=== PATIENT | male | born 1935 | race Caucasian/White ===

== ENCOUNTER 2019-06-14 17:54 | Inpatient (IN) | payer OTHER ==
[~2019-06-14] VITALS: Ht 175.3 cm; Wt 66.4 kg
--- NOTE | 2019-06-14 18:30 | PHYS DOC ---
Past Medical History Past Medical History: A-Fib, Anxiety, CAD, CHF, COPD, Depression, GERD, Glaucoma, High Cholesterol, Hypertension, [place], Renal Failure, Other Additional Past Medical Histor: pneumonitis,bandemia,resp failure,dysphagia,hallucinations,cdiff,flu,malnut (JASON SERNA APRN) Past Surgical History: Appendectomy, Pacemaker, Tonsillectomy, Other Additional Past Surgical Histo: PEG placement, colonoscopy (JASON SERNA APRN) Alcohol Use: Occasionally Drug Use: None (JASON SERNA APRN) Adult General Chief Complaint Chief Complaint: MECHANICAL FALL HPI HPI Patient is a 83 year old [male who presents with multiple falls over the last several weeks. Patient reportedly has had several falls, increasing over the last 3 weeks. Reports today he has had 2 falls. Reports that he is losing his balance. Denies any recent fever, denies any medication changes. Discomfort from assisted living facility. Patient complains some pain to his right wrist, per his fall today. Denies loss of consciousness, denies any dizziness. Denies any chest pain. Denies any shortness of breath. (JASON SERNA APRN) Review of Systems Review of Systems Constitutional: Denies fever or chills reports progressive generalized weakness for the last several weeks [] Eyes: Denies change in visual acuity, redness, or eye pain [] HENT: Denies nasal congestion or sore throat [] Respiratory: Denies cough or shortness of breath [] Cardiovascular: No additional information not addressed in HPI [] GI: Denies abdominal pain, nausea, vomiting, bloody stools or diarrhea [] : Denies dysuria or hematuria [] Musculoskeletal: Denies back pain or does complain of some pain into his right wrist[] Integument: Denies rash or skin lesions other than abrasion to had following his fall[] Neurologic: Denies headache, focal weakness or sensory changes [] Endocrine: Denies polyuria or polydipsia [] All other systems were reviewed and found to be within normal limits, except as documented in this note. (JASON SERNA APRN) Current Medications Current Medications Current Medications Medications (Trade) Dose Ordered Sig/Emilia Start Time Stop Time Status Last Admin Dose Admin Acetaminophen (Tylenol) 500 mg PRN Q6HRS PRN 06/14/19 19:45 Acetaminophen/ Codeine Phosphate (Tylenol #3) 1 tab PRN Q6HRS PRN 06/14/19 19:34 Acetaminophen/ Hydrocodone Bitart (Lortab 5/325) 1 tab PRN Q4HRS PRN 06/14/19 19:34 Calcium Carbonate/ Glycine (Tums) 500 mg PRN AFTMEALHC PRN 06/14/19 19:34 Fentanyl Citrate (Fentanyl 2ml Vial) 25 mcg PRN Q2HR PRN 06/14/19 19:30 Ondansetron HCl (Zofran) 4 mg PRN Q6HRS PRN 06/14/19 19:30 Temazepam (Restoril) 7.5 mg PRN QHS PRN 06/14/19 19:30 (SRIDHAR HERNANDEZ APRN) Allergies Allergies Allergies Coded Allergies Type Severity Reaction Last Updated Verified No Known Drug Allergies 06/14/19 No (SRIDHAR HERNANDEZ APRN) Physical Exam Physical Exam Constitutional: Well developed, chronically frail, no acute distress, non-toxic appearance. [] HENT: Normocephalic, atraumatic, bilateral external ears normal, oropharynx moist, no oral exudates, nose normal. [] Eyes: PERRLA, EOMI, conjunctiva normal, no discharge. [] Neck: Normal range of motion, no tenderness, supple, no stridor. [] Cardiovascular:Heart rate regular rhythm, no murmur [] Lungs & Thorax: Bilateral breath sounds clear to auscultation [] Abdomen: Bowel sounds normal, soft, no tenderness, no masses, no pulsatile masses. PEG tube noted in place [] Skin: Warm, dry, no erythema, no rash. Abrasion noted to right anterior confucianism, no active bleeding. Hematoma noted to right anterior wrist. [] Back: No tenderness, no CVA tenderness. [] Extremities: No tenderness, no cyanosis, no clubbing, ROM intact, no edema. Noticed swelling to the radial side, posterior wrist, with tenderness. Decreased range of motion, painful. Full range of motion to lower extremities, able to flex, extend, no discomfort noted[] Neurologic: Alert and oriented X 3, normal motor function, normal sensory function, no focal deficits noted. [] Psychologic: Affect normal, judgement normal, mood normal. [] (KAREEM, E OPERATION MANAGER) Current Patient Data Vital Signs Vital Signs Date Time Temp Pulse Resp B/P (MAP) Pulse Ox O2 Delivery O2 Flow Rate FiO2 06/14/19 18:01 99.3 95 24 122/65 (84) 91 Room Air 99.3 (SRIDHAR HERNANDEZ APRN) Lab Values Laboratory Tests Test 06/14/19 18:15 White Blood Count 18.1 x10^3/uL (4.0-11.0) H Red Blood Count 3.09 x10^6/uL (4.30-5.70) L Hemoglobin 9.4 g/dL (13.0-17.5) L Hematocrit 28.2 % (39.0-53.0) L Mean Corpuscular Volume 91 fL (79-100) Mean Corpuscular Hemoglobin 31 pg (25-35) Mean Corpuscular Hemoglobin Concent 34 g/dL (31-37) Red Cell Distribution Width 16.9 % (11.5-14.5) H Platelet Count 380 x10^3/uL (140-400) Neutrophils (%) (Auto) 87 % (31-73) H Lymphocytes (%) (Auto) 7 % (24-48) L Monocytes (%) (Auto) 5 % (0-9) Eosinophils (%) (Auto) 1 % (0-3) Basophils (%) (Auto) 0 % (0-3) Neutrophils # (Auto) 15.8 x10^3/uL (1.8-7.7) H Lymphocytes # (Auto) 1.2 x10^3/uL (1.0-4.8) Monocytes # (Auto) 1.0 x10^3/uL (0.0-1.1) Eosinophils # (Auto) 0.1 x10^3/uL (0.0-0.7) Basophils # (Auto) 0.0 x10^3/uL (0.0-0.2) Segmented Neutrophils % 85 % (35-66) H Band Neutrophils % 5 % (0-9) Lymphocytes % 3 % (24-48) L Monocytes % 5 % (0-10) Eosinophils % 2 % (0-5) Platelet Estimate Adequate (ADEQUATE) Sodium Level 139 mmol/L (136-145) Potassium Level 4.4 mmol/L (3.5-5.1) Chloride Level 102 mmol/L (98-107) Carbon Dioxide Level 31 mmol/L (21-32) Anion Gap 6 (6-14) Blood Urea Nitrogen 27 mg/dL (8-26) H Creatinine 1.0 mg/dL (0.7-1.3) Estimated GFR (Cockcroft-Gault) 71.0 BUN/Creatinine Ratio 27 (6-20) H Glucose Level 131 mg/dL (70-99) H Calcium Level 8.4 mg/dL (8.5-10.1) L Total Bilirubin 0.6 mg/dL (0.2-1.0) Aspartate Amino Transferase (AST) 431 U/L (15-37) H Alanine Aminotransferase (ALT) 382 U/L (16-63) H Alkaline Phosphatase 163 U/L (46-116) H Troponin I Quantitative 0.055 ng/mL (0.000-0.055) Total Protein 6.6 g/dL (6.4-8.2) Albumin 1.8 g/dL (3.4-5.0) L Albumin/Globulin Ratio 0.4 (1.0-1.7) L Laboratory Tests 06/14/19 18:15 Laboratory Tests 06/14/19 18:15 (SRIDHAR HERNANDEZ APRN) EKG EKG no STEMI noted. Right Bundle Branch block. - Dr Haq @1805[] (JASON SERNA APRN) Radiology/Procedures Radiology/Procedures [] (JASON SERNA APRN) Course & Med Decision Making Course & Med Decision Making Pertinent Labs and Imaging studies reviewed. (See chart for details) [] (JASON SERNA APRN) Course & Med Decision Making [address] Assumed care of the patient. CT of the head is negative. CBC with a WBC of 18.1 and a left shift, hemoglobin 9.4, hematocrit 28.2, CMP with AST of 431, ALT of 382 ALK 163. Urine analysis is noted for trace amount of leukocytes.Dr. Schaefer accepted patient for admission. As i was doing patient's admission orders I noted his temperature documented at 2004 was 99.7. I started the sepsis workup, chest x-ray, lactate, blood cultures, IV fluids, Zosyn were ordered. Patient went to the floor prior to orders being done (SRIDHAR HERNANDEZ APRN) Dragon Disclaimer Dragon Disclaimer This electronic medical record was generated, in whole or in part, using a voice recognition dictation system. (JASON SERNA APRN) Departure Departure Impression: Primary Impression: Frequent falls Additional Impressions: Leukocytosis UTI (urinary tract infection) Fever Disposition: ADMITTED INPATIENT Condition: STABLE Problem Qualifiers Additional Impressions: Leukocytosis Leukocytosis type: unspecified Qualified Codes: D72.829 - Elevated white blood cell count, unspecified UTI (urinary tract infection) Urinary tract infection type: acute cystitis Hematuria presence: without hematuria Qualified Codes: N30.00 - Acute cystitis without hematuria Fever Fever type: unspecified Qualified Codes: R50.9 - Fever, unspecified JASON SERNA APRN Jun 14, 2019 18:30 SRIDHAR HERNANDEZ APRN Jun 14, 2019 21:11
[2019-06-14 18:33] LABS: BASO % 0 % (0-3); EOS # 0.1 x10^3/uL (0.0-0.7); EOS % 1 % (0-3); HEMATOCRIT 28.2 % (39.0-53.0); HEMOGLOBIN 9.4 g/dL (13.0-17.5); LYMPH # 1.2 x10^3/uL (1.0-4.8); LYMPH % 7 % (24-48); MEAN CORPUSCULAR HEMOGLOBIN 31 pg (25-35); MEAN CORPUSCULAR HGB CONC 34 g/dL (31-37); MEAN CORPUSCULAR VOLUME 91 fL (79-100); MONO % 5 % (0-9); NEUT # 15.8 x10^3/uL (1.8-7.7); NEUT % 87 % (31-73); PLATELET COUNT 380 x10^3/uL (140-400); RED BLOOD COUNT 3.09 x10^6/uL (4.30-5.70); RED CELL DISTRIBUTION WIDTH 16.9 % (11.5-14.5); WHITE BLOOD COUNT 18.1 x10^3/uL (4.0-11.0)
--- NOTE | 2019-06-14 18:40 | RAD ---
Indication: Fall. Pain. TECHNIQUE: 3 views of the right wrist COMPARISON: None FINDINGS: No acute fracture or dislocation. Mild radiocarpal joint osteoarthritis. 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 Vascular calcifications. Correlate for symptoms of peripheral arterial disease. Electronically signed by: Graeme Cochran DO (06/14/2019 6:37 PM) [facility]
[2019-06-14 18:46] LABS: CALCIUM 8.4 mg/dL (8.5-10.1); POTASSIUM 4.4 mmol/L (3.5-5.1)
[2019-06-14 18:52] LABS: ALBUMIN 1.8 g/dL (3.4-5.0); ALBUMIN/GLOBULIN RATIO 0.4 (1.0-1.7); TOTAL BILIRUBIN 0.6 mg/dL (0.2-1.0); TOTAL PROTEIN 6.6 g/dL (6.4-8.2)
[2019-06-14] MEDS ORDERED: HYDROcodone/APAP 5/325MG 1 TAB TABLET PO PRN (19:30)
[2019-06-14] MEDS ORDERED: TEMAZEPAM 7.5 MG CAPSULE PO PRN (19:30)
[2019-06-14] MEDS ORDERED: ACETAMINOPHEN 500 MG TABLET PO PRN (19:30)
[2019-06-14] MEDS ORDERED: ONDANSETRON PF 4 MG/2 ML VIAL. IVP PRN (19:30)
[2019-06-14] MEDS ORDERED: fentaNYL PF VIAL 100 MCG/2 ML VIAL IV PRN (19:30)
[2019-06-14] MEDS ORDERED: CALCIUM CARBONATE 500 MG TAB.CHEW PO PRN (19:30)
[2019-06-14] MEDS ORDERED: ACETAMINOPHEN/CODEINE 300/30MG TABLET. PO PRN (19:30)
--- NOTE | 2019-06-14 19:31 | RAD ---
PQRS Compliance statement: One or more of the following individualized dose reduction techniques were utilized for this examination: 1. Automated exposure control. 2. Adjustment of the mA and/or kV according to patient size. 3. Use of iterative reconstruction technique. Indication:Fall. TECHNIQUE: CT head without IV contrast COMPARISON:None FINDINGS: No pathologic extra-axial or intra-axial fluid collection. Mild atrophy. The ventricles and basal cisterns are within normal limits. Mild periventricular and deep white matter low-attenuation noted. No acute intracranial bleed. No focal loss of lake-white differentiation. No large scalp hematoma. Orbits are within normal limits. No acute calvarial fracture. Visualized paranasal sinuses and mastoid air cells are clear. Atherosclerotic plaque in the bilateral cavernous segments of the ICA. IMPRESSION: 1. No acute intracranial bleed or calvarial fracture. 2. White matter changes likely secondary to chronic microvascular ischemic disease. If concern for acute ischemic stroke is high, please consider MRI brain. Electronically signed by: Graeme Cochran DO (06/14/2019 7:28 PM) [facility]
[2019-06-14] MEDS ORDERED: ACETAMINOPHEN/CODEINE 300/30MG TABLET. PEG PRN (19:34)
[2019-06-14] MEDS ORDERED: HYDROcodone/APAP 5/325MG 1 TAB TABLET PEG PRN (19:34)
[2019-06-14] MEDS ORDERED: CALCIUM CARBONATE 500 MG TAB.CHEW PEG PRN (19:34)
--- NOTE | 2019-06-14 19:39 | PDOC1 ---
History and Physical Date of Admission Date of Admission DATE: 06/14/19 TIME: 19:31 Identification/Chief Complaint Chief Complaint multiple falls at AL x 2 weeks now Source Source: Caregiver, Chart review, Patient History of Present Illness History of Present Illness VERY PLEASANT 83 y.o male, who verifies with me full code, has indwelling pacer on ASA 81 at home, and has indwelling peg placed by [facility] 7 mos ago for dysphagia (maybe hx stroke before he tells me) but he actually has relatively good ADLS and lives in [facility]. HAs been falling freq, hurt his rt wrist today (no head trauma) writs xray no fx , just OA. Able to get up after the fall, my PE, able to lift all 4 extremities, no hip pain, equal shoulder shrug., Admitted to see if he might need more than AL bec of freq falls. CT head pending CBC WBC 18, denies steroids (im still waiting on [facility] meds), AST and ALT and alk phops also high, news to him, nonn drinker. I will trend LFTs or maybe get sono. Admit to med surg floor HE asks for family in waiting room HE is able to tell me bolus feeding but unknown brand of tube feeds HE denies any sacral wounds HE does not use any assistive device yet at AL Past Medical History Cardiovascular: Other (indwelling pacer) CENTRAL NERVOUS SYSTEM: Other (dysphagia on peg) Past Surgical History Past Surgical History: Other (pacer) Family History Family History: High Cholestrol, Hypertension Social History Smoke: No ALCOHOL: none Drugs: None Current Medications Current Medications Current Medications Acetaminophen (Tylenol) 500 mg PRN Q6HRS PRN PO MILD PAIN / TEMP; Start 06/14/19 at 19:30 Acetaminophen/ Codeine Phosphate (Tylenol #3) 1 tab PRN Q6HRS PRN PO MODERATE PAIN; Start 06/14/19 at 19:30 Calcium Carbonate/ Glycine (Tums) 500 mg PRN AFTMEALHC PRN PO INDIGESTION; Start 06/14/19 at 19:30 Ondansetron HCl (Zofran) 4 mg PRN Q6HRS PRN IVP NAUSEA/VOMITING; Start 06/14/19 at 19:30 Temazepam (Restoril) 7.5 mg PRN QHS PRN PO INSOMNIA; Start 06/14/19 at 19:30 Acetaminophen/ Hydrocodone Bitart (Lortab 5/325) 1 tab PRN Q4HRS PRN PO MODERATE PAIN; Start 06/14/19 at 19:30 Fentanyl Citrate (Fentanyl 2ml Vial) 25 mcg PRN Q2HR PRN IV PAIN; Start 06/14/19 at 19:30 Allergies Allergies: Coded Allergies: No Known Drug Allergies (Unverified , 06/14/19) ROS Review of System RT wrist hurts. all else is neg Physical Exam General: Alert, Oriented X3, Cooperative, No acute distress HEENT: Atraumatic, PERRLA Lungs: Clear to auscultation, Normal air movement Heart: S1S2, RRR, no thrills, no rubs Cardiovascular: S1, S2 Abdomen: Normal bowel sounds, Soft, No tenderness, No hepatosplenomegaly, No masses Male Genitals Exam: normal genitalia, normal prostate Rectal Exam: not examined PELVIC: Nml ext genitalia Extremities: No clubbing, No cyanosis, No edema, Normal pulses, No tenderness/swelling Skin: Other (senile skin turgor, some old skin brusing) Neuro: Normal gait, Normal speech, Strength at 5/5 X4 ext, Normal tone, Sensation intact, Cranial nerves 3-12 NL, Reflexes 2+ Psych/Mental Status: Mental status NL, Mood NL Vitals Vitals Vital Signs Date Time Temp Pulse Resp B/P (MAP) Pulse Ox O2 Delivery O2 Flow Rate FiO2 06/14/19 18:01 99.3 95 24 122/65 (84) 91 Room Air 99.3 Labs Labs Laboratory Tests Test 06/14/19 18:15 White Blood Count 18.1 x10^3/uL (4.0-11.0) Red Blood Count 3.09 x10^6/uL (4.30-5.70) Hemoglobin 9.4 g/dL (13.0-17.5) Hematocrit 28.2 % (39.0-53.0) Mean Corpuscular Volume 91 fL (79-100) Mean Corpuscular Hemoglobin 31 pg (25-35) Mean Corpuscular Hemoglobin Concent 34 g/dL (31-37) Red Cell Distribution Width 16.9 % (11.5-14.5) Platelet Count 380 x10^3/uL (140-400) Neutrophils (%) (Auto) 87 % (31-73) Lymphocytes (%) (Auto) 7 % (24-48) Monocytes (%) (Auto) 5 % (0-9) Eosinophils (%) (Auto) 1 % (0-3) Basophils (%) (Auto) 0 % (0-3) Neutrophils # (Auto) 15.8 x10^3/uL (1.8-7.7) Lymphocytes # (Auto) 1.2 x10^3/uL (1.0-4.8) Monocytes # (Auto) 1.0 x10^3/uL (0.0-1.1) Eosinophils # (Auto) 0.1 x10^3/uL (0.0-0.7) Basophils # (Auto) 0.0 x10^3/uL (0.0-0.2) Sodium Level 139 mmol/L (136-145) Potassium Level 4.4 mmol/L (3.5-5.1) Chloride Level 102 mmol/L (98-107) Carbon Dioxide Level 31 mmol/L (21-32) Anion Gap 6 (6-14) Blood Urea Nitrogen 27 mg/dL (8-26) Creatinine 1.0 mg/dL (0.7-1.3) Estimated GFR (Cockcroft-Gault) 71.0 BUN/Creatinine Ratio 27 (6-20) Glucose Level 131 mg/dL (70-99) Calcium Level 8.4 mg/dL (8.5-10.1) Total Bilirubin 0.6 mg/dL (0.2-1.0) Aspartate Amino Transf (AST/SGOT) 431 U/L (15-37) Alanine Aminotransferase (ALT/SGPT) 382 U/L (16-63) Alkaline Phosphatase 163 U/L (46-116) Troponin I Quantitative 0.055 ng/mL (0.000-0.055) Total Protein 6.6 g/dL (6.4-8.2) Albumin 1.8 g/dL (3.4-5.0) Albumin/Globulin Ratio 0.4 (1.0-1.7) Laboratory Tests Test 06/14/19 18:15 White Blood Count 18.1 x10^3/uL (4.0-11.0) Red Blood Count 3.09 x10^6/uL (4.30-5.70) Hemoglobin 9.4 g/dL (13.0-17.5) Hematocrit 28.2 % (39.0-53.0) Mean Corpuscular Volume 91 fL (79-100) Mean Corpuscular Hemoglobin 31 pg (25-35) Mean Corpuscular Hemoglobin Concent 34 g/dL (31-37) Red Cell Distribution Width 16.9 % (11.5-14.5) Platelet Count 380 x10^3/uL (140-400) Neutrophils (%) (Auto) 87 % (31-73) Lymphocytes (%) (Auto) 7 % (24-48) Monocytes (%) (Auto) 5 % (0-9) Eosinophils (%) (Auto) 1 % (0-3) Basophils (%) (Auto) 0 % (0-3) Neutrophils # (Auto) 15.8 x10^3/uL (1.8-7.7) Lymphocytes # (Auto) 1.2 x10^3/uL (1.0-4.8) Monocytes # (Auto) 1.0 x10^3/uL (0.0-1.1) Eosinophils # (Auto) 0.1 x10^3/uL (0.0-0.7) Basophils # (Auto) 0.0 x10^3/uL (0.0-0.2) Sodium Level 139 mmol/L (136-145) Potassium Level 4.4 mmol/L (3.5-5.1) Chloride Level 102 mmol/L (98-107) Carbon Dioxide Level 31 mmol/L (21-32) Anion Gap 6 (6-14) Blood Urea Nitrogen 27 mg/dL (8-26) Creatinine 1.0 mg/dL (0.7-1.3) Estimated GFR (Cockcroft-Gault) 71.0 BUN/Creatinine Ratio 27 (6-20) Glucose Level 131 mg/dL (70-99) Calcium Level 8.4 mg/dL (8.5-10.1) Total Bilirubin 0.6 mg/dL (0.2-1.0) Aspartate Amino Transf (AST/SGOT) 431 U/L (15-37) Alanine Aminotransferase (ALT/SGPT) 382 U/L (16-63) Alkaline Phosphatase 163 U/L (46-116) Troponin I Quantitative 0.055 ng/mL (0.000-0.055) Total Protein 6.6 g/dL (6.4-8.2) Albumin 1.8 g/dL (3.4-5.0) Albumin/Globulin Ratio 0.4 (1.0-1.7) VTE Prophylaxis Ordered VTE Prophylaxis Devices: Yes VTE Pharmacological Prophylaxi: Yes Assessment/Plan Assessment/Plan Freq falls in AL, non injury falls - mechanical falls GEriatric Dysphagia, indwelling PEG x 7 mos now, STrict NPO, bolus TFs at AL FULL CODE RT wrist OA Indwelling pacer TRANSAMINITIS LEUKOCYTOSIS PLAN: MEd surg admit, 2 MN PT OT SW for snu or rehab Awaiting home meds, ok to resume everything via PEG Resume bolus TFs FULL CODE Ff up CT head - likely ok TRend LFts Trend leukocytosis, see if on steroids at home Check UA or maybe CXR? though he lacks chest sxs MAybe liver sono, limited re transaminitis Seen at ER AUGUSTIN LANIER MD Jun 14, 2019 19:39
[2019-06-14] MEDS ORDERED: ACETAMINOPHEN 650 MG/20.3 ML SOLUTION. PEG PRN (19:45)
[2019-06-14 20:20] LABS: BILIRUBIN,URINE NEGATIVE (NEG); CLARITY,URINE CLEAR; COLOR,URINE YELLOW; NITRITE,URINE NEGATIVE (NEG); PROTEIN,URINE 30 mg/dL (NEG-TRACE)
[2019-06-14 20:29] LABS: % BANDS 5 % (0-9); % EOS 2 % (0-5); % LYMPHS 3 % (24-48); % MONOS 5 % (0-10); % SEGS 85 % (35-66); PLT ESTIMATE ADEQUATE (ADEQUATE)
[2019-06-14 20:32] LABS: BACTERIA,URINE 0 /HPF (0-FEW); RBC,URINE 0 /HPF (0-2); SQUAMOUS EPITHELIAL CELL,UR OCC /LPF; WBC,URINE OCC /HPF (0-4)
[2019-06-14 20:33] LABS: AMORPHOUS SEDIMENT,UR PRESENT /HPF
[2019-06-14] MEDS ORDERED: ACETAMINOPHEN 325 MG TABLET. PO PRN (21:15)
[2019-06-14] MEDS ORDERED: ONDANSETRON PF 4 MG/2 ML VIAL. IV PRN (21:15)
[2019-06-14] MEDS ORDERED: MORPHINE SULFATE 2 MG/ML VIAL. IV PRN (21:15)
[2019-06-14] MEDS ORDERED: ACETAMINOPHEN 500 MG TABLET PO ONE (21:30)
--- NOTE | 2019-06-14 21:30 | NUR ---
Pt. arrived on unit from ED. He is A&Ox3, on 3L NC (ED stated he was originally room air during report) and bedrest. He does not complain of pain. Admission assessment done at this time. Pt. has pressure ulcer on his coccyx that was pictured and dressed. Call light within reach, bed in lowest position. Will continue to monitor pt.
--- NOTE | 2019-06-14 21:30 | RAD ---
Right upper quadrant ultrasound dated 06/14/2019. No comparison available. Clinical data indication: Elevated liver function test. FINDINGS: Liver is mild increased echogenicity. No focal hepatic mass. Intrahepatic and extra hepatic biliary tree normal in caliber. The common bile duct measures 3 mm. Gallbladder normal in size and echogenicity. No gallbladder wall thickening or pericholecystic fluid. No gallstones are seen. Right kidney measures 10.6 cm in length without hydronephrosis. Left kidney was not imaged. Pancreas aorta and IVC are not well evaluated due to overlying bowel gas. No sigmoid ascites. IMPRESSION: 1. Limited exam. No apparent acute abnormality. 2. Increased echogenicity of the liver could represent mild fatty infiltration. Electronically signed by: Siddharth Escobar MD (06/14/2019 9:27 PM) [facility]
--- NOTE | 2019-06-14 21:32 | RAD ---
Single view chest dated 06/14/2019. No comparison available. CLINICAL INDICATION: Fever. FINDINGS: Single upright portable exam performed. Heart size mildly enlarged. There is a dual lead left subclavian pacer in place. Coarsened interstitial markings throughout both lungs. There is a moderate size loculated pleural fluid collection along the left lateral chest wall versus pleural mass. Lungs are otherwise clear. No pneumothorax. IMPRESSION: 1. Focal pleural-based density at the left base could represent loculated pleural effusion, possibly empyema. Mass is not excluded. Suggest CT scan with contrast for better evaluation. 2. Mild diffuse interstitial changes, probably chronic. Electronically signed by: Siddharth Escobar MD (06/14/2019 9:29 PM) [facility]
[2019-06-14 21:45] VITALS: BP 103/55
[2019-06-14] MEDS ORDERED: PIPERACILLIN/TAZOBACTAM 4.5 GM in IV NORMAL SALINE 100ML 100 ML IV ONE (22:00)
[2019-06-14] MEDS: IV NORMAL SALINE 1000ML BAG 1,000 ML IV SCH (22:30)
[2019-06-15] MEDS: IV NORMAL SALINE 1000ML BAG 1,000 ML IV SCH (00:04)
[2019-06-15 03:00] VITALS: BP 101/53
[2019-06-15 05:30] LABS: BASO # 0.1 x10^3/uL (0.0-0.2); BASO % 0 % (0-3); EOS # 0.2 x10^3/uL (0.0-0.7); EOS % 1 % (0-3); HEMATOCRIT 24.5 % (39.0-53.0); HEMOGLOBIN 8.1 g/dL (13.0-17.5); LYMPH # 1.2 x10^3/uL (1.0-4.8); LYMPH % 7 % (24-48); MEAN CORPUSCULAR HEMOGLOBIN 30 pg (25-35); MEAN CORPUSCULAR HGB CONC 33 g/dL (31-37); MEAN CORPUSCULAR VOLUME 91 fL (79-100); MONO # 1.2 x10^3/uL (0.0-1.1); MONO % 7 % (0-9); NEUT # 14.6 x10^3/uL (1.8-7.7); NEUT % 85 % (31-73); PLATELET COUNT 319 x10^3/uL (140-400); RED BLOOD COUNT 2.68 x10^6/uL (4.30-5.70); RED CELL DISTRIBUTION WIDTH 16.5 % (11.5-14.5); WHITE BLOOD COUNT 17.2 x10^3/uL (4.0-11.0)
[2019-06-15 05:44] LABS: ALBUMIN 1.5 g/dL (3.4-5.0); ALBUMIN/GLOBULIN RATIO 0.3 (1.0-1.7); CALCIUM 8.2 mg/dL (8.5-10.1); CREATININE 0.9 mg/dL (0.7-1.3); GFR 80.2; TOTAL BILIRUBIN 0.8 mg/dL (0.2-1.0); TOTAL PROTEIN 5.9 g/dL (6.4-8.2)
[2019-06-15 07:00] VITALS: BP 106/46
--- NOTE | 2019-06-15 08:57 | PDOC ---
Provider Note Provider Note [id number] acute resp fail pneumonia, ? empyema abnl cxr see orders LUIZ BARAHONA MD Jun 15, 2019 08:57
[2019-06-15] MEDS ORDERED: IPRATRPIUM/ALBUTEROL 0.5/2.5MG 3 ML NEBU. NEB ONE (09:00)
[2019-06-15] MEDS ORDERED: BUDESONIDE 0.5 MG/2 ML NEBU. NEB ONE (09:00)
[2019-06-15] MEDS ORDERED: IOHEXOL 350 MG/ML 100 ML VIAL. IV ONE (09:00)
--- NOTE | 2019-06-15 09:11 | CONS ---
DATE OF CONSULTATION: 06/15/2019 REASON FOR CONSULTATION: I was asked to see this 83-year-old gentleman for acute respiratory failure, abnormal chest x-ray. HISTORY OF PRESENT ILLNESS: He does have history of [id number] smoking, stopped smoking about 15 years ago. He has not felt well for the past 7-10 days. He has had weakness, cough, not much sputum production. He denies chest pain. He has had multiple falls. His appetite has been poor. He denies fever or chills. PAST MEDICAL HISTORY: Atrial fibrillation, pacemaker, coronary artery disease, CHF, COPD, depression, gastroesophageal reflux disease, hypertension. PAST SURGICAL HISTORY: Status post appendectomy, pacemaker, tonsillectomy, PEG placement. ALLERGIES: No known drug allergies. MEDICATIONS: Currently, he is on morphine p.r.n. He received Zosyn in the Emergency Room. SOCIAL HISTORY: History of 19-gztt-utin smoking, stopped smoking about 15 years ago. FAMILY HISTORY: There is no history of lung disease. REVIEW OF SYSTEMS: As mentioned as above, other systems otherwise negative. PHYSICAL EXAMINATION: GENERAL: This is a chronically ill-appearing gentleman. VITAL SIGNS: His O2 saturation on 3 liters of oxygen is 92%, respiratory rate 20, heart rate 85, blood pressure 106/46, temperature 97.6. HEENT: Normocephalic, atraumatic. Pupils equal, round, reactive to light. Nose is clear. Throat is clear. NECK: There is no lymphadenopathy or thyromegaly. CARDIOVASCULAR: Regular rate and rhythm. PMI is nondisplaced. CHEST: Inspection is normal. LUNGS: There is end-expiratory wheezing, dullness at the left base. ABDOMEN: Soft. Bowel sounds are good. There is no mass. EXTREMITIES: There is no edema. LYMPHATICS: There is no lymphadenopathy. SKIN: Appears pale. NEUROLOGIC: Alert and oriented. LABORATORY DATA: I reviewed the following laboratory data: WBC 18.1, hemoglobin 9.4, platelets 380. Sodium 139, potassium 4.4, chloride 102, CO2 of 31, glucose 131, BUN 27, creatinine 1, lactic acid 0.8 and 0.7, AST 431, ALT 382, alkaline phosphatase 163, albumin 1.8, troponin 0.055. Chest x-ray does show a focal pleural based density in the left, could represent a loculated pleural effusion, mass cannot be excluded; mild diffuse interstitial changes, probably chronic. CT of head did not show acute bleed. It does show white matter changes. IMPRESSION: 1. Acute respiratory failure secondary to pneumonia, cannot rule out empyema, acute exacerbation of chronic obstructive pulmonary disease versus others. 2. Abnormal chest x-ray. 3. Chronic obstructive pulmonary disease with acute exacerbation. 4. Leukocytosis. 5. Coronary artery disease. 6. Dysphagia, status post PEG placement. 7. Malnutrition. PLAN AND RECOMMENDATIONS: 1. Titrate the FiO2 to keep O2 saturation at 92%. 2. Start bronchodilator. 3. Start inhaled corticosteroid, may need systemic steroid. 4. I will change his CT of the chest to CT angiogram of the chest. 5. Agree with ID consultation. 6. Continue antibiotic per ID. 7. Elevate head of bed, aspiration precaution. 8. The findings and recommendations were discussed with the patient and Dr. Schaefer, attending physician. Thank you very much for allowing me to participate in care of this very nice gentleman. LUIZ BARAHONA M.D. : [place] JOB#: [id number] / [id number]
[2019-06-15] MEDS ORDERED: CONTRAST GIVEN. MC PRN (09:15)
[2019-06-15] MEDS ORDERED: PIP/TAZO PER PHARMACY MC PRN (10:00)
--- NOTE | 2019-06-15 10:02 | PDOC ---
PROGRESS NOTES Chief Complaint Chief Complaint Right-sided pleural effusion, possible loculated effusion, possible empyema Freq falls in [place], non injury falls - mechanical falls GEriatric Dysphagia, indwelling PEG x 7 mos now, STrict NPO, bolus TFs at AL FULL CODE RT wrist OA Indwelling pacer TRANSAMINITIS LEUKOCYTOSIS History of Present Illness History of Present Illness No overnight calls, no increase in SOA, patient denies coughing or fevers Chest x-ray shows right-sided sided located effusion may be even possible empyema and recs a CT scan His right wrist has no fractures, just OA CT head is expected changes for age He came from assisted living admitted because of frequent falls He did have leukocytosis 18 Pro calcitonin jumped to 9 from [address] chest with IV contrast Consult ID Consult pulmonary Discussed with pulmonary Continue diet, other supportive meds Full code-I did verify with him I ddid not start abx yet - will defer to ID - he did get a dose of abx at ER Vitals Vitals Vital Signs Date Time Temp Pulse Resp B/P (MAP) Pulse Ox O2 Delivery O2 Flow Rate FiO2 06/15/19 07:00 97.6 78 20 106/46 (66) 85 Nasal Cannula 3.0 97.6 Physical Exam General: Alert, Oriented X3, Cooperative, No acute distress Heart: Regular rate, Normal S1, Normal S2 Lungs: Other (equal air entry, minimal BS< no wheezing) Abdomen: Normal bowel sounds, Soft, No tenderness, No hepatosplenomegaly, No masses Extremities: No clubbing, No cyanosis, No edema, Normal pulses, No tenderness/swelling Skin: Other (senile skin turgor, some old skin brusing) Labs LABS Laboratory Tests Test 06/14/19 18:15 06/14/19 20:10 06/14/19 22:00 06/15/19 01:15 White Blood Count 18.1 x10^3/uL (4.0-11.0) Red Blood Count 3.09 x10^6/uL (4.30-5.70) Hemoglobin 9.4 g/dL (13.0-17.5) Hematocrit 28.2 % (39.0-53.0) Mean Corpuscular Volume 91 fL (79-100) Mean Corpuscular Hemoglobin 31 pg (25-35) Mean Corpuscular Hemoglobin Concent 34 g/dL (31-37) Red Cell Distribution Width 16.9 % (11.5-14.5) Platelet Count 380 x10^3/uL (140-400) Neutrophils (%) (Auto) 87 % (31-73) Lymphocytes (%) (Auto) 7 % (24-48) Monocytes (%) (Auto) 5 % (0-9) Eosinophils (%) (Auto) 1 % (0-3) Basophils (%) (Auto) 0 % (0-3) Neutrophils # (Auto) 15.8 x10^3/uL (1.8-7.7) Lymphocytes # (Auto) 1.2 x10^3/uL (1.0-4.8) Monocytes # (Auto) 1.0 x10^3/uL (0.0-1.1) Eosinophils # (Auto) 0.1 x10^3/uL (0.0-0.7) Basophils # (Auto) 0.0 x10^3/uL (0.0-0.2) Segmented Neutrophils % 85 % (35-66) Band Neutrophils % 5 % (0-9) Lymphocytes % 3 % (24-48) Monocytes % 5 % (0-10) Eosinophils % 2 % (0-5) Platelet Estimate Adequate (ADEQUATE) Sodium Level 139 mmol/L (136-145) Potassium Level 4.4 mmol/L (3.5-5.1) Chloride Level 102 mmol/L (98-107) Carbon Dioxide Level 31 mmol/L (21-32) Anion Gap 6 (6-14) Blood Urea Nitrogen 27 mg/dL (8-26) Creatinine 1.0 mg/dL (0.7-1.3) Estimated GFR (Cockcroft-Gault) 71.0 BUN/Creatinine Ratio 27 (6-20) Glucose Level 131 mg/dL (70-99) Calcium Level 8.4 mg/dL (8.5-10.1) Total Bilirubin 0.6 mg/dL (0.2-1.0) Aspartate Amino Transf (AST/SGOT) 431 U/L (15-37) Alanine Aminotransferase (ALT/SGPT) 382 U/L (16-63) Alkaline Phosphatase 163 U/L (46-116) Troponin I Quantitative 0.055 ng/mL (0.000-0.055) Total Protein 6.6 g/dL (6.4-8.2) Albumin 1.8 g/dL (3.4-5.0) Albumin/Globulin Ratio 0.4 (1.0-1.7) Urine Color Yellow Urine Clarity Clear Urine pH 6.0 Urine Specific [place] 1.020 Urine Protein 30 mg/dL (NEG-TRACE) Urine Glucose (UA) Negative mg/dL (NEG) Urine Ketones (Stick) Negative mg/dL (NEG) Urine Blood Negative (NEG) Urine Nitrite Negative (NEG) Urine Bilirubin Negative (NEG) Urine Urobilinogen Dipstick 1.0 mg/dL (0.2 mg/dL) Urine Leukocyte Esterase Trace (NEG) Urine RBC 0 /HPF (0-2) Urine WBC Occ /HPF (0-4) Urine Squamous Epithelial Cells Occ /LPF Urine Amorphous Sediment Present /HPF Urine Bacteria 0 /HPF (0-FEW) Urine Mucus Slight /LPF Lactic Acid Level 0.8 mmol/L (0.4-2.0) 0.7 mmol/L (0.4-2.0) Test 06/15/19 03:00 White Blood Count 17.2 x10^3/uL (4.0-11.0) Red Blood Count 2.68 x10^6/uL (4.30-5.70) Hemoglobin 8.1 g/dL (13.0-17.5) Hematocrit 24.5 % (39.0-53.0) Mean Corpuscular Volume 91 fL (79-100) Mean Corpuscular Hemoglobin 30 pg (25-35) Mean Corpuscular Hemoglobin Concent 33 g/dL (31-37) Red Cell Distribution Width 16.5 % (11.5-14.5) Platelet Count 319 x10^3/uL (140-400) Neutrophils (%) (Auto) 85 % (31-73) Lymphocytes (%) (Auto) 7 % (24-48) Monocytes (%) (Auto) 7 % (0-9) Eosinophils (%) (Auto) 1 % (0-3) Basophils (%) (Auto) 0 % (0-3) Neutrophils # (Auto) 14.6 x10^3/uL (1.8-7.7) Lymphocytes # (Auto) 1.2 x10^3/uL (1.0-4.8) Monocytes # (Auto) 1.2 x10^3/uL (0.0-1.1) Eosinophils # (Auto) 0.2 x10^3/uL (0.0-0.7) Basophils # (Auto) 0.1 x10^3/uL (0.0-0.2) Sodium Level 138 mmol/L (136-145) Potassium Level 4.0 mmol/L (3.5-5.1) Chloride Level 103 mmol/L (98-107) Carbon Dioxide Level 31 mmol/L (21-32) Anion Gap 4 (6-14) Blood Urea Nitrogen 27 mg/dL (8-26) Creatinine 0.9 mg/dL (0.7-1.3) Estimated GFR (Cockcroft-Gault) 80.2 BUN/Creatinine Ratio 30 (6-20) Glucose Level 108 mg/dL (70-99) Calcium Level 8.2 mg/dL (8.5-10.1) Total Bilirubin 0.8 mg/dL (0.2-1.0) Aspartate Amino Transf (AST/SGOT) 371 U/L (15-37) Alanine Aminotransferase (ALT/SGPT) 373 U/L (16-63) Alkaline Phosphatase 123 U/L (46-116) Total Protein 5.9 g/dL (6.4-8.2) Albumin 1.5 g/dL (3.4-5.0) Albumin/Globulin Ratio 0.3 (1.0-1.7) Review of Systems Review of Systems A 14 point ROS was completed with the following noted as positive: Other systems reviewed and negative. \CONSTITUTIONAL: No fever or chills EYES: No recent changes SKIN: No rash or itching CARDIOVASCULAR: No chest pain, syncope, palpitations, or edema RESPIRATORY: No SOB or cough GASTROINTESTINAL: No nausea, vomiting or abdominal pain NEUROLOGICAL: No headaches or weakness ENDOCRINE: No cold or heat intolerance GENITOURINARY: No urgency or frequency of urination MUSCULOSKELETAL: No back pain or joint pain LYMPHATICS: No enlarged lymph nodes PSYCHIATRIC: No anxiety or depression Assessment and Plan Assessmemt and Plan Problems Medical Problems: (1) Fever Status: Acute (2) UTI (urinary tract infection) Status: Acute Comment Review of Relevant I have reviewed the following items lorenzo (where applicable) has been applied. Labs Laboratory Tests Test 06/14/19 18:15 06/14/19 20:10 06/14/19 22:00 06/15/19 01:15 White Blood Count 18.1 x10^3/uL (4.0-11.0) Red Blood Count 3.09 x10^6/uL (4.30-5.70) Hemoglobin 9.4 g/dL (13.0-17.5) Hematocrit 28.2 % (39.0-53.0) Mean Corpuscular Volume 91 fL (79-100) Mean Corpuscular Hemoglobin 31 pg (25-35) Mean Corpuscular Hemoglobin Concent 34 g/dL (31-37) Red Cell Distribution Width 16.9 % (11.5-14.5) Platelet Count 380 x10^3/uL (140-400) Neutrophils (%) (Auto) 87 % (31-73) Lymphocytes (%) (Auto) 7 % (24-48) Monocytes (%) (Auto) 5 % (0-9) Eosinophils (%) (Auto) 1 % (0-3) Basophils (%) (Auto) 0 % (0-3) Neutrophils # (Auto) 15.8 x10^3/uL (1.8-7.7) Lymphocytes # (Auto) 1.2 x10^3/uL (1.0-4.8) Monocytes # (Auto) 1.0 x10^3/uL (0.0-1.1) Eosinophils # (Auto) 0.1 x10^3/uL (0.0-0.7) Basophils # (Auto) 0.0 x10^3/uL (0.0-0.2) Segmented Neutrophils % 85 % (35-66) Band Neutrophils % 5 % (0-9) Lymphocytes % 3 % (24-48) Monocytes % 5 % (0-10) Eosinophils % 2 % (0-5) Platelet Estimate Adequate (ADEQUATE) Sodium Level 139 mmol/L (136-145) Potassium Level 4.4 mmol/L (3.5-5.1) Chloride Level 102 mmol/L (98-107) Carbon Dioxide Level 31 mmol/L (21-32) Anion Gap 6 (6-14) Blood Urea Nitrogen 27 mg/dL (8-26) Creatinine 1.0 mg/dL (0.7-1.3) Estimated GFR (Cockcroft-Gault) 71.0 BUN/Creatinine Ratio 27 (6-20) Glucose Level 131 mg/dL (70-99) Calcium Level 8.4 mg/dL (8.5-10.1) Total Bilirubin 0.6 mg/dL (0.2-1.0) Aspartate Amino Transf (AST/SGOT) 431 U/L (15-37) Alanine Aminotransferase (ALT/SGPT) 382 U/L (16-63) Alkaline Phosphatase 163 U/L (46-116) Troponin I Quantitative 0.055 ng/mL (0.000-0.055) Total Protein 6.6 g/dL (6.4-8.2) Albumin 1.8 g/dL (3.4-5.0) Albumin/Globulin Ratio 0.4 (1.0-1.7) Urine Color Yellow Urine Clarity Clear Urine pH 6.0 Urine Specific [place] 1.020 Urine Protein 30 mg/dL (NEG-TRACE) Urine Glucose (UA) Negative mg/dL (NEG) Urine Ketones (Stick) Negative mg/dL (NEG) Urine Blood Negative (NEG) Urine Nitrite Negative (NEG) Urine Bilirubin Negative (NEG) Urine Urobilinogen Dipstick 1.0 mg/dL (0.2 mg/dL) Urine Leukocyte Esterase Trace (NEG) Urine RBC 0 /HPF (0-2) Urine WBC Occ /HPF (0-4) Urine Squamous Epithelial Cells Occ /LPF Urine Amorphous Sediment Present /HPF Urine Bacteria 0 /HPF (0-FEW) Urine Mucus Slight /LPF Lactic Acid Level 0.8 mmol/L (0.4-2.0) 0.7 mmol/L (0.4-2.0) Test 06/15/19 03:00 White Blood Count 17.2 x10^3/uL (4.0-11.0) Red Blood Count 2.68 x10^6/uL (4.30-5.70) Hemoglobin 8.1 g/dL (13.0-17.5) Hematocrit 24.5 % (39.0-53.0) Mean Corpuscular Volume 91 fL (79-100) Mean Corpuscular Hemoglobin 30 pg (25-35) Mean Corpuscular Hemoglobin Concent 33 g/dL (31-37) Red Cell Distribution Width 16.5 % (11.5-14.5) Platelet Count 319 x10^3/uL (140-400) Neutrophils (%) (Auto) 85 % (31-73) Lymphocytes (%) (Auto) 7 % (24-48) Monocytes (%) (Auto) 7 % (0-9) Eosinophils (%) (Auto) 1 % (0-3) Basophils (%) (Auto) 0 % (0-3) Neutrophils # (Auto) 14.6 x10^3/uL (1.8-7.7) Lymphocytes # (Auto) 1.2 x10^3/uL (1.0-4.8) Monocytes # (Auto) 1.2 x10^3/uL (0.0-1.1) Eosinophils # (Auto) 0.2 x10^3/uL (0.0-0.7) Basophils # (Auto) 0.1 x10^3/uL (0.0-0.2) Sodium Level 138 mmol/L (136-145) Potassium Level 4.0 mmol/L (3.5-5.1) Chloride Level 103 mmol/L (98-107) Carbon Dioxide Level 31 mmol/L (21-32) Anion Gap 4 (6-14) Blood Urea Nitrogen 27 mg/dL (8-26) Creatinine 0.9 mg/dL (0.7-1.3) Estimated GFR (Cockcroft-Gault) 80.2 BUN/Creatinine Ratio 30 (6-20) Glucose Level 108 mg/dL (70-99) Calcium Level 8.2 mg/dL (8.5-10.1) Total Bilirubin 0.8 mg/dL (0.2-1.0) Aspartate Amino Transf (AST/SGOT) 371 U/L (15-37) Alanine Aminotransferase (ALT/SGPT) 373 U/L (16-63) Alkaline Phosphatase 123 U/L (46-116) Total Protein 5.9 g/dL (6.4-8.2) Albumin 1.5 g/dL (3.4-5.0) Albumin/Globulin Ratio 0.3 (1.0-1.7) Laboratory Tests Test 06/14/19 18:15 06/14/19 20:10 06/14/19 22:00 06/15/19 01:15 White Blood Count 18.1 x10^3/uL (4.0-11.0) Red Blood Count 3.09 x10^6/uL (4.30-5.70) Hemoglobin 9.4 g/dL (13.0-17.5) Hematocrit 28.2 % (39.0-53.0) Mean Corpuscular Volume 91 fL (79-100) Mean Corpuscular Hemoglobin 31 pg (25-35) Mean Corpuscular Hemoglobin Concent 34 g/dL (31-37) Red Cell Distribution Width 16.9 % (11.5-14.5) Platelet Count 380 x10^3/uL (140-400) Neutrophils (%) (Auto) 87 % (31-73) Lymphocytes (%) (Auto) 7 % (24-48) Monocytes (%) (Auto) 5 % (0-9) Eosinophils (%) (Auto) 1 % (0-3) Basophils (%) (Auto) 0 % (0-3) Neutrophils # (Auto) 15.8 x10^3/uL (1.8-7.7) Lymphocytes # (Auto) 1.2 x10^3/uL (1.0-4.8) Monocytes # (Auto) 1.0 x10^3/uL (0.0-1.1) Eosinophils # (Auto) 0.1 x10^3/uL (0.0-0.7) Basophils # (Auto) 0.0 x10^3/uL (0.0-0.2) Segmented Neutrophils % 85 % (35-66) Band Neutrophils % 5 % (0-9) Lymphocytes % 3 % (24-48) Monocytes % 5 % (0-10) Eosinophils % 2 % (0-5) Platelet Estimate Adequate (ADEQUATE) Sodium Level 139 mmol/L (136-145) Potassium Level 4.4 mmol/L (3.5-5.1) Chloride Level 102 mmol/L (98-107) Carbon Dioxide Level 31 mmol/L (21-32) Anion Gap 6 (6-14) Blood Urea Nitrogen 27 mg/dL (8-26) Creatinine 1.0 mg/dL (0.7-1.3) Estimated GFR (Cockcroft-Gault) 71.0 BUN/Creatinine Ratio 27 (6-20) Glucose Level 131 mg/dL (70-99) Calcium Level 8.4 mg/dL (8.5-10.1) Total Bilirubin 0.6 mg/dL (0.2-1.0) Aspartate Amino Transf (AST/SGOT) 431 U/L (15-37) Alanine Aminotransferase (ALT/SGPT) 382 U/L (16-63) Alkaline Phosphatase 163 U/L (46-116) Troponin I Quantitative 0.055 ng/mL (0.000-0.055) Total Protein 6.6 g/dL (6.4-8.2) Albumin 1.8 g/dL (3.4-5.0) Albumin/Globulin Ratio 0.4 (1.0-1.7) Urine Color Yellow Urine Clarity Clear Urine pH 6.0 Urine Specific [place] 1.020 Urine Protein 30 mg/dL (NEG-TRACE) Urine Glucose (UA) Negative mg/dL (NEG) Urine Ketones (Stick) Negative mg/dL (NEG) Urine Blood Negative (NEG) Urine Nitrite Negative (NEG) Urine Bilirubin Negative (NEG) Urine Urobilinogen Dipstick 1.0 mg/dL (0.2 mg/dL) Urine Leukocyte Esterase Trace (NEG) Urine RBC 0 /HPF (0-2) Urine WBC Occ /HPF (0-4) Urine Squamous Epithelial Cells Occ /LPF Urine Amorphous Sediment Present /HPF Urine Bacteria 0 /HPF (0-FEW) Urine Mucus Slight /LPF Lactic Acid Level 0.8 mmol/L (0.4-2.0) 0.7 mmol/L (0.4-2.0) Test 06/15/19 03:00 White Blood Count 17.2 x10^3/uL (4.0-11.0) Red Blood Count 2.68 x10^6/uL (4.30-5.70) Hemoglobin 8.1 g/dL (13.0-17.5) Hematocrit 24.5 % (39.0-53.0) Mean Corpuscular Volume 91 fL (79-100) Mean Corpuscular Hemoglobin 30 pg (25-35) Mean Corpuscular Hemoglobin Concent 33 g/dL (31-37) Red Cell Distribution Width 16.5 % (11.5-14.5) Platelet Count 319 x10^3/uL (140-400) Neutrophils (%) (Auto) 85 % (31-73) Lymphocytes (%) (Auto) 7 % (24-48) Monocytes (%) (Auto) 7 % (0-9) Eosinophils (%) (Auto) 1 % (0-3) Basophils (%) (Auto) 0 % (0-3) Neutrophils # (Auto) 14.6 x10^3/uL (1.8-7.7) Lymphocytes # (Auto) 1.2 x10^3/uL (1.0-4.8) Monocytes # (Auto) 1.2 x10^3/uL (0.0-1.1) Eosinophils # (Auto) 0.2 x10^3/uL (0.0-0.7) Basophils # (Auto) 0.1 x10^3/uL (0.0-0.2) Sodium Level 138 mmol/L (136-145) Potassium Level 4.0 mmol/L (3.5-5.1) Chloride Level 103 mmol/L (98-107) Carbon Dioxide Level 31 mmol/L (21-32) Anion Gap 4 (6-14) Blood Urea Nitrogen 27 mg/dL (8-26) Creatinine 0.9 mg/dL (0.7-1.3) Estimated GFR (Cockcroft-Gault) 80.2 BUN/Creatinine Ratio 30 (6-20) Glucose Level 108 mg/dL (70-99) Calcium Level 8.2 mg/dL (8.5-10.1) Total Bilirubin 0.8 mg/dL (0.2-1.0) Aspartate Amino Transf (AST/SGOT) 371 U/L (15-37) Alanine Aminotransferase (ALT/SGPT) 373 U/L (16-63) Alkaline Phosphatase 123 U/L (46-116) Total Protein 5.9 g/dL (6.4-8.2) Albumin 1.5 g/dL (3.4-5.0) Albumin/Globulin Ratio 0.3 (1.0-1.7) Medications Current Medications Acetaminophen (Tylenol) 500 mg PRN Q6HRS PRN PO MILD PAIN / TEMP; Start 06/14/19 at 19:30; Stop 06/14/19 at 19:34; Status DC Acetaminophen/ Codeine Phosphate (Tylenol #3) 1 tab PRN Q6HRS PRN PO MODERATE PAIN; Start 06/14/19 at 19:30; Stop 06/14/19 at 19:34; Status DC Calcium Carbonate/ Glycine (Tums) 500 mg PRN AFTMEALHC PRN PO INDIGESTION; Start 06/14/19 at 19:30; Stop 06/14/19 at 19:34; Status DC Ondansetron HCl (Zofran) 4 mg PRN Q6HRS PRN IVP NAUSEA/VOMITING; Start 06/14/19 at 19:30 Temazepam (Restoril) 7.5 mg PRN QHS PRN PO INSOMNIA; Start 06/14/19 at 19:30 Acetaminophen/ Hydrocodone Bitart (Lortab 5/325) 1 tab PRN Q4HRS PRN PO MODERATE PAIN; Start 06/14/19 at 19:30; Stop 06/14/19 at 19:34; Status DC Fentanyl Citrate (Fentanyl 2ml Vial) 25 mcg PRN Q2HR PRN IV PAIN; Start 06/14/19 at 19:30 Acetaminophen (Tylenol) 500 mg PRN Q6HRS PRN PEG MILD PAIN / TEMP; Start 06/14/19 at 19:45 Acetaminophen/ Codeine Phosphate (Tylenol #3) 1 tab PRN Q6HRS PRN PEG MODERATE PAIN; Start 06/14/19 at 19:34 Calcium Carbonate/ Glycine (Tums) 500 mg PRN AFTMEALHC PRN PEG INDIGESTION; Start 06/14/19 at 19:34 Acetaminophen/ Hydrocodone Bitart (Lortab 5/325) 1 tab PRN Q4HRS PRN PEG MODERATE PAIN; Start 06/14/19 at 19:34 Piperacillin Sod/ Tazobactam Sod 4.5 gm/Sodium Chloride 100 ml @ 200 mls/hr 1X ONCE IV Last administered on 06/15/19at 00:05; Start 06/14/19 at 22:00; Stop 06/14/19 at 22:29; Status DC Sodium Chloride 1,000 ml @ 1,000 mls/hr Q1H IV Last administered on 06/15/19at 00:04; Start 06/14/19 at 21:30; Stop 06/14/19 at 23:13; Status DC Ondansetron HCl (Zofran) 4 mg PRN Q8HRS PRN IV NAUSEA/VOMITING 1ST CHOICE; Start 06/14/19 at 21:15; Stop 06/15/19 at 21:14 Morphine Sulfate (Morphine Sulfate) 2 mg PRN Q2HR PRN IV SEVERE PAIN 7-10; Start 06/14/19 at 21:15; Stop 06/15/19 at 21:14 Acetaminophen (Tylenol) 650 mg PRN Q4HRS PRN PO FEVER; Start 06/14/19 at 21:15; Stop 06/15/19 at 21:14 Acetaminophen (Tylenol) 1,000 mg 1X ONCE PO Last administered on 06/15/19at 00:03; Start 06/14/19 at 21:30; Stop 06/14/19 at 21:31; Status DC Albuterol/ Ipratropium (Duoneb) 3 ml RTQID NEB ; Start 06/15/19 at 12:00 Albuterol/ Ipratropium (Duoneb) 3 ml 1X ONCE NEB ; Start 06/15/19 at 09:00; Stop 06/15/19 at 09:01; Status DC Budesonide (Pulmicort) 0.5 mg RTBID NEB ; Start 06/15/19 at 20:00 Budesonide (Pulmicort) 0.5 mg 1X ONCE NEB ; Start 06/15/19 at 09:00; Stop 06/15/19 at 09:01; Status DC Iohexol (Omnipaque 350 Mg/ml) 90 ml 1X ONCE IV ; Start 06/15/19 at 09:00; Stop 06/15/19 at 09:01; Status DC Info (CONTRAST GIVEN -- Rx MONITORING) 1 each PRN DAILY PRN MC SEE COMMENTS; Start 06/15/19 at 09:15; Stop 06/17/19 at 09:14 Vitals/I & O Vital Sign - Last 24 Hours 06/14/19 06/14/19 06/14/19 06/14/19 18:01 18:29 18:59 19:29 Temp 99.3 99.3 Pulse 95 92 92 88 Resp 24 B/P (MAP) 122/65 (84) Pulse Ox 91 88 89 94 O2 Delivery Room Air 06/14/19 06/14/19 06/14/19 06/14/19 19:59 20:05 20:29 20:59 Temp 99.7 99.7 Pulse 90 90 90 Pulse Ox 93 92 90 06/14/19 06/14/19 06/15/19 06/15/19 21:20 21:45 03:00 07:00 Temp 99.4 97.6 97.6 99.4 97.6 97.6 Pulse 89 85 78 Resp 32 20 20 B/P (MAP) 103/55 (71) 101/53 (69) 106/46 (66) Pulse Ox 93 92 85 O2 Delivery Nasal Cannula Nasal Cannula Nasal Cannula Nasal Cannula O2 Flow Rate 3.0 3.0 3.0 3.0 Intake and Output 06/14/19 06/14/19 06/15/19 15:00 23:00 07:00 Intake Total 0 ml Output Total 0 ml Balance 0 ml AUGUSTIN LANIER MD Jun 15, 2019 10:02
--- NOTE | 2019-06-15 10:34 | RAD ---
EXAM: CT angiography of the chest with intravenous contrast. HISTORY: Shortness of breath. Abnormal chest radiograph. TECHNIQUE: Computed tomographic images of the chest were obtained following the administration of 90 cc Omnipaque 350 intravenous contrast according to angiography protocol. Multiplanar reformatting was performed and 3-dimensional maximum intensity projection images were obtained. *One or more of the following individualized dose reduction techniques were utilized for this examination: 1. Automated exposure control. 2. Adjustment of the mA and/or kV according to patient size. 3. Use of iterative reconstruction technique. COMPARISON: None. FINDINGS: There is no convincing pulmonary embolism. There is a large left pleural effusion with multiple loculated components. No clear superimposed pleural mass is seen. There is left lower lobe collapse with a superimposed somewhat rounded area of hyperdensity within the collapsed lung which may be due to a mass or abscess, measuring approximately 3.3 cm. There is a small right pleural effusion with right posterior dependent and basilar atelectasis. There is pulmonary emphysema. There is biapical pleural parenchymal scarring. There is no pneumothorax. There are enlarged central pulmonary arteries. There are multiple scattered nodular opacities within the bilateral upper lobes, primarily involving the lingula. The largest of these nodular opacities measure 8 mm. There is bronchiectasis and bronchial wall thickening due to bronchitis. The heart is normal in size. There is coronary artery atherosclerosis. There is a left cardiac pacemaker. There is aortic and aortic branch vessel atherosclerosis. There is a small mild of suspected aspirated mucus within the proximal trachea. There is a suspected tiny cyst or nodule within the right thyroid lobe. There is gynecomastia. Evaluation of the abdomen demonstrates a gastrostomy tube, partially included on the [id number]. There is heavily calcified atherosclerotic plaque within the proximal abdominal aorta and aortic branch vessels. There is an enlarged right retrocrural lymph node measuring 1.7 cm, possibly reactive in etiology. There are multiple healed or healing rib fractures. No acute rib fracture is seen. There are degenerative changes throughout the spine. There is no suspicious osseous lesion. IMPRESSION: 1. No convincing pulmonary embolism. 2. Large partially loculated left pleural effusion. 3. Left lower lobe collapse with a superimposed 3.3 cm rounded area of hypodensity within the collapsed lung possibly due to abscess or neoplasm. 4. Pulmonary emphysema with bronchiectasis and bronchial wall thickening due to superimposed bronchitis. 5. Small scattered nodular opacities within the bilateral upper lobes, primarily involving the lingula. The largest of these measures 8 mm. This may be infectious or inflammatory. Short-term follow-up is recommended. 6. Small right pleural effusion and right lower lobe atelectasis. 7. Suspected reactive mediastinal, hilar and right retrocrural lymphadenopathy. Attention the time of follow-up is recommended. 8. Enlarged central pulmonary arteries, a finding which can be seen with chronic pulmonary artery hypertension. Electronically signed by: Dolly Cureil MD (06/15/2019 10:31 AM) [facility]
[2019-06-15 11:00] VITALS: BP 110/55
[2019-06-15] MEDS ORDERED: VANCOMYCIN 1.5 GM in IV NORMAL SALINE 500ML BAG 500 ML IV ONE (11:00)
[2019-06-15] MEDS: IPRATRPIUM/ALBUTEROL 0.5/2.5MG 3 ML NEBU. NEB SCH ×3 (11:24→20:49)
[2019-06-15] MEDS: PIPERACILLIN/TAZOBACTAM 3.375 GM in IV NORMAL SALINE 50ML 50 ML IV SCH ×3 (13:23→23:19)
[2019-06-15] MEDS ORDERED: MULT1CAP15 PO (14:49)
[2019-06-15] MEDS ORDERED: FAMO20TA5 PO (14:49)
[2019-06-15] MEDS ORDERED: HYDR59LO TP (14:49)
[2019-06-15] MEDS ORDERED: MENT71OI TP (14:49)
[2019-06-15] MEDS ORDERED: LISI10TA2 PO (14:49)
[2019-06-15] MEDS ORDERED: MAGN400O7 PO (14:49)
[2019-06-15] MEDS ORDERED: CLOP75TA PO (14:49)
[2019-06-15] MEDS ORDERED: SILV20CR14 TP (14:49)
[2019-06-15] MEDS ORDERED: ACET325T9 PO (14:49)
[2019-06-15] MEDS ORDERED: SERT100T PO (14:49)
[2019-06-15] MEDS ORDERED: ASPI-630 PO (14:49)
[2019-06-15] MEDS ORDERED: NYST100054 PO (14:49)
[2019-06-15] MEDS ORDERED: BIMA2.5D EACHEYE (14:49)
[2019-06-15] MEDS ORDERED: ALPR0.25 PO (14:49)
[2019-06-15] MEDS ORDERED: ATORVASTATIN CA80 MG PO (14:49)
[2019-06-15] MEDS ORDERED: OLAN2.5T3 PO (14:49)
[2019-06-15] MEDS ORDERED: MIRT15TA3 PO (14:49)
[2019-06-15] MEDS ORDERED: CHOL10003 PO (14:49)
[2019-06-15] MEDS ORDERED: GUAI473L15 PO (14:49)
[2019-06-15] MEDS ORDERED: MELA3TAB56 PO (14:49)
--- NOTE | 2019-06-15 14:50 | PDOC ---
Infectious Disease Note Vital Sign Vital Signs Vital Signs Date Time Temp Pulse Resp B/P (MAP) Pulse Ox O2 Delivery O2 Flow Rate FiO2 06/15/19 11:24 93 Nasal Cannula 3.0 06/15/19 11:00 98.2 87 20 110/55 (73) 98.2 Labs Lab Laboratory Tests Test 06/14/19 18:15 06/14/19 20:10 06/14/19 22:00 06/15/19 01:15 White Blood Count 18.1 x10^3/uL (4.0-11.0) Red Blood Count 3.09 x10^6/uL (4.30-5.70) Hemoglobin 9.4 g/dL (13.0-17.5) Hematocrit 28.2 % (39.0-53.0) Mean Corpuscular Volume 91 fL (79-100) Mean Corpuscular Hemoglobin 31 pg (25-35) Mean Corpuscular Hemoglobin Concent 34 g/dL (31-37) Red Cell Distribution Width 16.9 % (11.5-14.5) Platelet Count 380 x10^3/uL (140-400) Neutrophils (%) (Auto) 87 % (31-73) Lymphocytes (%) (Auto) 7 % (24-48) Monocytes (%) (Auto) 5 % (0-9) Eosinophils (%) (Auto) 1 % (0-3) Basophils (%) (Auto) 0 % (0-3) Neutrophils # (Auto) 15.8 x10^3/uL (1.8-7.7) Lymphocytes # (Auto) 1.2 x10^3/uL (1.0-4.8) Monocytes # (Auto) 1.0 x10^3/uL (0.0-1.1) Eosinophils # (Auto) 0.1 x10^3/uL (0.0-0.7) Basophils # (Auto) 0.0 x10^3/uL (0.0-0.2) Segmented Neutrophils % 85 % (35-66) Band Neutrophils % 5 % (0-9) Lymphocytes % 3 % (24-48) Monocytes % 5 % (0-10) Eosinophils % 2 % (0-5) Platelet Estimate Adequate (ADEQUATE) Sodium Level 139 mmol/L (136-145) Potassium Level 4.4 mmol/L (3.5-5.1) Chloride Level 102 mmol/L (98-107) Carbon Dioxide Level 31 mmol/L (21-32) Anion Gap 6 (6-14) Blood Urea Nitrogen 27 mg/dL (8-26) Creatinine 1.0 mg/dL (0.7-1.3) Estimated GFR (Cockcroft-Gault) 71.0 BUN/Creatinine Ratio 27 (6-20) Glucose Level 131 mg/dL (70-99) Calcium Level 8.4 mg/dL (8.5-10.1) Total Bilirubin 0.6 mg/dL (0.2-1.0) Aspartate Amino Transf (AST/SGOT) 431 U/L (15-37) Alanine Aminotransferase (ALT/SGPT) 382 U/L (16-63) Alkaline Phosphatase 163 U/L (46-116) Troponin I Quantitative 0.055 ng/mL (0.000-0.055) Total Protein 6.6 g/dL (6.4-8.2) Albumin 1.8 g/dL (3.4-5.0) Albumin/Globulin Ratio 0.4 (1.0-1.7) Urine Color Yellow Urine Clarity Clear Urine pH 6.0 Urine Specific [place] 1.020 Urine Protein 30 mg/dL (NEG-TRACE) Urine Glucose (UA) Negative mg/dL (NEG) Urine Ketones (Stick) Negative mg/dL (NEG) Urine Blood Negative (NEG) Urine Nitrite Negative (NEG) Urine Bilirubin Negative (NEG) Urine Urobilinogen Dipstick 1.0 mg/dL (0.2 mg/dL) Urine Leukocyte Esterase Trace (NEG) Urine RBC 0 /HPF (0-2) Urine WBC Occ /HPF (0-4) Urine Squamous Epithelial Cells Occ /LPF Urine Amorphous Sediment Present /HPF Urine Bacteria 0 /HPF (0-FEW) Urine Mucus Slight /LPF Lactic Acid Level 0.8 mmol/L (0.4-2.0) 0.7 mmol/L (0.4-2.0) Test 06/15/19 03:00 06/15/19 12:07 White Blood Count 17.2 x10^3/uL (4.0-11.0) Red Blood Count 2.68 x10^6/uL (4.30-5.70) Hemoglobin 8.1 g/dL (13.0-17.5) Hematocrit 24.5 % (39.0-53.0) Mean Corpuscular Volume 91 fL (79-100) Mean Corpuscular Hemoglobin 30 pg (25-35) Mean Corpuscular Hemoglobin Concent 33 g/dL (31-37) Red Cell Distribution Width 16.5 % (11.5-14.5) Platelet Count 319 x10^3/uL (140-400) Neutrophils (%) (Auto) 85 % (31-73) Lymphocytes (%) (Auto) 7 % (24-48) Monocytes (%) (Auto) 7 % (0-9) Eosinophils (%) (Auto) 1 % (0-3) Basophils (%) (Auto) 0 % (0-3) Neutrophils # (Auto) 14.6 x10^3/uL (1.8-7.7) Lymphocytes # (Auto) 1.2 x10^3/uL (1.0-4.8) Monocytes # (Auto) 1.2 x10^3/uL (0.0-1.1) Eosinophils # (Auto) 0.2 x10^3/uL (0.0-0.7) Basophils # (Auto) 0.1 x10^3/uL (0.0-0.2) Sodium Level 138 mmol/L (136-145) Potassium Level 4.0 mmol/L (3.5-5.1) Chloride Level 103 mmol/L (98-107) Carbon Dioxide Level 31 mmol/L (21-32) Anion Gap 4 (6-14) Blood Urea Nitrogen 27 mg/dL (8-26) Creatinine 0.9 mg/dL (0.7-1.3) Estimated GFR (Cockcroft-Gault) 80.2 BUN/Creatinine Ratio 30 (6-20) Glucose Level 108 mg/dL (70-99) Calcium Level 8.2 mg/dL (8.5-10.1) Total Bilirubin 0.8 mg/dL (0.2-1.0) Aspartate Amino Transf (AST/SGOT) 371 U/L (15-37) Alanine Aminotransferase (ALT/SGPT) 373 U/L (16-63) Alkaline Phosphatase 123 U/L (46-116) Total Protein 5.9 g/dL (6.4-8.2) Albumin 1.5 g/dL (3.4-5.0) Albumin/Globulin Ratio 0.3 (1.0-1.7) Erythrocyte Sedimentation Rate 76 (0-15) Objective Assessment Large partially loculated left pleural effusion Left lower lobe collapse with abscess vs neoplasm Leukocytosis Transaminitis Generalized weakness s/p multiple falls Dysphagia s/p PEG placement in Feb Weight loss COPD CAD Plan Plan of Care Continue vancomycin and Zosyn Monitor renal function closely Await pulmonary follow-up f/u cultures Maintain aspiration precautions D/w family at bedside D/w nursing Thank you [id number] [id number] Patient seen and examined. Chart reviewed in detail. Case discussed with TUBE [employer]TER. Agree with above plan. MARY BRADY APRN Jun 15, 2019 14:50 NATIVIDAD ZUNIGA MD Jun 15, 2019 19:36
[2019-06-15 15:00] VITALS: BP 112/55
[2019-06-15] MEDS: VANCOMYCIN PER PHARMACY MC PRN (15:31)
--- NOTE | 2019-06-15 15:31 | NUR ---
Pharmacy Vancomycin Dosing Note S:Consulted to monitor and dose vancomycin started 06/15/19. O:TIFFANY [place] is a 83 year old M with HCAP . Height: 5 feet, 10 inches Weight: 60.772212 kg [place] Body Weight: 73.00 Adjusted Body Weight: 68.20 Dosing Weight: Actual Other Antibiotics: ZOSYN 06/15 - LABS: Last BUN: 27 Last Creatinine: 0.9 Creatinine Clearance: 46 mL/min Last WBC: 17.2 Last Procalcitonin: NO; EMPYEMA Tmax (past 24 hours): 99.7 Microbiology: PENDING I/O: - Drug Levels: Last level: on at Last dose given 06/15/19 at 1300 Vancomycin Dosing: Loading Dose: 1500 mg x1 Dosing Weight: Actual Target Trough: 15-20 A: Based on: WEIGHT, CRCL~46, P: 1. Initiate Vancomycin 1000 mg IV q24h after 1500 mg loading dose 2. Follow up Trough level on 06/17/19 at 1300 3. Pharmacy will continue to monitor, follow and adjust therapy as needed. JEMAL FARR [facility], 06/15/19 [id number]
[2019-06-15 19:00] VITALS: BP 110/62
[2019-06-15] MEDS: BUDESONIDE 0.5 MG/2 ML NEBU. NEB SCH (20:49)
[2019-06-15 23:00] VITALS: BP 118/49
--- NOTE | 2019-06-15 23:21 | CONS ---
DATE OF CONSULTATION: 06/15/2019 INFECTIOUS DISEASE CONSULTATION REFERRING PHYSICIAN: Gina Schaefer MD REASON FOR CONSULTATION: Possible empyema and leukocytosis. HISTORY OF PRESENT ILLNESS: This patient is an 83-year-old male with a history of aspiration pneumonia and dysphagia who underwent a PEG tube placement this past October. The patient says he has been depressed and has lost over 50 pounds within the last 6 months. Both he and his recently moved into an assisted living facility about 2 weeks ago. His family says he was initially doing alright but over the last week or so, he has fallen several times. He is normally able to ambulate with a walker only short distances, but has been increasingly weak and tires easily. He has been having some chills and sweats, but no fevers reported. On arrival to the ER, he had a WBC count of 18,100 and elevated liver enzymes. Abdominal ultrasound showed mild increased echogenicity. No focal hepatic mass. A chest x-ray showed focal pleural based density at the left base. A followup chest CTA showed a large partially loculated left pleural effusion; left lower lobe collapse with a superimposed 3.3 cm rounded area of hypodensity within the collapsed lung, possibly due to abscess or neoplasm; pulmonary emphysema with bronchiectasis and bronchial wall thickening due to superimposed bronchitis; small scattered nodular opacities within the bilateral upper lobes, primarily involving the lingula; suspected reactive mediastinal hilar and retrocrural lymphadenopathy. He was evaluated by a Pulmonology earlier. He is currently on vancomycin and Zosyn. The patient says he is feeling a little bit better since admission. He still feels overall weak and short of air, requiring supplemental oxygen of 3 liters. He also has a mild cough with phlegm production. He denies chest discomfort, sinus/nasal congestion or sore throat. He denies He denies antibiotics or hospitalization since October. Denies exposure to ill contacts. He has a history of traveling to several countries in 2000. Denies farm exposure. He does not have any pets. PAST MEDICAL HISTORY: Coronary artery disease, congestive heart failure, glaucoma, hyperlipidemia, hypertension, COPD, depression, and anxiety. PAST SURGICAL HISTORY: Tonsillectomy, pacemaker placement and appendectomy. SOCIAL HISTORY: The patient is . He and his recently moved into an assisted living facility about 2 weeks ago. He is a former smoker. No pets. History of traveling to countries in 2000. 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 ALLERGIES: No known drug allergies. MEDICATIONS: Vancomycin and Zosyn. Other medications are available and have been reviewed on the NOV. REVIEW OF SYSTEMS: Per HPI, otherwise, all other review of systems are negative. PHYSICAL EXAMINATION: VITAL SIGNS: Temperature is 98.2, blood pressure 110/55, heart rate 87, respiratory rate 20, pulse oximetry is 93% on 3 liters oxygen and BMI 19. GENERAL: The patient is propped up in bed, awake, tired appearance. HEENT: Pupils equally round. Oropharynx pink and moist. Halitosis. NECK: Supple. LUNGS: Diminished aeration in left lung base. Nonlabored. HEART: S1 and S2. Pacemaker. ABDOMEN: Nondistended, soft and nontender with bowel sounds present. PEG tube intact and with dressing in place. EXTREMITIES: No gross edema or cyanosis. SKIN: Warm to touch. No signs of rash. NEUROLOGIC: Alert and answering questions appropriately. LABORATORY DATA: Today's WBC 17.2, from 18.1, hemoglobin 8.1 and platelets 319,000. Sed rate 76. Sodium 138, potassium 4.0, creatinine 0.9, BUN 27, lactic acid 0.7, total bilirubin 0.8, AST 371, ALT 373, troponin 0.055 and albumin 1.5. Urinalysis unremarkable for infection. IMAGING: Chest CTA, chest x-ray and abdominal ultrasound per HPI. Head CT showed no acute intracranial bleed or calvarial fracture. Left wrist x-ray showed no acute fracture or dislocation. Mild radiocarpal joint arthritis. 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 Vascular calcifications. IMPRESSION: 1. Large partially loculated left pleural effusion. 2. Left lower lobe collapse with abscess versus neoplasm. 3. Leukocytosis. 4. Transaminitis. 5. Generalized weakness. 6. Status post multiple falls. 7. Dysphagia, status post PEG tube placement in October 2018. 8. Weight loss. 9. Chronic obstructive pulmonary disease. 10. Coronary artery disease. PLAN: Continue the vancomycin and Zosyn. Monitor renal function closely. Awaiting pulmonary followup. We will follow up on culture results. Maintain aspiration precautions. Discussed with family at bedside and nursing. Thank you, Dr. Schaefer, for asking us to participate in this patient's care. Should you have further questions or concerns, please call. NATIVIDAD ZUNIGA MD DR: JUANA/sheba JOB#: [id number] / [id number] GINA Mishra MD
[2019-06-16] VITALS (17 sets, daily range): BP systolic 97–115; BP diastolic 45–67
[2019-06-16] MEDS: PIPERACILLIN/TAZOBACTAM 3.375 GM in IV NORMAL SALINE 50ML 50 ML IV SCH ×3 (05:23→17:01)
[2019-06-16 07:16] LABS: BASO # 0.1 x10^3/uL (0.0-0.2); BASO % 1 % (0-3); EOS # 0.1 x10^3/uL (0.0-0.7); EOS % 1 % (0-3); HEMATOCRIT 24.3 % (39.0-53.0); LYMPH # 0.9 x10^3/uL (1.0-4.8); LYMPH % 5 % (24-48); MEAN CORPUSCULAR HEMOGLOBIN 30 pg (25-35); MEAN CORPUSCULAR HGB CONC 33 g/dL (31-37); MEAN CORPUSCULAR VOLUME 91 fL (79-100); MONO # 1.2 x10^3/uL (0.0-1.1); MONO % 7 % (0-9); NEUT # 14.3 x10^3/uL (1.8-7.7); NEUT % 86 % (31-73); PLATELET COUNT 356 x10^3/uL (140-400); RED BLOOD COUNT 2.66 x10^6/uL (4.30-5.70); RED CELL DISTRIBUTION WIDTH 16.6 % (11.5-14.5); WHITE BLOOD COUNT 16.5 x10^3/uL (4.0-11.0)
[2019-06-16] MEDS: BUDESONIDE 0.5 MG/2 ML NEBU. NEB SCH ×2 (07:23→18:27)
[2019-06-16] MEDS: IPRATRPIUM/ALBUTEROL 0.5/2.5MG 3 ML NEBU. NEB SCH ×4 (07:23→18:28)
[2019-06-16 07:34] LABS: CALCIUM 8.4 mg/dL (8.5-10.1); CREATININE 0.9 mg/dL (0.7-1.3); GFR 80.2; POTASSIUM 3.8 mmol/L (3.5-5.1)
--- NOTE | 2019-06-16 07:45 | PDOC ---
PULMONARY PROGRESS NOTES Subjective sob better, no pain, no cough Vitals Vital Signs Date Time Temp Pulse Resp B/P (MAP) Pulse Ox O2 Delivery O2 Flow Rate FiO2 06/16/19 07:26 94 Nasal Cannula 3.0 06/16/19 03:09 98.4 82 18 107/46 (66) 98.4 ROS: No Nausea, No Chest Pain General: Alert, No acute distress HEENT: Other (nc at perrl ) Lungs: Other (l dullness crackles) Cardiovascular: S1, S2 Abdomen: Soft, Non-tender Neuro Exam: Alert Extremities: No Edema Skin: Warm Labs Laboratory Tests Test 06/14/19 18:15 06/14/19 20:10 06/14/19 22:00 06/15/19 01:15 White Blood Count 18.1 x10^3/uL (4.0-11.0) Red Blood Count 3.09 x10^6/uL (4.30-5.70) Hemoglobin 9.4 g/dL (13.0-17.5) Hematocrit 28.2 % (39.0-53.0) Mean Corpuscular Volume 91 fL (79-100) Mean Corpuscular Hemoglobin 31 pg (25-35) Mean Corpuscular Hemoglobin Concent 34 g/dL (31-37) Red Cell Distribution Width 16.9 % (11.5-14.5) Platelet Count 380 x10^3/uL (140-400) Neutrophils (%) (Auto) 87 % (31-73) Lymphocytes (%) (Auto) 7 % (24-48) Monocytes (%) (Auto) 5 % (0-9) Eosinophils (%) (Auto) 1 % (0-3) Basophils (%) (Auto) 0 % (0-3) Neutrophils # (Auto) 15.8 x10^3/uL (1.8-7.7) Lymphocytes # (Auto) 1.2 x10^3/uL (1.0-4.8) Monocytes # (Auto) 1.0 x10^3/uL (0.0-1.1) Eosinophils # (Auto) 0.1 x10^3/uL (0.0-0.7) Basophils # (Auto) 0.0 x10^3/uL (0.0-0.2) Segmented Neutrophils % 85 % (35-66) Band Neutrophils % 5 % (0-9) Lymphocytes % 3 % (24-48) Monocytes % 5 % (0-10) Eosinophils % 2 % (0-5) Platelet Estimate Adequate (ADEQUATE) Sodium Level 139 mmol/L (136-145) Potassium Level 4.4 mmol/L (3.5-5.1) Chloride Level 102 mmol/L (98-107) Carbon Dioxide Level 31 mmol/L (21-32) Anion Gap 6 (6-14) Blood Urea Nitrogen 27 mg/dL (8-26) Creatinine 1.0 mg/dL (0.7-1.3) Estimated GFR (Cockcroft-Gault) 71.0 BUN/Creatinine Ratio 27 (6-20) Glucose Level 131 mg/dL (70-99) Calcium Level 8.4 mg/dL (8.5-10.1) Total Bilirubin 0.6 mg/dL (0.2-1.0) Aspartate Amino Transf (AST/SGOT) 431 U/L (15-37) Alanine Aminotransferase (ALT/SGPT) 382 U/L (16-63) Alkaline Phosphatase 163 U/L (46-116) Troponin I Quantitative 0.055 ng/mL (0.000-0.055) Total Protein 6.6 g/dL (6.4-8.2) Albumin 1.8 g/dL (3.4-5.0) Albumin/Globulin Ratio 0.4 (1.0-1.7) Urine Color Yellow Urine Clarity Clear Urine pH 6.0 Urine Specific [place] 1.020 Urine Protein 30 mg/dL (NEG-TRACE) Urine Glucose (UA) Negative mg/dL (NEG) Urine Ketones (Stick) Negative mg/dL (NEG) Urine Blood Negative (NEG) Urine Nitrite Negative (NEG) Urine Bilirubin Negative (NEG) Urine Urobilinogen Dipstick 1.0 mg/dL (0.2 mg/dL) Urine Leukocyte Esterase Trace (NEG) Urine RBC 0 /HPF (0-2) Urine WBC Occ /HPF (0-4) Urine Squamous Epithelial Cells Occ /LPF Urine Amorphous Sediment Present /HPF Urine Bacteria 0 /HPF (0-FEW) Urine Mucus Slight /LPF Lactic Acid Level 0.8 mmol/L (0.4-2.0) 0.7 mmol/L (0.4-2.0) Test 06/15/19 03:00 06/15/19 12:07 06/16/19 06:55 White Blood Count 17.2 x10^3/uL (4.0-11.0) 16.5 x10^3/uL (4.0-11.0) Red Blood Count 2.68 x10^6/uL (4.30-5.70) 2.66 x10^6/uL (4.30-5.70) Hemoglobin 8.1 g/dL (13.0-17.5) 8.0 g/dL (13.0-17.5) Hematocrit 24.5 % (39.0-53.0) 24.3 % (39.0-53.0) Mean Corpuscular Volume 91 fL (79-100) 91 fL (79-100) Mean Corpuscular Hemoglobin 30 pg (25-35) 30 pg (25-35) Mean Corpuscular Hemoglobin Concent 33 g/dL (31-37) 33 g/dL (31-37) Red Cell Distribution Width 16.5 % (11.5-14.5) 16.6 % (11.5-14.5) Platelet Count 319 x10^3/uL (140-400) 356 x10^3/uL (140-400) Neutrophils (%) (Auto) 85 % (31-73) 86 % (31-73) Lymphocytes (%) (Auto) 7 % (24-48) 5 % (24-48) Monocytes (%) (Auto) 7 % (0-9) 7 % (0-9) Eosinophils (%) (Auto) 1 % (0-3) 1 % (0-3) Basophils (%) (Auto) 0 % (0-3) 1 % (0-3) Neutrophils # (Auto) 14.6 x10^3/uL (1.8-7.7) 14.3 x10^3/uL (1.8-7.7) Lymphocytes # (Auto) 1.2 x10^3/uL (1.0-4.8) 0.9 x10^3/uL (1.0-4.8) Monocytes # (Auto) 1.2 x10^3/uL (0.0-1.1) 1.2 x10^3/uL (0.0-1.1) Eosinophils # (Auto) 0.2 x10^3/uL (0.0-0.7) 0.1 x10^3/uL (0.0-0.7) Basophils # (Auto) 0.1 x10^3/uL (0.0-0.2) 0.1 x10^3/uL (0.0-0.2) Sodium Level 138 mmol/L (136-145) Potassium Level 4.0 mmol/L (3.5-5.1) Chloride Level 103 mmol/L (98-107) Carbon Dioxide Level 31 mmol/L (21-32) Anion Gap 4 (6-14) Blood Urea Nitrogen 27 mg/dL (8-26) Creatinine 0.9 mg/dL (0.7-1.3) Estimated GFR (Cockcroft-Gault) 80.2 BUN/Creatinine Ratio 30 (6-20) Glucose Level 108 mg/dL (70-99) Calcium Level 8.2 mg/dL (8.5-10.1) Total Bilirubin 0.8 mg/dL (0.2-1.0) Aspartate Amino Transf (AST/SGOT) 371 U/L (15-37) Alanine Aminotransferase (ALT/SGPT) 373 U/L (16-63) Alkaline Phosphatase 123 U/L (46-116) Total Protein 5.9 g/dL (6.4-8.2) Albumin 1.5 g/dL (3.4-5.0) Albumin/Globulin Ratio 0.3 (1.0-1.7) Erythrocyte Sedimentation Rate 76 (0-15) Laboratory Tests Test 06/15/19 12:07 06/16/19 06:55 Erythrocyte Sedimentation Rate 76 (0-15) White Blood Count 16.5 x10^3/uL (4.0-11.0) Red Blood Count 2.66 x10^6/uL (4.30-5.70) Hemoglobin 8.0 g/dL (13.0-17.5) Hematocrit 24.3 % (39.0-53.0) Mean Corpuscular Volume 91 fL (79-100) Mean Corpuscular Hemoglobin 30 pg (25-35) Mean Corpuscular Hemoglobin Concent 33 g/dL (31-37) Red Cell Distribution Width 16.6 % (11.5-14.5) Platelet Count 356 x10^3/uL (140-400) Neutrophils (%) (Auto) 86 % (31-73) Lymphocytes (%) (Auto) 5 % (24-48) Monocytes (%) (Auto) 7 % (0-9) Eosinophils (%) (Auto) 1 % (0-3) Basophils (%) (Auto) 1 % (0-3) Neutrophils # (Auto) 14.3 x10^3/uL (1.8-7.7) Lymphocytes # (Auto) 0.9 x10^3/uL (1.0-4.8) Monocytes # (Auto) 1.2 x10^3/uL (0.0-1.1) Eosinophils # (Auto) 0.1 x10^3/uL (0.0-0.7) Basophils # (Auto) 0.1 x10^3/uL (0.0-0.2) Medications Active Scripts Medications Dose Route/Sig Max Daily Dose Days Date Category Xanax (Alprazolam) 0.25 Mg Tablet 1 Tab PO PRN TID PRN 06/15/19 Reported Vitamin D3 (Cholecalciferol (Vitamin D3)) 1,000 Unit Tablet 2 Tab PO DAILY 06/15/19 Reported Tylenol (Acetaminophen) 325 Mg Tablet 1 Tab PO PRN Q4HRS 06/15/19 Reported Multivitamins (Multivitamin) 1 Each Capsule 1 Each PO DAILY 06/15/19 Reported Silvadene (Silver Sulfadiazine) 20 Gm Cream..g. 1 Claudia TP DAILY 06/15/19 Reported Zoloft (Sertraline Hcl) 100 Mg Tablet 100 Mg PO DAILY 06/15/19 Reported Zyprexa (Olanzapine) 2.5 Mg Tablet 2.5 Mg PO DAILY 06/15/19 Reported Nystatin 100,000 Unit/1 Ml Oral.susp 5 Ml PO BID 06/15/19 Reported Mirtazapine 15 Mg Tablet 1 Tab PO QHS 06/15/19 Reported Milk Of Magnesia (Magnesium Hydroxide) 400 Mg/5 Ml Oral.susp 400 Mg PO PRN PRN 06/15/19 Reported Melatonin 3 Mg Tablet 3 Mg PO QHS 06/15/19 Reported Lumigan (Bimatoprost) 2.5 Ml Drops 1 Drop EACHEYE QHS 06/15/19 Reported Lisinopril 10 Mg Tablet 1 Tab PO HS 06/15/19 Reported Hydrocortisone 59 Ml Lotion 1 Claudia TP BID 06/15/19 Reported Guaifenesin Ac Cough Syrup (Guaifenesin/Codeine Phosphate) 473 Ml Liquid 10 Ml PO Q4-6HRS 06/15/19 Reported Famotidine 20 Mg Tablet 20 Mg PO BID 30 06/15/19 Reported Clopidogrel (Clopidogrel Bisulfate) 75 Mg Tablet 75 Mg PO DAILY 06/15/19 Reported Calmoseptine Ointment (Menthol/Zinc Oxide) 71 Gm Oint...g. 71 Gm TP BID 06/15/19 Reported Atorvastatin Calcium 80 Mg Tablet 80 Mg PO HS 06/15/19 Reported Aspirin 81 Mg Tab.chew 81 Mg PO DAILY 06/15/[address] reviewed, 1. No convincing pulmonary embolism. 2. Large partially loculated left pleural effusion. 3. Left lower lobe collapse with a superimposed 3.3 cm rounded area of hypodensity within the collapsed lung possibly due to abscess or neoplasm. 4. Pulmonary emphysema with bronchiectasis and bronchial wall thickening due to superimposed bronchitis. 5. Small scattered nodular opacities within the bilateral upper lobes, primarily involving the lingula. The largest of these measures 8 mm. This may be infectious or inflammatory. Short-term follow-up is recommended. 6. Small right pleural effusion and right lower lobe atelectasis. 7. Suspected reactive mediastinal, hilar and right retrocrural lymphadenopathy. Attention the time of follow-up is recommended. 8. Enlarged central pulmonary arteries, a finding which can be seen with chronic pulmonary artery hypertension. Impression . IMPRESSION: 1. Acute respiratory failure secondary to pneumonia, ? empyema, acute exacerbation of chronic obstructive pulmonary disease versus others. 2. Abnormal chest x-ray, pneumonia, ?empyema, ? malignancy. 3. Chronic obstructive pulmonary disease with acute exacerbation. 4. Leukocytosis. 5. Coronary artery disease. 6. Dysphagia, status post PEG placement. 7. Malnutrition. Plan . PLAN AND RECOMMENDATIONS: 1. Titrate the FiO2 to keep O2 saturation at 92%. 2. cont bronchodilator. 3. cont inhaled corticosteroid, 4. CT angiogram of the chest reviewed, will ask ir to place chest tube, discussed w dr law, discussed w pt, agreed. will re ct a few days after chest tube placement 5. Elevate head of bed, aspiration precaution. 6. Continue antibiotic per ID. discussed w rn, pt LUIZ BARAHONA MD Jun 16, 2019 07:45
[2019-06-16] MEDS ORDERED: fentaNYL PF VIAL 100 MCG/2 ML VIAL ONE (09:32)
[2019-06-16] MEDS ORDERED: MIDAZOLAM HCL/PF 2 MG/2 ML VIAL. ONE (09:32)
[2019-06-16] MEDS ORDERED: LIDOCAINE WITH 8.4% SOD BICARB 3 ML DISP.SYRIN. ONE (09:46)
[2019-06-16 09:59] LABS: PROTHROMBIN TIME PATIENT 16.7 SEC (11.7-14.0)
[2019-06-16] MEDS ORDERED: MIDAZOLAM HCL/PF 2 MG/2 ML VIAL. IV ONE (10:15)
[2019-06-16] MEDS ORDERED: LIDOCAINE WITH 8.4% SOD BICARB 3 ML DISP.SYRIN. IJ ONE (10:15)
[2019-06-16] MEDS ORDERED: fentaNYL PF VIAL 100 MCG/2 ML VIAL IV ONE (10:15)
--- NOTE | 2019-06-16 12:26 | PDOC ---
PROGRESS NOTES Chief Complaint Chief Complaint Right-sided pleural effusion, possible loculated effusion, possible empyema s/p left indwelling chest tube (06/16) Freq falls in [place], non injury falls - mechanical falls GEriatric Dysphagia, indwelling PEG x 7 mos now, STrict NPO, bolus TFs at [place] FULL CODE RT wrist OA Indwelling pacer TRANSAMINITIS LEUKOCYTOSIS History of Present Illness History of Present Illness he now has a left sided chest tube indwelling and is draining pleural fluid (loculated empyema on CT and CXR) pleural fluid has been sent for studies HE is actually very good historian for his age HE has in indwelling pEG x 6 mos now for dysphagia and is on Bolus feeding here and at [facility] prior to admission WBC 18, elevated ESR 76 but no fevers ID weekend coverage has okayed my vanc on zosyn PLAN: CPM PT recs SNU - sw consult for this Otherwise cont chest tube, IV abx and ff up pleural fluid studies pls Vitals Vitals Vital Signs Date Time Temp Pulse Resp B/P (MAP) Pulse Ox O2 Delivery O2 Flow Rate FiO2 06/16/19 11:23 94 Nasal Cannula 2.0 06/16/19 10:23 83 28 06/16/19 07:00 97.9 110/50 (70) 97.9 Physical Exam General: Alert, Oriented X3, Cooperative, No acute distress Heart: Regular rate, Normal S1, Normal S2 Lungs: Other (l dullness crackles) Abdomen: Normal bowel sounds, Soft, No tenderness, No hepatosplenomegaly, No masses Extremities: No clubbing, No cyanosis, No edema, Normal pulses, No tenderness/swelling Skin: Other (senile skin turgor, some old skin brusing) Labs LABS Laboratory Tests Test 06/16/19 06:55 06/16/19 09:25 White Blood Count 16.5 x10^3/uL (4.0-11.0) Red Blood Count 2.66 x10^6/uL (4.30-5.70) Hemoglobin 8.0 g/dL (13.0-17.5) Hematocrit 24.3 % (39.0-53.0) Mean Corpuscular Volume 91 fL (79-100) Mean Corpuscular Hemoglobin 30 pg (25-35) Mean Corpuscular Hemoglobin Concent 33 g/dL (31-37) Red Cell Distribution Width 16.6 % (11.5-14.5) Platelet Count 356 x10^3/uL (140-400) Neutrophils (%) (Auto) 86 % (31-73) Lymphocytes (%) (Auto) 5 % (24-48) Monocytes (%) (Auto) 7 % (0-9) Eosinophils (%) (Auto) 1 % (0-3) Basophils (%) (Auto) 1 % (0-3) Neutrophils # (Auto) 14.3 x10^3/uL (1.8-7.7) Lymphocytes # (Auto) 0.9 x10^3/uL (1.0-4.8) Monocytes # (Auto) 1.2 x10^3/uL (0.0-1.1) Eosinophils # (Auto) 0.1 x10^3/uL (0.0-0.7) Basophils # (Auto) 0.1 x10^3/uL (0.0-0.2) Sodium Level 143 mmol/L (136-145) Potassium Level 3.8 mmol/L (3.5-5.1) Chloride Level 108 mmol/L (98-107) Carbon Dioxide Level 31 mmol/L (21-32) Anion Gap 4 (6-14) Blood Urea Nitrogen 24 mg/dL (8-26) Creatinine 0.9 mg/dL (0.7-1.3) Estimated GFR (Cockcroft-Gault) 80.2 Glucose Level 136 mg/dL (70-99) Calcium Level 8.4 mg/dL (8.5-10.1) Prothrombin Time 16.7 SEC (11.7-14.0) Prothromb Time International Ratio 1.4 (0.8-1.1) Review of Systems Review of Systems no pain on chest tube site, no soa, no fevers, he denies 14 pt reviewed with him Assessment and Plan Assessmemt and Plan Problems Medical Problems: (1) Fever Status: Acute (2) UTI (urinary tract infection) Status: Acute Comment Review of Relevant I have reviewed the following items lorenzo (where applicable) has been applied. Labs Laboratory Tests Test 06/14/19 18:15 06/14/19 20:10 06/14/19 22:00 06/15/19 01:15 White Blood Count 18.1 x10^3/uL (4.0-11.0) Red Blood Count 3.09 x10^6/uL (4.30-5.70) Hemoglobin 9.4 g/dL (13.0-17.5) Hematocrit 28.2 % (39.0-53.0) Mean Corpuscular Volume 91 fL (79-100) Mean Corpuscular Hemoglobin 31 pg (25-35) Mean Corpuscular Hemoglobin Concent 34 g/dL (31-37) Red Cell Distribution Width 16.9 % (11.5-14.5) Platelet Count 380 x10^3/uL (140-400) Neutrophils (%) (Auto) 87 % (31-73) Lymphocytes (%) (Auto) 7 % (24-48) Monocytes (%) (Auto) 5 % (0-9) Eosinophils (%) (Auto) 1 % (0-3) Basophils (%) (Auto) 0 % (0-3) Neutrophils # (Auto) 15.8 x10^3/uL (1.8-7.7) Lymphocytes # (Auto) 1.2 x10^3/uL (1.0-4.8) Monocytes # (Auto) 1.0 x10^3/uL (0.0-1.1) Eosinophils # (Auto) 0.1 x10^3/uL (0.0-0.7) Basophils # (Auto) 0.0 x10^3/uL (0.0-0.2) Segmented Neutrophils % 85 % (35-66) Band Neutrophils % 5 % (0-9) Lymphocytes % 3 % (24-48) Monocytes % 5 % (0-10) Eosinophils % 2 % (0-5) Platelet Estimate Adequate (ADEQUATE) Sodium Level 139 mmol/L (136-145) Potassium Level 4.4 mmol/L (3.5-5.1) Chloride Level 102 mmol/L (98-107) Carbon Dioxide Level 31 mmol/L (21-32) Anion Gap 6 (6-14) Blood Urea Nitrogen 27 mg/dL (8-26) Creatinine 1.0 mg/dL (0.7-1.3) Estimated GFR (Cockcroft-Gault) 71.0 BUN/Creatinine Ratio 27 (6-20) Glucose Level 131 mg/dL (70-99) Calcium Level 8.4 mg/dL (8.5-10.1) Total Bilirubin 0.6 mg/dL (0.2-1.0) Aspartate Amino Transf (AST/SGOT) 431 U/L (15-37) Alanine Aminotransferase (ALT/SGPT) 382 U/L (16-63) Alkaline Phosphatase 163 U/L (46-116) Troponin I Quantitative 0.055 ng/mL (0.000-0.055) Total Protein 6.6 g/dL (6.4-8.2) Albumin 1.8 g/dL (3.4-5.0) Albumin/Globulin Ratio 0.4 (1.0-1.7) Urine Color Yellow Urine Clarity Clear Urine pH 6.0 Urine Specific Stryker 1.020 Urine Protein 30 mg/dL (NEG-TRACE) Urine Glucose (UA) Negative mg/dL (NEG) Urine Ketones (Stick) Negative mg/dL (NEG) Urine Blood Negative (NEG) Urine Nitrite Negative (NEG) Urine Bilirubin Negative (NEG) Urine Urobilinogen Dipstick 1.0 mg/dL (0.2 mg/dL) Urine Leukocyte Esterase Trace (NEG) Urine RBC 0 /HPF (0-2) Urine WBC Occ /HPF (0-4) Urine Squamous Epithelial Cells Occ /LPF Urine Amorphous Sediment Present /HPF Urine Bacteria 0 /HPF (0-FEW) Urine Mucus Slight /LPF Lactic Acid Level 0.8 mmol/L (0.4-2.0) 0.7 mmol/L (0.4-2.0) Test 06/15/19 03:00 06/15/19 12:07 06/16/19 06:55 06/16/19 09:25 White Blood Count 17.2 x10^3/uL (4.0-11.0) 16.5 x10^3/uL (4.0-11.0) Red Blood Count 2.68 x10^6/uL (4.30-5.70) 2.66 x10^6/uL (4.30-5.70) Hemoglobin 8.1 g/dL (13.0-17.5) 8.0 g/dL (13.0-17.5) Hematocrit 24.5 % (39.0-53.0) 24.3 % (39.0-53.0) Mean Corpuscular Volume 91 fL (79-100) 91 fL (79-100) Mean Corpuscular Hemoglobin 30 pg (25-35) 30 pg (25-35) Mean Corpuscular Hemoglobin Concent 33 g/dL (31-37) 33 g/dL (31-37) Red Cell Distribution Width 16.5 % (11.5-14.5) 16.6 % (11.5-14.5) Platelet Count 319 x10^3/uL (140-400) 356 x10^3/uL (140-400) Neutrophils (%) (Auto) 85 % (31-73) 86 % (31-73) Lymphocytes (%) (Auto) 7 % (24-48) 5 % (24-48) Monocytes (%) (Auto) 7 % (0-9) 7 % (0-9) Eosinophils (%) (Auto) 1 % (0-3) 1 % (0-3) Basophils (%) (Auto) 0 % (0-3) 1 % (0-3) Neutrophils # (Auto) 14.6 x10^3/uL (1.8-7.7) 14.3 x10^3/uL (1.8-7.7) Lymphocytes # (Auto) 1.2 x10^3/uL (1.0-4.8) 0.9 x10^3/uL (1.0-4.8) Monocytes # (Auto) 1.2 x10^3/uL (0.0-1.1) 1.2 x10^3/uL (0.0-1.1) Eosinophils # (Auto) 0.2 x10^3/uL (0.0-0.7) 0.1 x10^3/uL (0.0-0.7) Basophils # (Auto) 0.1 x10^3/uL (0.0-0.2) 0.1 x10^3/uL (0.0-0.2) Sodium Level 138 mmol/L (136-145) 143 mmol/L (136-145) Potassium Level 4.0 mmol/L (3.5-5.1) 3.8 mmol/L (3.5-5.1) Chloride Level 103 mmol/L (98-107) 108 mmol/L (98-107) Carbon Dioxide Level 31 mmol/L (21-32) 31 mmol/L (21-32) Anion Gap 4 (6-14) 4 (6-14) Blood Urea Nitrogen 27 mg/dL (8-26) 24 mg/dL (8-26) Creatinine 0.9 mg/dL (0.7-1.3) 0.9 mg/dL (0.7-1.3) Estimated GFR (Cockcroft-Gault) 80.2 80.2 BUN/Creatinine Ratio 30 (6-20) Glucose Level 108 mg/dL (70-99) 136 mg/dL (70-99) Calcium Level 8.2 mg/dL (8.5-10.1) 8.4 mg/dL (8.5-10.1) Total Bilirubin 0.8 mg/dL (0.2-1.0) Aspartate Amino Transf (AST/SGOT) 371 U/L (15-37) Alanine Aminotransferase (ALT/SGPT) 373 U/L (16-63) Alkaline Phosphatase 123 U/L (46-116) Total Protein 5.9 g/dL (6.4-8.2) Albumin 1.5 g/dL (3.4-5.0) Albumin/Globulin Ratio 0.3 (1.0-1.7) Erythrocyte Sedimentation Rate 76 (0-15) Prothrombin Time 16.7 SEC (11.7-14.0) Prothromb Time International Ratio 1.4 (0.8-1.1) Laboratory Tests Test 06/16/19 06:55 06/16/19 09:25 White Blood Count 16.5 x10^3/uL (4.0-11.0) Red Blood Count 2.66 x10^6/uL (4.30-5.70) Hemoglobin 8.0 g/dL (13.0-17.5) Hematocrit 24.3 % (39.0-53.0) Mean Corpuscular Volume 91 fL (79-100) Mean Corpuscular Hemoglobin 30 pg (25-35) Mean Corpuscular Hemoglobin Concent 33 g/dL (31-37) Red Cell Distribution Width 16.6 % (11.5-14.5) Platelet Count 356 x10^3/uL (140-400) Neutrophils (%) (Auto) 86 % (31-73) Lymphocytes (%) (Auto) 5 % (24-48) Monocytes (%) (Auto) 7 % (0-9) Eosinophils (%) (Auto) 1 % (0-3) Basophils (%) (Auto) 1 % (0-3) Neutrophils # (Auto) 14.3 x10^3/uL (1.8-7.7) Lymphocytes # (Auto) 0.9 x10^3/uL (1.0-4.8) Monocytes # (Auto) 1.2 x10^3/uL (0.0-1.1) Eosinophils # (Auto) 0.1 x10^3/uL (0.0-0.7) Basophils # (Auto) 0.1 x10^3/uL (0.0-0.2) Sodium Level 143 mmol/L (136-145) Potassium Level 3.8 mmol/L (3.5-5.1) Chloride Level 108 mmol/L (98-107) Carbon Dioxide Level 31 mmol/L (21-32) Anion Gap 4 (6-14) Blood Urea Nitrogen 24 mg/dL (8-26) Creatinine 0.9 mg/dL (0.7-1.3) Estimated GFR (Cockcroft-Gault) 80.2 Glucose Level 136 mg/dL (70-99) Calcium Level 8.4 mg/dL (8.5-10.1) Prothrombin Time 16.7 SEC (11.7-14.0) Prothromb Time International Ratio 1.4 (0.8-1.1) Microbiology 06/14/19 Blood Culture - Preliminary, Resulted NO GROWTH AFTER 1 DAY Medications Current Medications Acetaminophen (Tylenol) 500 mg PRN Q6HRS PRN PO MILD PAIN / TEMP; Start 06/14/19 at 19:30; Stop 06/14/19 at 19:34; Status DC Acetaminophen/ Codeine Phosphate (Tylenol #3) 1 tab PRN Q6HRS PRN PO MODERATE PAIN; Start 06/14/19 at 19:30; Stop 06/14/19 at 19:34; Status DC Calcium Carbonate/ Glycine (Tums) 500 mg PRN AFTMEALHC PRN PO INDIGESTION; Start 06/14/19 at 19:30; Stop 06/14/19 at 19:34; Status DC Ondansetron HCl (Zofran) 4 mg PRN Q6HRS PRN IVP NAUSEA/VOMITING; Start 06/14/19 at 19:30 Temazepam (Restoril) 7.5 mg PRN QHS PRN PO INSOMNIA; Start 06/14/19 at 19:30 Acetaminophen/ Hydrocodone Bitart (Lortab 5/325) 1 tab PRN Q4HRS PRN PO MODERATE PAIN; Start 06/14/19 at 19:30; Stop 06/14/19 at 19:34; Status DC Fentanyl Citrate (Fentanyl 2ml Vial) 25 mcg PRN Q2HR PRN IV PAIN; Start 06/14/19 at 19:30 Acetaminophen (Tylenol) 500 mg PRN Q6HRS PRN PEG MILD PAIN / TEMP; Start 06/14/19 at 19:45 Acetaminophen/ Codeine Phosphate (Tylenol #3) 1 tab PRN Q6HRS PRN PEG MODERATE PAIN; Start 06/14/19 at 19:34 Calcium Carbonate/ Glycine (Tums) 500 mg PRN AFTMEALHC PRN PEG INDIGESTION; Start 06/14/19 at 19:34 Acetaminophen/ Hydrocodone Bitart (Lortab 5/325) 1 tab PRN Q4HRS PRN PEG MODERATE PAIN; Start 06/14/19 at 19:34 Piperacillin Sod/ Tazobactam Sod 4.5 gm/Sodium Chloride 100 ml @ 200 mls/hr 1X ONCE IV Last administered on 06/15/19at 00:05; Start 06/14/19 at 22:00; Stop 06/14/19 at 22:29; Status DC Sodium Chloride 1,000 ml @ 1,000 mls/hr Q1H IV Last administered on 06/15/19at 00:04; Start 06/14/19 at 21:30; Stop 06/14/19 at 23:13; Status DC Ondansetron HCl (Zofran) 4 mg PRN Q8HRS PRN IV NAUSEA/VOMITING 1ST CHOICE; Start 06/14/19 at 21:15; Stop 06/15/19 at 21:14; Status DC Morphine Sulfate (Morphine Sulfate) 2 mg PRN Q2HR PRN IV SEVERE PAIN 7-10; Start 06/14/19 at 21:15; Stop 06/15/19 at 21:14; Status DC Acetaminophen (Tylenol) 650 mg PRN Q4HRS PRN PO FEVER; Start 06/14/19 at 21:15; Stop 06/15/19 at 21:14; Status DC Acetaminophen (Tylenol) 1,000 mg 1X ONCE PO Last administered on 06/15/19at 00:03; Start 06/14/19 at 21:30; Stop 06/14/19 at 21:31; Status DC Albuterol/ Ipratropium (Duoneb) 3 ml RTQID NEB Last administered on 06/16/19at 11:22; Start 06/15/19 at 12:00 Albuterol/ Ipratropium (Duoneb) 3 ml 1X ONCE NEB Last administered on 06/15/19at 11:21; Start 06/15/19 at 09:00; Stop 06/15/19 at 09:01; Status DC Budesonide (Pulmicort) 0.5 mg RTBID NEB Last administered on 06/16/19at 07:23; Start 06/15/19 at 20:00 Budesonide (Pulmicort) 0.5 mg 1X ONCE NEB Last administered on 06/15/19at 1 1:21; Start 06/15/19 at 09:00; Stop 06/15/19 at 09:01; Status DC Iohexol (Omnipaque 350 Mg/ml) 90 ml 1X ONCE IV Last administered on 06/15/19at 10:20; Start 06/15/19 at 09:00; Stop 06/15/19 at 09:01; Status DC Info (CONTRAST GIVEN -- Rx MONITORING) 1 each PRN DAILY PRN MC SEE COMMENTS; Start 06/15/19 at 09:15; Stop 06/17/19 at 09:14 Vancomycin HCl (Vanco Per Pharmacy) 1 each PRN DAILY PRN MC SEE COMMENTS Last administered on 06/15/19at 15:31; Start 06/15/19 at 10:00 Piperacillin Sod/ Tazobactam Sod (Zosyn Per Pharmacy) 1 each PRN DAILY PRN MC SEE COMMENTS; Start 06/15/19 at 10:00 Piperacillin Sod/ Tazobactam Sod 3.375 gm/Sodium Chloride 50 ml @ 100 mls/hr Q6HRS IV Last administered on 06/16/19at 11:09; Start 06/15/19 at 11:00 Vancomycin HCl 1.5 gm/Sodium Chloride 500 ml @ 250 mls/hr 1X ONCE IV Last administered on 06/15/19at 13:23; Start 06/15/19 at 11:00; Stop 06/15/19 at 12 :59; Status DC Vancomycin HCl 1 gm/Sodium Chloride 250 ml @ 250 mls/hr Q24H IV ; Start 06/16/19 at 13:30 Vancomycin HCl (Vancomycin Trough Level) 1 each 1X ONCE MC ; Start 06/17/19 at 13:00; Stop 06/17/19 at 13:01 Midazolam HCl (Versed) 2 mg STK-MED ONCE .ROUTE ; Start 06/16/19 at 09:32; Stop 06/16/19 at 09:32; Status DC Fentanyl Citrate (Fentanyl 2ml Vial) 100 mcg STK-MED ONCE .ROUTE ; Start 06/16/19 at 09:32; Stop 06/16/19 at 09:33; Status DC Lidocaine/Sodium Bicarbonate (Buffered Lidocaine 1%) 3 ml STK-MED ONCE .ROUTE ; Start 06/16/19 at 09:46; Stop 06/16/19 at 09:47; Status DC Lidocaine/Sodium Bicarbonate (Buffered Lidocaine 1%) 3 ml 1X ONCE IJ Last administered on 06/16/19at 10:21; Start 06/16/19 at 10:15; Stop 06/16/19 at 10:16; Status DC Midazolam HCl (Versed) 2 mg 1X ONCE IV Last administered on 06/16/19at 10:22; Start 06/16/19 at 10:15; Stop 06/16/19 at 10:16; Status DC Fentanyl Citrate (Fentanyl 2ml Vial) 100 mcg 1X ONCE IV Last administered on 06/16/19at 10:22; Start 06/16/19 at 10:15; Stop 06/16/19 at 10:16; Status DC Active Scripts Active Reported Xanax (Alprazolam) 0.25 Mg Tablet 1 Tab PO PRN TID PRN Vitamin D3 (Cholecalciferol (Vitamin D3)) 1,000 Unit Tablet 2 Tab PO DAILY Tylenol (Acetaminophen) 325 Mg Tablet 1 Tab PO PRN Q4HRS Multivitamins (Multivitamin) 1 Each Capsule 1 Each PO DAILY Silvadene (Silver Sulfadiazine) 20 Gm Cream..g. 1 Claudia TP DAILY Zoloft (Sertraline Hcl) 100 Mg Tablet 100 Mg PO DAILY Zyprexa (Olanzapine) 2.5 Mg Tablet 2.5 Mg PO DAILY Nystatin 100,000 Unit/1 Ml Oral.susp 5 Ml PO BID Mirtazapine 15 Mg Tablet 1 Tab PO QHS Milk Of Magnesia (Magnesium Hydroxide) 400 Mg/5 Ml Oral.susp 400 Mg PO PRN PRN Melatonin 3 Mg Tablet 3 Mg PO QHS Lumigan (Bimatoprost) 2.5 Ml Drops 1 Drop EACHEYE QHS Lisinopril 10 Mg Tablet 1 Tab PO HS Hydrocortisone 59 Ml Lotion 1 Claudia TP BID Guaifenesin Ac Cough Syrup (Guaifenesin/Codeine Phosphate) 473 Ml Liquid 10 Ml PO Q4-6HRS Famotidine 20 Mg Tablet 20 Mg PO BID 30 Days Clopidogrel (Clopidogrel Bisulfate) 75 Mg Tablet 75 Mg PO DAILY Calmoseptine Ointment (Menthol/Zinc Oxide) 71 Gm Oint...g. 71 Gm TP BID Atorvastatin Calcium 80 Mg Tablet 80 Mg PO HS Aspirin 81 Mg Tab.chew 81 Mg PO DAILY Vitals/I & O Vital Sign - Last 24 Hours 06/15/19 06/15/19 06/15/19 06/15/19 15:00 15:40 19:00 20:00 Temp 97.8 99.2 97.8 99.2 Pulse 86 82 Resp 20 18 B/P (MAP) 112/55 (74) 110/62 (78) Pulse Ox 94 97 O2 Delivery Nasal Cannula Nasal Cannula Nasal Cannula Nasal Cannula O2 Flow Rate 3.0 3.0 3.0 06/15/19 06/15/19 06/16/19 06/16/19 20:49 23:00 03:09 07:00 Temp 98.4 97.9 98.4 97.9 Pulse 59 82 89 Resp 14 18 16 B/P (MAP) 118/49 (72) 107/46 (66) 110/50 (70) Pulse Ox 94 93 92 95 O2 Delivery Nasal Cannula Room Air Nasal Cannula Nasal Cannula O2 Flow Rate 3.0 1.5 1.5 06/16/19 06/16/19 06/16/19 06/16/19 07:20 07:26 10:11 10:16 Pulse 85 83 Resp 19 22 Pulse Ox 94 94 94 O2 Delivery Nasal Cannula Nasal Cannula Nasal Cannula O2 Flow Rate 1.5 3.0 4.0 4.0 06/16/19 06/16/19 06/16/19 10:22 10:23 11:23 Pulse 83 Resp 22 28 Pulse Ox 94 94 94 O2 Delivery Nasal Cannula Nasal Cannula Nasal Cannula O2 Flow Rate 4.0 4.0 2.0 Intake and Output 06/15/19 06/15/19 06/16/19 15:00 23:00 07:00 Intake Total 737 ml 150 ml Balance 737 ml 150 ml AUGUSTIN LANIER MD Jun 16, 2019 12:26
--- NOTE | 2019-06-16 13:29 | PDOC ---
Infectious Disease Note Subjective Subjective s/p CT placement Slept most of the day and now enjoying the football game Denies SOA/F/C/N/V/D ROS ROS per HPI Vital Sign Vital Signs Vital Signs Date Time Temp Pulse Resp B/P (MAP) Pulse Ox O2 Delivery O2 Flow Rate FiO2 06/16/19 11:23 94 Nasal Cannula 2.0 06/16/19 10:23 83 28 06/16/19 07:00 97.9 110/50 (70) 97.9 Physical Exam PHYSICAL EXAM GENERAL: Propped up in bed, alert, looks well rested, smiling, watching the game HEENT: Pupils equally round. Oropharynx pink and moist. Halitosis. NECK: Supple. LUNGS: Diminished aeration in left lung base. Nonlabored. Left CT in place HEART: S1 and S2. Pacemaker. ABDOMEN: Nondistended, soft and nontender with bowel sounds present. PEG tube intact : No Barron. EXTREMITIES: No gross edema or cyanosis. SKIN: Warm to touch. No signs of rash. NEUROLOGIC: Alert and answering questions appropriately. Labs Lab Laboratory Tests Test 06/16/19 06:55 06/16/19 09:25 White Blood Count 16.5 x10^3/uL (4.0-11.0) Red Blood Count 2.66 x10^6/uL (4.30-5.70) Hemoglobin 8.0 g/dL (13.0-17.5) Hematocrit 24.3 % (39.0-53.0) Mean Corpuscular Volume 91 fL (79-100) Mean Corpuscular Hemoglobin 30 pg (25-35) Mean Corpuscular Hemoglobin Concent 33 g/dL (31-37) Red Cell Distribution Width 16.6 % (11.5-14.5) Platelet Count 356 x10^3/uL (140-400) Neutrophils (%) (Auto) 86 % (31-73) Lymphocytes (%) (Auto) 5 % (24-48) Monocytes (%) (Auto) 7 % (0-9) Eosinophils (%) (Auto) 1 % (0-3) Basophils (%) (Auto) 1 % (0-3) Neutrophils # (Auto) 14.3 x10^3/uL (1.8-7.7) Lymphocytes # (Auto) 0.9 x10^3/uL (1.0-4.8) Monocytes # (Auto) 1.2 x10^3/uL (0.0-1.1) Eosinophils # (Auto) 0.1 x10^3/uL (0.0-0.7) Basophils # (Auto) 0.1 x10^3/uL (0.0-0.2) Sodium Level 143 mmol/L (136-145) Potassium Level 3.8 mmol/L (3.5-5.1) Chloride Level 108 mmol/L (98-107) Carbon Dioxide Level 31 mmol/L (21-32) Anion Gap 4 (6-14) Blood Urea Nitrogen 24 mg/dL (8-26) Creatinine 0.9 mg/dL (0.7-1.3) Estimated GFR (Cockcroft-Gault) 80.2 Glucose Level 136 mg/dL (70-99) Calcium Level 8.4 mg/dL (8.5-10.1) Prothrombin Time 16.7 SEC (11.7-14.0) Prothromb Time International Ratio 1.4 (0.8-1.1) Micro Microbiology 06/14/19 Blood Culture - Preliminary, Resulted NO GROWTH AFTER 1 DAY Objective Assessment Large partially loculated left pleural effusion s/p CT placement, 06/16. Fluid analysis and cultures pending Left lower lobe collapse with abscess vs neoplasm Leukocytosis, improving Transaminitis Generalized weakness s/p multiple falls Dysphagia s/p PEG placement in Feb Weight loss COPD CAD Plan Plan of Care Continue vancomycin and Zosyn Monitor renal function closely f/u pleural fluid analysis and cultures Repeat labs in am Maintain aspiration precautions D/w nursing Patient seen and examined. Chart reviewed in detail. Case discussed with INVENTORY CONTROL COORDINATOR. Agree with above plan. MARY BRADY APRN Jun 16, 2019 13:29 NATIVIDAD ZUNIGA MD Jun 16, 2019 20:33
[2019-06-16] MEDS ORDERED: VANCOMYCIN 1 GM in IV NORMAL SALINE 250ML 250 ML IV SCH (13:30)
[2019-06-16 13:44] LABS: BF COLOR RED; BF SOURCE PLEURAL
[2019-06-16 13:45] LABS: BF CLARITY TURBID
[2019-06-16] MEDS: VANCOMYCIN PER PHARMACY MC PRN (15:09)
[2019-06-16] MEDS: LACTOBACILLUS RHAMNOSUS GG 1 CAPSULE. PO SCH (21:13)
[2019-06-17 03:30] VITALS: BP 102/52
[2019-06-17 04:58] LABS: BASO # 0.1 x10^3/uL (0.0-0.2); BASO % 0 % (0-3); EOS # 0.1 x10^3/uL (0.0-0.7); EOS % 1 % (0-3); HEMATOCRIT 26.2 % (39.0-53.0); HEMOGLOBIN 8.5 g/dL (13.0-17.5); LYMPH # 1.3 x10^3/uL (1.0-4.8); LYMPH % 7 % (24-48); MEAN CORPUSCULAR HEMOGLOBIN 30 pg (25-35); MEAN CORPUSCULAR HGB CONC 33 g/dL (31-37); MEAN CORPUSCULAR VOLUME 91 fL (79-100); MONO # 1.3 x10^3/uL (0.0-1.1); MONO % 7 % (0-9); NEUT # 15.3 x10^3/uL (1.8-7.7); NEUT % 85 % (31-73); PLATELET COUNT 424 x10^3/uL (140-400); RED BLOOD COUNT 2.87 x10^6/uL (4.30-5.70); RED CELL DISTRIBUTION WIDTH 16.6 % (11.5-14.5); WHITE BLOOD COUNT 18.1 x10^3/uL (4.0-11.0)
[2019-06-17 05:05] LABS: CALCIUM 8.3 mg/dL (8.5-10.1); CREATININE 0.8 mg/dL (0.7-1.3); GFR 91.9; POTASSIUM 4.1 mmol/L (3.5-5.1)
[2019-06-17] MEDS: PIPERACILLIN/TAZOBACTAM 3.375 GM in IV NORMAL SALINE 50ML 50 ML IV SCH ×5 (05:57→19:27)
[2019-06-17 07:00] VITALS: BP 113/60
[2019-06-17] MEDS: BUDESONIDE 0.5 MG/2 ML NEBU. NEB SCH ×2 (07:04→20:39)
[2019-06-17] MEDS: IPRATRPIUM/ALBUTEROL 0.5/2.5MG 3 ML NEBU. NEB SCH ×4 (07:04→20:39)
--- NOTE | 2019-06-17 08:04 | EKG ---
[facility] [address] [place] [address] Test Date: 2019-06-14 Test Time: 18:00:51 Pat Name: TIFFANY OH Department: Room: 436 Gender: M Thermometer Tester: : 1935 Requested By: AUGUSTIN LANIER Order Number: [id number] Reading MD: Earl Irby MD Measurements Intervals [place] Rate: 93 P: -45 KS: 166 QRS: -90 QRSD: 168 T: 77 QT: 398 QTc: 503 Interpretive Statements SINUS RHYTHM V-PACED Electronically Signed On 06-25-2019 10:14:04 CDT by Earl Irby MD
--- NOTE | 2019-06-17 08:33 | PDOC ---
PROGRESS NOTES Chief Complaint Chief Complaint Right-sided pleural effusion, possible loculated effusion, possible empyema s/p left indwelling chest tube (06/16) Freq falls in [place], non injury falls - mechanical falls Dysphagia, indwelling PEG x 7 mos now, STrict NPO, bolus TFs at [place] RT wrist OA Indwelling pacer LEUKOCYTOSIS Left lower lobe collapse with abscess vs neoplasm Leukocytosis, improving Transaminitis Generalized weakness s/p multiple falls Weight loss COPD CAD History of Present Illness History of Present Illness He now has a left sided chest tube indwelling and is draining pleural fluid (loculated empyema on CT and CXR) Pleural fluid has been sent for studies - RBCs, LDH 2166, protein 4.1, glucose 22. No pH Has in indwelling pEG x 6 mos now for dysphagia and is on Bolus feeding here and at [facility] prior to admission WBC 18, elevated ESR 76 but no fevers ID weekend coverage has okayed vanc and zosyn empiric coverage for HCAP. He is feeling weak, wishes to have a BM. Aching all over. No CP. PLAN: CPM PT recs [facility] - sw consult for this Otherwise cont chest tube, IV abx and ff up pleural fluid studies pls Vitals Vitals Vital Signs Date Time Temp Pulse Resp B/P (MAP) Pulse Ox O2 Delivery O2 Flow Rate FiO2 06/17/19 07:05 92 Nasal Cannula 2.0 06/17/19 03:30 98.1 86 18 102/52 (69) 98.1 Physical Exam Physical Exam GENERAL: Propped up in bed, alert, looks well rested, smiling, watching the game HEENT: Pupils equally round. Oropharynx pink and moist. Halitosis. NECK: Supple. LUNGS: Diminished aeration in left lung base. Nonlabored. Left CT in place HEART: S1 and S2. Pacemaker. ABDOMEN: Nondistended, soft and nontender with bowel sounds present. PEG tube intact : No Barron. EXTREMITIES: No gross edema or cyanosis. SKIN: Warm to touch. No signs of rash. NEUROLOGIC: Alert and answering questions appropriately. General: Alert, Oriented X3, Cooperative, No acute distress Heart: Regular rate, Normal S1, Normal S2 Lungs: Other (l dullness crackles) Abdomen: Normal bowel sounds, Soft, No tenderness, No hepatosplenomegaly, No masses Extremities: No clubbing, No cyanosis, No edema, Normal pulses, No tenderness/swelling Skin: Other (senile skin turgor, some old skin brusing) Labs LABS Laboratory Tests Test 06/16/19 09:25 06/16/19 11:00 06/17/19 04:10 Prothrombin Time 16.7 SEC (11.7-14.0) Prothromb Time International Ratio 1.4 (0.8-1.1) Body Fluid Source Pleural Body Fluid Color Red Body Fluid Clarity Turbid Body Fluid Nucleated Cells /cmm (Not Established) Body Fluid Polymorphonuclear Cells % Body Fluid Total RBCs Counted /cmm (Not Established) White Blood Count 18.1 x10^3/uL (4.0-11.0) Red Blood Count 2.87 x10^6/uL (4.30-5.70) Hemoglobin 8.5 g/dL (13.0-17.5) Hematocrit 26.2 % (39.0-53.0) Mean Corpuscular Volume 91 fL (79-100) Mean Corpuscular Hemoglobin 30 pg (25-35) Mean Corpuscular Hemoglobin Concent 33 g/dL (31-37) Red Cell Distribution Width 16.6 % (11.5-14.5) Platelet Count 424 x10^3/uL (140-400) Neutrophils (%) (Auto) 85 % (31-73) Lymphocytes (%) (Auto) 7 % (24-48) Monocytes (%) (Auto) 7 % (0-9) Eosinophils (%) (Auto) 1 % (0-3) Basophils (%) (Auto) 0 % (0-3) Neutrophils # (Auto) 15.3 x10^3/uL (1.8-7.7) Lymphocytes # (Auto) 1.3 x10^3/uL (1.0-4.8) Monocytes # (Auto) 1.3 x10^3/uL (0.0-1.1) Eosinophils # (Auto) 0.1 x10^3/uL (0.0-0.7) Basophils # (Auto) 0.1 x10^3/uL (0.0-0.2) Sodium Level 142 mmol/L (136-145) Potassium Level 4.1 mmol/L (3.5-5.1) Chloride Level 107 mmol/L (98-107) Carbon Dioxide Level 32 mmol/L (21-32) Anion Gap 3 (6-14) Blood Urea Nitrogen 22 mg/dL (8-26) Creatinine 0.8 mg/dL (0.7-1.3) Estimated GFR (Cockcroft-Gault) 91.9 Glucose Level 128 mg/dL (70-99) Calcium Level 8.3 mg/dL (8.5-10.1) Assessment and Plan Assessmemt and Plan Problems Medical Problems: (1) Fever Status: Acute (2) UTI (urinary tract infection) Status: Acute Comment Review of Relevant I have reviewed the following items lorenzo (where applicable) has been applied. Labs Laboratory Tests Test 06/15/19 12:07 06/16/19 06:55 06/16/19 09:25 06/16/19 11:00 Erythrocyte Sedimentation Rate 76 (0-15) White Blood Count 16.5 x10^3/uL (4.0-11.0) Red Blood Count 2.66 x10^6/uL (4.30-5.70) Hemoglobin 8.0 g/dL (13.0-17.5) Hematocrit 24.3 % (39.0-53.0) Mean Corpuscular Volume 91 fL (79-100) Mean Corpuscular Hemoglobin 30 pg (25-35) Mean Corpuscular Hemoglobin Concent 33 g/dL (31-37) Red Cell Distribution Width 16.6 % (11.5-14.5) Platelet Count 356 x10^3/uL (140-400) Neutrophils (%) (Auto) 86 % (31-73) Lymphocytes (%) (Auto) 5 % (24-48) Monocytes (%) (Auto) 7 % (0-9) Eosinophils (%) (Auto) 1 % (0-3) Basophils (%) (Auto) 1 % (0-3) Neutrophils # (Auto) 14.3 x10^3/uL (1.8-7.7) Lymphocytes # (Auto) 0.9 x10^3/uL (1.0-4.8) Monocytes # (Auto) 1.2 x10^3/uL (0.0-1.1) Eosinophils # (Auto) 0.1 x10^3/uL (0.0-0.7) Basophils # (Auto) 0.1 x10^3/uL (0.0-0.2) Sodium Level 143 mmol/L (136-145) Potassium Level 3.8 mmol/L (3.5-5.1) Chloride Level 108 mmol/L (98-107) Carbon Dioxide Level 31 mmol/L (21-32) Anion Gap 4 (6-14) Blood Urea Nitrogen 24 mg/dL (8-26) Creatinine 0.9 mg/dL (0.7-1.3) Estimated GFR (Cockcroft-Gault) 80.2 Glucose Level 136 mg/dL (70-99) Calcium Level 8.4 mg/dL (8.5-10.1) Prothrombin Time 16.7 SEC (11.7-14.0) Prothromb Time International Ratio 1.4 (0.8-1.1) Body Fluid Source Pleural Body Fluid Color Red Body Fluid Clarity Turbid Body Fluid Nucleated Cells /cmm (Not Established) Body Fluid Polymorphonuclear Cells % Body Fluid Total RBCs Counted /cmm (Not Established) Test 06/17/19 04:10 White Blood Count 18.1 x10^3/uL (4.0-11.0) Red Blood Count 2.87 x10^6/uL (4.30-5.70) Hemoglobin 8.5 g/dL (13.0-17.5) Hematocrit 26.2 % (39.0-53.0) Mean Corpuscular Volume 91 fL (79-100) Mean Corpuscular Hemoglobin 30 pg (25-35) Mean Corpuscular Hemoglobin Concent 33 g/dL (31-37) Red Cell Distribution Width 16.6 % (11.5-14.5) Platelet Count 424 x10^3/uL (140-400) Neutrophils (%) (Auto) 85 % (31-73) Lymphocytes (%) (Auto) 7 % (24-48) Monocytes (%) (Auto) 7 % (0-9) Eosinophils (%) (Auto) 1 % (0-3) Basophils (%) (Auto) 0 % (0-3) Neutrophils # (Auto) 15.3 x10^3/uL (1.8-7.7) Lymphocytes # (Auto) 1.3 x10^3/uL (1.0-4.8) Monocytes # (Auto) 1.3 x10^3/uL (0.0-1.1) Eosinophils # (Auto) 0.1 x10^3/uL (0.0-0.7) Basophils # (Auto) 0.1 x10^3/uL (0.0-0.2) Sodium Level 142 mmol/L (136-145) Potassium Level 4.1 mmol/L (3.5-5.1) Chloride Level 107 mmol/L (98-107) Carbon Dioxide Level 32 mmol/L (21-32) Anion Gap 3 (6-14) Blood Urea Nitrogen 22 mg/dL (8-26) Creatinine 0.8 mg/dL (0.7-1.3) Estimated GFR (Cockcroft-Gault) 91.9 Glucose Level 128 mg/dL (70-99) Calcium Level 8.3 mg/dL (8.5-10.1) Laboratory Tests Test 06/16/19 09:25 06/16/19 11:00 06/17/19 04:10 Prothrombin Time 16.7 SEC (11.7-14.0) Prothromb Time International Ratio 1.4 (0.8-1.1) Body Fluid Source Pleural Body Fluid Color Red Body Fluid Clarity Turbid Body Fluid Nucleated Cells /cmm (Not Established) Body Fluid Polymorphonuclear Cells % Body Fluid Total RBCs Counted /cmm (Not Established) White Blood Count 18.1 x10^3/uL (4.0-11.0) Red Blood Count 2.87 x10^6/uL (4.30-5.70) Hemoglobin 8.5 g/dL (13.0-17.5) Hematocrit 26.2 % (39.0-53.0) Mean Corpuscular Volume 91 fL (79-100) Mean Corpuscular Hemoglobin 30 pg (25-35) Mean Corpuscular Hemoglobin Concent 33 g/dL (31-37) Red Cell Distribution Width 16.6 % (11.5-14.5) Platelet Count 424 x10^3/uL (140-400) Neutrophils (%) (Auto) 85 % (31-73) Lymphocytes (%) (Auto) 7 % (24-48) Monocytes (%) (Auto) 7 % (0-9) Eosinophils (%) (Auto) 1 % (0-3) Basophils (%) (Auto) 0 % (0-3) Neutrophils # (Auto) 15.3 x10^3/uL (1.8-7.7) Lymphocytes # (Auto) 1.3 x10^3/uL (1.0-4.8) Monocytes # (Auto) 1.3 x10^3/uL (0.0-1.1) Eosinophils # (Auto) 0.1 x10^3/uL (0.0-0.7) Basophils # (Auto) 0.1 x10^3/uL (0.0-0.2) Sodium Level 142 mmol/L (136-145) Potassium Level 4.1 mmol/L (3.5-5.1) Chloride Level 107 mmol/L (98-107) Carbon Dioxide Level 32 mmol/L (21-32) Anion Gap 3 (6-14) Blood Urea Nitrogen 22 mg/dL (8-26) Creatinine 0.8 mg/dL (0.7-1.3) Estimated GFR (Cockcroft-Gault) 91.9 Glucose Level 128 mg/dL (70-99) Calcium Level 8.3 mg/dL (8.5-10.1) Microbiology 06/14/19 Blood Culture - Preliminary, Resulted NO GROWTH AFTER 2 DAYS Medications Current Medications Acetaminophen (Tylenol) 500 mg PRN Q6HRS PRN PO MILD PAIN / TEMP; Start 06/14/19 at 19:30; Stop 06/14/19 at 19:34; Status DC Acetaminophen/ Codeine Phosphate (Tylenol #3) 1 tab PRN Q6HRS PRN PO MODERATE PAIN; Start 06/14/19 at 19:30; Stop 06/14/19 at 19:34; Status DC Calcium Carbonate/ Glycine (Tums) 500 mg PRN AFTMEALHC PRN PO INDIGESTION; Start 06/14/19 at 19:30; Stop 06/14/19 at 19:34; Status DC Ondansetron HCl (Zofran) 4 mg PRN Q6HRS PRN IVP NAUSEA/VOMITING; Start 06/14/19 at 19:30 Temazepam (Restoril) 7.5 mg PRN QHS PRN PO INSOMNIA; Start 06/14/19 at 19:30 Acetaminophen/ Hydrocodone Bitart (Lortab 5/325) 1 tab PRN Q4HRS PRN PO MODERATE PAIN; Start 06/14/19 at 19:30; Stop 06/14/19 at 19:34; Status DC Fentanyl Citrate (Fentanyl 2ml Vial) 25 mcg PRN Q2HR PRN IV PAIN; Start 06/14/19 at 19:30 Acetaminophen (Tylenol) 500 mg PRN Q6HRS PRN PEG MILD PAIN / TEMP; Start 06/14/19 at 19:45 Acetaminophen/ Codeine Phosphate (Tylenol #3) 1 tab PRN Q6HRS PRN PEG MODERATE PAIN; Start 06/14/19 at 19:34 Calcium Carbonate/ Glycine (Tums) 500 mg PRN AFTMEALHC PRN PEG INDIGESTION; Start 06/14/19 at 19:34 Acetaminophen/ Hydrocodone Bitart (Lortab 5/325) 1 tab PRN Q4HRS PRN PEG MODERATE PAIN; Start 06/14/19 at 19:34 Piperacillin Sod/ Tazobactam Sod 4.5 gm/Sodium Chloride 100 ml @ 200 mls/hr 1X ONCE IV Last administered on 06/15/19at 00:05; Start 06/14/19 at 22:00; Stop 06/14/19 at 22:29; Status DC Sodium Chloride 1,000 ml @ 1,000 mls/hr Q1H IV Last administered on 06/15/19at 00:04; Start 06/14/19 at 21:30; Stop 06/14/19 at 23:13; Status DC Ondansetron HCl (Zofran) 4 mg PRN Q8HRS PRN IV NAUSEA/VOMITING 1ST CHOICE; Start 06/14/19 at 21:15; Stop 06/15/19 at 21:14; Status DC Morphine Sulfate (Morphine Sulfate) 2 mg PRN Q2HR PRN IV SEVERE PAIN 7-10; Start 06/14/19 at 21:15; Stop 06/15/19 at 21:14; Status DC Acetaminophen (Tylenol) 650 mg PRN Q4HRS PRN PO FEVER; Start 06/14/19 at 21:15; Stop 06/15/19 at 21:14; Status DC Acetaminophen (Tylenol) 1,000 mg 1X ONCE PO Last administered on 06/15/19at 00:03; Start 06/14/19 at 21:30; Stop 06/14/19 at 21:31; Status DC Albuterol/ Ipratropium (Duoneb) 3 ml RTQID NEB Last administered on 06/17/19at 07:04; Start 06/15/19 at 12:00 Albuterol/ Ipratropium (Duoneb) 3 ml 1X ONCE NEB Last administered on 06/15/19at 11:21; Start 06/15/19 at 09:00; Stop 06/15/19 at 09:01; Status DC Budesonide (Pulmicort) 0.5 mg RTBID NEB Last administered on 06/17/19at 07:04; Start 06/15/19 at 20:00 Budesonide (Pulmicort) 0.5 mg 1X ONCE NEB Last administered on 06/15/19at 11:21; Start 06/15/19 at 09:00; Stop 06/15/19 at 09:01; Status DC Iohexol (Omnipaque 350 Mg/ml) 90 ml 1X ONCE IV Last administered on 06/15/19at 10:20; Start 06/15/19 at 09:00; Stop 06/15/19 at 09:01; Status DC Info (CONTRAST GIVEN -- Rx MONITORING) 1 each PRN DAILY PRN MC SEE COMMENTS; Start 06/15/19 at 09:15; Stop 06/17/19 at 09:14 Vancomycin HCl (Vanco Per Pharmacy) 1 each PRN DAILY PRN MC SEE COMMENTS Last administered on 06/16/19at 15:09; Start 06/15/19 at 10:00 Piperacillin Sod/ Tazobactam Sod (Zosyn Per Pharmacy) 1 each PRN DAILY PRN MC SEE COMMENTS; Start 06/15/19 at 10:00 Piperacillin Sod/ Tazobactam Sod 3.375 gm/Sodium Chloride 50 ml @ 100 mls/hr Q6HRS IV Last administered on 06/17/19at 05:57; Start 06/15/19 at 11:00 Vancomycin HCl 1.5 gm/Sodium Chloride 500 ml @ 250 mls/hr 1X ONCE IV Last administered on 06/15/19at 13:23; Start 06/15/19 at 11:00; Stop 06/15/19 at 12:59; Status DC Vancomycin HCl 1 gm/Sodium Chloride 250 ml @ 250 mls/hr Q24H IV Last adm inistered on 06/16/19at 12:32; Start 06/16/19 at 13:30 Vancomycin HCl (Vancomycin Trough Level) 1 each 1X ONCE MC ; Start 06/17/19 at 13:00; Stop 06/17/19 at 13:01 Midazolam HCl (Versed) 2 mg STK-MED ONCE .ROUTE ; Start 06/16/19 at 09:32; Stop 06/16/19 at 09:32; Status DC Fentanyl Citrate (Fentanyl 2ml Vial) 100 mcg STK-MED ONCE .ROUTE ; Start 06/16/19 at 09:32; Stop 06/16/19 at 09:33; Status DC Lidocaine/Sodium Bicarbonate (Buffered Lidocaine 1%) 3 ml STK-MED ONCE .ROUTE ; Start 06/16/19 at 09:46; Stop 06/16/19 at 09:47; Status DC Lidocaine/Sodium Bicarbonate (Buffered Lidocaine 1%) 3 ml 1X ONCE IJ Last administered on 06/16/19at 10:21; Start 06/16/19 at 10:15; Stop 06/16/19 at 10:16; Status DC Midazolam HCl (Versed) 2 mg 1X ONCE IV Last administered on 06/16/19at 10:22; Start 06/16/19 at 10:15; Stop 06/16/19 at 10:16; Status DC Fentanyl Citrate (Fentanyl 2ml Vial) 100 mcg 1X ONCE IV Last administered on 06/16/19at 10:22; Start 06/16/19 at 10:15; Stop 06/16/19 at 10:16; Status DC Lactobacillus Rhamnosus (Culturelle) 1 cap BID PO Last administered on 06/16/19at 21:13; Start 06/16/19 at 21:00 Active Scripts Active Reported Xanax (Alprazolam) 0.25 Mg Tablet 1 Tab PO PRN TID PRN Vitamin D3 (Cholecalciferol (Vitamin D3)) 1,000 Unit Tablet 2 Tab PO DAILY Tylenol (Acetaminophen) 325 Mg Tablet 1 Tab PO PRN Q4HRS Multivitamins (Multivitamin) 1 Each Capsule 1 Each PO DAILY Silvadene (Silver Sulfadiazine) 20 Gm Cream..g. 1 Claudia TP DAILY Zoloft (Sertraline Hcl) 100 Mg Tablet 100 Mg PO DAILY Zyprexa (Olanzapine) 2.5 Mg Tablet 2.5 Mg PO DAILY Nystatin 100,000 Unit/1 Ml Oral.susp 5 Ml PO BID Mirtazapine 15 Mg Tablet 1 Tab PO QHS Milk Of Magnesia (Magnesium Hydroxide) 400 Mg/5 Ml Oral.susp 400 Mg PO PRN PRN Melatonin 3 Mg Tablet 3 Mg PO QHS Lumigan (Bimatoprost) 2.5 Ml Drops 1 Drop EACHEYE QHS Lisinopril 10 Mg Tablet 1 Tab PO HS Hydrocortisone 59 Ml Lotion 1 Claudia TP BID Guaifenesin Ac Cough Syrup (Guaifenesin/Codeine Phosphate) 473 Ml Liquid 10 Ml PO Q4-6HRS Famotidine 20 Mg Tablet 20 Mg PO BID 30 Days Clopidogrel (Clopidogrel Bisulfate) 75 Mg Tablet 75 Mg PO DAILY Calmoseptine Ointment (Menthol/Zinc Oxide) 71 Gm Oint...g. 71 Gm TP BID Atorvastatin Calcium 80 Mg Tablet 80 Mg PO HS Aspirin 81 Mg Tab.chew 81 Mg PO DAILY Vitals/I & O Vital Sign - Last 24 Hours 06/16/19 06/16/19 06/16/19 06/16/19 10:11 10:16 10:22 10:23 Pulse 85 83 83 Resp 22 28 Pulse Ox 94 94 94 94 O2 Delivery Nasal Cannula Nasal Cannula Nasal Cannula O2 Flow Rate 4.0 4.0 4.0 4.0 06/16/19 06/16/19 06/16/19 06/16/19 10:49 11:00 11:20 11:23 Temp 97.9 97.9 Pulse 83 82 83 B/P (MAP) 100/52 (68) 97/52 (67) 102/51 (68) Pulse Ox 94 94 94 94 O2 Delivery Nasal Cannula Nasal Cannula Nasal Cannula Nasal Cannula O2 Flow Rate 1.5 1.5 1.5 2.0 06/16/19 06/16/19 06/16/19 06/16/19 11:40 12:00 12:20 12:40 Pulse 89 89 90 88 B/P (MAP) 105/48 (67) 106/51 (69) 102/45 (64) 102/46 (64) Pulse Ox 93 O2 Delivery Nasal Cannula O2 Flow Rate 1.5 06/16/19 06/16/19 06/16/19 06/16/19 13:00 14:00 14:40 15:52 Pulse 89 87 87 B/P (MAP) 98/47 (64) 106/51 (69) 110/50 (70) Pulse Ox 95 O2 Delivery Nasal Cannula O2 Flow Rate 2.0 06/16/19 06/16/19 06/16/19 06/16/19 18:29 20:00 20:43 23:00 Temp 99.4 97.8 99.4 97.8 Pulse 101 93 Resp 20 B/P (MAP) 115/67 (83) 99/50 (66) Pulse Ox 91 93 O2 Delivery Nasal Cannula Nasal Cannula Nasal Cannula Nasal Cannula O2 Flow Rate 2.0 1.5 2.0 06/17/19 06/17/19 03:30 07:05 Temp 98.1 98.1 Pulse 86 Resp 18 B/P (MAP) 102/52 (69) Pulse Ox 92 92 O2 Delivery Nasal Cannula Nasal Cannula O2 Flow Rate 2.0 2.0 Intake and Output 06/16/19 06/16/19 06/17/19 15:00 23:00 07:00 Intake Total 1248 ml 924 ml 0 ml Output Total 30 ml 65 ml Balance 1218 ml 859 ml 0 ml BHAVIK CRAIN MD Jun 17, 2019 08:33
[2019-06-17] MEDS: LACTOBACILLUS RHAMNOSUS GG 1 CAPSULE. PO SCH ×2 (09:27→21:53)
--- NOTE | 2019-06-17 10:14 | RAD ---
CHEST AP ONLY History: Pleural effusion Comparison: CT June 07, 2019. Findings: Interval placement left pleural pigtail drainage catheter. Loculated left pleural effusion, similar compared to prior. Patchy left mid and basilar opacity. Diffuse interstitial thickening, likely on a chronic basis. Unchanged left sided pacemaker. Unchanged heart size. No pneumothorax. Bilateral acromioclavicular and glenohumeral DJD. Impression: 1. Loculated left pleural effusion, similar compared to prior. Interval placement left pleural pigtail drainage catheter. 2. Patchy left mid and basilar opacities, increased compared to prior, may relate to low lung volumes. Electronically signed by: Mushtaq Dash DO (06/17/2019 10:11 AM) [id number]
[2019-06-17 11:00] VITALS: BP 114/59
--- NOTE | 2019-06-17 12:08 | PDOC ---
Infectious Disease Note Subjective Subjective Tired today Enjoyed the football game yesterday Denies SOA/F/C/N/V/D ROS ROS per HPI Vital Sign Vital Signs Vital Signs Date Time Temp Pulse Resp B/P (MAP) Pulse Ox O2 Delivery O2 Flow Rate FiO2 06/17/19 11:16 Nasal Cannula 3.0 06/17/19 07:05 92 06/17/19 07:00 97.7 96 18 113/60 (77) 97.7 Physical Exam PHYSICAL EXAM GENERAL: Propped up in bed, alert, NAD HEENT: Pupils equally round. Oropharynx pink and moist. Halitosis. NECK: Supple. LUNGS: Diminished aeration in left lung base. Nonlabored. Left CT in place HEART: S1 and S2. Pacemaker. ABDOMEN: Nondistended, soft and nontender with bowel sounds present. PEG tube intact : No Barron. EXTREMITIES: No gross edema or cyanosis. SKIN: Warm to touch. No signs of rash. NEUROLOGIC: Alert and answering questions appropriately. Labs Lab Laboratory Tests Test 06/17/19 04:10 White Blood Count 18.1 x10^3/uL (4.0-11.0) Red Blood Count 2.87 x10^6/uL (4.30-5.70) Hemoglobin 8.5 g/dL (13.0-17.5) Hematocrit 26.2 % (39.0-53.0) Mean Corpuscular Volume 91 fL (79-100) Mean Corpuscular Hemoglobin 30 pg (25-35) Mean Corpuscular Hemoglobin Concent 33 g/dL (31-37) Red Cell Distribution Width 16.6 % (11.5-14.5) Platelet Count 424 x10^3/uL (140-400) Neutrophils (%) (Auto) 85 % (31-73) Lymphocytes (%) (Auto) 7 % (24-48) Monocytes (%) (Auto) 7 % (0-9) Eosinophils (%) (Auto) 1 % (0-3) Basophils (%) (Auto) 0 % (0-3) Neutrophils # (Auto) 15.3 x10^3/uL (1.8-7.7) Lymphocytes # (Auto) 1.3 x10^3/uL (1.0-4.8) Monocytes # (Auto) 1.3 x10^3/uL (0.0-1.1) Eosinophils # (Auto) 0.1 x10^3/uL (0.0-0.7) Basophils # (Auto) 0.1 x10^3/uL (0.0-0.2) Sodium Level 142 mmol/L (136-145) Potassium Level 4.1 mmol/L (3.5-5.1) Chloride Level 107 mmol/L (98-107) Carbon Dioxide Level 32 mmol/L (21-32) Anion Gap 3 (6-14) Blood Urea Nitrogen 22 mg/dL (8-26) Creatinine 0.8 mg/dL (0.7-1.3) Estimated GFR (Cockcroft-Gault) 91.9 Glucose Level 128 mg/dL (70-99) Calcium Level 8.3 mg/dL (8.5-10.1) Micro Microbiology 06/14/19 Blood Culture - Preliminary, Resulted NO GROWTH AFTER 2 DAY Objective Assessment Large partially loculated left pleural effusion s/p CT placement, 06/16. poor specimen, cell count couldn't be done. cultures pending Left lower lobe collapse with abscess vs neoplasm Leukocytosis, Transaminitis Generalized weakness s/p multiple falls Dysphagia s/p PEG placement in Feb Weight loss COPD CAD Plan Plan of Care Continue vancomycin and Zosyn Monitor renal function closely f/u pleural fluid analysis and cultures. s/p TPA today cytology testing added. D/w lab Maintain aspiration precautions D/w nursing Attending Co-Sign Attending Co-Sign The patient was seen and interviewed as well as examined at the bedside. The chart was reviewed. The case was discussed. Agree with the plan of care. MARY BRADY APRN Jun 17, 2019 12:08 ALEJANDRO ANGELO MD Jun 17, 2019 16:54
[2019-06-17] MEDS ORDERED: MAGNESIUM HYDROXIDE 2,400 MG/30 ML ORAL.SUSP. PO PRN (12:30)
[2019-06-17 13:41] LABS: VANC TR 6.3 mcg/mL (10.0-20.0)
--- NOTE | 2019-06-17 13:56 | PDOC ---
PULMONARY PROGRESS NOTES Subjective sob better, no pain, no cough Vitals Vital Signs Date Time Temp Pulse Resp B/P (MAP) Pulse Ox O2 Delivery O2 Flow Rate FiO2 06/17/19 11:16 Nasal Cannula 3.0 06/17/19 11:00 97.7 88 18 114/59 (77) 93 97.7 ROS: No Nausea, No Chest Pain General: Alert, No acute distress HEENT: Other (nc at perrl ) Lungs: Other (l dullness crackles) Cardiovascular: S1, S2 Abdomen: Soft, Non-tender Neuro Exam: Alert Extremities: No Edema Skin: Warm Labs Laboratory Tests Test 06/16/19 06:55 06/16/19 09:25 06/16/19 11:00 06/17/19 04:10 White Blood Count 16.5 x10^3/uL (4.0-11.0) 18.1 x10^3/uL (4.0-11.0) Red Blood Count 2.66 x10^6/uL (4.30-5.70) 2.87 x10^6/uL (4.30-5.70) Hemoglobin 8.0 g/dL (13.0-17.5) 8.5 g/dL (13.0-17.5) Hematocrit 24.3 % (39.0-53.0) 26.2 % (39.0-53.0) Mean Corpuscular Volume 91 fL (79-100) 91 fL (79-100) Mean Corpuscular Hemoglobin 30 pg (25-35) 30 pg (25-35) Mean Corpuscular Hemoglobin Concent 33 g/dL (31-37) 33 g/dL (31-37) Red Cell Distribution Width 16.6 % (11.5-14.5) 16.6 % (11.5-14.5) Platelet Count 356 x10^3/uL (140-400) 424 x10^3/uL (140-400) Neutrophils (%) (Auto) 86 % (31-73) 85 % (31-73) Lymphocytes (%) (Auto) 5 % (24-48) 7 % (24-48) Monocytes (%) (Auto) 7 % (0-9) 7 % (0-9) Eosinophils (%) (Auto) 1 % (0-3) 1 % (0-3) Basophils (%) (Auto) 1 % (0-3) 0 % (0-3) Neutrophils # (Auto) 14.3 x10^3/uL (1.8-7.7) 15.3 x10^3/uL (1.8-7.7) Lymphocytes # (Auto) 0.9 x10^3/uL (1.0-4.8) 1.3 x10^3/uL (1.0-4.8) Monocytes # (Auto) 1.2 x10^3/uL (0.0-1.1) 1.3 x10^3/uL (0.0-1.1) Eosinophils # (Auto) 0.1 x10^3/uL (0.0-0.7) 0.1 x10^3/uL (0.0-0.7) Basophils # (Auto) 0.1 x10^3/uL (0.0-0.2) 0.1 x10^3/uL (0.0-0.2) Sodium Level 143 mmol/L (136-145) 142 mmol/L (136-145) Potassium Level 3.8 mmol/L (3.5-5.1) 4.1 mmol/L (3.5-5.1) Chloride Level 108 mmol/L (98-107) 107 mmol/L (98-107) Carbon Dioxide Level 31 mmol/L (21-32) 32 mmol/L (21-32) Anion Gap 4 (6-14) 3 (6-14) Blood Urea Nitrogen 24 mg/dL (8-26) 22 mg/dL (8-26) Creatinine 0.9 mg/dL (0.7-1.3) 0.8 mg/dL (0.7-1.3) Estimated GFR (Cockcroft-Gault) 80.2 91.9 Glucose Level 136 mg/dL (70-99) 128 mg/dL (70-99) Calcium Level 8.4 mg/dL (8.5-10.1) 8.3 mg/dL (8.5-10.1) Prothrombin Time 16.7 SEC (11.7-14.0) Prothromb Time International Ratio 1.4 (0.8-1.1) Body Fluid Source Pleural Body Fluid Color Red Body Fluid Clarity Turbid Body Fluid Nucleated Cells /cmm (Not Established) Body Fluid Polymorphonuclear Cells % Body Fluid Total RBCs Counted /cmm (Not Established) Body Fluid Glucose 22 mg/dL (.) Body Fluid Total Protein 4.1 g/dL (.) Body Fluid Lactate Dehydrogenase 2166 IU/L (.) Test 06/17/19 13:00 Vancomycin Level Trough 6.3 mcg/mL (10.0-20.0) Vancomycin Last Dose Date 06/16/19 Vancomycin Last Dose Time 1330 Laboratory Tests Test 06/17/19 04:10 06/17/19 13:00 White Blood Count 18.1 x10^3/uL (4.0-11.0) Red Blood Count 2.87 x10^6/uL (4.30-5.70) Hemoglobin 8.5 g/dL (13.0-17.5) Hematocrit 26.2 % (39.0-53.0) Mean Corpuscular Volume 91 fL (79-100) Mean Corpuscular Hemoglobin 30 pg (25-35) Mean Corpuscular Hemoglobin Concent 33 g/dL (31-37) Red Cell Distribution Width 16.6 % (11.5-14.5) Platelet Count 424 x10^3/uL (140-400) Neutrophils (%) (Auto) 85 % (31-73) Lymphocytes (%) (Auto) 7 % (24-48) Monocytes (%) (Auto) 7 % (0-9) Eosinophils (%) (Auto) 1 % (0-3) Basophils (%) (Auto) 0 % (0-3) Neutrophils # (Auto) 15.3 x10^3/uL (1.8-7.7) Lymphocytes # (Auto) 1.3 x10^3/uL (1.0-4.8) Monocytes # (Auto) 1.3 x10^3/uL (0.0-1.1) Eosinophils # (Auto) 0.1 x10^3/uL (0.0-0.7) Basophils # (Auto) 0.1 x10^3/uL (0.0-0.2) Sodium Level 142 mmol/L (136-145) Potassium Level 4.1 mmol/L (3.5-5.1) Chloride Level 107 mmol/L (98-107) Carbon Dioxide Level 32 mmol/L (21-32) Anion Gap 3 (6-14) Blood Urea Nitrogen 22 mg/dL (8-26) Creatinine 0.8 mg/dL (0.7-1.3) Estimated GFR (Cockcroft-Gault) 91.9 Glucose Level 128 mg/dL (70-99) Calcium Level 8.3 mg/dL (8.5-10.1) Vancomycin Level Trough 6.3 mcg/mL (10.0-20.0) Vancomycin Last Dose Date 06/16/19 Vancomycin Last Dose Time 1330 Medications Active Scripts Medications Dose Route/Sig Max Daily Dose Days Date Category Xanax (Alprazolam) 0.25 Mg Tablet 1 Tab PO PRN TID PRN 06/15/19 Reported Vitamin D3 (Cholecalciferol (Vitamin D3)) 1,000 Unit Tablet 2 Tab PO DAILY 06/15/19 Reported Tylenol (Acetaminophen) 325 Mg Tablet 1 Tab PO PRN Q4HRS 06/15/19 Reported Multivitamins (Multivitamin) 1 Each Capsule 1 Each PO DAILY 06/15/19 Reported Silvadene (Silver Sulfadiazine) 20 Gm Cream..g. 1 Claudia TP DAILY 06/15/19 Reported Zoloft (Sertraline Hcl) 100 Mg Tablet 100 Mg PO DAILY 06/15/19 Reported Zyprexa (Olanzapine) 2.5 Mg Tablet 2.5 Mg PO DAILY 06/15/19 Reported Nystatin 100,000 Unit/1 Ml Oral.susp 5 Ml PO BID 06/15/19 Reported Mirtazapine 15 Mg Tablet 1 Tab PO QHS 06/15/19 Reported Milk Of Magnesia (Magnesium Hydroxide) 400 Mg/5 Ml Oral.susp 400 Mg PO PRN PRN 06/15/19 Reported Melatonin 3 Mg Tablet 3 Mg PO QHS 06/15/19 Reported Lumigan (Bimatoprost) 2.5 Ml Drops 1 Drop EACHEYE QHS 06/15/19 Reported Lisinopril 10 Mg Tablet 1 Tab PO HS 06/15/19 Reported Hydrocortisone 59 Ml Lotion 1 Claudia TP BID 06/15/19 Reported Guaifenesin Ac Cough Syrup (Guaifenesin/Codeine Phosphate) 473 Ml Liquid 10 Ml PO Q4-6HRS 06/15/19 Reported Famotidine 20 Mg Tablet 20 Mg PO BID 30 06/15/19 Reported Clopidogrel (Clopidogrel Bisulfate) 75 Mg Tablet 75 Mg PO DAILY 06/15/19 Reported Calmoseptine Ointment (Menthol/Zinc Oxide) 71 Gm Oint...g. 71 Gm TP BID 06/15/19 Reported Atorvastatin Calcium 80 Mg Tablet 80 Mg PO HS 06/15/19 Reported Aspirin 81 Mg Tab.chew 81 Mg PO DAILY 06/15/[address] reviewed, 1. No convincing pulmonary embolism. 2. Large partially loculated left pleural effusion. 3. Left lower lobe collapse with a superimposed 3.3 cm rounded area of hypodensity within the collapsed lung possibly due to abscess or neoplasm. 4. Pulmonary emphysema with bronchiectasis and bronchial wall thickening due to superimposed bronchitis. 5. Small scattered nodular opacities within the bilateral upper lobes, primarily involving the lingula. The largest of these measures 8 mm. This may be infectious or inflammatory. Short-term follow-up is recommended. 6. Small right pleural effusion and right lower lobe atelectasis. 7. Suspected reactive mediastinal, hilar and right retrocrural lymphadenopathy. Attention the time of follow-up is recommended. 8. Enlarged central pulmonary arteries, a finding which can be seen with chronic pulmonary artery hypertension.\ cxr 06/17 moderate loculated left effusion Impression . IMPRESSION: 1. Acute respiratory failure secondary to pneumonia, multi-loculated left effusion c/w early empyema, underlying COPD with acute exacerbation 2. Abnormal ct chest with multi-loculated left effusion , suspect early empyema, ? malignancy. 3. Chronic obstructive pulmonary disease with acute exacerbation. 4. Leukocytosis. 5. Coronary artery disease. 6. Dysphagia, status post PEG placement. 7. Malnutrition. Plan . PLAN AND RECOMMENDATIONS: 1. Titrate the FiO2 to keep O2 saturation at 92%. 2. cont bronchodilator. 3. cont inhaled corticosteroid, 4. CT angiogram of the chest reviewed,, s/p left chest tube, ct output slowed down. will benefit from TPA via chest tube. d/w patient . he agrees. Too frail for VAT 5. Elevate head of bed, aspiration precaution. 6. Continue antibiotic per ID. d/w DR Parth zuluaga w rn, pt JENNIFER KC MD Jun 17, 2019 13:56
[2019-06-17] MEDS ORDERED: ALTEPLASE IPL ONE (14:00)
[2019-06-17] MEDS ORDERED: STERILE WATER IPL ONE (14:00)
[2019-06-17] MEDS: VANCOMYCIN PER PHARMACY MC PRN (14:17)
--- NOTE | 2019-06-17 14:18 | NUR ---
Pharmacy Vancomycin Dosing Note S: Consulted to monitor and dose vancomycin started 06/15/19. O: TIFFANY OH is a 83 year old M with HCAP, possible lung abscess. Other Antibiotics: ZOSYN 3.375G IV Q6HRS (06/15 -) LABS: Last BUN: 22 Last Creatinine: 0.8 Creatinine Clearance: 46 mL/min Last WBC: 18.1 Tmax (past 24 hours): 99.4 Microbiology: BLOOD CX (06/14): NGTD PLEURAL FLUID CX PENDING Drug Levels: Last Trough level: 6.3 on 06/17/19 at 1300 Last dose given 06/16/19 at 1300 A: Patient receiving vancomycin 1000 mg IV q24hrs. A trough of 6.3 mcg/ml is below goal range. Renal function remains stable. P: 1. Give a one time dose of vancomycin 1250 mg, then change to vancomycin 750 mg IV q12h 2. Follow up Trough level on 06/19/19 at 0230 3. Pharmacy will continue to monitor, follow and adjust therapy as needed. EMILY GRIJALVA [facility] [place] [place], 06/17/19 [id number]
--- NOTE | 2019-06-17 14:57 | OP ---
DATE OF SURGERY: PROCEDURE: Fibrinolytic through chest tube. INDICATIONS: Empyema. The patient was informed about the procedure and he agreed to proceed with it. A 10 mg TPA was mixed with 50 mL of sterile water and introduced into the left pleural space. The patient tolerated the procedure well. Chest tube will be clamped for 1 hour and a clamp will be removed and back to suction. Instructions were given to RN. JENNIFER KC MD DR: SONIA/nts JOB#: [id number] / [id number]
[2019-06-17 15:00] VITALS: BP 113/60
[2019-06-17] MEDS ORDERED: VANCOMYCIN 1.25 GM in IV NORMAL SALINE 250ML 250 ML IV SCH (15:00)
--- NOTE | 2019-06-17 16:37 | NUR ---
SS following for discharge planning. SS reviewed pt chart. Pt is from the [facility], [phone]; fax [phone]. PT/OT recommended long term unit. SS contacted pt's daughter and left voicemail to discuss discharge planning. SS will continue to follow for discharge planning.
--- NOTE | 2019-06-17 16:38 | NUR ---
Wound Care Wound care consult for multiple wounds. Pt has 2 stage II PU to coccyx. Cleansed area and redressed with Xeroform and foam. Pt has abrasion to medial back, cleansed wound and dressed with Xeroform and foam. Pt has right elbow skin tear that is scabbed, painted with skin prep and left STACEY. P500 bed and WC cushion ordered for pt, left on his back for lunch. WC will continue to follow for changes.
[2019-06-17] MEDS: ALPRAZolam 0.25 MG TABLET PO PRN (17:21)
[2019-06-17] MEDS: OLANZapine 2.5 MG TABLET PO SCH (17:22)
[2019-06-17] MEDS: CHOLECALCIFEROL (VITAMIN D3) 1,000 UNIT TABLET PO SCH (17:22)
[2019-06-17 19:30] VITALS: BP 119/62
[2019-06-17] MEDS: FAMOTIDINE 20 MG TABLET. PO SCH (21:53)
[2019-06-17] MEDS: LISINOPRIL 10 MG TABLET PO SCH (21:53)
[2019-06-17] MEDS: ATORVASTATIN CALCIUM 40 MG TABLET. PO SCH (21:53)
[2019-06-17] MEDS: MIRTAZAPINE 15 MG TABLET PO SCH (21:54)
[2019-06-17 23:30] VITALS: BP 108/55
[2019-06-18] MEDS: PIPERACILLIN/TAZOBACTAM 3.375 GM in IV NORMAL SALINE 50ML 50 ML IV SCH ×4 (00:19→17:37)
[2019-06-18 03:30] VITALS: BP 112/60
[2019-06-18] MEDS: VANCOMYCIN 750 MG in IV NORMAL SALINE 250ML 250 ML IV SCH ×2 (03:39→15:10)
[2019-06-18 07:00] VITALS: BP 143/59
[2019-06-18] MEDS: BUDESONIDE 0.5 MG/2 ML NEBU. NEB SCH ×2 (07:18→19:46)
[2019-06-18] MEDS: IPRATRPIUM/ALBUTEROL 0.5/2.5MG 3 ML NEBU. NEB SCH ×4 (07:18→19:46)
[2019-06-18] MEDS: OLANZapine 2.5 MG TABLET PO SCH (08:07)
[2019-06-18] MEDS: CHOLECALCIFEROL (VITAMIN D3) 1,000 UNIT TABLET PO SCH (08:07)
[2019-06-18] MEDS: LACTOBACILLUS RHAMNOSUS GG 1 CAPSULE. PO SCH ×2 (08:07→20:36)
[2019-06-18] MEDS: FAMOTIDINE 20 MG TABLET. PO SCH ×2 (08:07→20:35)
--- NOTE | 2019-06-18 08:46 | PDOC ---
PROGRESS NOTES Chief Complaint Chief Complaint Right-sided pleural effusion, possible loculated effusion, possible empyema s/p left indwelling chest tube (06/16) Freq falls in AL, non injury falls - mechanical falls Dysphagia, indwelling PEG x 7 mos now, STrict NPO, bolus TFs at AL RT wrist OA Indwelling pacer LEUKOCYTOSIS Left lower lobe collapse with abscess vs neoplasm Leukocytosis, improving Transaminitis Generalized weakness s/p multiple falls Weight loss COPD CAD History of Present Illness History of Present Illness He now has a left sided chest tube indwelling and is draining pleural fluid (loculated empyema on CT and CXR) Pleural fluid has been sent for studies - RBCs, LDH 2166, protein 4.1, glucose 22. No pH Has in indwelling PEG x 6 mos now for dysphagia and is on Bolus feeding here and at Assisted Living prior to admission 06/17/19: tPA per chest per by pulmonary with 1700cc out in first 24 hours Shortness of breath a bit improved after large release of loculated effusion with tPA. He is feeling weak, wishes to have a BM. Aching all over improved. No CP. 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 Oropharynx pink and moist. Halitosis. NECK: Supple. LUNGS: Diminished aeration in left lung base. Nonlabored. Left CT in place HEART: S1 and S2. Pacemaker. ABDOMEN: Nondistended, soft and nontender with bowel sounds present. PEG tube intact : No Barron. EXTREMITIES: No gross edema or cyanosis. SKIN: Warm to touch. No signs of rash. NEUROLOGIC: Alert and answering questions appropriately. General: Alert, Oriented X3, Cooperative, No acute distress Heart: Regular rate, Normal S1, Normal S2 Lungs: Other (l dullness crackles) Abdomen: Normal bowel sounds, Soft, No tenderness, No hepatosplenomegaly, No masses Extremities: No clubbing, No cyanosis, No edema, Normal pulses, No tenderness/swelling Skin: Other (senile skin turgor, some old skin brusing) Labs LABS Laboratory Tests Test 06/17/19 13:00 06/18/19 04:05 Vancomycin Level Trough 6.3 mcg/mL (10.0-20.0) Vancomycin Last Dose Date 06/16/19 Vancomycin Last Dose Time 1330 Creatinine 0.7 mg/dL (0.7-1.3) Estimated GFR (Cockcroft-Gault) 107.2 Assessment and Plan Assessmemt and Plan Problems Medical Problems: (1) Fever Status: Acute (2) UTI (urinary tract infection) Status: Acute Comment Review of Relevant I have reviewed the following items lorenzo (where applicable) has been applied. Labs Laboratory Tests Test 06/16/19 09:25 06/16/19 11:00 06/17/19 04:10 06/17/19 13:00 Prothrombin Time 16.7 SEC (11.7-14.0) Prothromb Time International Ratio 1.4 (0.8-1.1) Body Fluid Source Pleural Body Fluid Color Red Body Fluid Clarity Turbid Body Fluid Nucleated Cells /cmm (Not Established) Body Fluid Polymorphonuclear Cells % Body Fluid Total RBCs Counted /cmm (Not Established) Body Fluid Glucose 22 mg/dL (.) Body Fluid Total Protein 4.1 g/dL (.) Body Fluid Lactate Dehydrogenase 2166 IU/L (.) White Blood Count 18.1 x10^3/uL (4.0-11.0) Red Blood Count 2.87 x10^6/uL (4.30-5.70) Hemoglobin 8.5 g/dL (13.0-17.5) Hematocrit 26.2 % (39.0-53.0) Mean Corpuscular Volume 91 fL (79-100) Mean Corpuscular Hemoglobin 30 pg (25-35) Mean Corpuscular Hemoglobin Concent 33 g/dL (31-37) Red Cell Distribution Width 16.6 % (11.5-14.5) Platelet Count 424 x10^3/uL (140-400) Neutrophils (%) (Auto) 85 % (31-73) Lymphocytes (%) (Auto) 7 % (24-48) Monocytes (%) (Auto) 7 % (0-9) Eosinophils (%) (Auto) 1 % (0-3) Basophils (%) (Auto) 0 % (0-3) Neutrophils # (Auto) 15.3 x10^3/uL (1.8-7.7) Lymphocytes # (Auto) 1.3 x10^3/uL (1.0-4.8) Monocytes # (Auto) 1.3 x10^3/uL (0.0-1.1) Eosinophils # (Auto) 0.1 x10^3/uL (0.0-0.7) Basophils # (Auto) 0.1 x10^3/uL (0.0-0.2) Sodium Level 142 mmol/L (136-145) Potassium Level 4.1 mmol/L (3.5-5.1) Chloride Level 107 mmol/L (98-107) Carbon Dioxide Level 32 mmol/L (21-32) Anion Gap 3 (6-14) Blood Urea Nitrogen 22 mg/dL (8-26) Creatinine 0.8 mg/dL (0.7-1.3) Estimated GFR (Cockcroft-Gault) 91.9 Glucose Level 128 mg/dL (70-99) Calcium Level 8.3 mg/dL (8.5-10.1) Vancomycin Level Trough 6.3 mcg/mL (10.0-20.0) Vancomycin Last Dose Date 06/16/19 Vancomycin Last Dose Time 1330 Test 06/18/19 04:05 Creatinine 0.7 mg/dL (0.7-1.3) Estimated GFR (Cockcroft-Gault) 107.2 Laboratory Tests Test 06/17/19 13:00 06/18/19 04:05 Vancomycin Level Trough 6.3 mcg/mL (10.0-20.0) Vancomycin Last Dose Date 06/16/19 Vancomycin Last Dose Time 1330 Creatinine 0.7 mg/dL (0.7-1.3) Estimated GFR (Cockcroft-Gault) 107.2 Microbiology 06/14/19 Blood Culture - Preliminary, Resulted NO GROWTH AFTER 3 DAYS 06/14/19 Urine Culture - Final, Complete 06/14/19 Urine Culture Result 1 (TASHA) - Final, Complete Medications Current Medications Acetaminophen (Tylenol) 500 mg PRN Q6HRS PRN PO MILD PAIN / TEMP; Start 06/14/19 at 19:30; Stop 06/14/19 at 19:34; Status DC Acetaminophen/ Codeine Phosphate (Tylenol #3) 1 tab PRN Q6HRS PRN PO MODERATE PAIN; Start 06/14/19 at 19:30; Stop 06/14/19 at 19:34; Status DC Calcium Carbonate/ Glycine (Tums) 500 mg PRN AFTMEALHC PRN PO INDIGESTION; Start 06/14/19 at 19:30; Stop 06/14/19 at 19:34; Status DC Ondansetron HCl (Zofran) 4 mg PRN Q6HRS PRN IVP NAUSEA/VOMITING; Start 06/14/19 at 19:30 Temazepam (Restoril) 7.5 mg PRN QHS PRN PO INSOMNIA; Start 06/14/19 at 19:30 Acetaminophen/ Hydrocodone Bitart (Lortab 5/325) 1 tab PRN Q4HRS PRN PO MODERATE PAIN; Start 06/14/19 at 19:30; Stop 06/14/19 at 19:34; Status DC Fentanyl Citrate (Fentanyl 2ml Vial) 25 mcg PRN Q2HR PRN IV PAIN; Start 06/14/19 at 19:30 Acetaminophen (Tylenol) 500 mg PRN Q6HRS PRN PEG MILD PAIN / TEMP; Start 06/14/19 at 19:45 Acetaminophen/ Codeine Phosphate (Tylenol #3) 1 tab PRN Q6HRS PRN PEG MODERATE PAIN; Start 06/14/19 at 19:34 Calcium Carbonate/ Glycine (Tums) 500 mg PRN AFTMEALHC PRN PEG INDIGESTION; Start 06/14/19 at 19:34 Acetaminophen/ Hydrocodone Bitart (Lortab 5/325) 1 tab PRN Q4HRS PRN PEG SEVERE PAIN; Start 06/14/19 at 19:34 Piperacillin Sod/ Tazobactam Sod 4.5 gm/Sodium Chloride 100 ml @ 200 mls/hr 1X ONCE IV Last administered on 06/15/19at 00:05; Start 06/14/19 at 22:00; Stop 06/14/19 at 22:29; Status DC Sodium Chloride 1,000 ml @ 1,000 mls/hr Q1H IV Last administered on 06/15/19at 00:04; Start 06/14/19 at 21:30; Stop 06/14/19 at 23:13; Status DC Ondansetron HCl (Zofran) 4 mg PRN Q8HRS PRN IV NAUSEA/VOMITING 1ST CHOICE; Start 06/14/19 at 21:15; Stop 06/15/19 at 21:14; Status DC Morphine Sulfate (Morphine Sulfate) 2 mg PRN Q2HR PRN IV SEVERE PAIN 7-10; Sta rt 06/14/19 at 21:15; Stop 06/15/19 at 21:14; Status DC Acetaminophen (Tylenol) 650 mg PRN Q4HRS PRN PO FEVER; Start 06/14/19 at 21:15; Stop 06/15/19 at 21:14; Status DC Acetaminophen (Tylenol) 1,000 mg 1X ONCE PO Last administered on 06/15/19at 00:03; Start 06/14/19 at 21:30; Stop 06/14/19 at 21:31; Status DC Albuterol/ Ipratropium (Duoneb) 3 ml RTQID NEB Last administered on 06/18/19at 07:18; Start 06/15/19 at 12:00 Albuterol/ Ipratropium (Duoneb) 3 ml 1X ONCE NEB Last administered on 06/15/19at 11:21; Start 06/15/19 at 09:00; Stop 06/15/19 at 09:01; Status DC Budesonide (Pulmicort) 0.5 mg RTBID NEB Last administered on 06/18/19at 07:18; Start 06/15/19 at 20:00 Budesonide (Pulmicort) 0.5 mg 1X ONCE NEB Last administered on 06/15/19at 11:21; Start 06/15/19 at 09:00; Stop 06/15/19 at 09:01; Status DC Iohexol (Omnipaque 350 Mg/ml) 90 ml 1X ONCE IV Last administered on 06/15/19at 10:20; Start 06/15/19 at 09:00; Stop 06/15/19 at 09:01; Status DC Info (CONTRAST GIVEN -- Rx MONITORING) 1 each PRN DAILY PRN MC SEE COMMENTS; Start 06/15/19 at 09:15; Stop 06/17/19 at 09:14; Status DC Vancomycin HCl (Vanco Per Pharmacy) 1 each PRN DAILY PRN MC SEE COMMENTS Last administered on 06/17/19at 14:17; Start 06/15/19 at 10:00 Piperacillin Sod/ Tazobactam Sod (Zosyn Per Pharmacy) 1 each PRN DAILY PRN MC SEE COMMENTS; Start 06/15/19 at 10:00 Piperacillin Sod/ Tazobactam Sod 3.375 gm/Sodium Chloride 50 ml @ 100 mls/hr Q6HRS IV Last administered on 06/18/19at 05:57; Start 06/15/19 at 11:00 Vancomycin HCl 1.5 gm/Sodium Chloride 500 ml @ 250 mls/hr 1X ONCE IV Last administered on 06/15/19at 13:23; Start 06/15/19 at 11:00; Stop 06/15/19 at 12:5 9; Status DC Vancomycin HCl 1 gm/Sodium Chloride 250 ml @ 250 mls/hr Q24H IV Last administered on 06/16/19at 12:32; Start 06/16/19 at 13:30; Stop 06/17/19 at 14:06; Status DC Vancomycin HCl (Vancomycin Trough Level) 1 each 1X ONCE MC Last administered on 06/17/19at 13:00; Start 06/17/19 at 13:00; Stop 06/17/19 at 13:01; Status DC Midazolam HCl (Versed) 2 mg STK-MED ONCE .ROUTE ; Start 06/16/19 at 09:32; Stop 06/16/19 at 09:32; Status DC Fentanyl Citrate (Fentanyl 2ml Vial) 100 mcg STK-MED ONCE .ROUTE ; Start 06/16/19 at 09:32; Stop 06/16/19 at 09:33; Status DC Lidocaine/Sodium Bicarbonate (Buffered Lidocaine 1%) 3 ml STK-MED ONCE .ROUTE ; Start 06/16/19 at 09:46; Stop 06/16/19 at 09:47; Status DC Lidocaine/Sodium Bicarbonate (Buffered Lidocaine 1%) 3 ml 1X ONCE IJ Last administered on 06/16/19at 10:21; Start 06/16/19 at 10:15; Stop 06/16/19 at 10:16; Status DC Midazolam HCl (Versed) 2 mg 1X ONCE IV Last administered on 06/16/19 10:22; Start 06/16/19 at 10:15; Stop 06/16/19 at 10:16; Status DC Fentanyl Citrate (Fentanyl 2ml Vial) 100 mcg 1X ONCE IV Last administered on 06/16/19 10:22; Start 06/16/19 at 10:15; Stop 06/16/19 at 10:16; Status DC Lactobacillus Rhamnosus (Culturelle) 1 cap BID PO Last administered on 06/18/19 08:07; Start 06/16/19 at 21:00 Acetaminophen (Tylenol) 325 mg PRN Q4HRS PRN PO MURPHY/FEVER; Start 06/17/19 at 12:30 Alprazolam (Xanax) 0.25 mg PRN TID PRN PO restlessness Last administered on 06/17/19 17:21; Start 06/17/19 at 12:30 Vitamin D (Vitamin D3) 2,000 unit DAILY PO Last administered on 06/18/19 08:07; Start 06/17/19 at 13:00 Famotidine (Pepcid) 20 mg BID PO Last administered on 06/18/19 08:07; Start 06/17/19 at 21:00 Lisinopril (Prinivil) 10 mg HS PO Last administered on 06/17/19 21:53; Start 06/17/19 at 21:00 Magnesium Hydroxide (Milk Of Magnesia) 400 mg PRN DAILY PRN PO CONSTIPATION; Start 06/17/19 at 12:30 Mirtazapine (Remeron) 15 mg QHS PO Last administered on 06/17/19at 21:54; Start 06/17/19 at 21:00 Olanzapine (ZyPREXA) 2.5 mg DAILY PO Last administered on 06/18/19 08:07; Start 06/17/19 at 13:00 Atorvastatin Calcium (Lipitor) 80 mg QHS PO Last administered on 06/17/19 21:53; Start 06/17/19 at 21:00 Alteplase, Recombinant 10 mg/ Sterile Water 50 ml @ 200 mls/hr 1X ONCE IPL Last administered on 06/17/19 15:18; Start 06/17/19 at 14:00; Stop 06/17/19 at 14:14; Status DC Vancomycin HCl 1.25 gm/Sodium Chloride 250 ml @ 167 mls/hr Q18H IV Last administered on 06/17/19at 15:18; Start 06/17/19 at 15:00; Stop 06/17/19 at 16:30; Status DC Vancomycin HCl (Vancomycin Trough Level) 1 each 1X ONCE MC ; Start 06/19/19 at 02:30; Stop 06/19/19 at 02:31 Vancomycin HCl 750 mg/Sodium Chloride 250 ml @ 250 mls/hr Q12H IV Last administered on 06/18/19at 03:39; Start 06/18/19 at 03:00 Active Scripts Active Reported Xanax (Alprazolam) 0.25 Mg Tablet 1 Tab PO PRN TID PRN Vitamin D3 (Cholecalciferol (Vitamin D3)) 1,000 Unit Tablet 2 Tab PO DAILY Tylenol (Acetaminophen) 325 Mg Tablet 1 Tab PO PRN Q4HRS Multivitamins (Multivitamin) 1 Each Capsule 1 Each PO DAILY Silvadene (Silver Sulfadiazine) 20 Gm Cream..g. 1 Claudia TP DAILY Zoloft (Sertraline Hcl) 100 Mg Tablet 100 Mg PO DAILY Zyprexa (Olanzapine) 2.5 Mg Tablet 2.5 Mg PO DAILY Nystatin 100,000 Unit/1 Ml Oral.susp 5 Ml PO BID Mirtazapine 15 Mg Tablet 1 Tab PO QHS Milk Of Magnesia (Magnesium Hydroxide) 400 Mg/5 Ml Oral.susp 400 Mg PO PRN PRN Melatonin 3 Mg Tablet 3 Mg PO QHS Lumigan (Bimatoprost) 2.5 Ml Drops 1 Drop EACHEYE QHS Lisinopril 10 Mg Tablet 1 Tab PO HS Hydrocortisone 59 Ml Lotion 1 Claudia TP BID Guaifenesin Ac Cough Syrup (Guaifenesin/Codeine Phosphate) 473 Ml Liquid 10 Ml PO Q4-6HRS Famotidine 20 Mg Tablet 20 Mg PO BID 30 Days Clopidogrel (Clopidogrel Bisulfate) 75 Mg Tablet 75 Mg PO DAILY Calmoseptine Ointment (Menthol/Zinc Oxide) 71 Gm Oint...g. 71 Gm TP BID Atorvastatin Calcium 80 Mg Tablet 80 Mg PO HS Aspirin 81 Mg Tab.chew 81 Mg PO DAILY Vitals/I & O Vital Sign - Last 24 Hours 06/17/19 06/17/19 06/17/19 06/17/19 11:00 11:16 15:00 15:22 Temp 97.7 97.5 97.7 97.5 Pulse 88 95 Resp 18 18 B/P (MAP) 114/59 (77) 113/60 (77) Pulse Ox 93 93 O2 Delivery Nasal Cannula Nasal Cannula Nasal Cannula Nasal Cannula O2 Flow Rate 2.0 3.0 2.0 3.0 06/17/19 06/17/19 06/17/19 06/17/19 19:30 20:00 20:39 21:53 Temp 97.9 97.9 Pulse 94 94 Resp 20 B/P (MAP) 119/62 (81) 119/62 Pulse Ox 96 94 O2 Delivery Nasal Cannula Nasal Cannula Nasal Cannula O2 Flow Rate 2.0 1.5 2.0 06/17/19 06/18/19 06/18/19 06/18/19 23:30 03:30 07:00 07:19 Temp 98.5 97.9 97.9 98.5 97.9 97.9 Pulse 95 93 92 Resp 20 20 16 B/P (MAP) 108/55 (72) 112/60 (77) 143/59 (87) Pulse Ox 93 93 99 92 O2 Delivery Nasal Cannula Nasal Cannula Nasal Cannula Nasal Cannula O2 Flow Rate 2.0 2.0 2.0 2.0 Intake and Output 06/17/19 06/17/19 06/18/19 15:00 23:00 07:00 Intake Total 824 ml 824 ml 0 ml Output Total 1340 ml Balance 824 ml -516 ml 0 ml Nutrition Consultation Dietary Evaluation: Recommendations by RD: Add supplement feedings Comments: sloan bid w/ bolus TF for nutrition Expected Outcomes/Goals: to meet > 75% est nutr needs improved wound status Interpretation of weight loss: >10% in 6 months Malnutrition Findings: Body Fat Depletion (Non Severe: Mod to Severe Weight Status: Underweight BHAVIK CRAIN MD Jun 18, 2019 08:46
[2019-06-18] MEDS ORDERED: ALTEPLASE IPL ONE (10:30)
[2019-06-18] MEDS ORDERED: STERILE WATER IPL ONE (10:30)
[2019-06-18] MEDS ORDERED: FLU VAX QS 2019-20 (36MOS+)/PF 0.5 ML SYRINGE. VAX IM ONE (10:30)
--- NOTE | 2019-06-18 10:40 | RAD ---
PORTABLE CHEST 1V History: Empyema Comparison: June 17, 2019 Findings: Decreased size of loculated left empyema. The pigtail pleural drain in place. Decreased left mid and lower lung opacities. Diffuse interstitial thickening, likely on a chronic basis. Unchanged left pacemaker. Bilateral acromioclavicular and glenohumeral DJD. No pneumothorax. Unchanged heart size. Impression: 1. Decreased loculated left pleural fluid compatible with empyema given history. Left pigtail pleural drain, unchanged. 2. Decreased left lung patchy opacities. Electronically signed by: Mushtaq Dash DO (06/18/2019 10:38 AM) [id number]
--- NOTE | 2019-06-18 10:52 | PDOC ---
PULMONARY PROGRESS NOTES Subjective sig response post TPA 1700 cc fluid came out sob better, no pain, no cough Vitals Vital Signs Date Time Temp Pulse Resp B/P (MAP) Pulse Ox O2 Delivery O2 Flow Rate FiO2 06/18/19 08:10 Nasal Cannula 2.0 06/18/19 07:19 92 06/18/19 07:00 97.9 92 16 143/59 (87) 97.9 ROS: No Nausea, No Chest Pain General: Alert, No acute distress HEENT: Other (nc at perrl ) Lungs: Other (l dullness crackles) Cardiovascular: S1, S2 Abdomen: Soft, Non-tender Neuro Exam: Alert Extremities: No Edema Skin: Warm Labs Laboratory Tests Test 06/16/19 11:00 06/17/19 04:10 06/17/19 13:00 06/18/19 04:05 Body Fluid Source Pleural Body Fluid Color Red Body Fluid Clarity Turbid Body Fluid Nucleated Cells /cmm (Not Established) Body Fluid Polymorphonuclear Cells % Body Fluid Total RBCs Counted /cmm (Not Established) Body Fluid Glucose 22 mg/dL (.) Body Fluid Total Protein 4.1 g/dL (.) Body Fluid Lactate Dehydrogenase 2166 IU/L (.) White Blood Count 18.1 x10^3/uL (4.0-11.0) Red Blood Count 2.87 x10^6/uL (4.30-5.70) Hemoglobin 8.5 g/dL (13.0-17.5) Hematocrit 26.2 % (39.0-53.0) Mean Corpuscular Volume 91 fL (79-100) Mean Corpuscular Hemoglobin 30 pg (25-35) Mean Corpuscular Hemoglobin Concent 33 g/dL (31-37) Red Cell Distribution Width 16.6 % (11.5-14.5) Platelet Count 424 x10^3/uL (140-400) Neutrophils (%) (Auto) 85 % (31-73) Lymphocytes (%) (Auto) 7 % (24-48) Monocytes (%) (Auto) 7 % (0-9) Eosinophils (%) (Auto) 1 % (0-3) Basophils (%) (Auto) 0 % (0-3) Neutrophils # (Auto) 15.3 x10^3/uL (1.8-7.7) Lymphocytes # (Auto) 1.3 x10^3/uL (1.0-4.8) Monocytes # (Auto) 1.3 x10^3/uL (0.0-1.1) Eosinophils # (Auto) 0.1 x10^3/uL (0.0-0.7) Basophils # (Auto) 0.1 x10^3/uL (0.0-0.2) Sodium Level 142 mmol/L (136-145) Potassium Level 4.1 mmol/L (3.5-5.1) Chloride Level 107 mmol/L (98-107) Carbon Dioxide Level 32 mmol/L (21-32) Anion Gap 3 (6-14) Blood Urea Nitrogen 22 mg/dL (8-26) Creatinine 0.8 mg/dL (0.7-1.3) 0.7 mg/dL (0.7-1.3) Estimated GFR (Cockcroft-Gault) 91.9 107.2 Glucose Level 128 mg/dL (70-99) Calcium Level 8.3 mg/dL (8.5-10.1) Vancomycin Level Trough 6.3 mcg/mL (10.0-20.0) Vancomycin Last Dose Date 06/16/19 Vancomycin Last Dose Time 1330 Laboratory Tests Test 06/17/19 13:00 06/18/19 04:05 Vancomycin Level Trough 6.3 mcg/mL (10.0-20.0) Vancomycin Last Dose Date 06/16/19 Vancomycin Last Dose Time 1330 Creatinine 0.7 mg/dL (0.7-1.3) Estimated GFR (Cockcroft-Gault) 107.2 Medications Active Scripts Medications Dose Route/Sig Max Daily Dose Days Date Category Xanax (Alprazolam) 0.25 Mg Tablet 1 Tab PO PRN TID PRN 06/15/19 Reported Vitamin D3 (Cholecalciferol (Vitamin D3)) 1,000 Unit Tablet 2 Tab PO DAILY 06/15/19 Reported Tylenol (Acetaminophen) 325 Mg Tablet 1 Tab PO PRN Q4HRS 06/15/19 Reported Multivitamins (Multivitamin) 1 Each Capsule 1 Each PO DAILY 06/15/19 Reported Silvadene (Silver Sulfadiazine) 20 Gm Cream..g. 1 Claudia TP DAILY 06/15/19 Reported Zoloft (Sertraline Hcl) 100 Mg Tablet 100 Mg PO DAILY 06/15/19 Reported Zyprexa (Olanzapine) 2.5 Mg Tablet 2.5 Mg PO DAILY 06/15/19 Reported Nystatin 100,000 Unit/1 Ml Oral.susp 5 Ml PO BID 06/15/19 Reported Mirtazapine 15 Mg Tablet 1 Tab PO QHS 06/15/19 Reported Milk Of Magnesia (Magnesium Hydroxide) 400 Mg/5 Ml Oral.susp 400 Mg PO PRN PRN 06/15/19 Reported Melatonin 3 Mg Tablet 3 Mg PO QHS 06/15/19 Reported Lumigan (Bimatoprost) 2.5 Ml Drops 1 Drop EACHEYE QHS 06/15/19 Reported Lisinopril 10 Mg Tablet 1 Tab PO HS 06/15/19 Reported Hydrocortisone 59 Ml Lotion 1 Claudia TP BID 06/15/19 Reported Guaifenesin Ac Cough Syrup (Guaifenesin/Codeine Phosphate) 473 Ml Liquid 10 Ml PO Q4-6HRS 06/15/19 Reported Famotidine 20 Mg Tablet 20 Mg PO BID 30 06/15/19 Reported Clopidogrel (Clopidogrel Bisulfate) 75 Mg Tablet 75 Mg PO DAILY 06/15/19 Reported Calmoseptine Ointment (Menthol/Zinc Oxide) 71 Gm Oint...g. 71 Gm TP BID 06/15/19 Reported Atorvastatin Calcium 80 Mg Tablet 80 Mg PO HS 06/15/19 Reported Aspirin 81 Mg Tab.chew 81 Mg PO DAILY 06/15/[address] reviewed, 1. No convincing pulmonary embolism. 2. Large partially loculated left pleural effusion. 3. Left lower lobe collapse with a superimposed 3.3 cm rounded area of hypodensity within the collapsed lung possibly due to abscess or neoplasm. 4. Pulmonary emphysema with bronchiectasis and bronchial wall thickening due to superimposed bronchitis. 5. Small scattered nodular opacities within the bilateral upper lobes, primarily involving the lingula. The largest of these measures 8 mm. This may be infectious or inflammatory. Short-term follow-up is recommended. 6. Small right pleural effusion and right lower lobe atelectasis. 7. Suspected reactive mediastinal, hilar and right retrocrural lymphadenopathy. Attention the time of follow-up is recommended. 8. Enlarged central pulmonary arteries, a finding which can be seen with chronic pulmonary artery hypertension.\ cxr 06/17 moderate loculated left effusion Impression . IMPRESSION: 1. Acute respiratory failure secondary to pneumonia, multi-loculated left effusion c/w early empyema, underlying COPD with acute exacerbation 2. Abnormal ct chest with multi-loculated left effusion , suspect early empyema, ? malignancy. 3. Chronic obstructive pulmonary disease with acute exacerbation. 4. Leukocytosis. 5. Coronary artery disease. 6. Dysphagia, status post PEG placement. 7. Malnutrition. Plan . 1. Titrate the FiO2 to keep O2 saturation at 92%. 2. cont bronchodilator. 3. cont inhaled corticosteroid, 4. CT angiogram of the chest reviewed,, s/p left chest tube, sig response from TPA via chest tube. will repeat dose today. 1700 cc fluid came out 5. Elevate head of bed, aspiration precaution. 6. Continue antibiotic per ID. zan w rn, pt JENNIFER KC MD Jun 18, 2019 10:52
[2019-06-18 11:00] VITALS: BP 100/54
--- NOTE | 2019-06-18 11:24 | PDOC ---
Infectious Disease Note Subjective Subjective s/p TPA w/ sig fluid out Feeling alright O2 down to 2 L Denies SOA/F/C/N/V/D ROS ROS per HPI Vital Sign Vital Signs Vital Signs Date Time Temp Pulse Resp B/P (MAP) Pulse Ox O2 Delivery O2 Flow Rate FiO2 06/18/19 11:12 92 Nasal Cannula 2.0 06/18/19 07:00 97.9 92 16 143/59 (87) 97.9 Physical Exam PHYSICAL EXAM GENERAL: Propped up in bed, alert, NAD HEENT: Pupils equally round. Oropharynx build up dry secretions, Halitosis. NECK: Supple. LUNGS: Diminished aeration in left lung base. Nonlabored. Left CT in place HEART: S1 and S2. Pacemaker. ABDOMEN: Nondistended, soft and nontender with bowel sounds present. PEG tube intact : No Barron. EXTREMITIES: No gross edema or cyanosis. SKIN: Warm to touch. No signs of rash. NEUROLOGIC: Alert and answering questions appropriately. Labs Lab Laboratory Tests Test 06/17/19 13:00 06/18/19 04:05 Vancomycin Level Trough 6.3 mcg/mL (10.0-20.0) Vancomycin Last Dose Date 06/16/19 Vancomycin Last Dose Time 1330 Creatinine 0.7 mg/dL (0.7-1.3) Estimated GFR (Cockcroft-Gault) 107.2 Impression: 1. Decreased loculated left pleural fluid compatible with empyema given history. Left pigtail pleural drain, unchanged. 2. Decreased left lung patchy opacities. Micro CXR Impression: 1. Decreased loculated left pleural fluid compatible with empyema given history. Left pigtail pleural drain, unchanged. 2. Decreased left lung patchy opacities. Microbiology 06/14/19 Blood Culture - Preliminary, Resulted NO GROWTH AFTER 3 DAY URINE CULTURE RES 1 Final No growth Objective Assessment Large partially loculated left pleural effusion s/p CT placement, 06/16. poor specimen, cell count couldn't be done. cultures pending -s/p TPA, 06/17 Left lower lobe collapse with abscess vs neoplasm Leukocytosis, Transaminitis Generalized weakness s/p multiple falls Dysphagia s/p PEG placement in Feb Weight loss COPD CAD Plan Plan of Care Discontinue vancomycin Cont Zosyn Monitor renal function closely Trough 6.3 f/u pleural fluid cultures and cytology Maintain aspiration precautions Oral care am labs D/w nursing MARY BRADY APRN Jun 18, 2019 11:24 ALEJANDRO ANGELO MD Jun 18, 2019 15:47
[2019-06-18 11:51] LABS: ALBUMIN 1.3 g/dL (3.4-5.0); ALBUMIN/GLOBULIN RATIO 0.3 (1.0-1.7); CALCIUM 7.8 mg/dL (8.5-10.1); CREATININE 0.7 mg/dL (0.7-1.3); GFR 107.2; TOTAL BILIRUBIN 0.5 mg/dL (0.2-1.0); TOTAL PROTEIN 5.3 g/dL (6.4-8.2)
--- NOTE | 2019-06-18 11:55 | NUR ---
SS following for discharge planning. SS spoke with pt's daughter via phone to discuss discharge planning and half-way unit. Pt's daughter reported that pt recently spent five month in half-way unit at [facility] and has no skilled days left. Pt's daughter reported that pt would need to go to the Physician Directed Floor at the [facility] and will need to received PT/OT/ and ST. Pt's daughter requested ST evaluation at the hospital. Physician notified. SS contacted Mary at the [facility] and left message with discharge plan and daughters request for therapy. SS will continue to follow for discharge planning.
--- NOTE | 2019-06-18 11:57 | OP ---
DATE OF SURGERY: 06/18/2019 PROCEDURE: TPA via chest tube. INDICATIONS: Empyema. DESCRIPTION OF PROCEDURE: The patient was informed about the procedure. 10 mg of TPA mixed with sterile water was introduced into the left pleural space. A chest tube was clamped and will be unclamped after 1 hour and placed back to suction. JENNIFER KC MD DR: SONIA/sheba JOB#: [id number] / [id number]
[2019-06-18] MEDS: VANCOMYCIN PER PHARMACY MC PRN (13:04)
--- NOTE | 2019-06-18 13:12 | NUR ---
Chest tube unclamped at [address] Torrez's recommendation. Will continue to monitor.
[2019-06-18 15:00] VITALS: BP 110/60
[2019-06-18 19:20] VITALS: BP 108/57
[2019-06-18] MEDS: MIRTAZAPINE 15 MG TABLET PO SCH (20:35)
[2019-06-18] MEDS: ATORVASTATIN CALCIUM 40 MG TABLET. PO SCH (20:35)
[2019-06-18] MEDS: ALPRAZolam 0.25 MG TABLET PO PRN (20:36)
[2019-06-18] MEDS: LISINOPRIL 10 MG TABLET PO SCH (20:36)
[2019-06-18 23:16] VITALS: BP 96/58
[2019-06-19] MEDS: PIPERACILLIN/TAZOBACTAM 3.375 GM in IV NORMAL SALINE 50ML 50 ML IV SCH ×4 (00:47→20:16)
[2019-06-19 03:30] VITALS: BP 104/62
[2019-06-19 03:51] LABS: BASO % 0 % (0-3); EOS # 0.2 x10^3/uL (0.0-0.7); EOS % 2 % (0-3); HEMATOCRIT 26.1 % (39.0-53.0); HEMOGLOBIN 8.7 g/dL (13.0-17.5); LYMPH # 1.4 x10^3/uL (1.0-4.8); LYMPH % 10 % (24-48); MEAN CORPUSCULAR HEMOGLOBIN 30 pg (25-35); MEAN CORPUSCULAR HGB CONC 33 g/dL (31-37); MEAN CORPUSCULAR VOLUME 90 fL (79-100); MONO # 1.1 x10^3/uL (0.0-1.1); MONO % 8 % (0-9); NEUT # 11.1 x10^3/uL (1.8-7.7); NEUT % 80 % (31-73); PLATELET COUNT 489 x10^3/uL (140-400); RED BLOOD COUNT 2.89 x10^6/uL (4.30-5.70); RED CELL DISTRIBUTION WIDTH 16.8 % (11.5-14.5)
[2019-06-19 07:00] VITALS: BP 101/53
[2019-06-19] MEDS: IPRATRPIUM/ALBUTEROL 0.5/2.5MG 3 ML NEBU. NEB SCH ×4 (07:40→20:19)
[2019-06-19] MEDS: BUDESONIDE 0.5 MG/2 ML NEBU. NEB SCH ×2 (07:40→20:19)
--- NOTE | 2019-06-19 08:05 | PDOC ---
PROGRESS NOTES Chief Complaint Chief Complaint Right-sided pleural effusion, possible loculated effusion, possible empyema s/p left indwelling chest tube (06/16) Freq falls in [place], non injury falls - mechanical falls Dysphagia, indwelling PEG x 7 mos now, STrict NPO, bolus TFs at AL RT wrist OA Indwelling pacer LEUKOCYTOSIS Left lower lobe collapse with abscess vs neoplasm Leukocytosis, improving Transaminitis Generalized weakness s/p multiple falls Weight loss COPD CAD History of Present Illness History of Present Illness He now has a left sided chest tube indwelling and is draining pleural fluid (loculated empyema on CT and CXR) Pleural fluid has been sent for studies - RBCs, LDH 2166, protein 4.1, glucose 22. No pH Has in indwelling PEG x 6 mos now for dysphagia and is on Bolus feeding here and at [facility] prior to admission 06/17/19: tPA per chest per by pulmonary with 1700cc out in first 24 hours Shortness of breath a bit improved after large release of loculated effusion with tPA. Had another 1200cc out, now with CXR much improved. He is feeling weak, wishes to have a BM. Aching all over improved. No CP. Family wishes for RETURNER evaluation for his speech and communication PLAN: CPM PT recs [facility] - sw consult for this Otherwise cont chest tube, IV abx and tPA per Steen Trial guidelines (would be nice to have dornase alpha available) Vitals Vitals Vital Signs Date Time Temp Pulse Resp B/P (MAP) Pulse Ox O2 Delivery O2 Flow Rate FiO2 06/19/19 07:40 Nasal Cannula 2.0 06/19/19 03:30 98.4 90 20 104/62 (76) 95 98.4 Physical Exam Physical Exam GENERAL: Propped up in bed, alert, NAD HEENT: Pupils equally round. Oropharynx build up dry secretions, Halitosis. NECK: Supple. LUNGS: Diminished aeration in left lung base. Nonlabored. Left CT in place HEART: S1 and S2. Pacemaker. ABDOMEN: Nondistended, soft and nontender with bowel sounds present. PEG tube intact : No Barron. EXTREMITIES: No gross edema or cyanosis. SKIN: Warm to touch. No signs of rash. NEUROLOGIC: Alert and answering questions appropriately. General: Alert, Oriented X3, Cooperative, No acute distress Heart: Regular rate, Normal S1, Normal S2 Lungs: Other (l dullness crackles) Abdomen: Normal bowel sounds, Soft, No tenderness, No hepatosplenomegaly, No masses Extremities: No clubbing, No cyanosis, No edema, Normal pulses, No tenderness/swelling Skin: Other (senile skin turgor, some old skin brusing) Labs LABS Laboratory Tests Test 06/19/19 03:20 White Blood Count 14.0 x10^3/uL (4.0-11.0) Red Blood Count 2.89 x10^6/uL (4.30-5.70) Hemoglobin 8.7 g/dL (13.0-17.5) Hematocrit 26.1 % (39.0-53.0) Mean Corpuscular Volume 90 fL (79-100) Mean Corpuscular Hemoglobin 30 pg (25-35) Mean Corpuscular Hemoglobin Concent 33 g/dL (31-37) Red Cell Distribution Width 16.8 % (11.5-14.5) Platelet Count 489 x10^3/uL (140-400) Neutrophils (%) (Auto) 80 % (31-73) Lymphocytes (%) (Auto) 10 % (24-48) Monocytes (%) (Auto) 8 % (0-9) Eosinophils (%) (Auto) 2 % (0-3) Basophils (%) (Auto) 0 % (0-3) Neutrophils # (Auto) 11.1 x10^3/uL (1.8-7.7) Lymphocytes # (Auto) 1.4 x10^3/uL (1.0-4.8) Monocytes # (Auto) 1.1 x10^3/uL (0.0-1.1) Eosinophils # (Auto) 0.2 x10^3/uL (0.0-0.7) Basophils # (Auto) 0.0 x10^3/uL (0.0-0.2) Assessment and Plan Assessmemt and Plan Problems Medical Problems: (1) Fever Status: Acute (2) UTI (urinary tract infection) Status: Acute Comment Review of Relevant I have reviewed the following items lorenzo (where applicable) has been applied. Labs Laboratory Tests Test 06/17/19 13:00 06/18/19 04:05 06/19/19 03:20 Vancomycin Level Trough 6.3 mcg/mL (10.0-20.0) Vancomycin Last Dose Date 06/16/19 Vancomycin Last Dose Time 1330 Sodium Level 143 mmol/L (136-145) Potassium Level 4.0 mmol/L (3.5-5.1) Chloride Level 106 mmol/L (98-107) Carbon Dioxide Level 31 mmol/L (21-32) Anion Gap 6 (6-14) Blood Urea Nitrogen 21 mg/dL (8-26) Creatinine 0.7 mg/dL (0.7-1.3) Estimated GFR (Cockcroft-Gault) 107.2 BUN/Creatinine Ratio 30 (6-20) Glucose Level 112 mg/dL (70-99) Calcium Level 7.8 mg/dL (8.5-10.1) Total Bilirubin 0.5 mg/dL (0.2-1.0) Aspartate Amino Transf (AST/SGOT) 139 U/L (15-37) Alanine Aminotransferase (ALT/SGPT) 190 U/L (16-63) Alkaline Phosphatase 104 U/L (46-116) Total Protein 5.3 g/dL (6.4-8.2) Albumin 1.3 g/dL (3.4-5.0) Albumin/Globulin Ratio 0.3 (1.0-1.7) White Blood Count 14.0 x10^3/uL (4.0-11.0) Red Blood Count 2.89 x10^6/uL (4.30-5.70) Hemoglobin 8.7 g/dL (13.0-17.5) Hematocrit 26.1 % (39.0-53.0) Mean Corpuscular Volume 90 fL (79-100) Mean Corpuscular Hemoglobin 30 pg (25-35) Mean Corpuscular Hemoglobin Concent 33 g/dL (31-37) Red Cell Distribution Width 16.8 % (11.5-14.5) Platelet Count 489 x10^3/uL (140-400) Neutrophils (%) (Auto) 80 % (31-73) Lymphocytes (%) (Auto) 10 % (24-48) Monocytes (%) (Auto) 8 % (0-9) Eosinophils (%) (Auto) 2 % (0-3) Basophils (%) (Auto) 0 % (0-3) Neutrophils # (Auto) 11.1 x10^3/uL (1.8-7.7) Lymphocytes # (Auto) 1.4 x10^3/uL (1.0-4.8) Monocytes # (Auto) 1.1 x10^3/uL (0.0-1.1) Eosinophils # (Auto) 0.2 x10^3/uL (0.0-0.7) Basophils # (Auto) 0.0 x10^3/uL (0.0-0.2) Laboratory Tests Test 06/19/19 03:20 White Blood Count 14.0 x10^3/uL (4.0-11.0) Red Blood Count 2.89 x10^6/uL (4.30-5.70) Hemoglobin 8.7 g/dL (13.0-17.5) Hematocrit 26.1 % (39.0-53.0) Mean Corpuscular Volume 90 fL (79-100) Mean Corpuscular Hemoglobin 30 pg (25-35) Mean Corpuscular Hemoglobin Concent 33 g/dL (31-37) Red Cell Distribution Width 16.8 % (11.5-14.5) Platelet Count 489 x10^3/uL (140-400) Neutrophils (%) (Auto) 80 % (31-73) Lymphocytes (%) (Auto) 10 % (24-48) Monocytes (%) (Auto) 8 % (0-9) Eosinophils (%) (Auto) 2 % (0-3) Basophils (%) (Auto) 0 % (0-3) Neutrophils # (Auto) 11.1 x10^3/uL (1.8-7.7) Lymphocytes # (Auto) 1.4 x10^3/uL (1.0-4.8) Monocytes # (Auto) 1.1 x10^3/uL (0.0-1.1) Eosinophils # (Auto) 0.2 x10^3/uL (0.0-0.7) Basophils # (Auto) 0.0 x10^3/uL (0.0-0.2) Microbiology 06/14/19 Blood Culture - Preliminary, Resulted NO GROWTH AFTER 4 DAYS 06/14/19 Urine Culture - Final, Complete 06/14/19 Urine Culture Result 1 (TASHA) - Final, Complete Medications Current Medications Acetaminophen (Tylenol) 500 mg PRN Q6HRS PRN PO MILD PAIN / TEMP; Start 06/14/19 at 19:30; Stop 06/14/19 at 19:34; Status DC Acetaminophen/ Codeine Phosphate (Tylenol #3) 1 tab PRN Q6HRS PRN PO MODERATE PAIN; Start 06/14/19 at 19:30; Stop 06/14/19 at 19:34; Status DC Calcium Carbonate/ Glycine (Tums) 500 mg PRN AFTMEALHC PRN PO INDIGESTION; Start 06/14/19 at 19:30; Stop 06/14/19 at 19:34; Status DC Ondansetron HCl (Zofran) 4 mg PRN Q6HRS PRN IVP NAUSEA/VOMITING; Start 06/14/19 at 19:30 Temazepam (Restoril) 7.5 mg PRN QHS PRN PO INSOMNIA; Start 06/14/19 at 19:30 Acetaminophen/ Hydrocodone Bitart (Lortab 5/325) 1 tab PRN Q4HRS PRN PO MODERATE PAIN; Start 06/14/19 at 19:30; Stop 06/14/19 at 19:34; Status DC Fentanyl Citrate (Fentanyl 2ml Vial) 25 mcg PRN Q2HR PRN IV PAIN; Start 06/14/19 at 19:30 Acetaminophen (Tylenol) 500 mg PRN Q6HRS PRN PEG MILD PAIN / TEMP; Start 06/14/19 at 19:45 Acetaminophen/ Codeine Phosphate (Tylenol #3) 1 tab PRN Q6HRS PRN PEG MODERATE PAIN; Start 06/14/19 at 19:34 Calcium Carbonate/ Glycine (Tums) 500 mg PRN AFTMEALHC PRN PEG INDIGESTION; Start 06/14/19 at 19:34 Acetaminophen/ Hydrocodone Bitart (Lortab 5/325) 1 tab PRN Q4HRS PRN PEG SEVERE PAIN; Start 06/14/19 at 19:34 Piperacillin Sod/ Tazobactam Sod 4.5 gm/Sodium Chloride 100 ml @ 200 mls/hr 1X ONCE IV Last administered on 06/15/19at 00:05; Start 06/14/19 at 22:00; Stop 06/14/19 at 22:29; Status DC Sodium Chloride 1,000 ml @ 1,000 mls/hr Q1H IV Last administered on 06/15/19at 00:04; Start 06/14/19 at 21:30; Stop 06/14/19 at 23:13; Status DC Ondansetron HCl (Zofran) 4 mg PRN Q8HRS PRN IV NAUSEA/VOMITING 1ST CHOICE; Start 06/14/19 at 21:15; Stop 06/15/19 at 21:14; Status DC Morphine Sulfate (Morphine Sulfate) 2 mg PRN Q2HR PRN IV SEVERE PAIN 7-10; Start 06/14/19 at 21:15; Stop 06/15/19 at 21:14; Status DC Acetaminophen (Tylenol) 650 mg PRN Q4HRS PRN PO FEVER; Start 06/14/19 at 21:15; Stop 06/15/19 at 21:14; Status DC Acetaminophen (Tylenol) 1,000 mg 1X ONCE PO Last administered on 06/15/19at 00:03; Start 06/14/19 at 21:30; Stop 06/14/19 at 21:31; Status DC Albuterol/ Ipratropium (Duoneb) 3 ml RTQID NEB Last administered on 06/19/19at 07:40; Start 06/15/19 at 12:00 Albuterol/ Ipratropium (Duoneb) 3 ml 1X ONCE NEB Last administered on 06/15/19at 11:21; Start 06/15/19 at 09:00; Stop 06/15/19 at 09:01; Status DC Budesonide (Pulmicort) 0.5 mg RTBID NEB Last administered on 06/19/19at 07:40; Start 06/15/19 at 20:00 Budesonide (Pulmicort) 0.5 mg 1X ONCE NEB Last administered on 06/15/19at 11:21; Start 06/15/19 at 09:00; Stop 06/15/19 at 09:01; Status DC Iohexol (Omnipaque 350 Mg/ml) 90 ml 1X ONCE IV Last administered on 06/15/19at 10:20; Start 06/15/19 at 09:00; Stop 06/15/19 at 09:01; Status DC Info (CONTRAST GIVEN -- Rx MONITORING) 1 each PRN DAILY PRN MC SEE COMMENTS; Start 06/15/19 at 09:15; Stop 06/17/19 at 09:14; Status DC Vancomycin HCl (Vanco Per Pharmacy) 1 each PRN DAILY PRN MC SEE COMMENTS Last administered on 06/18/19at 13:04; Start 06/15/19 at 10:00; Stop 06/18/19 at 15:47; Status DC Piperacillin Sod/ Tazobactam Sod (Zosyn Per Pharmacy) 1 each PRN DAILY PRN MC SEE COMMENTS; Start 06/15/19 at 10:00 Piperacillin Sod/ Tazobactam Sod 3.375 gm/Sodium Chloride 50 ml @ 100 mls/hr Q6HRS IV Last administered on 06/19/19at 06:23; Start 06/15/19 at 11:00 Vancomycin HCl 1.5 gm/Sodium Chloride 500 ml @ 250 mls/hr 1X ONCE IV Last administered on 06/15/19at 13:23; Start 06/15/19 at 11:00; Stop 06/15/19 at 12:59; Status DC Vancomycin HCl 1 gm/Sodium Chloride 250 ml @ 250 mls/hr Q24H IV Last admi nistered on 06/16/19at 12:32; Start 06/16/19 at 13:30; Stop 06/17/19 at 14:06; Status DC Vancomycin HCl (Vancomycin Trough Level) 1 each 1X ONCE MC Last administered on 06/17/19at 13:00; Start 06/17/19 at 13:00; Stop 06/17/19 at 13:01; Status DC Midazolam HCl (Versed) 2 mg STK-MED ONCE .ROUTE ; Start 06/16/19 at 09:32; Stop 06/16/19 at 09:32; Status DC Fentanyl Citrate (Fentanyl 2ml Vial) 100 mcg STK-MED ONCE .ROUTE ; Start 06/16/19 at 09:32; Stop 06/16/19 at 09:33; Status DC Lidocaine/Sodium Bicarbonate (Buffered Lidocaine 1%) 3 ml STK-MED ONCE .ROUTE ; Start 06/16/19 at 09:46; Stop 06/16/19 at 09:47; Status DC Lidocaine/Sodium Bicarbonate (Buffered Lidocaine 1%) 3 ml 1X ONCE IJ Last administered on 06/16/19at 10:21; Start 06/16/19 at 10:15; Stop 06/16/19 at 10:16; Status DC Midazolam HCl (Versed) 2 mg 1X ONCE IV Last administered on 06/16/19 10:22; Start 06/16/19 at 10:15; Stop 06/16/19 at 10:16; Status DC Fentanyl Citrate (Fentanyl 2ml Vial) 100 mcg 1X ONCE IV Last administered on 06/16/19 10:22; Start 06/16/19 at 10:15; Stop 06/16/19 at 10:16; Status DC Lactobacillus Rhamnosus (Culturelle) 1 cap BID PO Last administered on 06/18/19 20:36; Start 06/16/19 at 21:00 Acetaminophen (Tylenol) 325 mg PRN Q4HRS PRN PO MURPHY/FEVER; Start 06/17/19 at 1 2:30 Alprazolam (Xanax) 0.25 mg PRN TID PRN PO restlessness Last administered on 06/18/19 20:36; Start 06/17/19 at 12:30 Vitamin D (Vitamin D3) 2,000 unit DAILY PO Last administered on 06/18/19 08:07; Start 06/17/19 at 13:00 Famotidine (Pepcid) 20 mg BID PO Last administered on 06/18/19 20:35; Start 06/17/19 at 21:00 Lisinopril (Prinivil) 10 mg HS PO Last administered on 06/17/19at 21:53; Start 06/17/19 at 21:00 Magnesium Hydroxide (Milk Of Magnesia) 400 mg PRN DAILY PRN PO CONSTIPATION; Start 06/17/19 at 12:30 Mirtazapine (Remeron) 15 mg QHS PO Last administered on 06/18/19 20:35; Start 06/17/19 at 21:00 Olanzapine (ZyPREXA) 2.5 mg DAILY PO Last administered on 06/18/19 08:07; Start 06/17/19 at 13:00 Atorvastatin Calcium (Lipitor) 80 mg QHS PO Last administered on 06/18/19 20:35; Start 06/17/19 at 21:00 Alteplase, Recombinant 10 mg/ Sterile Water 50 ml @ 200 mls/hr 1X ONCE IPL Last administered on 06/17/19 15:18; Start 06/17/19 at 14:00; Stop 06/17/19 at 14:14; Status DC Vancomycin HCl 1.25 gm/Sodium Chloride 250 ml @ 167 mls/hr Q18H IV Last administered on 06/17/19at 15:18; Start 06/17/19 at 15:00; Stop 06/17/19 at 16:30; Status DC Vancomycin HCl (Vancomycin Trough Level) 1 each 1X ONCE MC ; Start 06/19/19 at 02:30; Stop 06/19/19 at 02:31; Status Cancel Vancomycin HCl 750 mg/Sodium Chloride 250 ml @ 250 mls/hr Q12H IV Last administered on 06/18/19at 15:10; Start 06/18/19 at 03:00; Stop 06/18/19 at 15:47; Status DC Influenza Virus Vaccine Quadrival (Afluria Quad 2019-20 (3yr Up) Syringe) 0.5 ml ONCE ONCE VAX IM Last administered on 06/18/19at 10:28; Start 06/18/19 at 10:30; Stop 06/18/19 at 10:31; Status DC Alteplase, Recombinant 10 mg/ Sterile Water 50 ml @ 200 mls/hr 1X ONCE IPL Last administered on 06/18/19at 11:37; Start 06/18/19 at 10:30; Stop 06/18/19 at 10:44; Status DC Active Scripts Active Reported Xanax (Alprazolam) 0.25 Mg Tablet 1 Tab PO PRN TID PRN Vitamin D3 (Cholecalciferol (Vitamin D3)) 1,000 Unit Tablet 2 Tab PO DAILY Tylenol (Acetaminophen) 325 Mg Tablet 1 Tab PO PRN Q4HRS Multivitamins (Multivitamin) 1 Each Capsule 1 Each PO DAILY Silvadene (Silver Sulfadiazine) 20 Gm Cream..g. 1 Claudia TP DAILY Zoloft (Sertraline Hcl) 100 Mg Tablet 100 Mg PO DAILY Zyprexa (Olanzapine) 2.5 Mg Tablet 2.5 Mg PO DAILY Nystatin 100,000 Unit/1 Ml Oral.susp 5 Ml PO BID Mirtazapine 15 Mg Tablet 1 Tab PO QHS Milk Of Magnesia (Magnesium Hydroxide) 400 Mg/5 Ml Oral.susp 400 Mg PO PRN PRN Melatonin 3 Mg Tablet 3 Mg PO QHS Lumigan (Bimatoprost) 2.5 Ml Drops 1 Drop EACHEYE QHS Lisinopril 10 Mg Tablet 1 Tab PO HS Hydrocortisone 59 Ml Lotion 1 Claudia TP BID Guaifenesin Ac Cough Syrup (Guaifenesin/Codeine Phosphate) 473 Ml Liquid 10 Ml PO Q4-6HRS Famotidine 20 Mg Tablet 20 Mg PO BID 30 Days Clopidogrel (Clopidogrel Bisulfate) 75 Mg Tablet 75 Mg PO DAILY Calmoseptine Ointment (Menthol/Zinc Oxide) 71 Gm Oint...g. 71 Gm TP BID Atorvastatin Calcium 80 Mg Tablet 80 Mg PO HS Aspirin 81 Mg Tab.chew 81 Mg PO DAILY Vitals/I & O Vital Sign - Last 24 Hours 06/18/19 06/18/19 06/18/19 06/18/19 08:10 11:00 11:12 14:51 Temp 98.1 98.1 Pulse 86 Resp 18 B/P (MAP) 100/54 (69) Pulse Ox 96 92 93 O2 Delivery Nasal Cannula Room Air Nasal Cannula Nasal Cannula O2 Flow Rate 2.0 2.0 2.0 06/18/19 06/18/19 06/18/19 06/18/19 15:00 19:20 19:46 20:30 Temp 97.7 98.5 97.7 98.5 Pulse 89 86 Resp 16 18 B/P (MAP) 110/60 (77) 108/57 (74) Pulse Ox 95 93 93 O2 Delivery Room Air Nasal Cannula Nasal Cannula Nasal Cannula O2 Flow Rate 2.0 2.0 2.0 06/18/19 06/18/19 06/19/19 06/19/19 20:36 23:16 03:30 07:40 Temp 98.5 98.4 98.5 98.4 Pulse 89 92 90 Resp 22 20 B/P (MAP) 102/55 96/58 (71) 104/62 (76) Pulse Ox 95 95 O2 Delivery Nasal Cannula Nasal Cannula Nasal Cannula O2 Flow Rate 2.0 2.0 2.0 Intake and Output 06/18/19 06/18/19 06/19/19 15:00 23:00 07:00 Intake Total 1480 ml 1297 ml Output Total 1780 ml 585 ml Balance 1480 ml -483 ml -585 ml Nutrition Consultation Dietary Evaluation: Recommendations by RD: Add supplement feedings Comments: sloan bid w/ bolus TF for nutrition Expected Outcomes/Goals: to meet > 75% est nutr needs improved wound status Interpretation of weight loss: >10% in 6 months Malnutrition Findings: Body Fat Depletion (Non Severe: Mod to Severe Weight Status: Underweight BHAVIK CRAIN MD Jun 19, 2019 08:05
--- NOTE | 2019-06-19 09:10 | RAD ---
AP portable chest radiograph 06/19/2019 Clinical History: History of empyema. An AP erect portable digital radiograph of the chest was obtained. Comparison study is dated 06/18/2019. A pacemaker is unchanged position. A pigtail drainage catheter overlies left lower lobe. The loculated left pleural fluid collection has decreased in size. No pneumothorax is seen. No acute pulmonary infiltrate is noted. The osseous structures are unchanged. Impression: Interval decrease in size of the loculated left pleural fluid collection with pigtail drainage catheter in place. Electronically signed by: Dann Tse MD (06/19/2019 9:08 AM) [id number]
[2019-06-19] MEDS: FAMOTIDINE 20 MG TABLET. PO SCH ×2 (09:14→21:34)
[2019-06-19] MEDS: LACTOBACILLUS RHAMNOSUS GG 1 CAPSULE. PO SCH ×2 (09:14→21:34)
[2019-06-19] MEDS: CHOLECALCIFEROL (VITAMIN D3) 1,000 UNIT TABLET PO SCH (09:14)
[2019-06-19] MEDS: OLANZapine 2.5 MG TABLET PO SCH (09:14)
--- NOTE | 2019-06-19 09:58 | PDOC ---
PULMONARY PROGRESS NOTES Subjective sig response post TPA another 1200 cc fluid came out sob better, no pain, no cough Vitals Vital Signs Date Time Temp Pulse Resp B/P (MAP) Pulse Ox O2 Delivery O2 Flow Rate FiO2 06/19/19 07:40 Nasal Cannula 2.0 06/19/19 07:00 97.7 87 14 101/53 (69) 91 97.7 ROS: No Nausea, No Chest Pain General: Alert, No acute distress HEENT: Other (nc at perrl ) Lungs: Other (l dullness crackles) Cardiovascular: S1, S2 Abdomen: Soft, Non-tender Neuro Exam: Alert Extremities: No Edema Skin: Warm Labs Laboratory Tests Test 06/17/19 13:00 06/18/19 04:05 06/19/19 03:20 Vancomycin Level Trough 6.3 mcg/mL (10.0-20.0) Vancomycin Last Dose Date 06/16/19 Vancomycin Last Dose Time 1330 Sodium Level 143 mmol/L (136-145) Potassium Level 4.0 mmol/L (3.5-5.1) Chloride Level 106 mmol/L (98-107) Carbon Dioxide Level 31 mmol/L (21-32) Anion Gap 6 (6-14) Blood Urea Nitrogen 21 mg/dL (8-26) Creatinine 0.7 mg/dL (0.7-1.3) Estimated GFR (Cockcroft-Gault) 107.2 BUN/Creatinine Ratio 30 (6-20) Glucose Level 112 mg/dL (70-99) Calcium Level 7.8 mg/dL (8.5-10.1) Total Bilirubin 0.5 mg/dL (0.2-1.0) Aspartate Amino Transf (AST/SGOT) 139 U/L (15-37) Alanine Aminotransferase (ALT/SGPT) 190 U/L (16-63) Alkaline Phosphatase 104 U/L (46-116) Total Protein 5.3 g/dL (6.4-8.2) Albumin 1.3 g/dL (3.4-5.0) Albumin/Globulin Ratio 0.3 (1.0-1.7) White Blood Count 14.0 x10^3/uL (4.0-11.0) Red Blood Count 2.89 x10^6/uL (4.30-5.70) Hemoglobin 8.7 g/dL (13.0-17.5) Hematocrit 26.1 % (39.0-53.0) Mean Corpuscular Volume 90 fL (79-100) Mean Corpuscular Hemoglobin 30 pg (25-35) Mean Corpuscular Hemoglobin Concent 33 g/dL (31-37) Red Cell Distribution Width 16.8 % (11.5-14.5) Platelet Count 489 x10^3/uL (140-400) Neutrophils (%) (Auto) 80 % (31-73) Lymphocytes (%) (Auto) 10 % (24-48) Monocytes (%) (Auto) 8 % (0-9) Eosinophils (%) (Auto) 2 % (0-3) Basophils (%) (Auto) 0 % (0-3) Neutrophils # (Auto) 11.1 x10^3/uL (1.8-7.7) Lymphocytes # (Auto) 1.4 x10^3/uL (1.0-4.8) Monocytes # (Auto) 1.1 x10^3/uL (0.0-1.1) Eosinophils # (Auto) 0.2 x10^3/uL (0.0-0.7) Basophils # (Auto) 0.0 x10^3/uL (0.0-0.2) Laboratory Tests Test 06/19/19 03:20 White Blood Count 14.0 x10^3/uL (4.0-11.0) Red Blood Count 2.89 x10^6/uL (4.30-5.70) Hemoglobin 8.7 g/dL (13.0-17.5) Hematocrit 26.1 % (39.0-53.0) Mean Corpuscular Volume 90 fL (79-100) Mean Corpuscular Hemoglobin 30 pg (25-35) Mean Corpuscular Hemoglobin Concent 33 g/dL (31-37) Red Cell Distribution Width 16.8 % (11.5-14.5) Platelet Count 489 x10^3/uL (140-400) Neutrophils (%) (Auto) 80 % (31-73) Lymphocytes (%) (Auto) 10 % (24-48) Monocytes (%) (Auto) 8 % (0-9) Eosinophils (%) (Auto) 2 % (0-3) Basophils (%) (Auto) 0 % (0-3) Neutrophils # (Auto) 11.1 x10^3/uL (1.8-7.7) Lymphocytes # (Auto) 1.4 x10^3/uL (1.0-4.8) Monocytes # (Auto) 1.1 x10^3/uL (0.0-1.1) Eosinophils # (Auto) 0.2 x10^3/uL (0.0-0.7) Basophils # (Auto) 0.0 x10^3/uL (0.0-0.2) Medications Active Scripts Medications Dose Route/Sig Max Daily Dose Days Date Category Xanax (Alprazolam) 0.25 Mg Tablet 1 Tab PO PRN TID PRN 06/15/19 Reported Vitamin D3 (Cholecalciferol (Vitamin D3)) 1,000 Unit Tablet 2 Tab PO DAILY 06/15/19 Reported Tylenol (Acetaminophen) 325 Mg Tablet 1 Tab PO PRN Q4HRS 06/15/19 Reported Multivitamins (Multivitamin) 1 Each Capsule 1 Each PO DAILY 06/15/19 Reported Silvadene (Silver Sulfadiazine) 20 Gm Cream..g. 1 Claudia TP DAILY 06/15/19 Reported Zoloft (Sertraline Hcl) 100 Mg Tablet 100 Mg PO DAILY 06/15/19 Reported Zyprexa (Olanzapine) 2.5 Mg Tablet 2.5 Mg PO DAILY 06/15/19 Reported Nystatin 100,000 Unit/1 Ml Oral.susp 5 Ml PO BID 06/15/19 Reported Mirtazapine 15 Mg Tablet 1 Tab PO QHS 06/15/19 Reported Milk Of Magnesia (Magnesium Hydroxide) 400 Mg/5 Ml Oral.susp 400 Mg PO PRN PRN 06/15/19 Reported Melatonin 3 Mg Tablet 3 Mg PO QHS 06/15/19 Reported Lumigan (Bimatoprost) 2.5 Ml Drops 1 Drop EACHEYE QHS 06/15/19 Reported Lisinopril 10 Mg Tablet 1 Tab PO HS 06/15/19 Reported Hydrocortisone 59 Ml Lotion 1 Claudia TP BID 06/15/19 Reported Guaifenesin Ac Cough Syrup (Guaifenesin/Codeine Phosphate) 473 Ml Liquid 10 Ml PO Q4-6HRS 06/15/19 Reported Famotidine 20 Mg Tablet 20 Mg PO BID 30 06/15/19 Reported Clopidogrel (Clopidogrel Bisulfate) 75 Mg Tablet 75 Mg PO DAILY 06/15/19 Reported Calmoseptine Ointment (Menthol/Zinc Oxide) 71 Gm Oint...g. 71 Gm TP BID 06/15/19 Reported Atorvastatin Calcium 80 Mg Tablet 80 Mg PO HS 06/15/19 Reported Aspirin 81 Mg Tab.chew 81 Mg PO DAILY 06/15/[address] reviewed, 1. No convincing pulmonary embolism. 2. Large partially loculated left pleural effusion. 3. Left lower lobe collapse with a superimposed 3.3 cm rounded area of hypodensity within the collapsed lung possibly due to abscess or neoplasm. 4. Pulmonary emphysema with bronchiectasis and bronchial wall thickening due to superimposed bronchitis. 5. Small scattered nodular opacities within the bilateral upper lobes, primarily involving the lingula. The largest of these measures 8 mm. This may be infectious or inflammatory. Short-term follow-up is recommended. 6. Small right pleural effusion and right lower lobe atelectasis. 7. Suspected reactive mediastinal, hilar and right retrocrural lymphadenopathy. Attention the time of follow-up is recommended. 8. Enlarged central pulmonary arteries, a finding which can be seen with chronic pulmonary artery hypertension.\ cxr 06/17 moderate loculated left effusion Impression . IMPRESSION: 1. Acute respiratory failure secondary to pneumonia, multi-loculated left effusion c/w early empyema, underlying COPD with acute exacerbation 2. Abnormal ct chest with multi-loculated left effusion , suspect early empyema, ? malignancy. 3. Chronic obstructive pulmonary disease with acute exacerbation. 4. Leukocytosis. 5. Coronary artery disease. 6. Dysphagia, status post PEG placement. 7. Malnutrition. Plan . 1. Titrate the FiO2 to keep O2 saturation at 92%. 2. cont bronchodilator. 3. cont inhaled corticosteroid, 4. CT angiogram of the chest reviewed,, s/p left chest tube, sig response from TPA via chest tube.x 2 days. another 1200 cc fluid came out 5. Elevate head of bed, aspiration precaution. 6. Continue antibiotic per ID. 7. repeat ct chest today discussed w rn, pt/ JENNIFER Abbott MD Jun 19, 2019 09:58
[2019-06-19 11:00] VITALS: BP 107/63
[2019-06-19 15:00] VITALS: BP 120/66
--- NOTE | 2019-06-19 16:47 | PDOC ---
Infectious Disease Note Subjective Subjective s/p TPA w/ sig fluid out still Feeling better O2 down to 2 L Denies SOA/F/C/N/V/D Sat in chair for over 45 mins ROS ROS o/w neg Vital Sign Vital Signs Vital Signs Date Time Temp Pulse Resp B/P (MAP) Pulse Ox O2 Delivery O2 Flow Rate FiO2 06/19/19 15:19 Nasal Cannula 2.0 06/19/19 11:23 95 06/19/19 11:00 97.9 79 14 107/63 (78) 97.9 Physical Exam PHYSICAL EXAM GENERAL: Propped up in bed, alert, NAD - appears comfortable HEENT: Pupils equally round. Oropharynx clear NECK: Supple. LUNGS: Diminished aeration in left lung base. Nonlabored. Left CT in place HEART: S1 and S2. Pacemaker. ABDOMEN: Nondistended, soft and nontender with bowel sounds present. PEG tube intact : No Barron. EXTREMITIES: No gross edema or cyanosis. SKIN: Warm to touch. No signs of rash. NEUROLOGIC: Alert and answering questions appropriately. Labs Lab Laboratory Tests Test 06/19/19 03:20 White Blood Count 14.0 x10^3/uL (4.0-11.0) Red Blood Count 2.89 x10^6/uL (4.30-5.70) Hemoglobin 8.7 g/dL (13.0-17.5) Hematocrit 26.1 % (39.0-53.0) Mean Corpuscular Volume 90 fL (79-100) Mean Corpuscular Hemoglobin 30 pg (25-35) Mean Corpuscular Hemoglobin Concent 33 g/dL (31-37) Red Cell Distribution Width 16.8 % (11.5-14.5) Platelet Count 489 x10^3/uL (140-400) Neutrophils (%) (Auto) 80 % (31-73) Lymphocytes (%) (Auto) 10 % (24-48) Monocytes (%) (Auto) 8 % (0-9) Eosinophils (%) (Auto) 2 % (0-3) Basophils (%) (Auto) 0 % (0-3) Neutrophils # (Auto) 11.1 x10^3/uL (1.8-7.7) Lymphocytes # (Auto) 1.4 x10^3/uL (1.0-4.8) Monocytes # (Auto) 1.1 x10^3/uL (0.0-1.1) Eosinophils # (Auto) 0.2 x10^3/uL (0.0-0.7) Basophils # (Auto) 0.0 x10^3/uL (0.0-0.2) Micro CXR Impression: 1. Decreased loculated left pleural fluid compatible with empyema given history. Left pigtail pleural drain, unchanged. 2. Decreased left lung patchy opacities. Microbiology 06/14/19 Blood Culture - Preliminary, Resulted NO GROWTH AFTER 3 DAY URINE CULTURE RES 1 Final No growth Objective Assessment Large partially loculated left pleural effusion s/p CT placement, 06/16. poor specimen, cell count couldn't be done. cultures pending -s/p TPA, 06/17 Left lower lobe collapse with abscess vs neoplasm Leukocytosis - better Transaminitis Generalized weakness s/p multiple falls Dysphagia s/p PEG placement in Feb Weight loss COPD CAD Plan Plan of Care Discontinued vancomycin 06/18 Cont Zosyn Monitor renal function closely f/u pleural fluid cultures and cytology Maintain aspiration precautions Oral care am labs D/w nursing ALEJANDRO ANGELO MD Jun 19, 2019 16:47
--- NOTE | 2019-06-19 17:24 | RAD ---
CT CHEST WO CONTRAST Indication: Empyema, status post TPA Technique: Noncontrast CT imaging was performed of the chest, multiplanar reconstruction images submitted. One or more of the following individualized dose reduction techniques were utilized for this examination: 1. Automated exposure control 2. Adjustment of the mA and/or kV according to patient size 3. Use of iterative reconstruction technique. Comparison: June 15, 2019 Findings: There is now a pigtail catheter in the posterior left pleural space of the inferior left hemithorax. Overall size of previously seen pleural based fluid collection on the left has decreased. There is now some internal gas within the pleural collection more anteriorly and laterally. Some fluid again tracks more anteriorly along the mediastinal border and inferiorly. There is compressive atelectasis of the left lower lobe although decreased. Small right pleural effusion is larger, increased compressive atelectasis right lower lobe. No pericardial effusion is present. There is again emphysema. There is again prominent coronary calcification. There is scattered plaque of the thoracic aorta. There is again left paratracheal node about 1.1 cm short axis dimension and subcarinal node about 1.2 cm transverse dimension, some other smaller nodes again present. There is again gastrostomy. There is again multilevel thoracic spondylosis. IMPRESSION: 1. There is now pigtail catheter in the previously demonstrated empyema now with minimal internal gas, overall smaller size of the fluid collection, again component which tracks more anteriorly along the mediastinal border. Adjacent compressive atelectasis of the left lower lobe has decreased. Small right pleural effusion is larger with increased adjacent compressive atelectasis. 2. There is again emphysema and coronary calcification. 3. There is again mediastinal lymphadenopathy for which follow-up advised such as in 3 months. Electronically signed by: Kimo Jimenez MD (06/19/2019 5:21 PM) [facility] [id number]
[2019-06-19 19:51] VITALS: BP 100/57
[2019-06-19] MEDS: LISINOPRIL 10 MG TABLET PO SCH (21:00)
[2019-06-19] MEDS: ACETAMINOPHEN 325 MG TABLET. PO PRN (21:34)
[2019-06-19] MEDS: MIRTAZAPINE 15 MG TABLET PO SCH (21:34)
[2019-06-19] MEDS: ATORVASTATIN CALCIUM 40 MG TABLET. PO SCH (21:39)
[2019-06-19 23:15] VITALS: BP 101/54
[2019-06-20] MEDS: PIPERACILLIN/TAZOBACTAM 3.375 GM in IV NORMAL SALINE 50ML 50 ML IV SCH ×5 (00:14→23:51)
[2019-06-20 03:41] VITALS: BP 86/41
[2019-06-20 07:00] VITALS: BP 107/60
[2019-06-20] MEDS: IPRATRPIUM/ALBUTEROL 0.5/2.5MG 3 ML NEBU. NEB SCH ×4 (07:46→20:20)
[2019-06-20] MEDS: BUDESONIDE 0.5 MG/2 ML NEBU. NEB SCH ×2 (07:46→20:20)
--- NOTE | 2019-06-20 08:40 | PDOC ---
PROGRESS NOTES Chief Complaint Chief Complaint Right-sided pleural effusion, possible loculated effusion, possible empyema s/p left indwelling chest tube (06/16) Freq falls in AL, non injury falls - mechanical falls Dysphagia, indwelling PEG x 7 mos now, STrict NPO, bolus TFs at AL RT wrist OA Indwelling pacer LEUKOCYTOSIS Left lower lobe collapse with abscess vs neoplasm Leukocytosis, improving Transaminitis Generalized weakness s/p multiple falls Weight loss COPD CAD History of Present Illness History of Present Illness He now has a left sided chest tube indwelling and is draining pleural fluid (loculated empyema on CT and CXR) Pleural fluid has been sent for studies - RBCs, LDH 2166, protein 4.1, glucose 22. No pH Has in indwelling PEG x 6 mos now for dysphagia and is on Bolus feeding here and at [facility]isted [facility] prior to admission 06/17/19: tPA per chest per by pulmonary with 1700cc out in first 24 hours 06/19: Shortness of breath a bit improved after large release of loculated effusion with tPA. Had another 1200cc out, now with CXR much improved. He is feeling weak, wishes to have a BM. Aching all over improved. No CP. Family wishes for [employer] PATH[employer] evaluation for his speech and communication Still with good chest tube drainage. For CT chest today. He is feeling a bit better. Denies chest pain. Cytology returned negative for malignancy from pleural fluid. Consistent with empyema. PLAN: CPM PT recs SNU - sw consult for this Otherwise cont chest tube, IV abx and tPA per [place] Trial guidelines (would be nice to have dornase alpha available). Will f/u pulm recs on this. Vitals Vitals Vital Signs Date Time Temp Pulse Resp B/P (MAP) Pulse Ox O2 Delivery O2 Flow Rate FiO2 06/20/19 07:49 95 Nasal Cannula 2.0 06/20/19 07:00 98.0 94 14 107/60 (76) 98.0 Physical Exam Physical Exam GENERAL: Propped up in bed, alert, NAD - appears comfortable HEENT: Pupils equally round. Oropharynx clear NECK: Supple. LUNGS: Diminished aeration in left lung base. Nonlabored. Left CT in place HEART: S1 and S2. Pacemaker. ABDOMEN: Nondistended, soft and nontender with bowel sounds present. PEG tube intact : No Barron. EXTREMITIES: No gross edema or cyanosis. SKIN: Warm to touch. No signs of rash. NEUROLOGIC: Alert and answering questions appropriately. General: Alert, Oriented X3, Cooperative, No acute distress Heart: Regular rate, Normal S1, Normal S2 Lungs: Other (l dullness crackles) Abdomen: Normal bowel sounds, Soft, No tenderness, No hepatosplenomegaly, No masses Extremities: No clubbing, No cyanosis, No edema, Normal pulses, No tenderness/swelling Skin: Other (senile skin turgor, some old skin brusing) Assessment and Plan Assessmemt and Plan Problems Medical Problems: (1) Fever Status: Acute (2) UTI (urinary tract infection) Status: Acute Comment Review of Relevant I have reviewed the following items lorenzo (where applicable) has been applied. Labs Laboratory Tests Test 06/19/19 03:20 White Blood Count 14.0 x10^3/uL (4.0-11.0) Red Blood Count 2.89 x10^6/uL (4.30-5.70) Hemoglobin 8.7 g/dL (13.0-17.5) Hematocrit 26.1 % (39.0-53.0) Mean Corpuscular Volume 90 fL (79-100) Mean Corpuscular Hemoglobin 30 pg (25-35) Mean Corpuscular Hemoglobin Concent 33 g/dL (31-37) Red Cell Distribution Width 16.8 % (11.5-14.5) Platelet Count 489 x10^3/uL (140-400) Neutrophils (%) (Auto) 80 % (31-73) Lymphocytes (%) (Auto) 10 % (24-48) Monocytes (%) (Auto) 8 % (0-9) Eosinophils (%) (Auto) 2 % (0-3) Basophils (%) (Auto) 0 % (0-3) Neutrophils # (Auto) 11.1 x10^3/uL (1.8-7.7) Lymphocytes # (Auto) 1.4 x10^3/uL (1.0-4.8) Monocytes # (Auto) 1.1 x10^3/uL (0.0-1.1) Eosinophils # (Auto) 0.2 x10^3/uL (0.0-0.7) Basophils # (Auto) 0.0 x10^3/uL (0.0-0.2) Microbiology 06/16/19 Anaerobic/Aerobic Culture, Resulted Pending 06/16/19 Anaerobic Culture Result 1 (TASHA), Resulted Pending 06/16/19 Aerobic Culture, Resulted Pending 06/16/19 Aerobic Culture Result 1 (TASHA), Resulted Pending 06/16/19 Gram Stain - Final, Resulted 06/16/19 Gram Stain Result 1 (TASHA) - Final, Resulted 06/16/19 Gram Stain Result 2 (TASHA) - Final, Resulted 06/14/19 Blood Culture - Final, Complete NO GROWTH AFTER 5 DAYS 06/14/19 Urine Culture - Final, Complete 06/14/19 Urine Culture Result 1 (TASHA) - Final, Complete Medications Current Medications Acetaminophen (Tylenol) 500 mg PRN Q6HRS PRN PO MILD PAIN / TEMP; Start 06/14/19 at 19:30; Stop 06/14/19 at 19:34; Status DC Acetaminophen/ Codeine Phosphate (Tylenol #3) 1 tab PRN Q6HRS PRN PO MODERATE PAIN; Start 06/14/19 at 19:30; Stop 06/14/19 at 19:34; Status DC Calcium Carbonate/ Glycine (Tums) 500 mg PRN AFTMEALHC PRN PO INDIGESTION; Start 06/14/19 at 19:30; Stop 06/14/19 at 19:34; Status DC Ondansetron HCl (Zofran) 4 mg PRN Q6HRS PRN IVP NAUSEA/VOMITING; Start 06/14/19 at 19:30 Temazepam (Restoril) 7.5 mg PRN QHS PRN PO INSOMNIA; Start 06/14/19 at 19:30 Acetaminophen/ Hydrocodone Bitart (Lortab 5/325) 1 tab PRN Q4HRS PRN PO MODERAT E PAIN; Start 06/14/19 at 19:30; Stop 06/14/19 at 19:34; Status DC Fentanyl Citrate (Fentanyl 2ml Vial) 25 mcg PRN Q2HR PRN IV PAIN; Start 06/14/19 at 19:30 Acetaminophen (Tylenol) 500 mg PRN Q6HRS PRN PEG MILD PAIN / TEMP; Start 06/14/19 at 19:45 Acetaminophen/ Codeine Phosphate (Tylenol #3) 1 tab PRN Q6HRS PRN PEG MODERATE PAIN; Start 06/14/19 at 19:34 Calcium Carbonate/ Glycine (Tums) 500 mg PRN AFTMEALHC PRN PEG INDIGESTION; Start 06/14/19 at 19:34 Acetaminophen/ Hydrocodone Bitart (Lortab 5/325) 1 tab PRN Q4HRS PRN PEG SEVERE PAIN; Start 06/14/19 at 19:34 Piperacillin Sod/ Tazobactam Sod 4.5 gm/Sodium Chloride 100 ml @ 200 mls/hr 1X ONCE IV Last administered on 06/15/19at 00:05; Start 06/14/19 at 22:00; Stop 06/14/19 at 22:29; Status DC Sodium Chloride 1,000 ml @ 1,000 mls/hr Q1H IV Last administered on 06/15/19at 00:04; Start 06/14/19 at 21:30; Stop 06/14/19 at 23:13; Status DC Ondansetron HCl (Zofran) 4 mg PRN Q8HRS PRN IV NAUSEA/VOMITING 1ST CHOICE; Start 06/14/19 at 21:15; Stop 06/15/19 at 21:14; Status DC Morphine Sulfate (Morphine Sulfate) 2 mg PRN Q2HR PRN IV SEVERE PAIN 7-10; Start 06/14/19 at 21:15; Stop 06/15/19 at 21:14; Status DC Acetaminophen (Tylenol) 650 mg PRN Q4HRS PRN PO FEVER; Start 06/14/19 at 21:15; Stop 06/15/19 at 21:14; Status DC Acetaminophen (Tylenol) 1,000 mg 1X ONCE PO Last administered on 06/15/19at 00:03; Start 06/14/19 at 21:30; Stop 06/14/19 at 21:31; Status DC Albuterol/ Ipratropium (Duoneb) 3 ml RTQID NEB Last administered on 06/20/19at 07:46; Start 06/15/19 at 12:00 Albuterol/ Ipratropium (Duoneb) 3 ml 1X ONCE NEB Last administered on 06/15/19at 11:21; Start 06/15/19 at 09:00; Stop 06/15/19 at 09:01; Status DC Budesonide (Pulmicort) 0.5 mg RTBID NEB Last administered on 06/20/19at 07:46; Start 06/15/19 at 20:00 Budesonide (Pulmicort) 0.5 mg 1X ONCE NEB Last administered on 06/15/19at 11:21; Start 06/15/19 at 09:00; Stop 06/15/19 at 09:01; Status DC Iohexol (Omnipaque 350 Mg/ml) 90 ml 1X ONCE IV Last administered on 06/15/19at 10:20; Start 06/15/19 at 09:00; Stop 06/15/19 at 09:01; Status DC Info (CONTRAST GIVEN -- Rx MONITORING) 1 each PRN DAILY PRN MC SEE COMMENTS; Start 06/15/19 at 09:15; Stop 06/17/19 at 09:14; Status DC Vancomycin HCl (Vanco Per Pharmacy) 1 each PRN DAILY PRN MC SEE COMMENTS Last administered on 06/18/19at 13:04; Start 06/15/19 at 10:00; Stop 06/18/19 at 15:47; Status DC Piperacillin Sod/ Tazobactam Sod (Zosyn Per Pharmacy) 1 each PRN DAILY PRN MC SEE COMMENTS; Start 06/15/19 at 10:00 Piperacillin Sod/ Tazobactam Sod 3.375 gm/Sodium Chloride 50 ml @ 100 mls/hr Q6HRS IV Last administered on 06/20/19at 06:31; Start 06/15/19 at 11:00 Vancomycin HCl 1.5 gm/Sodium Chloride 500 ml @ 250 mls/hr 1X ONCE IV Last administered on 06/15/19at 13:23; Start 06/15/19 at 11:00; Stop 06/15/19 at 12:59; Status DC Vancomycin HCl 1 gm/Sodium Chloride 250 ml @ 250 mls/hr Q24H IV Last administered on 06/16/19at 12:32; Start 06/16/19 at 13:30; Stop 06/17/19 at 14:06; Status DC Vancomycin HCl (Vancomycin Trough Level) 1 each 1X ONCE MC Last administered on 06/17/19at 13:00; Start 06/17/19 at 13:00; Stop 06/17/19 at 13:01; Status DC Midazolam HCl (Versed) 2 mg STK-MED ONCE .ROUTE ; Start 06/16/19 at 09:32; Stop 06/16/19 at 09:32; Status DC Fentanyl Citrate (Fentanyl 2ml Vial) 100 mcg STK-MED ONCE .ROUTE ; Start 06/16/19 at 09:32; Stop 06/16/19 at 09:33; Status DC Lidocaine/Sodium Bicarbonate (Buffered Lidocaine 1%) 3 ml STK-MED ONCE .ROUTE ; Start 06/16/19 at 09:46; Stop 06/16/19 at 09:47; Status DC Lidocaine/Sodium Bicarbonate (Buffered Lidocaine 1%) 3 ml 1X ONCE IJ Last administered on 06/16/19at 10:21; Start 06/16/19 at 10:15; Stop 06/16/19 at 10:16; Status DC Midazolam HCl (Versed) 2 mg 1X ONCE IV Last administered on 06/16/19at 10:22; Start 06/16/19 at 10:15; Stop 06/16/19 at 10:16; Status DC Fentanyl Citrate (Fentanyl 2ml Vial) 100 mcg 1X ONCE IV Last administered on 06/16/19at 10:22; Start 06/16/19 at 10:15; Stop 06/16/19 at 10:16; Status DC Lactobacillus Rhamnosus (Culturelle) 1 cap BID PO Last administered on 06/19/19 21:34; Start 06/16/19 at 21:00 Acetaminophen (Tylenol) 325 mg PRN Q4HRS PRN PO MURPHY/FEVER Last administered on 06/19/19 21:34; Start 06/17/19 at 12:30 Alprazolam (Xanax) 0.25 mg PRN TID PRN PO restlessness Last administered on 06/18/19 20:36; Start 06/17/19 at 12:30 Vitamin D (Vitamin D3) 2,000 unit DAILY PO Last administered on 06/19/19 09:14; Start 06/17/19 at 13:00 Famotidine (Pepcid) 20 mg BID PO Last administered on 06/19/19 21:34; Start 06/17/19 at 21:00 Lisinopril (Prinivil) 10 mg HS PO Last administered on 06/17/19 21:53; Start 06/17/19 at 21:00 Magnesium Hydroxide (Milk Of Magnesia) 400 mg PRN DAILY PRN PO CONSTIPATION; Start 06/17/19 at 12:30 Mirtazapine (Remeron) 15 mg QHS PO Last administered on 06/19/19at 21:34; Start 06/17/19 at 21:00 Olanzapine (ZyPREXA) 2.5 mg DAILY PO Last administered on 06/19/19at 09:14; Start 06/17/19 at 13:00 Atorvastatin Calcium (Lipitor) 80 mg QHS PO Last administered on 06/19/19at 21:39; Start 06/17/19 at 21:00 Alteplase, Recombinant 10 mg/ Sterile Water 50 ml @ 200 mls/hr 1X ONCE IPL Last administered on 06/17/19at 15:18; Start 06/17/19 at 14:00; Stop 06/17/19 at 14:14; Status DC Vancomycin HCl 1.25 gm/Sodium Chloride 250 ml @ 167 mls/hr Q18H IV Last administered on 06/17/19at 15:18; Start 06/17/19 at 15:00; Stop 06/17/19 at 16:30; Status DC Vancomycin HCl (Vancomycin Trough Level) 1 each 1X ONCE MC ; Start 06/19/19 at 02:30; Stop 06/19/19 at 02:31; Status Cancel Vancomycin HCl 750 mg/Sodium Chloride 250 ml @ 250 mls/hr Q12H IV Last administered on 06/18/19at 15:10; Start 06/18/19 at 03:00; Stop 06/18/19 at 15:47; Status DC Influenza Virus Vaccine Quadrival (Afluria Quad 2019-20 (3yr Up) Syringe) 0.5 ml ONCE ONCE VAX IM Last administered on 06/18/19at 10:28; Start 06/18/19 at 10:30; Stop 06/18/19 at 10:31; Status DC Alteplase, Recombinant 10 mg/ Sterile Water 50 ml @ 200 mls/hr 1X ONCE IPL Last administered on 06/18/19at 11:37; Start 06/18/19 at 10:30; Stop 06/18/19 at 10:44; Status DC Active Scripts Active Reported Xanax (Alprazolam) 0.25 Mg Tablet 1 Tab PO PRN TID PRN Vitamin D3 (Cholecalciferol (Vitamin D3)) 1,000 Unit Tablet 2 Tab PO DAILY Tylenol (Acetaminophen) 325 Mg Tablet 1 Tab PO PRN Q4HRS Multivitamins (Multivitamin) 1 Each Capsule 1 Each PO DAILY Silvadene (Silver Sulfadiazine) 20 Gm Cream..g. 1 Claudia TP DAILY Zoloft (Sertraline Hcl) 100 Mg Tablet 100 Mg PO DAILY Zyprexa (Olanzapine) 2.5 Mg Tablet 2.5 Mg PO DAILY Nystatin 100,000 Unit/1 Ml Oral.susp 5 Ml PO BID Mirtazapine 15 Mg Tablet 1 Tab PO QHS Milk Of Magnesia (Magnesium Hydroxide) 400 Mg/5 Ml Oral.susp 400 Mg PO PRN PRN Melatonin 3 Mg Tablet 3 Mg PO QHS Lumigan (Bimatoprost) 2.5 Ml Drops 1 Drop EACHEYE QHS Lisinopril 10 Mg Tablet 1 Tab PO HS Hydrocortisone 59 Ml Lotion 1 Claudia TP BID Guaifenesin Ac Cough Syrup (Guaifenesin/Codeine Phosphate) 473 Ml Liquid 10 Ml PO Q4-6HRS Famotidine 20 Mg Tablet 20 Mg PO BID 30 Days Clopidogrel (Clopidogrel Bisulfate) 75 Mg Tablet 75 Mg PO DAILY Calmoseptine Ointment (Menthol/Zinc Oxide) 71 Gm Oint...g. 71 Gm TP BID Atorvastatin Calcium 80 Mg Tablet 80 Mg PO HS Aspirin 81 Mg Tab.chew 81 Mg PO DAILY Vitals/I & O Vital Sign - Last 24 Hours 06/19/19 06/19/19 06/19/19 06/19/19 11:00 11:23 15:00 15:19 Temp 97.9 97.7 97.9 97.7 Pulse 79 46 Resp 14 14 B/P (MAP) 107/63 (78) 120/66 (84) Pulse Ox 94 95 92 O2 Delivery Nasal Cannula Nasal Cannula Nasal Cannula Nasal Cannula O2 Flow Rate 2.0 2.0 2.0 2.0 06/19/19 06/19/19 06/19/19 06/19/19 19:51 20:10 20:20 20:21 Temp 98.8 98.8 Pulse 89 Resp 18 B/P (MAP) 100/57 (71) Pulse Ox 93 95 95 O2 Delivery Nasal Cannula Nasal Cannula Nasal Cannula Nasal Cannula O2 Flow Rate 2.0 2.0 2.0 2.0 06/19/19 06/19/19 06/20/193/19 21:00 23:15 03:41 07:00 Temp 98.1 97.9 98.0 98.1 97.9 98.0 Pulse 91 91 83 94 Resp 18 18 14 B/P (MAP) 92/47 101/54 (70) 86/41 (56) 107/60 (76) Pulse Ox 97 95 98 O2 Delivery Nasal Cannula Nasal Cannula Nasal Cannula O2 Flow Rate 2.0 2.0 2.0 06/20/19 06/20/19 07:48 07:49 Pulse Ox 95 95 O2 Delivery Nasal Cannula Nasal Cannula O2 Flow Rate 2.0 2.0 Intake and Output 06/19/19 06/19/19 06/20/19 15:00 23:00 07:00 Intake Total 714 ml 744 ml 300 ml Output Total 60 ml 120 ml 1 ml Balance 654 ml 624 ml 299 ml Nutrition Consultation Dietary Evaluation: Recommendations by RD: Add supplement feedings Comments: sloan bid w/ bolus TF for nutrition Expected Outcomes/Goals: to meet > 75% est nutr needs improved wound status Interpretation of weight loss: >10% in 6 months Malnutrition Findings: Body Fat Depletion (Non Severe: Mod to Severe Weight Status: Underweight BHAVIK CRAIN MD Jun 20, 2019 08:40
--- NOTE | 2019-06-20 08:56 | RAD ---
AP portable chest radiograph 06/20/2019 Clinical History: Empyema.. An AP erect portable digital radiograph of the chest was obtained. Comparison study is dated 06/19/2019. A left-sided pacemaker is unchanged in position. A pigtail drainage catheter overlies left lower lobe, unchanged. Cardiac silhouette is mildly enlarged. The thoracic aorta is tortuous. The loculated left pleural fluid collection has decreased in size since previous study. No pneumothorax is noted. No area of consolidation is seen. The osseous structures are unchanged. Impression: The drainage catheter remains unchanged in position. There has been interval decrease in size of the left pleural fluid collection. Electronically signed by: Dann Tse MD (06/20/2019 8:53 AM) [id number]
--- NOTE | 2019-06-20 09:49 | RAD ---
[id number] PLEUR DRAIN W CATH W IMG CT Image-guided left pleural abscess drain placement History: Empyema left , , , abscess PQRS Compliance Statement: One or more of the following individualized dose reduction techniques were utilized for this examination: 1. Automated exposure control 2. Adjustment of the mA and/or kV according to patient size 3. Use of iterative reconstruction technique Procedure Written informed consent was obtained. Localization imaging was performed to identify best approach. The overlying skin was draped and prepped in normal sterile fashion. Local anesthesia with one % lidocaine was performed. A small dermatotomy was made. A needle was advanced under Imaging guidance into the targeted collection. Needle placement was confirmed clinically by return of purulent material. A wire was placed within the collection and confirmed on imaging. The needle was exchanged over wire for a drainage catheter. The catheter was secured in place to the skin using 2-0 Ethilon suture. Catheter was placed to bulb suction drainage. Approximately 1000 cc was aspirated. 14 Spanish drainage catheter was deployed. Sedation: Local anesthesia with 1% lidocaine was utilized. Conscious sedation was performed, while the patient was continually monitored by a department staff member. Intravenous fentanyl and versed were administered and recorded in the procedure record. Continual pulse oximetry and cardiopulmonary monitoring was carried out during the procedure. Conscious sedation was performed from 10:12 AM until 10:27 AM Impression: Image-guided left intrapleural chest tube empyema drain placement with microbiologic analysis pending. Electronically signed by: Ricky Fisher MD (06/20/2019 9:47 AM) [facility]
[2019-06-20] MEDS: FAMOTIDINE 20 MG TABLET. PO SCH ×2 (10:17→20:26)
[2019-06-20] MEDS: CHOLECALCIFEROL (VITAMIN D3) 1,000 UNIT TABLET PO SCH (10:17)
[2019-06-20] MEDS: OLANZapine 2.5 MG TABLET PO SCH (10:17)
[2019-06-20] MEDS: LACTOBACILLUS RHAMNOSUS GG 1 CAPSULE. PO SCH ×2 (10:17→20:27)
[2019-06-20] MEDS ORDERED: STERILE WATER IPL ONE (10:45)
[2019-06-20] MEDS ORDERED: ALTEPLASE IPL ONE (10:45)
--- NOTE | 2019-06-20 10:51 | PDOC ---
Infectious Disease Note Subjective Subjective Tired Plans to get up to the chair this afternoon Denies F/C/SOA/N/V/D O2 2 L Vital Sign Vital Signs Vital Signs Date Time Temp Pulse Resp B/P (MAP) Pulse Ox O2 Delivery O2 Flow Rate FiO2 06/20/19 07:49 95 Nasal Cannula 2.0 06/20/19 07:00 98.0 94 14 107/60 (76) 98.0 Physical Exam PHYSICAL EXAM GENERAL: Propped up in bed, alert, NAD - appears comfortable HEENT: Pupils equally round. Oropharynx clear NECK: Supple. LUNGS: Diminished aeration in left lung base. Nonlabored. Left CT in place HEART: S1 and S2. Pacemaker. ABDOMEN: Nondistended, soft and nontender with bowel sounds present. PEG tube intact : No Barron. EXTREMITIES: No gross edema or cyanosis. SKIN: Warm to touch. No signs of rash. NEUROLOGIC: Alert and answering questions appropriately. PIV Labs Lab Chest x-ray Impression: The drainage catheter remains unchanged in position. There has been interval decrease in size of the left pleural fluid collection. Chest CT 1. There is now pigtail catheter in the previously demonstrated empyema now with minimal internal gas, overall smaller size of the fluid collection, again component which tracks more anteriorly along the mediastinal border. Adjacent compressive atelectasis of the left lower lobe has decreased. Small right pleural effusion is larger with increased adjacent compressive atelectasis. 2. There is again emphysema and coronary calcification. 3. There is again mediastinal lymphadenopathy for which follow-up advised such as in 3 months. Micro Microbiology 06/14/19 Blood Culture - Preliminary, Resulted NO GROWTH AFTER 5 DAY URINE CULTURE RES 1 Final No growth GRAM STAIN RES 2 Final No organisms seen Objective Assessment Large partially loculated left pleural effusion s/p CT placement, 06/16. poor specimen, cell count couldn't be done. cultures pending -s/p TPA, 06/17 Left lower lobe collapse with abscess vs neoplasm Leukocytosis, Transaminitis Generalized weakness s/p multiple falls Dysphagia s/p PEG placement in Feb Weight loss COPD CAD Plan Plan of Care Discontinued vancomycin 06/18 Cont Zosyn Monitor renal function closely f/u pleural fluid cultures and cytology Maintain aspiration precautions Oral care am labs D/w nursing Path neg for malignancy Cont abx D/w nursing Attending Co-Sign Attending Co-Sign The patient was seen and interviewed as well as examined at the bedside. The chart was reviewed. The case was discussed. Agree with the plan of care. MARY BRADY APRN Jun 20, 2019 10:51 ALEJANDRO ANGELO MD Jun 20, 2019 17:38
[2019-06-20 11:00] VITALS: BP 102/54
--- NOTE | 2019-06-20 11:18 | OP ---
DATE OF SURGERY: PROCEDURE: TPA via chest tube. The patient was informed about the need for another dose of TPA. His fluid has stopped coming to the chest tube. A 10 mg of TPA mixed with sterile water was introduced into the left pleural space. The patient did have a mild cough during the introduction of TPA. Otherwise, did reasonably well. Chest tube will be clamped for 1 hour and then will be placed back to suction after removal of the clamp and 1 hour. We will follow the chest tube output. JENNIFER KC MD DR: SONIA/sheba JOB#: [id number] / [id number]
--- NOTE | 2019-06-20 11:32 | PDOC ---
PULMONARY PROGRESS NOTES Subjective sig response post TPA x 2 dsoe no further output since yesterday Vitals Vital Signs Date Time Temp Pulse Resp B/P (MAP) Pulse Ox O2 Delivery O2 Flow Rate FiO2 06/20/19 08:00 Nasal Cannula 2.0 06/20/19 07:49 95 06/20/19 07:00 98.0 94 14 107/60 (76) 98.0 ROS: No Nausea, No Chest Pain General: Alert, No acute distress HEENT: Other (nc at perrl ) Lungs: Other (l dullness crackles) Cardiovascular: S1, S2 Abdomen: Soft, Non-tender Neuro Exam: Alert Extremities: No Edema Skin: Warm Labs Laboratory Tests Test 06/19/19 03:20 White Blood Count 14.0 x10^3/uL (4.0-11.0) Red Blood Count 2.89 x10^6/uL (4.30-5.70) Hemoglobin 8.7 g/dL (13.0-17.5) Hematocrit 26.1 % (39.0-53.0) Mean Corpuscular Volume 90 fL (79-100) Mean Corpuscular Hemoglobin 30 pg (25-35) Mean Corpuscular Hemoglobin Concent 33 g/dL (31-37) Red Cell Distribution Width 16.8 % (11.5-14.5) Platelet Count 489 x10^3/uL (140-400) Neutrophils (%) (Auto) 80 % (31-73) Lymphocytes (%) (Auto) 10 % (24-48) Monocytes (%) (Auto) 8 % (0-9) Eosinophils (%) (Auto) 2 % (0-3) Basophils (%) (Auto) 0 % (0-3) Neutrophils # (Auto) 11.1 x10^3/uL (1.8-7.7) Lymphocytes # (Auto) 1.4 x10^3/uL (1.0-4.8) Monocytes # (Auto) 1.1 x10^3/uL (0.0-1.1) Eosinophils # (Auto) 0.2 x10^3/uL (0.0-0.7) Basophils # (Auto) 0.0 x10^3/uL (0.0-0.2) Medications Active Scripts Medications Dose Route/Sig Max Daily Dose Days Date Category Xanax (Alprazolam) 0.25 Mg Tablet 1 Tab PO PRN TID PRN 06/15/19 Reported Vitamin D3 (Cholecalciferol (Vitamin D3)) 1,000 Unit Tablet 2 Tab PO DAILY 06/15/19 Reported Tylenol (Acetaminophen) 325 Mg Tablet 1 Tab PO PRN Q4HRS 06/15/19 Reported Multivitamins (Multivitamin) 1 Each Capsule 1 Each PO DAILY 06/15/19 Reported Silvadene (Silver Sulfadiazine) 20 Gm Cream..g. 1 Claudia TP DAILY 06/15/19 Reported Zoloft (Sertraline Hcl) 100 Mg Tablet 100 Mg PO DAILY 06/15/19 Reported Zyprexa (Olanzapine) 2.5 Mg Tablet 2.5 Mg PO DAILY 06/15/19 Reported Nystatin 100,000 Unit/1 Ml Oral.susp 5 Ml PO BID 06/15/19 Reported Mirtazapine 15 Mg Tablet 1 Tab PO QHS 06/15/19 Reported Milk Of Magnesia (Magnesium Hydroxide) 400 Mg/5 Ml Oral.susp 400 Mg PO PRN PRN 06/15/19 Reported Melatonin 3 Mg Tablet 3 Mg PO QHS 06/15/19 Reported Lumigan (Bimatoprost) 2.5 Ml Drops 1 Drop EACHEYE QHS 06/15/19 Reported Lisinopril 10 Mg Tablet 1 Tab PO HS 06/15/19 Reported Hydrocortisone 59 Ml Lotion 1 Claudia TP BID 06/15/19 Reported Guaifenesin Ac Cough Syrup (Guaifenesin/Codeine Phosphate) 473 Ml Liquid 10 Ml PO Q4-6HRS 06/15/19 Reported Famotidine 20 Mg Tablet 20 Mg PO BID 30 06/15/19 Reported Clopidogrel (Clopidogrel Bisulfate) 75 Mg Tablet 75 Mg PO DAILY 06/15/19 Reported Calmoseptine Ointment (Menthol/Zinc Oxide) 71 Gm Oint...g. 71 Gm TP BID 06/15/19 Reported Atorvastatin Calcium 80 Mg Tablet 80 Mg PO HS 06/15/19 Reported Aspirin 81 Mg Tab.chew 81 Mg PO DAILY 06/15/[address] reviewed, 1. No convincing pulmonary embolism. 2. Large partially loculated left pleural effusion. 3. Left lower lobe collapse with a superimposed 3.3 cm rounded area of hypodensity within the collapsed lung possibly due to abscess or neoplasm. 4. Pulmonary emphysema with bronchiectasis and bronchial wall thickening due to superimposed bronchitis. 5. Small scattered nodular opacities within the bilateral upper lobes, primarily involving the lingula. The largest of these measures 8 mm. This may be infectious or inflammatory. Short-term follow-up is recommended. 6. Small right pleural effusion and right lower lobe atelectasis. 7. Suspected reactive mediastinal, hilar and right retrocrural lymphadenopathy. Attention the time of follow-up is recommended. 8. Enlarged central pulmonary arteries, a finding which can be seen with chronic pulmonary artery hypertension.\ repeat ct 06/19 1. There is now pigtail catheter in the previously demonstrated empyema now with minimal internal gas, overall smaller size of the fluid collection, again component which tracks more anteriorly along the mediastinal border. Adjacent compressive atelectasis of the left lower lobe has decreased. Small right pleural effusion is larger with increased adjacent compressive atelectasis. 2. There is again emphysema and coronary calcification. 3. There is again mediastinal lymphadenopathy for which follow-up advised such as in 3 months. Electronically signed by: Kimo Jimenez MD (06/19/2019 5:21 PM) [facility] Impression . IMPRESSION: 1. Acute respiratory failure secondary to pneumonia, multi-loculated left effusion c/w early empyema, underlying COPD with acute exacerbation 2. Abnormal ct chest with multi-loculated left effusion , suspect early empyema, no malignancy by f/u ct chest 3. Chronic obstructive pulmonary disease with acute exacerbation. 4. Leukocytosis. 5. Coronary artery disease. 6. Dysphagia, status post PEG placement. 7. Malnutrition. Plan . 1. Titrate the FiO2 to keep O2 saturation at 92%. 2. cont bronchodilator. 3. cont inhaled corticosteroid, 4. CT chest f/u 06/19 reviewed,, sig response from TPA via chest tube.x 2 days. no definite mass.some residual loculated fluid. No further chest tube output in past 24 hrs. will try one more dose of TPA today. 5. Elevate head of bed, aspiration precaution. 6. Continue antibiotic per ID. discussed w rn, pt JENNIFER KC MD Jun 20, 2019 11:32
--- NOTE | 2019-06-20 13:05 | NUR ---
Chest tube clamped at 11:10AM after Dr. Torrez administered tPa. Unclamped at 12:15PM per Dr. Torrez's direction and attached to continuous suction.
[2019-06-20 15:00] VITALS: BP 110/60
--- NOTE | 2019-06-20 16:06 | PATHOLOGY ---
Note [facility] Accession Number: [id number] TESTS RESULT FLAG UNITS REF RANGE LAB Clinician Provided Cytology Information No. of containers..01 Other (Miscellaneous) Source: LEFT PLEURAL FLUID DIAGNOSIS: LEFT PLEURAL FLUID NEGATIVE FOR MALIGNANT CELLS. NUMEROUS DEGENERATING NEUTROPHILS PRESENT CONSISTENT WITH EMPYEMA. THERE ARE SCATTERED BLOBS OF EOSINOPHILIC AMORPHOUS MATERIAL CONTAINING HEMATOXYPHILIC GRANULAR MATERIAL WHICH ARE NEGATIVE FOR AE1/AE3, CK7, AND TTF-1. IF THERE IS A CLINICAL SUSPICION OF MALIGNANCY, WOULD SUGGEST REPEAT EXAM OR DIRECT SAMPLING OF A MASS IF CLINICALLY INDICATED. THE CASE IS ALSO EXAMINED BY DR ADLTON, WHO CONCURS WITH THE DIAGNOSIS. THIS INTERPRETATION INCLUDES EVALUATION OF A CELL BLOCK. Signed out by: Augie Jay MD, Pathologist NPI- [id number] Performed by: Elisa Chacon, High School [employer] Teacher ([facility]) Gross description: 16 ML, LT BROWN, CLOUDY /LCS 09/17/1840 0000 Local FLAG LEGEND: L-Low Normal,H-High Normal,LL-Alert Low,HH-Alert High <-Panic Low,>-Panic High,A-Abnormal,AA-Critical Abnormal Performed at: [facility] [address] [place] [address] César Bright MD, [facility] [address] [place] [address] Augie Jay MD, Specimen Comment: A courtesy copy of this report has been sent to Specimen Comment: [phone], , , . Specimen Comment: Report sent to ,DR BARAHONA,DR PINZON / DR CANDELARIO Specimen Comment: A duplicate report has been generated due to demographic updates. Performed at: [address], [place], [place] [id number] MD César Bright MD Phone: [phone]
[2019-06-20 19:25] VITALS: BP 105/53
[2019-06-20] MEDS: MIRTAZAPINE 15 MG TABLET PO SCH (20:27)
[2019-06-20] MEDS: ATORVASTATIN CALCIUM 40 MG TABLET. PO SCH (20:27)
[2019-06-20] MEDS: LISINOPRIL 10 MG TABLET PO SCH (20:30)
--- NOTE | 2019-06-20 20:30 | NUR ---
Patient's chest tube dressing changed and pleur-evac chest tube drainage system replaced at this time. Patient tolerated well and is resting in bed, will continue to monitor.
[2019-06-20] MEDS: ALPRAZolam 0.25 MG TABLET PO PRN (22:08)
[2019-06-20] MEDS: ACETAMINOPHEN 325 MG TABLET. PO PRN (22:09)
[2019-06-20 23:15] VITALS: BP 114/56
[2019-06-21 03:30] VITALS: BP 118/67
[2019-06-21] MEDS: PIPERACILLIN/TAZOBACTAM 3.375 GM in IV NORMAL SALINE 50ML 50 ML IV SCH ×3 (06:19→17:41)
[2019-06-21 07:00] VITALS: BP 111/48
[2019-06-21] MEDS: BUDESONIDE 0.5 MG/2 ML NEBU. NEB SCH ×2 (07:46→20:00)
[2019-06-21] MEDS: IPRATRPIUM/ALBUTEROL 0.5/2.5MG 3 ML NEBU. NEB SCH ×4 (07:46→20:00)
[2019-06-21] MEDS: OLANZapine 2.5 MG TABLET PO SCH (08:50)
[2019-06-21] MEDS: LACTOBACILLUS RHAMNOSUS GG 1 CAPSULE. PO SCH ×2 (08:51→21:32)
[2019-06-21] MEDS: FAMOTIDINE 20 MG TABLET. PO SCH ×2 (08:51→21:32)
[2019-06-21] MEDS: CHOLECALCIFEROL (VITAMIN D3) 1,000 UNIT TABLET PO SCH (08:51)
--- NOTE | 2019-06-21 09:05 | PDOC ---
PROGRESS NOTES Chief Complaint Chief Complaint Right-sided pleural effusion, possible loculated effusion, possible empyema s/p left indwelling chest tube (06/16) Freq falls in AL, non injury falls - mechanical falls Dysphagia, indwelling PEG x 7 mos now, STrict NPO, bolus TFs at AL RT wrist OA Indwelling pacer LEUKOCYTOSIS Left lower lobe collapse with abscess vs neoplasm Leukocytosis, improving Transaminitis Generalized weakness s/p multiple falls Weight loss COPD CAD History of Present Illness History of Present Illness He now has a left sided chest tube indwelling and is draining pleural fluid (loculated empyema on CT and CXR) Pleural fluid has been sent for studies - RBCs, LDH 2166, protein 4.1, glucose 22. No pH Has in indwelling PEG x 6 mos now for dysphagia and is on Bolus feeding here and at [facility]isted [facility] prior to admission 06/17/19: tPA per chest per by pulmonary with 1700cc out in first 24 hours 06/19: Shortness of breath a bit improved after large release of loculated effusion with tPA. Had another 1200cc out, now with CXR much improved. He is feeling weak, wishes to have a BM. Aching all over improved. No CP. Family wishes for [facility] evaluation for his speech and communication 06/20: Another 120cc out per chest tube. CT chest shows previously demonstrated empyema now with minimal internal gas, overall smaller size of the fluid collection, again component which tracks more anteriorly along the mediastinal border. Adjacent compressive atelectasis of the left lower lobe has decreased. Small right pleural effusion is larger with increased adjacent compressive atelectasis. Emphysema and coronary calcification and mediastinal lymphadenopathy. Still with good chest tube drainage 620cc. He is drowsy today, received xanax last night. He is feeling a bit better. Denies chest pain. Cytology returned negative for malignancy from pleural fluid. Consistent with empyema. PLAN: CPM PT recs SNU - sw consult for this Otherwise cont chest tube, IV abx and tPA per Vandervoort Trial guidelines (would be nice to have dornase alpha available). Will f/u pulm recs on this. Vitals Vitals Vital Signs Date Time Temp Pulse Resp B/P (MAP) Pulse Ox O2 Delivery O2 Flow Rate FiO2 06/21/19 07:51 94 Nasal Cannula 2.0 06/21/19 07:00 97.9 86 18 111/48 (69) 97.9 Physical Exam Physical Exam GENERAL: Propped up in bed, alert, NAD - appears comfortable HEENT: Pupils equally round. Oropharynx clear NECK: Supple. LUNGS: Diminished aeration in left lung base. Nonlabored. Left CT in place HEART: S1 and S2. Pacemaker. ABDOMEN: Nondistended, soft and nontender with bowel sounds present. PEG tube intact : No Barron. EXTREMITIES: No gross edema or cyanosis. SKIN: Warm to touch. No signs of rash. NEUROLOGIC: Alert and answering questions appropriately. PIV General: Alert, Oriented X3, Cooperative, No acute distress Heart: Regular rate, Normal S1, Normal S2 Lungs: Other (l dullness crackles) Abdomen: Normal bowel sounds, Soft, No tenderness, No hepatosplenomegaly, No masses Extremities: No clubbing, No cyanosis, No edema, Normal pulses, No tenderness/swelling Skin: Other (senile skin turgor, some old skin brusing) Assessment and Plan Assessmemt and Plan Problems Medical Problems: (1) Fever Status: Acute (2) UTI (urinary tract infection) Status: Acute Comment Review of Relevant I have reviewed the following items lorenzo (where applicable) has been applied. Labs Microbiology 06/16/19 Anaerobic/Aerobic Culture, Resulted Pending 06/16/19 Anaerobic Culture Result 1 (TASHA), Resulted Pending 06/16/19 Aerobic Culture - Preliminary, Resulted 06/16/19 Aerobic Culture Result 1 (TASHA) - Preliminary, Resulted 06/16/19 Gram Stain - Final, Resulted 06/16/19 Gram Stain Result 1 (TASHA) - Final, Resulted 06/16/19 Gram Stain Result 2 (TASHA) - Final, Resulted 06/14/19 Blood Culture - Final, Complete NO GROWTH AFTER 5 DAYS 06/14/19 Urine Culture - Final, Complete 06/14/19 Urine Culture Result 1 (TASHA) - Final, Complete Medications Current Medications Acetaminophen (Tylenol) 500 mg PRN Q6HRS PRN PO MILD PAIN / TEMP; Start 06/14/19 at 19:30; Stop 06/14/19 at 19:34; Status DC Acetaminophen/ Codeine Phosphate (Tylenol #3) 1 tab PRN Q6HRS PRN PO MODERATE PAIN; Start 06/14/19 at 19:30; Stop 06/14/19 at 19:34; Status DC Calcium Carbonate/ Glycine (Tums) 500 mg PRN AFTMEALHC PRN PO INDIGESTION; Start 06/14/19 at 19:30; Stop 06/14/19 at 19:34; Status DC Ondansetron HCl (Zofran) 4 mg PRN Q6HRS PRN IVP NAUSEA/VOMITING; Start 06/14/19 at 19:30 Temazepam (Restoril) 7.5 mg PRN QHS PRN PO INSOMNIA; Start 06/14/19 at 19:30 Acetaminophen/ Hydrocodone Bitart (Lortab 5/325) 1 tab PRN Q4HRS PRN PO MODERATE PAIN; Start 06/14/19 at 19:30; Stop 06/14/19 at 19:34; Status DC Fentanyl Citrate (Fentanyl 2ml Vial) 25 mcg PRN Q2HR PRN IV PAIN; Start 06/14/19 at 19:30 Acetaminophen (Tylenol) 500 mg PRN Q6HRS PRN PEG MILD PAIN / TEMP; Start 06/14/19 at 19:45 Acetaminophen/ Codeine Phosphate (Tylenol #3) 1 tab PRN Q6HRS PRN PEG MODERATE PAIN; Start 06/14/19 at 19:34 Calcium Carbonate/ Glycine (Tums) 500 mg PRN AFTMEALHC PRN PEG INDIGESTION; Start 06/14/19 at 19:34 Acetaminophen/ Hydrocodone Bitart (Lortab 5/325) 1 tab PRN Q4HRS PRN PEG SEVERE PAIN; Start 06/14/19 at 19:34 Piperacillin Sod/ Tazobactam Sod 4.5 gm/Sodium Chloride 100 ml @ 200 mls/hr 1X ONCE IV Last administered on 06/15/19at 00:05; Start 06/14/19 at 22:00; Stop 06/14/19 at 22:29; Status DC Sodium Chloride 1,000 ml @ 1,000 mls/hr Q1H IV Last administered on 06/15/19at 00:04; Start 06/14/19 at 21:30; Stop 06/14/19 at 23:13; Status DC Ondansetron HCl (Zofran) 4 mg PRN Q8HRS PRN IV NAUSEA/VOMITING 1ST CHOICE; Start 06/14/19 at 21:15; Stop 06/15/19 at 21:14; Status DC Morphine Sulfate (Morphine Sulfate) 2 mg PRN Q2HR PRN IV SEVERE PAIN 7-10; Start 06/14/19 at 21:15; Stop 06/15/19 at 21:14; Status DC Acetaminophen (Tylenol) 650 mg PRN Q4HRS PRN PO FEVER; Start 06/14/19 at 21:15; Stop 06/15/19 at 21:14; Status DC Acetaminophen (Tylenol) 1,000 mg 1X ONCE PO Last administered on 06/15/19at 00:03; Start 06/14/19 at 21:30; Stop 06/14/19 at 21:31; Status DC Albuterol/ Ipratropium (Duoneb) 3 ml RTQID NEB Last administered on 06/21/19at 07:46; Start 06/15/19 at 12:00 Albuterol/ Ipratropium (Duoneb) 3 ml 1X ONCE NEB Last administered on 06/15/19at 11:21; Start 06/15/19 at 09:00; Stop 06/15/19 at 09:01; Status DC Budesonide (Pulmicort) 0.5 mg RTBID NEB Last administered on 06/21/19at 07:46; Start 06/15/19 at 20:00 Budesonide (Pulmicort) 0.5 mg 1X ONCE NEB Last administered on 06/15/19at 11:21; Start 06/15/19 at 09:00; Stop 06/15/19 at 09:01; Status DC Iohexol (Omnipaque 350 Mg/ml) 90 ml 1X ONCE IV Last administered on 06/15/19at 10:20; Start 06/15/19 at 09:00; Stop 06/15/19 at 09:01; Status DC Info (CONTRAST GIVEN -- Rx MONITORING) 1 each PRN DAILY PRN MC SEE COMMENTS; Start 06/15/19 at 09:15; Stop 06/17/19 at 09:14; Status DC Vancomycin HCl (Vanco Per Pharmacy) 1 each PRN DAILY PRN MC SEE COMMENTS Last administered on 06/18/19at 13:04; Start 06/15/19 at 10:00; Stop 06/18/19 at 15:47; Status DC Piperacillin Sod/ Tazobactam Sod (Zosyn Per Pharmacy) 1 each PRN DAILY PRN MC SEE COMMENTS; Start 06/15/19 at 10:00 Piperacillin Sod/ Tazobactam Sod 3.375 gm/Sodium Chloride 50 ml @ 100 mls/hr Q6HRS IV Last administered on 06/21/19at 06:19; Start 06/15/19 at 11:00 Vancomycin HCl 1.5 gm/Sodium Chloride 500 ml @ 250 mls/hr 1X ONCE IV Last administered on 06/15/19at 13:23; Start 06/15/19 at 11:00; Stop 06/15/19 at 12:59; Status DC Vancomycin HCl 1 gm/Sodium Chloride 250 ml @ 250 mls/hr Q24H IV Last administered on 06/16/19at 12:32; Start 06/16/19 at 13:30; Stop 06/17/19 at 14:06; Status DC Vancomycin HCl (Vancomycin Trough Level) 1 each 1X ONCE MC Last administered on 06/17/19at 13:00; Start 06/17/19 at 13:00; Stop 06/17/19 at 13:01; Status DC Midazolam HCl (Versed) 2 mg STK-MED ONCE .ROUTE ; Start 06/16/19 at 09:32; Stop 06/16/19 at 09:32; Status DC Fentanyl Citrate (Fentanyl 2ml Vial) 100 mcg STK-MED ONCE .ROUTE ; Start 06/16/19 at 09:32; Stop 06/16/19 at 09:33; Status DC Lidocaine/Sodium Bicarbonate (Buffered Lidocaine 1%) 3 ml STK-MED ONCE .ROUTE ; Start 06/16/19 at 09:46; Stop 06/16/19 at 09:47; Status DC Lidocaine/Sodium Bicarbonate (Buffered Lidocaine 1%) 3 ml 1X ONCE IJ Last administered on 06/16/19at 10:21; Start 06/16/19 at 10:15; Stop 06/16/19 at 10:16; Status DC Midazolam HCl (Versed) 2 mg 1X ONCE IV Last administered on 06/16/19at 10:22; Start 06/16/19 at 10:15; Stop 06/16/19 at 10:16; Status DC Fentanyl Citrate (Fentanyl 2ml Vial) 100 mcg 1X ONCE IV Last administered on 06/16/19at 10:22; Start 06/16/19 at 10:15; Stop 06/16/19 at 10:16; Status DC Lactobacillus Rhamnosus (Culturelle) 1 cap BID PO Last administered on 06/21/19 08:51; Start 06/16/19 at 21:00 Acetaminophen (Tylenol) 325 mg PRN Q4HRS PRN PO MURPHY/FEVER Last administered on 06/20/19 22:09; Start 06/17/19 at 12:30 Alprazolam (Xanax) 0.25 mg PRN TID PRN PO restlessness Last administered on 06/20/19 22:08; Start 06/17/19 at 12:30 Vitamin D (Vitamin D3) 2,000 unit DAILY PO Last administered on 06/21/19 08:51; Start 06/17/19 at 13:00 Famotidine (Pepcid) 20 mg BID PO Last administered on 06/21/19 08:51; Start 06/17/19 at 21:00 Lisinopril (Prinivil) 10 mg HS PO Last administered on 06/17/19 21:53; Start 06/17/19 at 21:00 Magnesium Hydroxide (Milk Of Magnesia) 400 mg PRN DAILY PRN PO CONSTIPATION; Start 06/17/19 at 12:30 Mirtazapine (Remeron) 15 mg QHS PO Last administered on 06/20/19 20:27; Start 06/17/19 at 21:00 Olanzapine (ZyPREXA) 2.5 mg DAILY PO Last administered on 06/21/19 08:50; Start 06/17/19 at 13:00 Atorvastatin Calcium (Lipitor) 80 mg QHS PO Last administered on 06/20/19 20:27; Start 06/17/19 at 21:00 Alteplase, Recombinant 10 mg/ Sterile Water 50 ml @ 200 mls/hr 1X ONCE IPL Last administered on 06/17/19 15:18; Start 06/17/19 at 14:00; Stop 06/17/19 at 14:14; Status DC Vancomycin HCl 1.25 gm/Sodium Chloride 250 ml @ 167 mls/hr Q18H IV Last administered on 06/17/19 15:18; Start 06/17/19 at 15:00; Stop 06/17/19 at 16:30; Status DC Vancomycin HCl (Vancomycin Trough Level) 1 each 1X ONCE MC ; Start 06/19/19 at 02:30; Stop 06/19/19 at 02:31; Status Cancel Vancomycin HCl 750 mg/Sodium Chloride 250 ml @ 250 mls/hr Q12H IV Last administered on 06/18/19at 15:10; Start 06/18/19 at 03:00; Stop 06/18/19 at 15:47; Status DC Influenza Virus Vaccine Quadrival (Afluria Quad 2019-20 (3yr Up) Syringe) 0.5 ml ONCE ONCE VAX IM Last administered on 06/18/19at 10:28; Start 06/18/19 at 10:30; Stop 06/18/19 at 10:31; Status DC Alteplase, Recombinant 10 mg/ Sterile Water 50 ml @ 200 mls/hr 1X ONCE IPL Last administered on 06/18/19at 11:37; Start 06/18/19 at 10:30; Stop 06/18/19 at 10:44; Status DC Alteplase, Recombinant 10 mg/ Sterile Water 50 ml @ 200 mls/hr 1X ONCE IPL Last administered on 06/20/19at 10:45; Start 06/20/19 at 10:45; Stop 06/20/19 at 10:59; Status DC Active Scripts Active Reported Xanax (Alprazolam) 0.25 Mg Tablet 1 Tab PO PRN TID PRN Vitamin D3 (Cholecalciferol (Vitamin D3)) 1,000 Unit Tablet 2 Tab PO DAILY Tylenol (Acetaminophen) 325 Mg Tablet 1 Tab PO PRN Q4HRS Multivitamins (Multivitamin) 1 Each Capsule 1 Each PO DAILY Silvadene (Silver Sulfadiazine) 20 Gm Cream..g. 1 Claudia TP DAILY Zoloft (Sertraline Hcl) 100 Mg Tablet 100 Mg PO DAILY Zyprexa (Olanzapine) 2.5 Mg Tablet 2.5 Mg PO DAILY Nystatin 100,000 Unit/1 Ml Oral.susp 5 Ml PO BID Mirtazapine 15 Mg Tablet 1 Tab PO QHS Milk Of Magnesia (Magnesium Hydroxide) 400 Mg/5 Ml Oral.susp 400 Mg PO PRN PRN Melatonin 3 Mg Tablet 3 Mg PO QHS Lumigan (Bimatoprost) 2.5 Ml Drops 1 Drop EACHEYE QHS Lisinopril 10 Mg Tablet 1 Tab PO HS Hydrocortisone 59 Ml Lotion 1 Claudia TP BID Guaifenesin Ac Cough Syrup (Guaifenesin/Codeine Phosphate) 473 Ml Liquid 10 Ml PO Q4-6HRS Famotidine 20 Mg Tablet 20 Mg PO BID 30 Days Clopidogrel (Clopidogrel Bisulfate) 75 Mg Tablet 75 Mg PO DAILY Calmoseptine Ointment (Menthol/Zinc Oxide) 71 Gm Oint...g. 71 Gm TP BID Atorvastatin Calcium 80 Mg Tablet 80 Mg PO HS Aspirin 81 Mg Tab.chew 81 Mg PO DAILY Vitals/I & O Vital Sign - Last 24 Hours 06/20/19 06/20/19 06/20/19 06/20/19 11:00 11:31 15:00 15:43 Temp 97.8 98.0 97.8 98.0 Pulse 88 93 Resp 14 16 B/P (MAP) 102/54 (70) 110/60 (77) Pulse Ox 95 97 O2 Delivery Nasal Cannula Nasal Cannula Nasal Cannula Nasal Cannula O2 Flow Rate 2.0 2.0 2.0 2.0 06/20/19 06/20/19 06/20/19 06/20/19 19:25 20:21 20:30 20:30 Temp 97.7 97.7 Pulse 95 90 Resp 18 B/P (MAP) 105/53 (70) 104/43 Pulse Ox 96 O2 Delivery Room Air Nasal Cannula Nasal Cannula O2 Flow Rate 2.0 2.0 06/20/19 06/21/19 06/21/19 06/21/19 23:15 03:30 07:00 07:50 Temp 99.0 97.6 97.9 99.0 97.6 97.9 Pulse 95 97 86 Resp 18 20 18 B/P (MAP) 114/56 (75) 118/67 (84) 111/48 (69) Pulse Ox 96 94 95 94 O2 Delivery Room Air Room Air Room Air Nasal Cannula O2 Flow Rate 2.0 06/21/19 07:51 Pulse Ox 94 O2 Delivery Nasal Cannula O2 Flow Rate 2.0 Intake and Output 06/20/19 06/20/19 06/21/19 14:59 22:59 06:59 Intake Total 974 ml 799 ml Output Total 1 ml 300 ml 320 ml Balance 973 ml 499 ml -320 ml Nutrition Consultation Dietary Evaluation: Recommendations by RD: Add supplement feedings Comments: continue sloan bid w/ bolus TF for nutrition Expected Outcomes/Goals: to meet > 75% est nutr needs improved wound status goals ongoing Interpretation of weight loss: >10% in 6 months Malnutrition Findings: Body Fat Depletion (Non Severe: Mod to Severe Weight Status: Underweight BHAVIK CRAIN MD Jun 21, 2019 09:05
--- NOTE | 2019-06-21 10:58 | PDOC ---
PULMONARY PROGRESS NOTES Subjective sig response post TPA x 3 dsoe Vitals Vital Signs Date Time Temp Pulse Resp B/P (MAP) Pulse Ox O2 Delivery O2 Flow Rate FiO2 06/21/19 07:51 94 Nasal Cannula 2.0 06/21/19 07:00 97.9 86 18 111/48 (69) 97.9 ROS: No Nausea, No Chest Pain General: Alert, No acute distress HEENT: Other (nc at perrl ) Lungs: Other (l dullness crackles) Cardiovascular: S1, S2 Abdomen: Soft, Non-tender Neuro Exam: Alert Extremities: No Edema Skin: Warm Medications Active Scripts Medications Dose Route/Sig Max Daily Dose Days Date Category Xanax (Alprazolam) 0.25 Mg Tablet 1 Tab PO PRN TID PRN 06/15/19 Reported Vitamin D3 (Cholecalciferol (Vitamin D3)) 1,000 Unit Tablet 2 Tab PO DAILY 06/15/19 Reported Tylenol (Acetaminophen) 325 Mg Tablet 1 Tab PO PRN Q4HRS 06/15/19 Reported Multivitamins (Multivitamin) 1 Each Capsule 1 Each PO DAILY 06/15/19 Reported Silvadene (Silver Sulfadiazine) 20 Gm Cream..g. 1 Claudia TP DAILY 06/15/19 Reported Zoloft (Sertraline Hcl) 100 Mg Tablet 100 Mg PO DAILY 06/15/19 Reported Zyprexa (Olanzapine) 2.5 Mg Tablet 2.5 Mg PO DAILY 06/15/19 Reported Nystatin 100,000 Unit/1 Ml Oral.susp 5 Ml PO BID 06/15/19 Reported Mirtazapine 15 Mg Tablet 1 Tab PO QHS 06/15/19 Reported Milk Of Magnesia (Magnesium Hydroxide) 400 Mg/5 Ml Oral.susp 400 Mg PO PRN PRN 06/15/19 Reported Melatonin 3 Mg Tablet 3 Mg PO QHS 06/15/19 Reported Lumigan (Bimatoprost) 2.5 Ml Drops 1 Drop EACHEYE QHS 06/15/19 Reported Lisinopril 10 Mg Tablet 1 Tab PO HS 06/15/19 Reported Hydrocortisone 59 Ml Lotion 1 Claudia TP BID 06/15/19 Reported Guaifenesin Ac Cough Syrup (Guaifenesin/Codeine Phosphate) 473 Ml Liquid 10 Ml PO Q4-6HRS 06/15/19 Reported Famotidine 20 Mg Tablet 20 Mg PO BID 30 06/15/19 Reported Clopidogrel (Clopidogrel Bisulfate) 75 Mg Tablet 75 Mg PO DAILY 06/15/19 Reported Calmoseptine Ointment (Menthol/Zinc Oxide) 71 Gm Oint...g. 71 Gm TP BID 06/15/19 Reported Atorvastatin Calcium 80 Mg Tablet 80 Mg PO HS 06/15/19 Reported Aspirin 81 Mg Tab.chew 81 Mg PO DAILY 06/15/[address] reviewed, 1. No convincing pulmonary embolism. 2. Large partially loculated left pleural effusion. 3. Left lower lobe collapse with a superimposed 3.3 cm rounded area of hypodensity within the collapsed lung possibly due to abscess or neoplasm. 4. Pulmonary emphysema with bronchiectasis and bronchial wall thickening due to superimposed bronchitis. 5. Small scattered nodular opacities within the bilateral upper lobes, primarily involving the lingula. The largest of these measures 8 mm. This may be infectious or inflammatory. Short-term follow-up is recommended. 6. Small right pleural effusion and right lower lobe atelectasis. 7. Suspected reactive mediastinal, hilar and right retrocrural lymphadenopathy. Attention the time of follow-up is recommended. 8. Enlarged central pulmonary arteries, a finding which can be seen with chronic pulmonary artery hypertension.\ repeat ct 06/19 1. There is now pigtail catheter in the previously demonstrated empyema now with minimal internal gas, overall smaller size of the fluid collection, again component which tracks more anteriorly along the mediastinal border. Adjacent compressive atelectasis of the left lower lobe has decreased. Small right pleural effusion is larger with increased adjacent compressive atelectasis. 2. There is again emphysema and coronary calcification. 3. There is again mediastinal lymphadenopathy for which follow-up advised such as in 3 months. Electronically signed by: Kimo Jimenez MD (06/19/2019 5:21 PM) [facility] cxr 06/21 sig improvement in left effusion, small left PTX vs skin fold Impression . IMPRESSION: 1. Acute respiratory failure secondary to pneumonia, multi-loculated left effusion c/w early empyema, underlying COPD with acute exacerbation 2. Abnormal ct chest with multi-loculated left effusion , suspect early empyema, no malignancy by f/u ct chest 06/19. s/p intra-pleural TPA x 3 doses 3. Chronic obstructive pulmonary disease with acute exacerbation. 4. Leukocytosis. 5. Coronary artery disease. 6. Dysphagia, status post PEG placement. 7. Malnutrition. Plan . 1. Titrate the FiO2 to keep O2 saturation at 92%. 2. cont bronchodilator. 3. cont inhaled corticosteroid, 4. CT chest f/u 06/19 reviewed,, sig response from TPA via chest tube.x 3 days. no definite mass. loculated fluid almost resolved. . No further TPA, small ptx vs skin fold . monitor ct output and cxr 5. Elevate head of bed, aspiration precaution. 6. Continue antibiotic per ID. discussed w rn, pt/ JENNIFER Muniz MD Jun 21, 2019 10:58
[2019-06-21 11:00] VITALS: BP 118/55
--- NOTE | 2019-06-21 12:30 | PDOC ---
Infectious Disease Note Subjective Subjective Been up in the chair for a hour, wants to go back to bed Feeling tired otherwise ok Tube feeds Denies F/C/SOA/N/V/D O2 2 L ROS ROS per HPI Vital Sign Vital Signs Vital Signs Date Time Temp Pulse Resp B/P (MAP) Pulse Ox O2 Delivery O2 Flow Rate FiO2 06/21/19 11:22 Nasal Cannula 2.0 06/21/19 11:00 98.5 89 17 118/55 (76) 96 98.5 Physical Exam PHYSICAL EXAM GENERAL: Reclining in the chiar, alert, looks good HEENT: Pupils equally round. Oropharynx clear NECK: Supple. LUNGS: Diminished aeration in left lung base. Nonlabored. Left CT in place HEART: S1 and S2. Pacemaker. ABDOMEN: Nondistended, soft and nontender with bowel sounds present. PEG tube intact : No Barron. EXTREMITIES: No gross edema or cyanosis. SKIN: Warm to touch. No signs of rash. NEUROLOGIC: Alert and answering questions appropriately. PIV Labs Micro Microbiology 06/14/19 Blood Culture - Preliminary, Resulted NO GROWTH AFTER 5 DAY URINE CULTURE RES 1 Final No growth GRAM STAIN RES 2 Final No organisms seen ANAEROBIC RES 1 PENDING AEROBIC RES 1 Preliminary Comment No growth in 36 - 48 hours. Objective Assessment Large partially loculated left pleural effusion s/p CT placement, 06/16. poor specimen, cell count couldn't be done. cultures neg so far -s/p TPA x 3 doses -Path neg for malignancy Left lower lobe collapse with abscess vs neoplasm Leukocytosis - improving Transaminitis - improving Generalized weakness s/p multiple falls Dysphagia s/p PEG placement in Feb Weight loss COPD CAD Plan Plan of Care Cont Zosyn Maintain aspiration precautions Oral care PT/OT D/w nursing Doing really well today Attending Co-Sign Attending Co-Sign The patient was seen and interviewed as well as examined at the bedside. The chart was reviewed. The case was discussed. Agree with the plan of care. MARY BRADY APRN Jun 21, 2019 12:30 ALEJANDRO ANGELO MD Jun 21, 2019 15:31
--- NOTE | 2019-06-21 14:00 | RAD ---
EXAM: CHEST 1 VIEW History: Empyema COMPARISON: 06/20/2019 TECHNIQUE: Single portable radiograph of the chest FINDINGS: Mild cardiomegaly. Left-sided cardiac pacer is identified. Pigtail catheter in the left lung base unchanged. Diffuse prominent appearing bilateral interstitial lung markings likely chronic interstitial changes are unchanged with the patchy bibasilar lung airspace opacities likely atelectasis or infiltrates. Small left pleural effusion is unchanged. IMPRESSION: Unchanged exam. Electronically signed by: Foster Moore MD (06/21/2019 1:57 PM) [facility]
[2019-06-21 15:00] VITALS: BP 111/49
[2019-06-21 19:00] VITALS: BP 112/52
[2019-06-21] MEDS: ATORVASTATIN CALCIUM 40 MG TABLET. PO SCH (21:32)
[2019-06-21] MEDS: LISINOPRIL 10 MG TABLET PO SCH (21:32)
[2019-06-21] MEDS: MIRTAZAPINE 15 MG TABLET PO SCH (21:32)
[2019-06-21 23:00] VITALS: BP 106/54
[2019-06-22] MEDS: PIPERACILLIN/TAZOBACTAM 3.375 GM in IV NORMAL SALINE 50ML 50 ML IV SCH ×5 (00:04→23:33)
[2019-06-22 03:00] VITALS: BP 96/50
[2019-06-22 07:00] VITALS: BP 97/52
--- NOTE | 2019-06-22 07:00 | PDOC ---
Infectious Disease Note Subjective Subjective Had a good night and feels rested Tube feeds Denies F/C/SOA/N/V/D O2 2 L ROS ROS o/w neg Vital Sign Vital Signs Vital Signs Date Time Temp Pulse Resp B/P (MAP) Pulse Ox O2 Delivery O2 Flow Rate FiO2 06/22/19 03:00 99.7 96 18 96/50 (65) 95 Nasal Cannula 2.0 99.7 Physical Exam PHYSICAL EXAM GENERAL: In bed and looks well, alert, looks good HEENT: Pupils equally round. Oropharynx - min adhered secretions NECK: Supple. LUNGS: Diminished aeration in left lung base. Nonlabored. Left CT in place HEART: S1 and S2. Pacemaker. ABDOMEN: Nondistended, soft and nontender with bowel sounds present. PEG tube intact : No Barron. EXTREMITIES: No gross edema or cyanosis. SKIN: Warm to touch. No signs of rash. NEUROLOGIC: Alert and answering questions appropriately. PIV Labs Micro CXR Impression: 1. Decreased loculated left pleural fluid compatible with empyema given history. Left pigtail pleural drain, unchanged. 2. Decreased left lung patchy opacities. Microbiology 06/14/19 Blood Culture - Preliminary, Resulted NO GROWTH AFTER 3 DAY URINE CULTURE RES 1 Final No growth Objective Assessment Large partially loculated left pleural effusion s/p CT placement, 06/16. poor specimen, cell count couldn't be done. cultures pending -s/p TPA, 06/17 Left lower lobe collapse with abscess vs neoplasm Leukocytosis - better Transaminitis Generalized weakness s/p multiple falls Dysphagia s/p PEG placement in Feb Weight loss COPD CAD Plan Plan of Care Cont Zosyn may wean soon Labs in am Oral care Maintain aspiration precautions Oral care PT/OT D/w nursing ALEJANDRO ANGELO MD Jun 22, 2019 07:00
[2019-06-22] MEDS: IPRATRPIUM/ALBUTEROL 0.5/2.5MG 3 ML NEBU. NEB SCH ×4 (07:06→20:05)
[2019-06-22] MEDS: BUDESONIDE 0.5 MG/2 ML NEBU. NEB SCH ×2 (07:06→20:05)
--- NOTE | 2019-06-22 08:27 | PDOC ---
PROGRESS NOTES Chief Complaint Chief Complaint Left sided loculated effusion, empyema s/p left indwelling chest tube (06/16), s/p tPA Small Right-sided pleural effusion Freq falls in AL, non injury falls - mechanical falls Dysphagia, indwelling PEG x 7 mos now, STrict NPO, bolus TFs at AL RT wrist OA Indwelling pacer LEUKOCYTOSIS Left lower lobe collapse with pneumonia and lymphadenpathy. High risk for gram negative given his SNF status and structural lung disease with smoking history Leukocytosis, improving Transaminitis Generalized weakness s/p multiple falls Weight loss COPD CAD History of Present Illness History of Present Illness Mr Ugalde is an 83yo M w/ PMHx Atrial fibrillation, pacemaker, coronary artery disease, CHF, COPD, depression, gastroesophageal reflux disease, hypertension who presents from the [facility] with not feeling well for about a week, found with CXR consistent with likely pneumonia and loculated effusion. He now has a left sided chest tube indwelling and is draining pleural fluid (loculated empyema on CT and CXR) Pleural fluid has been sent for studies - RBCs, LDH 2166, protein 4.1, glucose 22. No pH Has in indwelling PEG x 6 mos now for dysphagia and is on Bolus feeding here and at [facility]isted Living prior to admission 06/17/19: tPA per chest per by pulmonary with 1700cc out in first 24 hours 06/19: Shortness of breath a bit improved after large release of loculated effusion with tPA. Had another 1200cc out, now with CXR much improved. He is feeling weak, wishes to have a BM. Aching all over improved. No CP. Family wishes for HEMSTITCHER evaluation for his speech and communication 06/20: Another 120cc out per chest tube. CT chest shows previously demonstrated empyema now with minimal internal gas, overall smaller size of the fluid collection, again component which tracks more anteriorly along the mediastinal border. Adjacent compressive atelectasis of the left lower lobe has decreased. Small right pleural effusion is larger with increased adjacent compressive atelectasis. Emphysema and coronary calcification and mediastinal lymphadenopathy. 06/21: Still with good chest tube drainage 620cc. He is drowsy today, received xanax last night. He is feeling a bit better. Denies chest pain. Cytology returned negative for malignancy from pleural fluid. Consistent with empyema. Feeling more alert this morning. No complaints. Still a bit confused. CXR with no changes. Much less chest tube output < 100cc now. Denies CP. PLAN: CPM PT recs SNU - sw consult for this Otherwise cont chest tube, IV abx and tPA completed per [place] Trial guidelines Vitals Vitals Vital Signs Date Time Temp Pulse Resp B/P (MAP) Pulse Ox O2 Delivery O2 Flow Rate FiO2 06/22/19 07:07 94 Nasal Cannula 2.0 06/22/19 03:00 99.7 96 18 96/50 (65) 99.7 Physical Exam Physical Exam GENERAL: In bed and looks well, alert, looks good HEENT: Pupils equally round. Oropharynx - min adhered secretions NECK: Supple. LUNGS: Diminished aeration in left lung base. Nonlabored. Left CT in place HEART: S1 and S2. Pacemaker. ABDOMEN: Nondistended, soft and nontender with bowel sounds present. PEG tube intact : No Barron. EXTREMITIES: No gross edema or cyanosis. SKIN: Warm to touch. No signs of rash. NEUROLOGIC: Alert and answering questions appropriately. PIV General: Alert, Oriented X3, Cooperative, No acute distress Heart: Regular rate, Normal S1, Normal S2 Lungs: Other (l dullness crackles) Abdomen: Normal bowel sounds, Soft, No tenderness, No hepatosplenomegaly, No masses Extremities: No clubbing, No cyanosis, No edema, Normal pulses, No tenderness/swelling Skin: Other (senile skin turgor, some old skin brusing) Assessment and Plan Assessmemt and Plan Problems Medical Problems: (1) Fever Status: Acute (2) UTI (urinary tract infection) Status: Acute Comment Review of Relevant I have reviewed the following items lorenzo (where applicable) has been applied. Labs Microbiology 06/16/19 Anaerobic/Aerobic Culture - Preliminary, Resulted 06/16/19 Anaerobic Culture Result 1 (TASHA) - Preliminary, Resulted 06/16/19 Aerobic Culture - Final, Resulted 06/16/19 Aerobic Culture Result 1 (TASHA) - Final, Resulted 06/16/19 Gram Stain - Final, Resulted 06/16/19 Gram Stain Result 1 (TASHA) - Final, Resulted 06/16/19 Gram Stain Result 2 (TASHA) - Final, Resulted 06/14/19 Blood Culture - Final, Complete NO GROWTH AFTER 5 DAYS 06/14/19 Urine Culture - Final, Complete 06/14/19 Urine Culture Result 1 (TASHA) - Final, Complete Medications Current Medications Acetaminophen (Tylenol) 500 mg PRN Q6HRS PRN PO MILD PAIN / TEMP; Start 06/14/19 at 19:30; Stop 06/14/19 at 19:34; Status DC Acetaminophen/ Codeine Phosphate (Tylenol #3) 1 tab PRN Q6HRS PRN PO MODERATE PAIN; Start 06/14/19 at 19:30; Stop 06/14/19 at 19:34; Status DC Calcium Carbonate/ Glycine (Tums) 500 mg PRN AFTMEALHC PRN PO INDIGESTION; Start 06/14/19 at 19:30; Stop 06/14/19 at 19:34; Status DC Ondansetron HCl (Zofran) 4 mg PRN Q6HRS PRN IVP NAUSEA/VOMITING; Start 06/14/19 at 19:30 Temazepam (Restoril) 7.5 mg PRN QHS PRN PO INSOMNIA; Start 06/14/19 at 19:30; Stop 06/21/19 at 10:37; Status DC Acetaminophen/ Hydrocodone Bitart (Lortab 5/325) 1 tab PRN Q4HRS PRN PO MODERATE PAIN; Start 06/14/19 at 19:30; Stop 06/14/19 at 19:34; Status DC Fentanyl Citrate (Fentanyl 2ml Vial) 25 mcg PRN Q2HR PRN IV PAIN; Start 06/14/19 at 19:30 Acetaminophen (Tylenol) 500 mg PRN Q6HRS PRN PEG MILD PAIN / TEMP; Start 06/14/19 at 19:45 Acetaminophen/ Codeine Phosphate (Tylenol #3) 1 tab PRN Q6HRS PRN PEG MODERATE PAIN; Start 06/14/19 at 19:34 Calcium Carbonate/ Glycine (Tums) 500 mg PRN AFTMEALHC PRN PEG INDIGESTION; Start 06/14/19 at 19:34 Acetaminophen/ Hydrocodone Bitart (Lortab 5/325) 1 tab PRN Q4HRS PRN PEG SEVERE PAIN; Start 06/14/19 at 19:34 Piperacillin Sod/ Tazobactam Sod 4.5 gm/Sodium Chloride 100 ml @ 200 mls/hr 1X ONCE IV Last administered on 06/15/19at 00:05; Start 06/14/19 at 22:00; Stop 06/14/19 at 22:29; Status DC Sodium Chloride 1,000 ml @ 1,000 mls/hr Q1H IV Last administered on 06/15/19at 00:04; Start 06/14/19 at 21:30; Stop 06/14/19 at 23:13; Status DC Ondansetron HCl (Zofran) 4 mg PRN Q8HRS PRN IV NAUSEA/VOMITING 1ST CHOICE; Start 06/14/19 at 21:15; Stop 06/15/19 at 21:14; Status DC Morphine Sulfate (Morphine Sulfate) 2 mg PRN Q2HR PRN IV SEVERE PAIN 7-10; Start 06/14/19 at 21:15; Stop 06/15/19 at 21:14; Status DC Acetaminophen (Tylenol) 650 mg PRN Q4HRS PRN PO FEVER; Start 06/14/19 at 21:15; Stop 06/15/19 at 21:14; Status DC Acetaminophen (Tylenol) 1,000 mg 1X ONCE PO Last administered on 06/15/19at 00:03; Start 06/14/19 at 21:30; Stop 06/14/19 at 21:31; Status DC Albuterol/ Ipratropium (Duoneb) 3 ml RTQID NEB Last administered on 06/22/19at 07:06; Start 06/15/19 at 12:00 Albuterol/ Ipratropium (Duoneb) 3 ml 1X ONCE NEB Last administered on 06/15/19at 11:21; Start 06/15/19 at 09:00; Stop 06/15/19 at 09:01; Status DC Budesonide (Pulmicort) 0.5 mg RTBID NEB Last administered on 06/22/19at 07:06; Start 06/15/19 at 20:00 Budesonide (Pulmicort) 0.5 mg 1X ONCE NEB Last administered on 06/15/19at 11:21; Start 06/15/19 at 09:00; Stop 06/15/19 at 09:01; Status DC Iohexol (Omnipaque 350 Mg/ml) 90 ml 1X ONCE IV Last administered on 06/15/19at 10:20; Start 06/15/19 at 09:00; Stop 06/15/19 at 09:01; Status DC Info (CONTRAST GIVEN -- Rx MONITORING) 1 each PRN DAILY PRN MC SEE COMMENTS; Start 06/15/19 at 09:15; Stop 06/17/19 at 09:14; Status DC Vancomycin HCl (Vanco Per Pharmacy) 1 each PRN DAILY PRN MC SEE COMMENTS Last administered on 06/18/19at 13:04; Start 06/15/19 at 10:00; Stop 06/18/19 at 15:47; Status DC Piperacillin Sod/ Tazobactam Sod (Zosyn Per Pharmacy) 1 each PRN DAILY PRN MC SEE COMMENTS; Start 06/15/19 at 10:00 Piperacillin Sod/ Tazobactam Sod 3.375 gm/Sodium Chloride 50 ml @ 100 mls/hr Q6 HRS IV Last administered on 06/22/19at 06:19; Start 06/15/19 at 11:00 Vancomycin HCl 1.5 gm/Sodium Chloride 500 ml @ 250 mls/hr 1X ONCE IV Last administered on 06/15/19at 13:23; Start 06/15/19 at 11:00; Stop 06/15/19 at 12:59; Status DC Vancomycin HCl 1 gm/Sodium Chloride 250 ml @ 250 mls/hr Q24H IV Last administered on 06/16/19at 12:32; Start 06/16/19 at 13:30; Stop 06/17/19 at 14:06; Status DC Vancomycin HCl (Vancomycin Trough Level) 1 each 1X ONCE MC Last administered on 06/17/19at 13:00; Start 06/17/19 at 13:00; Stop 06/17/19 at 13:01; Status DC Midazolam HCl (Versed) 2 mg STK-MED ONCE .ROUTE ; Start 06/16/19 at 09:32; Stop 06/16/19 at 09:32; Status DC Fentanyl Citrate (Fentanyl 2ml Vial) 100 mcg STK-MED ONCE .ROUTE ; Start 06/16/19 at 09:32; Stop 06/16/19 at 09:33; Status DC Lidocaine/Sodium Bicarbonate (Buffered Lidocaine 1%) 3 ml STK-MED ONCE .ROUTE ; Start 06/16/19 at 09:46; Stop 06/16/19 at 09:47; Status DC Lidocaine/Sodium Bicarbonate (Buffered Lidocaine 1%) 3 ml 1X ONCE IJ Last administered on 06/16/19at 10:21; Start 06/16/19 at 10:15; Stop 06/16/19 at 10:16; Status DC Midazolam HCl (Versed) 2 mg 1X ONCE IV Last administered on 06/16/19 10:22; Start 06/16/19 at 10:15; Stop 06/16/19 at 10:16; Status DC Fentanyl Citrate (Fentanyl 2ml Vial) 100 mcg 1X ONCE IV Last administered on 06/16/19 10:22; Start 06/16/19 at 10:15; Stop 06/16/19 at 10:16; Status DC Lactobacillus Rhamnosus (Culturelle) 1 cap BID PO Last administered on 06/21/19 21:32; Start 06/16/19 at 21:00 Acetaminophen (Tylenol) 325 mg PRN Q4HRS PRN PO MURPHY/FEVER Last administered on 06/20/19 22:09; Start 06/17/19 at 12:30 Alprazolam (Xanax) 0.25 mg PRN TID PRN PO restlessness Last administered on 06/20/19 22:08; Start 06/17/19 at 12:30; Stop 06/21/19 at 10:37; Status DC Vitamin D (Vitamin D3) 2,000 unit DAILY PO Last administered on 06/21/19 08:51; Start 06/17/19 at 13:00 Famotidine (Pepcid) 20 mg BID PO Last administered on 06/21/19 21:32; Start 06/17/19 at 21:00 Lisinopril (Prinivil) 10 mg HS PO Last administered on 06/21/19 21:32; Start 06/17/19 at 21:00 Magnesium Hydroxide (Milk Of Magnesia) 400 mg PRN DAILY PRN PO CONSTIPATION; Start 06/17/19 at 12:30 Mirtazapine (Remeron) 15 mg QHS PO Last administered on 06/21/19 21:32; Start 06/17/19 at 21:00 Olanzapine (ZyPREXA) 2.5 mg DAILY PO Last administered on 06/21/19 08:50; Start 06/17/19 at 13:00 Atorvastatin Calcium (Lipitor) 80 mg QHS PO Last administered on 06/21/19 21:32; Start 06/17/19 at 21:00 Alteplase, Recombinant 10 mg/ Sterile Water 50 ml @ 200 mls/hr 1X ONCE IPL Last administered on 06/17/19at 15:18; Start 06/17/19 at 14:00; Stop 06/17/19 at 14:14; Status DC Vancomycin HCl 1.25 gm/Sodium Chloride 250 ml @ 167 mls/hr Q18H IV Last administered on 06/17/19at 15:18; Start 06/17/19 at 15:00; Stop 06/17/19 at 16:30; Status DC Vancomycin HCl (Vancomycin Trough Level) 1 each 1X ONCE MC ; Start 06/19/19 at 02:30; Stop 06/19/19 at 02:31; Status Cancel Vancomycin HCl 750 mg/Sodium Chloride 250 ml @ 250 mls/hr Q12H IV Last administered on 06/18/19at 15:10; Start 06/18/19 at 03:00; Stop 06/18/19 at 15:47; Status DC Influenza Virus Vaccine Quadrival (Afluria Quad 2019-20 (3yr Up) Syringe) 0.5 ml ONCE ONCE VAX IM Last administered on 06/18/19at 10:28; Start 06/18/19 at 10:30; Stop 06/18/19 at 10:31; Status DC Alteplase, Recombinant 10 mg/ Sterile Water 50 ml @ 200 mls/hr 1X ONCE IPL Last administered on 06/18/19at 11:37; Start 06/18/19 at 10:30; Stop 06/18/19 at 10:44; Status DC Alteplase, Recombinant 10 mg/ Sterile Water 50 ml @ 200 mls/hr 1X ONCE IPL L ast administered on 06/20/19at 10:45; Start 06/20/19 at 10:45; Stop 06/20/19 at 10:59; Status DC Active Scripts Active Reported Xanax (Alprazolam) 0.25 Mg Tablet 1 Tab PO PRN TID PRN Vitamin D3 (Cholecalciferol (Vitamin D3)) 1,000 Unit Tablet 2 Tab PO DAILY Tylenol (Acetaminophen) 325 Mg Tablet 1 Tab PO PRN Q4HRS Multivitamins (Multivitamin) 1 Each Capsule 1 Each PO DAILY Silvadene (Silver Sulfadiazine) 20 Gm Cream..g. 1 Claudia TP DAILY Zoloft (Sertraline Hcl) 100 Mg Tablet 100 Mg PO DAILY Zyprexa (Olanzapine) 2.5 Mg Tablet 2.5 Mg PO DAILY Nystatin 100,000 Unit/1 Ml Oral.susp 5 Ml PO BID Mirtazapine 15 Mg Tablet 1 Tab PO QHS Milk Of Magnesia (Magnesium Hydroxide) 400 Mg/5 Ml Oral.susp 400 Mg PO PRN PRN Melatonin 3 Mg Tablet 3 Mg PO QHS Lumigan (Bimatoprost) 2.5 Ml Drops 1 Drop EACHEYE QHS Lisinopril 10 Mg Tablet 1 Tab PO HS Hydrocortisone 59 Ml Lotion 1 Claudia TP BID Guaifenesin Ac Cough Syrup (Guaifenesin/Codeine Phosphate) 473 Ml Liquid 10 Ml PO Q4-6HRS Famotidine 20 Mg Tablet 20 Mg PO BID 30 Days Clopidogrel (Clopidogrel Bisulfate) 75 Mg Tablet 75 Mg PO DAILY Calmoseptine Ointment (Menthol/Zinc Oxide) 71 Gm Oint...g. 71 Gm TP BID Atorvastatin Calcium 80 Mg Tablet 80 Mg PO HS Aspirin 81 Mg Tab.chew 81 Mg PO DAILY Vitals/I & O Vital Sign - Last 24 Hours 06/21/19 06/21/19 06/21/19 06/21/19 11:00 11:22 15:00 16:52 Temp 98.5 98.1 98.5 98.1 Pulse 89 92 Resp 17 18 B/P (MAP) 118/55 (76) 111/49 (69) Pulse Ox 96 97 O2 Delivery Room Air Nasal Cannula Room Air Nasal Cannula O2 Flow Rate 2.0 2.0 06/21/19 06/21/19 06/21/19 06/21/19 19:00 20:05 21:32 23:00 Temp 99.5 98.5 99.5 98.5 Pulse 95 95 95 Resp 18 20 B/P (MAP) 112/52 (72) 112/52 106/54 (71) Pulse Ox 96 94 O2 Delivery Nasal Cannula Nasal Cannula Nasal Cannula O2 Flow Rate 2.0 2.0 2.0 06/22/19 06/22/19 03:00 07:07 Temp 99.7 99.7 Pulse 96 Resp 18 B/P (MAP) 96/50 (65) Pulse Ox 95 94 O2 Delivery Nasal Cannula Nasal Cannula O2 Flow Rate 2.0 2.0 Intake and Output 06/21/19 06/21/19 06/22/19 15:00 23:00 07:00 Intake Total 714 ml 969 ml 712 ml Output Total 130 ml Balance 714 ml 839 ml 712 ml Nutrition Consultation Dietary Evaluation: Recommendations by RD: Add supplement feedings Comments: continue sloan bid w/ bolus TF for nutrition Expected Outcomes/Goals: to meet > 75% est nutr needs improved wound status goals ongoing Interpretation of weight loss: >10% in 6 months Malnutrition Findings: Body Fat Depletion (Non Severe: Mod to Severe Weight Status: Underweight BHAVIK CRAIN MD Jun 22, 2019 08:27
--- NOTE | 2019-06-22 08:34 | PDOC ---
PULMONARY PROGRESS NOTES Subjective sig response post TPA x 3 doses 400 cc in past 24 hr Vitals Vital Signs Date Time Temp Pulse Resp B/P (MAP) Pulse Ox O2 Delivery O2 Flow Rate FiO2 06/22/19 07:07 94 Nasal Cannula 2.0 06/22/19 03:00 99.7 96 18 96/50 (65) 99.7 ROS: No Nausea, No Chest Pain General: Alert, No acute distress HEENT: Other (nc at perrl ) Lungs: Other (l dullness crackles) Cardiovascular: S1, S2 Abdomen: Soft, Non-tender Neuro Exam: Alert Extremities: No Edema Skin: Warm Medications Active Scripts Medications Dose Route/Sig Max Daily Dose Days Date Category Xanax (Alprazolam) 0.25 Mg Tablet 1 Tab PO PRN TID PRN 06/15/19 Reported Vitamin D3 (Cholecalciferol (Vitamin D3)) 1,000 Unit Tablet 2 Tab PO DAILY 06/15/19 Reported Tylenol (Acetaminophen) 325 Mg Tablet 1 Tab PO PRN Q4HRS 06/15/19 Reported Multivitamins (Multivitamin) 1 Each Capsule 1 Each PO DAILY 06/15/19 Reported Silvadene (Silver Sulfadiazine) 20 Gm Cream..g. 1 Claudia TP DAILY 06/15/19 Reported Zoloft (Sertraline Hcl) 100 Mg Tablet 100 Mg PO DAILY 06/15/19 Reported Zyprexa (Olanzapine) 2.5 Mg Tablet 2.5 Mg PO DAILY 06/15/19 Reported Nystatin 100,000 Unit/1 Ml Oral.susp 5 Ml PO BID 06/15/19 Reported Mirtazapine 15 Mg Tablet 1 Tab PO QHS 06/15/19 Reported Milk Of Magnesia (Magnesium Hydroxide) 400 Mg/5 Ml Oral.susp 400 Mg PO PRN PRN 06/15/19 Reported Melatonin 3 Mg Tablet 3 Mg PO QHS 06/15/19 Reported Lumigan (Bimatoprost) 2.5 Ml Drops 1 Drop EACHEYE QHS 06/15/19 Reported Lisinopril 10 Mg Tablet 1 Tab PO HS 06/15/19 Reported Hydrocortisone 59 Ml Lotion 1 Claudia TP BID 06/15/19 Reported Guaifenesin Ac Cough Syrup (Guaifenesin/Codeine Phosphate) 473 Ml Liquid 10 Ml PO Q4-6HRS 06/15/19 Reported Famotidine 20 Mg Tablet 20 Mg PO BID 30 06/15/19 Reported Clopidogrel (Clopidogrel Bisulfate) 75 Mg Tablet 75 Mg PO DAILY 06/15/19 Reported Calmoseptine Ointment (Menthol/Zinc Oxide) 71 Gm Oint...g. 71 Gm TP BID 06/15/19 Reported Atorvastatin Calcium 80 Mg Tablet 80 Mg PO HS 06/15/19 Reported Aspirin 81 Mg Tab.chew 81 Mg PO DAILY 06/15/[address] reviewed, 1. No convincing pulmonary embolism. 2. Large partially loculated left pleural effusion. 3. Left lower lobe collapse with a superimposed 3.3 cm rounded area of hypodensity within the collapsed lung possibly due to abscess or neoplasm. 4. Pulmonary emphysema with bronchiectasis and bronchial wall thickening due to superimposed bronchitis. 5. Small scattered nodular opacities within the bilateral upper lobes, primarily involving the lingula. The largest of these measures 8 mm. This may be infectious or inflammatory. Short-term follow-up is recommended. 6. Small right pleural effusion and right lower lobe atelectasis. 7. Suspected reactive mediastinal, hilar and right retrocrural lymphadenopathy. Attention the time of follow-up is recommended. 8. Enlarged central pulmonary arteries, a finding which can be seen with chronic pulmonary artery hypertension.\ repeat ct 06/19 1. There is now pigtail catheter in the previously demonstrated empyema now with minimal internal gas, overall smaller size of the fluid collection, again component which tracks more anteriorly along the mediastinal border. Adjacent compressive atelectasis of the left lower lobe has decreased. Small right pleural effusion is larger with increased adjacent compressive atelectasis. 2. There is again emphysema and coronary calcification. 3. There is again mediastinal lymphadenopathy for which follow-up advised such as in 3 months. Electronically signed by: Kimo Jimenez MD (06/19/2019 5:21 PM) [id number] cxr 06/21 sig improvement in left effusion, small left PTX vs skin fold Impression . IMPRESSION: 1. Acute respiratory failure secondary to pneumonia, multi-loculated left effusion c/w early empyema, underlying COPD with acute exacerbation 2. Abnormal ct chest with multi-loculated left effusion , suspect early empyema, no malignancy by f/u ct chest 06/19. s/p intra-pleural TPA x 3 doses 3. Chronic obstructive pulmonary disease with acute exacerbation. 4. Leukocytosis. 5. Coronary artery disease. 6. Dysphagia, status post PEG placement. 7. Malnutrition. Plan . 1. Titrate the FiO2 to keep O2 saturation at 92%. 2. cont bronchodilator. 3. cont inhaled corticosteroid, 4. CT chest f/u 06/19 reviewed,, sig response from TPA via chest tube.x 3 days. no definite mass. loculated fluid almost resolved. . No further TPA, . monitor ct output and cxr. still 400 cc /24 hr 5. Elevate head of bed, aspiration precaution. 6. Continue antibiotic per ID. zan w rn, JENNIFER KC MD Jun 22, 2019 08:34
--- NOTE | 2019-06-22 08:46 | RAD ---
PORTABLE CHEST 1V History: Empyema Comparison: June 21, 2019 Findings: Loculated left pleural fluid, similar compared to prior. Stable left pigtail pleural drain. Diffuse interstitial thickening. No pneumothorax. Left-sided pacemaker. Unchanged heart size. Left basilar consolidations, unchanged. Bilateral acromioclavicular and glenohumeral DJD. Impression: 1. No significant interval change compared to prior. Electronically signed by: Mushtaq Dash DO (06/22/2019 8:43 AM) [facility]
[2019-06-22 11:00] VITALS: BP 96/50
[2019-06-22] MEDS: LACTOBACILLUS RHAMNOSUS GG 1 CAPSULE. PO SCH ×2 (11:02→20:40)
[2019-06-22] MEDS: OLANZapine 2.5 MG TABLET PO SCH (11:02)
[2019-06-22] MEDS: FAMOTIDINE 20 MG TABLET. PO SCH ×2 (11:02→20:40)
[2019-06-22] MEDS: CHOLECALCIFEROL (VITAMIN D3) 1,000 UNIT TABLET PO SCH (11:02)
[2019-06-22 15:00] VITALS: BP 102/49
[2019-06-22 19:25] VITALS: BP 102/55
[2019-06-22] MEDS: ATORVASTATIN CALCIUM 40 MG TABLET. PO SCH (20:40)
[2019-06-22] MEDS: MIRTAZAPINE 15 MG TABLET PO SCH (20:41)
[2019-06-22] MEDS: LISINOPRIL 10 MG TABLET PO SCH (20:41)
[2019-06-22 23:30] VITALS: BP 100/52
[2019-06-23 03:29] VITALS: BP 98/48
[2019-06-23] MEDS: PIPERACILLIN/TAZOBACTAM 3.375 GM in IV NORMAL SALINE 50ML 50 ML IV SCH ×3 (05:07→17:27)
[2019-06-23 05:18] LABS: BASO % 0 % (0-3); EOS # 0.1 x10^3/uL (0.0-0.7); EOS % 1 % (0-3); HEMATOCRIT 21.6 % (39.0-53.0); HEMOGLOBIN 7.1 g/dL (13.0-17.5); LYMPH # 1.2 x10^3/uL (1.0-4.8); LYMPH % 9 % (24-48); MEAN CORPUSCULAR HEMOGLOBIN 29 pg (25-35); MEAN CORPUSCULAR HGB CONC 33 g/dL (31-37); MEAN CORPUSCULAR VOLUME 90 fL (79-100); MONO # 1.2 x10^3/uL (0.0-1.1); MONO % 9 % (0-9); NEUT # 10.3 x10^3/uL (1.8-7.7); NEUT % 80 % (31-73); PLATELET COUNT 426 x10^3/uL (140-400); WHITE BLOOD COUNT 12.8 x10^3/uL (4.0-11.0)
[2019-06-23 05:32] LABS: PROTHROMBIN TIME PATIENT 16.5 SEC (11.7-14.0)
[2019-06-23 05:33] LABS: CREATININE 0.8 mg/dL (0.7-1.3); GFR 91.9; POTASSIUM 4.2 mmol/L (3.5-5.1)
[2019-06-23 05:40] LABS: ALBUMIN 1.2 g/dL (3.4-5.0); DIRECT BILIRUBIN 0.2 mg/dL (0.0-0.2); TOTAL BILIRUBIN 0.4 mg/dL (0.2-1.0); TOTAL PROTEIN 5.2 g/dL (6.4-8.2)
[2019-06-23 07:00] VITALS: BP 96/54
[2019-06-23] MEDS: IPRATRPIUM/ALBUTEROL 0.5/2.5MG 3 ML NEBU. NEB SCH ×4 (07:04→19:37)
[2019-06-23] MEDS: BUDESONIDE 0.5 MG/2 ML NEBU. NEB SCH ×2 (07:04→19:37)
[2019-06-23] MEDS: CHOLECALCIFEROL (VITAMIN D3) 1,000 UNIT TABLET PO SCH (09:03)
[2019-06-23] MEDS: LACTOBACILLUS RHAMNOSUS GG 1 CAPSULE. PO SCH ×2 (09:03→22:45)
[2019-06-23] MEDS: FAMOTIDINE 20 MG TABLET. PO SCH ×2 (09:03→22:45)
[2019-06-23] MEDS: OLANZapine 2.5 MG TABLET PO SCH (09:04)
--- NOTE | 2019-06-23 09:15 | PDOC ---
PROGRESS NOTES Chief Complaint Chief Complaint Left sided loculated effusion, empyema s/p left indwelling chest tube (06/16), s/p tPA Small Right-sided pleural effusion Freq falls in AL, non injury falls - mechanical falls Dysphagia, indwelling PEG x 7 mos now, STrict NPO, bolus TFs at AL RT wrist OA Indwelling pacer LEUKOCYTOSIS Left lower lobe collapse with pneumonia and lymphadenpathy. High risk for gram negative given his SNF status and structural lung disease with smoking history Leukocytosis, improving Transaminitis Generalized weakness s/p multiple falls Weight loss COPD CAD History of Present Illness History of Present Illness Mr Ugalde is an 83yo M w/ PMHx Atrial fibrillation, pacemaker, coronary artery disease, CHF, COPD, depression, gastroesophageal reflux disease, hypertension who presents from the [facility] with not feeling well for about a week, found with CXR consistent with likely pneumonia and loculated effusion. He now has a left sided chest tube indwelling and is draining pleural fluid (loculated empyema on CT and CXR) Pleural fluid has been sent for studies - RBCs, LDH 2166, protein 4.1, glucose 22. No pH Has in indwelling PEG x 6 mos now for dysphagia and is on Bolus feeding here and at [facility]isted [facility] prior to admission 06/17/19: tPA per chest per by pulmonary with 1700cc out in first 24 hours 06/19: Shortness of breath a bit improved after large release of loculated effusion with tPA. Had another 1200cc out, now with CXR much improved. He is feeling weak, wishes to have a BM. Aching all over improved. No CP. Family wishes for DECISION ANALYST evaluation for his speech and communication 06/20: Another 120cc out per chest tube. CT chest shows previously demonstrated empyema now with minimal internal gas, overall smaller size of the fluid collection, again component which tracks more anteriorly along the mediastinal border. Adjacent compressive atelectasis of the left lower lobe has decreased. Small right pleural effusion is larger with increased adjacent compressive atelectasis. Emphysema and coronary calcification and mediastinal lymphadenopathy. 06/21: Still with good chest tube drainage 620cc. He is drowsy today, received xanax last night. He is feeling a bit better. Denies chest pain. Cytology returned negative for malignancy from pleural fluid. Consistent with empyema. 06/22: More alert. Chest tube output ~100cc. Feeling more alert this morning. No complaints. Still a bit confused. CXR with no changes. Much less chest tube output < 100cc now. Denies CP. Family visiting today. He is concerned about leaving soon. PLAN: CPM PT recs SNU - sw consult for this Otherwise cont chest tube, IV abx and tPA completed per [facility] Trial guidelines Vitals Vitals Vital Signs Date Time Temp Pulse Resp B/P (MAP) Pulse Ox O2 Delivery O2 Flow Rate FiO2 06/23/19 07:06 94 Nasal Cannula 2.0 06/23/19 07:00 97.5 98 17 96/54 (68) 97.5 Physical Exam Physical Exam GENERAL: In bed and looks well, alert, looks good HEENT: Pupils equally round. Oropharynx - min adhered secretions NECK: Supple. LUNGS: Diminished aeration in left lung base. Nonlabored. Left CT in place HEART: S1 and S2. Pacemaker. ABDOMEN: Nondistended, soft and nontender with bowel sounds present. PEG tube intact : No Barron. EXTREMITIES: No gross edema or cyanosis. SKIN: Warm to touch. No signs of rash. NEUROLOGIC: Alert and answering questions appropriately. PIV General: Alert, Oriented X3, Cooperative, No acute distress Heart: Regular rate, Normal S1, Normal S2 Lungs: Other (l dullness crackles) Abdomen: Normal bowel sounds, Soft, No tenderness, No hepatosplenomegaly, No masses Extremities: No clubbing, No cyanosis, No edema, Normal pulses, No tenderness/swelling Skin: Other (senile skin turgor, some old skin brusing) Labs LABS Laboratory Tests Test 06/23/19 04:50 White Blood Count 12.8 x10^3/uL (4.0-11.0) Red Blood Count 2.40 x10^6/uL (4.30-5.70) Hemoglobin 7.1 g/dL (13.0-17.5) Hematocrit 21.6 % (39.0-53.0) Mean Corpuscular Volume 90 fL (79-100) Mean Corpuscular Hemoglobin 29 pg (25-35) Mean Corpuscular Hemoglobin Concent 33 g/dL (31-37) Red Cell Distribution Width 17.0 % (11.5-14.5) Platelet Count 426 x10^3/uL (140-400) Neutrophils (%) (Auto) 80 % (31-73) Lymphocytes (%) (Auto) 9 % (24-48) Monocytes (%) (Auto) 9 % (0-9) Eosinophils (%) (Auto) 1 % (0-3) Basophils (%) (Auto) 0 % (0-3) Neutrophils # (Auto) 10.3 x10^3/uL (1.8-7.7) Lymphocytes # (Auto) 1.2 x10^3/uL (1.0-4.8) Monocytes # (Auto) 1.2 x10^3/uL (0.0-1.1) Eosinophils # (Auto) 0.1 x10^3/uL (0.0-0.7) Basophils # (Auto) 0.0 x10^3/uL (0.0-0.2) Prothrombin Time 16.5 SEC (11.7-14.0) Prothromb Time International Ratio 1.4 (0.8-1.1) Sodium Level 145 mmol/L (136-145) Potassium Level 4.2 mmol/L (3.5-5.1) Chloride Level 109 mmol/L (98-107) Carbon Dioxide Level 31 mmol/L (21-32) Anion Gap 5 (6-14) Blood Urea Nitrogen 31 mg/dL (8-26) Creatinine 0.8 mg/dL (0.7-1.3) Estimated GFR (Cockcroft-Gault) 91.9 Glucose Level 111 mg/dL (70-99) Calcium Level 8.0 mg/dL (8.5-10.1) Total Bilirubin 0.4 mg/dL (0.2-1.0) Direct Bilirubin 0.2 mg/dL (0.0-0.2) Aspartate Amino Transf (AST/SGOT) 42 U/L (15-37) Alanine Aminotransferase (ALT/SGPT) 57 U/L (16-63) Alkaline Phosphatase 89 U/L (46-116) Total Protein 5.2 g/dL (6.4-8.2) Albumin 1.2 g/dL (3.4-5.0) Assessment and Plan Assessmemt and Plan Problems Medical Problems: (1) Fever Status: Acute (2) UTI (urinary tract infection) Status: Acute Comment Review of Relevant I have reviewed the following items lorenzo (where applicable) has been applied. Labs Laboratory Tests Test 06/23/19 04:50 White Blood Count 12.8 x10^3/uL (4.0-11.0) Red Blood Count 2.40 x10^6/uL (4.30-5.70) Hemoglobin 7.1 g/dL (13.0-17.5) Hematocrit 21.6 % (39.0-53.0) Mean Corpuscular Volume 90 fL (79-100) Mean Corpuscular Hemoglobin 29 pg (25-35) Mean Corpuscular Hemoglobin Concent 33 g/dL (31-37) Red Cell Distribution Width 17.0 % (11.5-14.5) Platelet Count 426 x10^3/uL (140-400) Neutrophils (%) (Auto) 80 % (31-73) Lymphocytes (%) (Auto) 9 % (24-48) Monocytes (%) (Auto) 9 % (0-9) Eosinophils (%) (Auto) 1 % (0-3) Basophils (%) (Auto) 0 % (0-3) Neutrophils # (Auto) 10.3 x10^3/uL (1.8-7.7) Lymphocytes # (Auto) 1.2 x10^3/uL (1.0-4.8) Monocytes # (Auto) 1.2 x10^3/uL (0.0-1.1) Eosinophils # (Auto) 0.1 x10^3/uL (0.0-0.7) Basophils # (Auto) 0.0 x10^3/uL (0.0-0.2) Prothrombin Time 16.5 SEC (11.7-14.0) Prothromb Time International Ratio 1.4 (0.8-1.1) Sodium Level 145 mmol/L (136-145) Potassium Level 4.2 mmol/L (3.5-5.1) Chloride Level 109 mmol/L (98-107) Carbon Dioxide Level 31 mmol/L (21-32) Anion Gap 5 (6-14) Blood Urea Nitrogen 31 mg/dL (8-26) Creatinine 0.8 mg/dL (0.7-1.3) Estimated GFR (Cockcroft-Gault) 91.9 Glucose Level 111 mg/dL (70-99) Calcium Level 8.0 mg/dL (8.5-10.1) Total Bilirubin 0.4 mg/dL (0.2-1.0) Direct Bilirubin 0.2 mg/dL (0.0-0.2) Aspartate Amino Transf (AST/SGOT) 42 U/L (15-37) Alanine Aminotransferase (ALT/SGPT) 57 U/L (16-63) Alkaline Phosphatase 89 U/L (46-116) Total Protein 5.2 g/dL (6.4-8.2) Albumin 1.2 g/dL (3.4-5.0) Laboratory Tests Test 06/23/19 04:50 White Blood Count 12.8 x10^3/uL (4.0-11.0) Red Blood Count 2.40 x10^6/uL (4.30-5.70) Hemoglobin 7.1 g/dL (13.0-17.5) Hematocrit 21.6 % (39.0-53.0) Mean Corpuscular Volume 90 fL (79-100) Mean Corpuscular Hemoglobin 29 pg (25-35) Mean Corpuscular Hemoglobin Concent 33 g/dL (31-37) Red Cell Distribution Width 17.0 % (11.5-14.5) Platelet Count 426 x10^3/uL (140-400) Neutrophils (%) (Auto) 80 % (31-73) Lymphocytes (%) (Auto) 9 % (24-48) Monocytes (%) (Auto) 9 % (0-9) Eosinophils (%) (Auto) 1 % (0-3) Basophils (%) (Auto) 0 % (0-3) Neutrophils # (Auto) 10.3 x10^3/uL (1.8-7.7) Lymphocytes # (Auto) 1.2 x10^3/uL (1.0-4.8) Monocytes # (Auto) 1.2 x10^3/uL (0.0-1.1) Eosinophils # (Auto) 0.1 x10^3/uL (0.0-0.7) Basophils # (Auto) 0.0 x10^3/uL (0.0-0.2) Prothrombin Time 16.5 SEC (11.7-14.0) Prothromb Time International Ratio 1.4 (0.8-1.1) Sodium Level 145 mmol/L (136-145) Potassium Level 4.2 mmol/L (3.5-5.1) Chloride Level 109 mmol/L (98-107) Carbon Dioxide Level 31 mmol/L (21-32) Anion Gap 5 (6-14) Blood Urea Nitrogen 31 mg/dL (8-26) Creatinine 0.8 mg/dL (0.7-1.3) Estimated GFR (Cockcroft-Gault) 91.9 Glucose Level 111 mg/dL (70-99) Calcium Level 8.0 mg/dL (8.5-10.1) Total Bilirubin 0.4 mg/dL (0.2-1.0) Direct Bilirubin 0.2 mg/dL (0.0-0.2) Aspartate Amino Transf (AST/SGOT) 42 U/L (15-37) Alanine Aminotransferase (ALT/SGPT) 57 U/L (16-63) Alkaline Phosphatase 89 U/L (46-116) Total Protein 5.2 g/dL (6.4-8.2) Albumin 1.2 g/dL (3.4-5.0) Microbiology 06/16/19 Anaerobic/Aerobic Culture - Preliminary, Resulted 06/16/19 Anaerobic Culture Result 1 (TASHA) - Preliminary, Resulted 06/16/19 Aerobic Culture - Final, Resulted 06/16/19 Aerobic Culture Result 1 (TASHA) - Final, Resulted 06/16/19 Gram Stain - Final, Resulted 06/16/19 Gram Stain Result 1 (TASHA) - Final, Resulted 06/16/19 Gram Stain Result 2 (TASHA) - Final, Resulted 06/14/19 Blood Culture - Final, Complete NO GROWTH AFTER 5 DAYS 06/14/19 Urine Culture - Final, Complete 06/14/19 Urine Culture Result 1 (TASHA) - Final, Complete Medications Current Medications Acetaminophen (Tylenol) 500 mg PRN Q6HRS PRN PO MILD PAIN / TEMP; Start 06/14/19 at 19:30; Stop 06/14/19 at 19:34; Status DC Acetaminophen/ Codeine Phosphate (Tylenol #3) 1 tab PRN Q6HRS PRN PO MODERATE PAIN; Start 06/14/19 at 19:30; Stop 06/14/19 at 19:34; Status DC Calcium Carbonate/ Glycine (Tums) 500 mg PRN AFTMEALHC PRN PO INDIGESTION; Start 06/14/19 at 19:30; Stop 06/14/19 at 19:34; Status DC Ondansetron HCl (Zofran) 4 mg PRN Q6HRS PRN IVP NAUSEA/VOMITING; Start 06/14/19 at 19:30 Temazepam (Restoril) 7.5 mg PRN QHS PRN PO INSOMNIA; Start 06/14/19 at 19:30; Stop 06/21/19 at 10:37; Status DC Acetaminophen/ Hydrocodone Bitart (Lortab 5/325) 1 tab PRN Q4HRS PRN PO MODERATE PAIN; Start 06/14/19 at 19:30; Stop 06/14/19 at 19:34; Status DC Fentanyl Citrate (Fentanyl 2ml Vial) 25 mcg PRN Q2HR PRN IV PAIN; Start 06/14/19 at 19:30 Acetaminophen (Tylenol) 500 mg PRN Q6HRS PRN PEG MILD PAIN / TEMP; Start 06/14/19 at 19:45 Acetaminophen/ Codeine Phosphate (Tylenol #3) 1 tab PRN Q6HRS PRN PEG MODERATE PAIN; Start 06/14/19 at 19:34 Calcium Carbonate/ Glycine (Tums) 500 mg PRN AFTMEALHC PRN PEG INDIGESTION; Start 06/14/19 at 19:34 Acetaminophen/ Hydrocodone Bitart (Lortab 5/325) 1 tab PRN Q4HRS PRN PEG SEVERE PAIN; Start 06/14/19 at 19:34 Piperacillin Sod/ Tazobactam Sod 4.5 gm/Sodium Chloride 100 ml @ 200 mls/hr 1X ONCE IV Last administered on 06/15/19at 00:05; Start 06/14/19 at 22:00; Stop 06/14/19 at 22:29; Status DC Sodium Chloride 1,000 ml @ 1,000 mls/hr Q1H IV Last administered on 06/15/19at 00:04; Start 06/14/19 at 21:30; Stop 06/14/19 at 23:13; Status DC Ondansetron HCl (Zofran) 4 mg PRN Q8HRS PRN IV NAUSEA/VOMITING 1ST CHOICE; Start 06/14/19 at 21:15; Stop 06/15/19 at 21:14; Status DC Morphine Sulfate (Morphine Sulfate) 2 mg PRN Q2HR PRN IV SEVERE PAIN 7-10; Start 06/14/19 at 21:15; Stop 06/15/19 at 21:14; Status DC Acetaminophen (Tylenol) 650 mg PRN Q4HRS PRN PO FEVER; Start 06/14/19 at 21:15; Stop 06/15/19 at 21:14; Status DC Acetaminophen (Tylenol) 1,000 mg 1X ONCE PO Last administered on 06/15/19at 00:03; Start 06/14/19 at 21:30; Stop 06/14/19 at 21:31; Status DC Albuterol/ Ipratropium (Duoneb) 3 ml RTQID NEB Last administered on 06/23/19at 07:04; Start 06/15/19 at 12:00 Albuterol/ Ipratropium (Duoneb) 3 ml 1X ONCE NEB Last administered on 05/20 05/06at 11:21; Start 06/15/19 at 09:00; Stop 06/15/19 at 09:01; Status DC Budesonide (Pulmicort) 0.5 mg RTBID NEB Last administered on 06/23/19at 07:04; Start 06/15/19 at 20:00 Budesonide (Pulmicort) 0.5 mg 1X ONCE NEB Last administered on 06/15/19at 11:2 1; Start 06/15/19 at 09:00; Stop 06/15/19 at 09:01; Status DC Iohexol (Omnipaque 350 Mg/ml) 90 ml 1X ONCE IV Last administered on 06/15/19at 10:20; Start 06/15/19 at 09:00; Stop 06/15/19 at 09:01; Status DC Info (CONTRAST GIVEN -- Rx MONITORING) 1 each PRN DAILY PRN MC SEE COMMENTS; Start 06/15/19 at 09:15; Stop 06/17/19 at 09:14; Status DC Vancomycin HCl (Vanco Per Pharmacy) 1 each PRN DAILY PRN MC SEE COMMENTS Last administered on 06/18/19at 13:04; Start 06/15/19 at 10:00; Stop 06/18/19 at 15:47; Status DC Piperacillin Sod/ Tazobactam Sod (Zosyn Per Pharmacy) 1 each PRN DAILY PRN MC SEE COMMENTS; Start 06/15/19 at 10:00 Piperacillin Sod/ Tazobactam Sod 3.375 gm/Sodium Chloride 50 ml @ 100 mls/hr Q6HRS IV Last administered on 06/23/19at 05:07; Start 06/15/19 at 11:00 Vancomycin HCl 1.5 gm/Sodium Chloride 500 ml @ 250 mls/hr 1X ONCE IV Last administered on 06/15/19at 13:23; Start 06/15/19 at 11:00; Stop 06/15/19 at 12:59; Status DC Vancomycin HCl 1 gm/Sodium Chloride 250 ml @ 250 mls/hr Q24H IV Last administered on 06/16/19at 12:32; Start 06/16/19 at 13:30; Stop 06/17/19 at 14:06; Status DC Vancomycin HCl (Vancomycin Trough Level) 1 each 1X ONCE MC Last administered on 06/17/19at 13:00; Start 06/17/19 at 13:00; Stop 06/17/19 at 13:01; Status DC Midazolam HCl (Versed) 2 mg STK-MED ONCE .ROUTE ; Start 06/16/19 at 09:32; Stop 06/16/19 at 09:32; Status DC Fentanyl Citrate (Fentanyl 2ml Vial) 100 mcg STK-MED ONCE .ROUTE ; Start 06/16/19 at 09:32; Stop 06/16/19 at 09:33; Status DC Lidocaine/Sodium Bicarbonate (Buffered Lidocaine 1%) 3 ml STK-MED ONCE .ROUTE ; Start 06/16/19 at 09:46; Stop 06/16/19 at 09:47; Status DC Lidocaine/Sodium Bicarbonate (Buffered Lidocaine 1%) 3 ml 1X ONCE IJ Last administered on 06/16/19at 10:21; Start 06/16/19 at 10:15; Stop 06/16/19 at 10:16; Status DC Midazolam HCl (Versed) 2 mg 1X ONCE IV Last administered on 06/16/19at 10:22; Start 06/16/19 at 10:15; Stop 06/16/19 at 10:16; Status DC Fentanyl Citrate (Fentanyl 2ml Vial) 100 mcg 1X ONCE IV Last administered on 06/16/19at 10:22; Start 06/16/19 at 10:15; Stop 06/16/19 at 10:16; Status DC Lactobacillus Rhamnosus (Culturelle) 1 cap BID PO Last administered on 06/23/19 09:03; Start 06/16/19 at 21:00 Acetaminophen (Tylenol) 325 mg PRN Q4HRS PRN PO MURPHY/FEVER Last administered on 06/20/19 22:09; Start 06/17/19 at 12:30 Alprazolam (Xanax) 0.25 mg PRN TID PRN PO restlessness Last administered on 1 22:08; Start 06/17/19 at 12:30; Stop 06/21/19 at 10:37; Status DC Vitamin D (Vitamin D3) 2,000 unit DAILY PO Last administered on 06/23/19 09:03; Start 06/17/19 at 13:00 Famotidine (Pepcid) 20 mg BID PO Last administered on 06/23/19 09:03; Start 06/17/19 at 21:00 Lisinopril (Prinivil) 10 mg HS PO Last administered on 06/21/19 21:32; Start 06/17/19 at 21:00 Magnesium Hydroxide (Milk Of Magnesia) 400 mg PRN DAILY PRN PO CONSTIPATION; Start 06/17/19 at 12:30 Mirtazapine (Remeron) 15 mg QHS PO Last administered on 06/22/19 20:41; Start 06/17/19 at 21:00 Olanzapine (ZyPREXA) 2.5 mg DAILY PO Last administered on 06/23/19 09:04; Start 06/17/19 at 13:00 Atorvastatin Calcium (Lipitor) 80 mg QHS PO Last administered on 06/22/19 20:40; Start 06/17/19 at 21:00 Alteplase, Recombinant 10 mg/ Sterile Water 50 ml @ 200 mls/hr 1X ONCE IPL Last administered on 06/17/19 15:18; Start 06/17/19 at 14:00; Stop 06/17/19 at 14:14; Status DC Vancomycin HCl 1.25 gm/Sodium Chloride 250 ml @ 167 mls/hr Q18H IV Last administered on 06/17/19 15:18; Start 06/17/19 at 15:00; Stop 06/17/19 at 16:30; Status DC Vancomycin HCl (Vancomycin Trough Level) 1 each 1X ONCE MC ; Start 06/19/19 at 02:30; Stop 06/19/19 at 02:31; Status Cancel Vancomycin HCl 750 mg/Sodium Chloride 250 ml @ 250 mls/hr Q12H IV Last administered on 06/18/19at 15:10; Start 06/18/19 at 03:00; Stop 06/18/19 at 15:47; Status DC Influenza Virus Vaccine Quadrival (Afluria Quad 2019-20 (3yr Up) Syringe) 0.5 ml ONCE ONCE VAX IM Last administered on 06/18/19at 10:28; Start 06/18/19 at 10:30; Stop 06/18/19 at 10:31; Status DC Alteplase, Recombinant 10 mg/ Sterile Water 50 ml @ 200 mls/hr 1X ONCE IPL Last administered on 06/18/19at 11:37; Start 06/18/19 at 10:30; Stop 06/18/19 at 10:44; Status DC Alteplase, Recombinant 10 mg/ Sterile Water 50 ml @ 200 mls/hr 1X ONCE IPL Last administered on 06/20/19at 10:45; Start 06/20/19 at 10:45; Stop 06/20/19 at 10:59; Status DC Active Scripts Active Reported Xanax (Alprazolam) 0.25 Mg Tablet 1 Tab PO PRN TID PRN Vitamin D3 (Cholecalciferol (Vitamin D3)) 1,000 Unit Tablet 2 Tab PO DAILY Tylenol (Acetaminophen) 325 Mg Tablet 1 Tab PO PRN Q4HRS Multivitamins (Multivitamin) 1 Each Capsule 1 Each PO DAILY Silvadene (Silver Sulfadiazine) 20 Gm Cream..g. 1 Claudia TP DAILY Zoloft (Sertraline Hcl) 100 Mg Tablet 100 Mg PO DAILY Zyprexa (Olanzapine) 2.5 Mg Tablet 2.5 Mg PO DAILY Nystatin 100,000 Unit/1 Ml Oral.susp 5 Ml PO BID Mirtazapine 15 Mg Tablet 1 Tab PO QHS Milk Of Magnesia (Magnesium Hydroxide) 400 Mg/5 Ml Oral.susp 400 Mg PO PRN PRN Melatonin 3 Mg Tablet 3 Mg PO QHS Lumigan (Bimatoprost) 2.5 Ml Drops 1 Drop EACHEYE QHS Lisinopril 10 Mg Tablet 1 Tab PO HS Hydrocortisone 59 Ml Lotion 1 Claudia TP BID Guaifenesin Ac Cough Syrup (Guaifenesin/Codeine Phosphate) 473 Ml Liquid 10 Ml PO Q4-6HRS Famotidine 20 Mg Tablet 20 Mg PO BID 30 Days Clopidogrel (Clopidogrel Bisulfate) 75 Mg Tablet 75 Mg PO DAILY Calmoseptine Ointment (Menthol/Zinc Oxide) 71 Gm Oint...g. 71 Gm TP BID Atorvastatin Calcium 80 Mg Tablet 80 Mg PO HS Aspirin 81 Mg Tab.chew 81 Mg PO DAILY Vitals/I & O Vital Sign - Last 24 Hours 06/22/19 06/22/19 06/22/19 06/22/19 11:00 11:02 14:50 15:00 Temp 97.9 97.6 97.9 97.6 Pulse 94 94 Resp 18 18 B/P (MAP) 96/50 (65) 102/49 (66) Pulse Ox 95 94 94 97 O2 Delivery Nasal Cannula Nasal Cannula Nasal Cannula Nasal Cannula O2 Flow Rate 2.0 2.0 2.0 2.0 06/22/19 06/22/19 06/22/19 06/22/19 19:25 20:00 20:06 20:07 Temp 98.5 98.5 Pulse 90 Resp 18 B/P (MAP) 102/55 (71) Pulse Ox 97 94 94 O2 Delivery Nasal Cannula Room Air Nasal Cannula Nasal Cannula O2 Flow Rate 2.0 2.0 2.0 06/22/19 06/22/19 06/23/19 06/23/19 20:41 23:30 03:29 07:00 Temp 97.8 97.6 97.5 97.8 97.6 97.5 Pulse 90 94 93 98 Resp 18 20 17 B/P (MAP) 102/55 100/52 (68) 98/48 (65) 96/54 (68) Pulse Ox 95 97 94 O2 Delivery Nasal Cannula Nasal Cannula Nasal Cannula O2 Flow Rate 2.0 2.0 2.0 06/23/19 07:06 Pulse Ox 94 O2 Delivery Nasal Cannula O2 Flow Rate 2.0 Intake and Output 06/22/19 06/22/19 06/23/19 15:00 23:00 07:00 Intake Total 762 ml 962 ml 300 ml Output Total 50 ml Balance 762 ml 912 ml 300 ml Nutrition Consultation Dietary Evaluation: Recommendations by RD: Add supplement feedings Comments: continue sloan bid w/ bolus TF for nutrition Expected Outcomes/Goals: to meet > 75% est nutr needs improved wound status goals ongoing Interpretation of weight loss: >10% in 6 months Malnutrition Findings: Body Fat Depletion (Non Severe: Mod to Severe Weight Status: Underweight BHAVIK CRAIN MD Jun 23, 2019 09:14
--- NOTE | 2019-06-23 09:34 | PDOC ---
PULMONARY PROGRESS NOTES Subjective denies SOB, remains on 2 liters N/C , reports no increase in cough 60cc in chest tube over 24 hours Vitals Vital Signs Date Time Temp Pulse Resp B/P (MAP) Pulse Ox O2 Delivery O2 Flow Rate FiO2 06/23/19 07:06 94 Nasal Cannula 2.0 06/23/19 07:00 97.5 98 17 96/54 (68) 97.5 ROS: No Nausea, No Chest Pain, No Increase Cough General: Alert, No acute distress HEENT: Other (nc at perrl ) Lungs: Other (left fine crackles, dimin. bilateral bases ) Cardiovascular: S1, S2 Abdomen: Soft, Non-tender Neuro Exam: Alert Extremities: No Edema Skin: Warm, Dry Labs Laboratory Tests Test 06/23/19 04:50 White Blood Count 12.8 x10^3/uL (4.0-11.0) Red Blood Count 2.40 x10^6/uL (4.30-5.70) Hemoglobin 7.1 g/dL (13.0-17.5) Hematocrit 21.6 % (39.0-53.0) Mean Corpuscular Volume 90 fL (79-100) Mean Corpuscular Hemoglobin 29 pg (25-35) Mean Corpuscular Hemoglobin Concent 33 g/dL (31-37) Red Cell Distribution Width 17.0 % (11.5-14.5) Platelet Count 426 x10^3/uL (140-400) Neutrophils (%) (Auto) 80 % (31-73) Lymphocytes (%) (Auto) 9 % (24-48) Monocytes (%) (Auto) 9 % (0-9) Eosinophils (%) (Auto) 1 % (0-3) Basophils (%) (Auto) 0 % (0-3) Neutrophils # (Auto) 10.3 x10^3/uL (1.8-7.7) Lymphocytes # (Auto) 1.2 x10^3/uL (1.0-4.8) Monocytes # (Auto) 1.2 x10^3/uL (0.0-1.1) Eosinophils # (Auto) 0.1 x10^3/uL (0.0-0.7) Basophils # (Auto) 0.0 x10^3/uL (0.0-0.2) Prothrombin Time 16.5 SEC (11.7-14.0) Prothromb Time International Ratio 1.4 (0.8-1.1) Sodium Level 145 mmol/L (136-145) Potassium Level 4.2 mmol/L (3.5-5.1) Chloride Level 109 mmol/L (98-107) Carbon Dioxide Level 31 mmol/L (21-32) Anion Gap 5 (6-14) Blood Urea Nitrogen 31 mg/dL (8-26) Creatinine 0.8 mg/dL (0.7-1.3) Estimated GFR (Cockcroft-Gault) 91.9 Glucose Level 111 mg/dL (70-99) Calcium Level 8.0 mg/dL (8.5-10.1) Total Bilirubin 0.4 mg/dL (0.2-1.0) Direct Bilirubin 0.2 mg/dL (0.0-0.2) Aspartate Amino Transf (AST/SGOT) 42 U/L (15-37) Alanine Aminotransferase (ALT/SGPT) 57 U/L (16-63) Alkaline Phosphatase 89 U/L (46-116) Total Protein 5.2 g/dL (6.4-8.2) Albumin 1.2 g/dL (3.4-5.0) Laboratory Tests Test 06/23/19 04:50 White Blood Count 12.8 x10^3/uL (4.0-11.0) Red Blood Count 2.40 x10^6/uL (4.30-5.70) Hemoglobin 7.1 g/dL (13.0-17.5) Hematocrit 21.6 % (39.0-53.0) Mean Corpuscular Volume 90 fL (79-100) Mean Corpuscular Hemoglobin 29 pg (25-35) Mean Corpuscular Hemoglobin Concent 33 g/dL (31-37) Red Cell Distribution Width 17.0 % (11.5-14.5) Platelet Count 426 x10^3/uL (140-400) Neutrophils (%) (Auto) 80 % (31-73) Lymphocytes (%) (Auto) 9 % (24-48) Monocytes (%) (Auto) 9 % (0-9) Eosinophils (%) (Auto) 1 % (0-3) Basophils (%) (Auto) 0 % (0-3) Neutrophils # (Auto) 10.3 x10^3/uL (1.8-7.7) Lymphocytes # (Auto) 1.2 x10^3/uL (1.0-4.8) Monocytes # (Auto) 1.2 x10^3/uL (0.0-1.1) Eosinophils # (Auto) 0.1 x10^3/uL (0.0-0.7) Basophils # (Auto) 0.0 x10^3/uL (0.0-0.2) Prothrombin Time 16.5 SEC (11.7-14.0) Prothromb Time International Ratio 1.4 (0.8-1.1) Sodium Level 145 mmol/L (136-145) Potassium Level 4.2 mmol/L (3.5-5.1) Chloride Level 109 mmol/L (98-107) Carbon Dioxide Level 31 mmol/L (21-32) Anion Gap 5 (6-14) Blood Urea Nitrogen 31 mg/dL (8-26) Creatinine 0.8 mg/dL (0.7-1.3) Estimated GFR (Cockcroft-Gault) 91.9 Glucose Level 111 mg/dL (70-99) Calcium Level 8.0 mg/dL (8.5-10.1) Total Bilirubin 0.4 mg/dL (0.2-1.0) Direct Bilirubin 0.2 mg/dL (0.0-0.2) Aspartate Amino Transf (AST/SGOT) 42 U/L (15-37) Alanine Aminotransferase (ALT/SGPT) 57 U/L (16-63) Alkaline Phosphatase 89 U/L (46-116) Total Protein 5.2 g/dL (6.4-8.2) Albumin 1.2 g/dL (3.4-5.0) Medications Active Scripts Medications Dose Route/Sig Max Daily Dose Days Date Category Xanax (Alprazolam) 0.25 Mg Tablet 1 Tab PO PRN TID PRN 06/15/19 Reported Vitamin D3 (Cholecalciferol (Vitamin D3)) 1,000 Unit Tablet 2 Tab PO DAILY 06/15/19 Reported Tylenol (Acetaminophen) 325 Mg Tablet 1 Tab PO PRN Q4HRS 06/15/19 Reported Multivitamins (Multivitamin) 1 Each Capsule 1 Each PO DAILY 06/15/19 Reported Silvadene (Silver Sulfadiazine) 20 Gm Cream..g. 1 Claudia TP DAILY 06/15/19 Reported Zoloft (Sertraline Hcl) 100 Mg Tablet 100 Mg PO DAILY 06/15/19 Reported Zyprexa (Olanzapine) 2.5 Mg Tablet 2.5 Mg PO DAILY 06/15/19 Reported Nystatin 100,000 Unit/1 Ml Oral.susp 5 Ml PO BID 06/15/19 Reported Mirtazapine 15 Mg Tablet 1 Tab PO QHS 06/15/19 Reported Milk Of Magnesia (Magnesium Hydroxide) 400 Mg/5 Ml Oral.susp 400 Mg PO PRN PRN 06/15/19 Reported Melatonin 3 Mg Tablet 3 Mg PO QHS 06/15/19 Reported Lumigan (Bimatoprost) 2.5 Ml Drops 1 Drop EACHEYE QHS 06/15/19 Reported Lisinopril 10 Mg Tablet 1 Tab PO HS 06/15/19 Reported Hydrocortisone 59 Ml Lotion 1 Claudia TP BID 06/15/19 Reported Guaifenesin Ac Cough Syrup (Guaifenesin/Codeine Phosphate) 473 Ml Liquid 10 Ml PO Q4-6HRS 06/15/19 Reported Famotidine 20 Mg Tablet 20 Mg PO BID 30 06/15/19 Reported Clopidogrel (Clopidogrel Bisulfate) 75 Mg Tablet 75 Mg PO DAILY 06/15/19 Reported Calmoseptine Ointment (Menthol/Zinc Oxide) 71 Gm Oint...g. 71 Gm TP BID 06/15/19 Reported Atorvastatin Calcium 80 Mg Tablet 80 Mg PO HS 06/15/19 Reported Aspirin 81 Mg Tab.chew 81 Mg PO DAILY 06/15/[address] reviewed, 1. No convincing pulmonary embolism. 2. Large partially loculated left pleural effusion. 3. Left lower lobe collapse with a superimposed 3.3 cm rounded area of hypodensity within the collapsed lung possibly due to abscess or neoplasm. 4. Pulmonary emphysema with bronchiectasis and bronchial wall thickening due to superimposed bronchitis. 5. Small scattered nodular opacities within the bilateral upper lobes, primarily involving the lingula. The largest of these measures 8 mm. This may be infectious or inflammatory. Short-term follow-up is recommended. 6. Small right pleural effusion and right lower lobe atelectasis. 7. Suspected reactive mediastinal, hilar and right retrocrural lymphadenopathy. Attention the time of follow-up is recommended. 8. Enlarged central pulmonary arteries, a finding which can be seen with chronic pulmonary artery hypertension.\ repeat ct 06/19 1. There is now pigtail catheter in the previously demonstrated empyema now with minimal internal gas, overall smaller size of the fluid collection, again component which tracks more anteriorly along the mediastinal border. Adjacent compressive atelectasis of the left lower lobe has decreased. Small right pleural effusion is larger with increased adjacent compressive atelectasis. 2. There is again emphysema and coronary calcification. 3. There is again mediastinal lymphadenopathy for which follow-up advised such as in 3 months. Electronically signed by: Kimo Jimenez MD (06/19/2019 5:21 PM) [facility] [place] cxr 06/21 sig improvement in left effusion, small left PTX vs skin fold CXR: 06/22 No significant interval change compared to prior. Impression . 1. Acute respiratory failure secondary to pneumonia, multi-loculated left effusion c/w early empyema, underlying COPD with acute exacerbation--improving 2. Abnormal ct chest with multi-loculated left effusion , suspect early empyema, no malignancy by f/u ct chest 06/19. s/p intra-pleural TPA x 3 doses 3. Chronic obstructive pulmonary disease with acute exacerbation. 4. Leukocytosis.-- improving 12,000 today 5. Coronary artery disease. 6. Dysphagia, status post PEG placement.---ongoing 7. protein Malnutrition Plan . 1. Titrate the FiO2 to keep O2 saturation at 92%. 2. cont bronchodilator. 3. cont inhaled corticosteroid, 4. CT chest f/u 06/19 reviewed,, sig response from TPA via chest tube.x 3 days. no definite mass. loculated fluid almost resolved. . No further TPA, . monitor ct output and cxr. 60cc over last 24 hours 5. Elevate head of bed, aspiration precaution. 6. Continue antibiotic per ID, currently on zosyn WILL DC CHEST TUBE IN IAM bird rn, JENNIFER KC MD Jun 23, 2019 09:34
--- NOTE | 2019-06-23 10:43 | RAD ---
AP portable chest radiograph 06/23/2019 Clinical History: Empyema. An AP erect portable digital radiograph of the chest was obtained. Comparison study is dated 06/22/2019. A left-sided pacemaker and pigtail drainage catheter are unchanged in position. Small loculated left pleural fluid collection has decreased in size slightly when compared to the previous examination. The cardiac silhouette is mildly enlarged. Atherosclerotic calcification thoracic aorta is seen. Bilateral perihilar infiltrates are seen which likely reflect pulmonary edema from CHF. These have increased since the previous examination. No pneumothorax is noted. The osseous structures are unchanged. IMPRESSION: 1. Pigtail drainage catheter overlies left lower lobe, unchanged. There has been slight interval decrease in size of the left pleural fluid collection. 2. Bilateral perihilar infiltrates are seen which likely reflect pulmonary edema from CHF. Electronically signed by: Dann Tse MD (06/23/2019 10:40 AM) [facility]
[2019-06-23 10:52] VITALS: BP 104/58
--- NOTE | 2019-06-23 11:02 | PDOC ---
Infectious Disease Note Subjective Subjective Doing ok Some diarrhea Tube feeds Denies F/C/SOA/N/V O2 2 L ROS ROS per HPI Vital Sign Vital Signs Vital Signs Date Time Temp Pulse Resp B/P (MAP) Pulse Ox O2 Delivery O2 Flow Rate FiO2 06/23/19 10:52 97.6 96 6 104/58 (73) 95 Nasal Cannula 2.0 97.6 Physical Exam PHYSICAL EXAM GENERAL: In bed and looks well, alert, appears comfortable HEENT: Pupils equally round. Oropharynx - min adhered secretions NECK: Supple. LUNGS: Diminished aeration in left lung base. Nonlabored. Left CT in place HEART: S1 and S2. Pacemaker. ABDOMEN: Nondistended, soft and nontender with bowel sounds present. PEG tube intact : No Barron. EXTREMITIES: No gross edema or cyanosis. SKIN: Warm to touch. No signs of rash. NEUROLOGIC: Alert and answering questions appropriately. PIV Labs Lab Laboratory Tests Test 06/23/19 04:50 White Blood Count 12.8 x10^3/uL (4.0-11.0) Red Blood Count 2.40 x10^6/uL (4.30-5.70) Hemoglobin 7.1 g/dL (13.0-17.5) Hematocrit 21.6 % (39.0-53.0) Mean Corpuscular Volume 90 fL (79-100) Mean Corpuscular Hemoglobin 29 pg (25-35) Mean Corpuscular Hemoglobin Concent 33 g/dL (31-37) Red Cell Distribution Width 17.0 % (11.5-14.5) Platelet Count 426 x10^3/uL (140-400) Neutrophils (%) (Auto) 80 % (31-73) Lymphocytes (%) (Auto) 9 % (24-48) Monocytes (%) (Auto) 9 % (0-9) Eosinophils (%) (Auto) 1 % (0-3) Basophils (%) (Auto) 0 % (0-3) Neutrophils # (Auto) 10.3 x10^3/uL (1.8-7.7) Lymphocytes # (Auto) 1.2 x10^3/uL (1.0-4.8) Monocytes # (Auto) 1.2 x10^3/uL (0.0-1.1) Eosinophils # (Auto) 0.1 x10^3/uL (0.0-0.7) Basophils # (Auto) 0.0 x10^3/uL (0.0-0.2) Prothrombin Time 16.5 SEC (11.7-14.0) Prothromb Time International Ratio 1.4 (0.8-1.1) Sodium Level 145 mmol/L (136-145) Potassium Level 4.2 mmol/L (3.5-5.1) Chloride Level 109 mmol/L (98-107) Carbon Dioxide Level 31 mmol/L (21-32) Anion Gap 5 (6-14) Blood Urea Nitrogen 31 mg/dL (8-26) Creatinine 0.8 mg/dL (0.7-1.3) Estimated GFR (Cockcroft-Gault) 91.9 Glucose Level 111 mg/dL (70-99) Calcium Level 8.0 mg/dL (8.5-10.1) Total Bilirubin 0.4 mg/dL (0.2-1.0) Direct Bilirubin 0.2 mg/dL (0.0-0.2) Aspartate Amino Transf (AST/SGOT) 42 U/L (15-37) Alanine Aminotransferase (ALT/SGPT) 57 U/L (16-63) Alkaline Phosphatase 89 U/L (46-116) Total Protein 5.2 g/dL (6.4-8.2) Albumin 1.2 g/dL (3.4-5.0) IMPRESSION: 1. Pigtail drainage catheter overlies left lower lobe, unchanged. There has been slight interval decrease in size of the left pleural fluid collection. 2. Bilateral perihilar infiltrates are seen which likely reflect pulmonary edema from CHF. Micro Microbiology 06/14/19 Blood Culture - Preliminary, Resulted NO GROWTH AFTER 5 DAY URINE CULTURE RES 1 Final No growth GRAM STAIN RES 2 Final No organisms seen ANAEROBIC RES 1 Final Comment No anaerobes recovered in 48 hours. No anaerobic growth in 72 hours. AEROBIC CULT Final Preliminary report Final report AEROBIC RES 1 Final Comment No growth in 36 - 48 hours. No growth in 56 - 72 hours. Objective Assessment Large partially loculated left pleural effusion s/p CT placement, 06/16. poor specimen, cell count couldn't be done. cultures neg -s/p TPA x 3 doses -Path neg for malignancy Left lower lobe collapse with abscess vs neoplasm Leukocytosis - improving Transaminitis - improving Generalized weakness s/p multiple falls Dysphagia s/p PEG placement in Feb Weight loss COPD CAD Plan Plan of Care Cont Zosyn may wean soon Oral care Maintain aspiration precautions PT/OT D/w nursing Attending Co-Sign Attending Co-Sign The patient was seen and interviewed as well as examined at the bedside. The chart was reviewed. The case was discussed. Agree with the plan of care. MARY BRADY APRN Jun 23, 2019 11:02 ALEJANDRO ANGELO MD Jun 23, 2019 14:54
[2019-06-23 14:57] VITALS: BP 105/56
--- NOTE | 2019-06-23 18:23 | NUR ---
chest tube removal is planned for Sunday 06/24, and supplies are in the room. Patient did refuse his afternoon tube feeding and was coaxed into swallowing just a few swallows of thickened supplement. He ordinarily eagerly accepts his tube feeding and even asks for it.
[2019-06-23 19:25] VITALS: BP 110/56
[2019-06-23] MEDS: LISINOPRIL 10 MG TABLET PO SCH (21:00)
[2019-06-23] MEDS: MIRTAZAPINE 15 MG TABLET PO SCH (22:45)
[2019-06-23] MEDS: ATORVASTATIN CALCIUM 40 MG TABLET. PO SCH (22:46)
[2019-06-23 23:55] VITALS: BP 117/65
[2019-06-24] MEDS: PIPERACILLIN/TAZOBACTAM 3.375 GM in IV NORMAL SALINE 50ML 50 ML IV SCH ×2 (00:25→06:01)
[2019-06-24 03:37] VITALS: BP 112/62
[2019-06-24 07:00] VITALS: BP 116/59
[2019-06-24] MEDS: IPRATRPIUM/ALBUTEROL 0.5/2.5MG 3 ML NEBU. NEB SCH ×4 (07:33→19:44)
[2019-06-24] MEDS: BUDESONIDE 0.5 MG/2 ML NEBU. NEB SCH ×2 (07:33→19:44)
--- NOTE | 2019-06-24 08:37 | RAD ---
PORTABLE CHEST 1V 06/24/2019 9:00 AM INDICATION: Empyema COMPARISON: 06/23/2019 TECHNIQUE: Portable frontal view of the chest is provided. FINDINGS: The cardiomediastinal silhouette is similar in appearance. Left chest wall cardiac device is identified with leads projecting over the right atrium and right ventricle. Pigtail catheter projects over the left lower thorax. There is mild to moderate pulmonary vascular congestion, similar. Bilateral hilar prominence appears stable. Left retrocardiac density is similar suggestive of atelectasis and/or infiltrate. Trace left pleural effusion. No definite pneumothorax. IMPRESSION: Aeration of the lungs appears similar to the prior examination. Support lines and tubes are in similar position. Electronically signed by: Monie Brooks MD (06/24/2019 8:34 AM) [facility]
[2019-06-24] MEDS ORDERED: AMOX1TAB58 PO (09:12)
[2019-06-24] MEDS ORDERED: HYDR-2761 PEG (09:12)
[2019-06-24] MEDS ORDERED: ALBU2.5V8 INH (09:12)
--- NOTE | 2019-06-24 09:15 | SNU/HH DC ---
DISCHARGE WITH HOME HEALTH DISCHARGE INFORMATION: Discharge Date: Jun 24, 2019 Final Diagnosis: Problems Medical Problems: (1) Fever Status: Acute (2) Frequent falls Status: Acute (3) Leukocytosis Status: Acute (4) Sepsis Status: Acute (5) UTI (urinary tract infection) Status: Acute Condition on Discharge: Stable CODE STATUS: Code Status: DNR/DNI HOME HEALTH: Face to Face: I certify this patient is under my care and that I, or a nurse practitioner or physician's supply assistant working with me, had a face to face encounter that meets the physician face to face encounter requirements with this patient on []. RN For Eval/Treatment: Yes Physical Therapy For: Evalulation/Treatment Occupational Therapy For: Evaluation/Treatment Speech Language Pathology For: Evaluation/Treatment Home Health Aide For: Self-care [employer] For: Community Resources Pt Meets Homebound Status: Unsteady balance w/ amb, POST DISCHARGE ORDERS: DIET AFTER DISCHARGE: Regular CHECKS AFTER DISCHARGE: Checks after discharge: Check blood press - daily Comment: lat lung- chest tube placed FOLLOW-UP: PCP to follow Home Health: PCP 4 weeks - s/p pna with effusion needing chest tube TREATMENT/EQUIPMENT ORDERS: Adaptive Equipment Issued: Front wheeled walker CERTIFICATION STATEMENT: Certification Statement: Certification Statement: Based on the above finding, I certify that this patient is confined to the home and needs intermittent long term care, physical therapy and/or speech therapy, or continues to need occupational therapy.~ This patient is under my care, and I have initiated the establishment of the plan of care.~ This patient will be followed by myself or a community physician who will periodically review the plan of care. Home Meds Active Scripts Albuterol Sulfate (PROAIR HFA INHALER) 8.5 Gm Hfa.aer.ad, 1 PUFF INH PRN Q6HRS PRN for SHORTNESS OF BREATH for 30 Days, INHALER 0 Refills Prov:AUGUSTIN LANIER MD 06/24/19 Amoxicillin/Potassium Clav (AUGMENTIN 500-125 TABLET) 1 Each Tablet, 1 TAB PO BID for pna withe ffusion, #14 TAB Prov:AUGUSTIN LANIER MD 06/24/19 Hydrocodone Bit/Acetaminophen (HYDROCODONE-APAP 5-325 ) 1 Tab Tablet, 1 TAB PEG PRN Q4HRS PRN for SEVERE PAIN, #20 TAB Prov:AUGUSTIN LANIER MD 06/24/19 Reported Medications Alprazolam (XANAX) 0.25 Mg Tablet, 1 TAB PO PRN TID PRN for restlessness, #30 TAB 06/15/19 Cholecalciferol (Vitamin D3) (VITAMIN D3) 1,000 Unit Tablet, 2 TAB PO DAILY for supplement, #30 TAB 5 Refills 06/15/19 Acetaminophen (TYLENOL) 325 Mg Tablet, 1 TAB PO PRN Q4HRS for pain/temp, #30 TAB 06/15/19 Multivitamin (MULTIVITAMINS) 1 Each Capsule, 1 EACH PO DAILY for supplement, CAP 06/15/19 Silver Sulfadiazine (SILVADENE) 20 Gm Cream..g., 1 DEMETRI TP DAILY for wound, #50 GM 06/15/19 Sertraline Hcl (ZOLOFT) 100 Mg Tablet, 100 MG PO DAILY for ANTI-DEPRESSANT, TAB 0 Refills 06/15/19 Olanzapine (ZYPREXA) 2.5 Mg Tablet, 2.5 MG PO DAILY for psychotic disorder, TAB 06/15/19 Nystatin (NYSTATIN) 100,000 Unit/1 Ml Oral.susp, 5 ML PO BID for yeast infection, #200 ML 06/15/19 Mirtazapine (MIRTAZAPINE) 15 Mg Tablet, 1 TAB PO QHS for depression, #30 TAB 06/15/19 Magnesium Hydroxide (MILK OF MAGNESIA) 400 Mg/5 Ml Oral.susp, 400 MG PO PRN PRN for CONSTIPATION, MISC 06/15/19 Melatonin (MELATONIN) 3 Mg Tablet, 3 MG PO QHS for insomnia, TAB 06/15/19 Bimatoprost (LUMIGAN) 2.5 Ml Drops, 1 DROP EACHEYE QHS for glaucoma, #2.5 ML 3 Refills 06/15/19 Lisinopril (LISINOPRIL) 10 Mg Tablet, 1 TAB PO HS for HTN, #30 TAB 5 Refills 06/15/19 Hydrocortisone (HYDROCORTISONE) 59 Ml Lotion, 1 DEMETRI TP BID for facial flaking, #60 ML 06/15/19 Guaifenesin/Codeine Phosphate (GUAIFENESIN AC COUGH SYRUP) 473 Ml Liquid, 10 ML PO Q4-6HRS for cough/congestion, #240 ML 06/15/19 Famotidine (FAMOTIDINE) 20 Mg Tablet, 20 MG PO BID for GERD for 30 Days, #60 TAB 06/15/19 Clopidogrel Bisulfate (CLOPIDOGREL) 75 Mg Tablet, 75 MG PO DAILY for TO PREVENT BLOOD CLOTS, #30 TAB 0 Refills 06/15/19 Menthol/Zinc Oxide (CALMOSEPTINE OINTMENT) 71 Gm Oint...g., 71 GM TP BID for barrier cream, MISC 06/15/19 Atorvastatin Calcium (ATORVASTATIN CALCIUM) 80 Mg Tablet, 80 MG PO HS for FOR CHOLESTEROL, #30 TAB 0 Refills 06/15/19 Aspirin (ASPIRIN) 81 Mg Tab.chew, 81 MG PO DAILY for ppx, TAB.CHEW 06/15/19 AUGUSTIN LANIER MD Jun 24, 2019 09:15
[2019-06-24] MEDS: OLANZapine 2.5 MG TABLET PO SCH (09:21)
[2019-06-24] MEDS: LACTOBACILLUS RHAMNOSUS GG 1 CAPSULE. PO SCH ×2 (09:22→21:56)
[2019-06-24] MEDS: FAMOTIDINE 20 MG TABLET. PO SCH ×2 (09:22→21:56)
[2019-06-24] MEDS: CHOLECALCIFEROL (VITAMIN D3) 1,000 UNIT TABLET PO SCH (09:22)
[2019-06-24] MEDS: AMOXICILLIN/K CLAV 500/125MG TABLET. PO SCH ×2 (09:43→21:56)
--- NOTE | 2019-06-24 10:39 | PDOC ---
PULMONARY PROGRESS NOTES Subjective denies SOB, remains on 2 liters N/C , reports no increase in cough 50 cc in chest tube over 24 hours Vitals Vital Signs Date Time Temp Pulse Resp B/P (MAP) Pulse Ox O2 Delivery O2 Flow Rate FiO2 06/24/19 07:34 100 Nasal Cannula 2.0 06/24/19 07:00 97.9 100 18 116/59 (78) 97.9 ROS: No Nausea, No Chest Pain, No Increase Cough General: Alert, No acute distress HEENT: Other (nc at perrl ) Lungs: Other (left fine crackles, dimin. bilateral bases ) Cardiovascular: S1, S2 Abdomen: Soft, Non-tender Neuro Exam: Alert Extremities: No Edema Skin: Warm, Dry Labs Laboratory Tests Test 06/23/19 04:50 White Blood Count 12.8 x10^3/uL (4.0-11.0) Red Blood Count 2.40 x10^6/uL (4.30-5.70) Hemoglobin 7.1 g/dL (13.0-17.5) Hematocrit 21.6 % (39.0-53.0) Mean Corpuscular Volume 90 fL (79-100) Mean Corpuscular Hemoglobin 29 pg (25-35) Mean Corpuscular Hemoglobin Concent 33 g/dL (31-37) Red Cell Distribution Width 17.0 % (11.5-14.5) Platelet Count 426 x10^3/uL (140-400) Neutrophils (%) (Auto) 80 % (31-73) Lymphocytes (%) (Auto) 9 % (24-48) Monocytes (%) (Auto) 9 % (0-9) Eosinophils (%) (Auto) 1 % (0-3) Basophils (%) (Auto) 0 % (0-3) Neutrophils # (Auto) 10.3 x10^3/uL (1.8-7.7) Lymphocytes # (Auto) 1.2 x10^3/uL (1.0-4.8) Monocytes # (Auto) 1.2 x10^3/uL (0.0-1.1) Eosinophils # (Auto) 0.1 x10^3/uL (0.0-0.7) Basophils # (Auto) 0.0 x10^3/uL (0.0-0.2) Prothrombin Time 16.5 SEC (11.7-14.0) Prothromb Time International Ratio 1.4 (0.8-1.1) Sodium Level 145 mmol/L (136-145) Potassium Level 4.2 mmol/L (3.5-5.1) Chloride Level 109 mmol/L (98-107) Carbon Dioxide Level 31 mmol/L (21-32) Anion Gap 5 (6-14) Blood Urea Nitrogen 31 mg/dL (8-26) Creatinine 0.8 mg/dL (0.7-1.3) Estimated GFR (Cockcroft-Gault) 91.9 Glucose Level 111 mg/dL (70-99) Calcium Level 8.0 mg/dL (8.5-10.1) Total Bilirubin 0.4 mg/dL (0.2-1.0) Direct Bilirubin 0.2 mg/dL (0.0-0.2) Aspartate Amino Transf (AST/SGOT) 42 U/L (15-37) Alanine Aminotransferase (ALT/SGPT) 57 U/L (16-63) Alkaline Phosphatase 89 U/L (46-116) Total Protein 5.2 g/dL (6.4-8.2) Albumin 1.2 g/dL (3.4-5.0) Medications Active Scripts Medications Dose Route/Sig Max Daily Dose Days Date Category Xanax (Alprazolam) 0.25 Mg Tablet 1 Tab PO PRN TID PRN 06/15/19 Reported Vitamin D3 (Cholecalciferol (Vitamin D3)) 1,000 Unit Tablet 2 Tab PO DAILY 06/15/19 Reported Tylenol (Acetaminophen) 325 Mg Tablet 1 Tab PO PRN Q4HRS 06/15/19 Reported Multivitamins (Multivitamin) 1 Each Capsule 1 Each PO DAILY 06/15/19 Reported Silvadene (Silver Sulfadiazine) 20 Gm Cream..g. 1 Claudia TP DAILY 06/15/19 Reported Zoloft (Sertraline Hcl) 100 Mg Tablet 100 Mg PO DAILY 06/15/19 Reported Zyprexa (Olanzapine) 2.5 Mg Tablet 2.5 Mg PO DAILY 06/15/19 Reported Nystatin 100,000 Unit/1 Ml Oral.susp 5 Ml PO BID 06/15/19 Reported Mirtazapine 15 Mg Tablet 1 Tab PO QHS 06/15/19 Reported Milk Of Magnesia (Magnesium Hydroxide) 400 Mg/5 Ml Oral.susp 400 Mg PO PRN PRN 06/15/19 Reported Melatonin 3 Mg Tablet 3 Mg PO QHS 06/15/19 Reported Lumigan (Bimatoprost) 2.5 Ml Drops 1 Drop EACHEYE QHS 06/15/19 Reported Lisinopril 10 Mg Tablet 1 Tab PO HS 06/15/19 Reported Hydrocortisone 59 Ml Lotion 1 Claudia TP BID 06/15/19 Reported Guaifenesin Ac Cough Syrup (Guaifenesin/Codeine Phosphate) 473 Ml Liquid 10 Ml PO Q4-6HRS 06/15/19 Reported Famotidine 20 Mg Tablet 20 Mg PO BID 30 06/15/19 Reported Clopidogrel (Clopidogrel Bisulfate) 75 Mg Tablet 75 Mg PO DAILY 06/15/19 Reported Calmoseptine Ointment (Menthol/Zinc Oxide) 71 Gm Oint...g. 71 Gm TP BID 06/15/19 Reported Atorvastatin Calcium 80 Mg Tablet 80 Mg PO HS 06/15/19 Reported Aspirin 81 Mg Tab.chew 81 Mg PO DAILY 06/15/[address] reviewed, 1. No convincing pulmonary embolism. 2. Large partially loculated left pleural effusion. 3. Left lower lobe collapse with a superimposed 3.3 cm rounded area of hypodensity within the collapsed lung possibly due to abscess or neoplasm. 4. Pulmonary emphysema with bronchiectasis and bronchial wall thickening due to superimposed bronchitis. 5. Small scattered nodular opacities within the bilateral upper lobes, primarily involving the lingula. The largest of these measures 8 mm. This may be infectious or inflammatory. Short-term follow-up is recommended. 6. Small right pleural effusion and right lower lobe atelectasis. 7. Suspected reactive mediastinal, hilar and right retrocrural lymphadenopathy. Attention the time of follow-up is recommended. 8. Enlarged central pulmonary arteries, a finding which can be seen with chronic pulmonary artery hypertension.\ repeat ct 06/19 1. There is now pigtail catheter in the previously demonstrated empyema now with minimal internal gas, overall smaller size of the fluid collection, again component which tracks more anteriorly along the mediastinal border. Adjacent compressive atelectasis of the left lower lobe has decreased. Small right pleural effusion is larger with increased adjacent compressive atelectasis. 2. There is again emphysema and coronary calcification. 3. There is again mediastinal lymphadenopathy for which follow-up advised such as in 3 months. Electronically signed by: Kimo Jimenez MD (06/19/2019 5:21 PM) [facility] cxr 06/21 sig improvement in left effusion, small left PTX vs skin fold CXR: 06/24 No significant interval change compared to prior./ CHF Impression . 1. Acute respiratory failure secondary to pneumonia, multi-loculated left effusion c/w early empyema, underlying COPD with acute exacerbation--improving , cultures Neg 2. Abnormal ct chest with multi-loculated left effusion , suspected early empyema, no malignancy by f/u ct chest 06/19. s/p intra-pleural TPA x 3 doses, resolved loculated effusion on left 3. Chronic obstructive pulmonary disease with acute exacerbation. 4. Leukocytosis.-- improving 5. Coronary artery disease. 6. Dysphagia, status post PEG placement.---ongoing 7. protein Malnutrition 8. CHF on cxr Plan . 1. Titrate the FiO2 to keep O2 saturation at 92%. 2. cont bronchodilator. 3. cont inhaled corticosteroid, 4. CT chest f/u 06/19 reviewed,, sig response from TPA via chest tube.x 3 days. no definite mass. loculated fluid resolved. . No further TPA, will remove chest tube today 5. Elevate head of bed, aspiration precaution. 6. Continue antibiotic per ID, 7. Mild diuresis today likely skill in 24 hrs discussed w rn, JENNIFER KC MD Jun 24, 2019 10:39
[2019-06-24] MEDS ORDERED: FUROSEMIDE 20 MG/2 ML VIAL. IVP ONE (10:45)
[2019-06-24 11:00] VITALS: BP 111/54
--- NOTE | 2019-06-24 11:33 | PDOC ---
Infectious Disease Note Subjective Subjective Doing ok In chair. Ct out Tube feeds Denies F/C/SOA/N/V O2 2 L ROS ROS o/w neg Vital Sign Vital Signs Vital Signs Date Time Temp Pulse Resp B/P (MAP) Pulse Ox O2 Delivery O2 Flow Rate FiO2 06/24/19 11:05 93 Nasal Cannula 2.0 06/24/19 11:00 98.2 96 18 111/54 (73) 98.2 Physical Exam PHYSICAL EXAM GENERAL: In bed and looks well, alert, appears comfortable HEENT: Pupils equally round. Oropharynx - min adhered secretions NECK: Supple. LUNGS: Diminished aeration in left lung base. Nonlabored. Left CT in place HEART: S1 and S2. Pacemaker. ABDOMEN: Nondistended, soft and nontender with bowel sounds present. PEG tube intact : No Barron. EXTREMITIES: No gross edema or cyanosis. SKIN: Warm to touch. No signs of rash. NEUROLOGIC: Alert and answering questions appropriately. PIV Labs Micro CXR Impression: 1. Decreased loculated left pleural fluid compatible with empyema given history. Left pigtail pleural drain, unchanged. 2. Decreased left lung patchy opacities. Microbiology 06/14/19 Blood Culture - Preliminary, Resulted NO GROWTH AFTER 3 DAY URINE CULTURE RES 1 Final No growth Objective Assessment Large partially loculated left pleural effusion s/p CT placement, 06/16. poor specimen, cell count couldn't be done. cultures pending - neg so far. Chest tubes out -s/p TPA, 06/17 Left lower lobe collapse with abscess vs neoplasm Leukocytosis - better Transaminitis Generalized weakness s/p multiple falls Dysphagia s/p PEG placement in Feb Weight loss COPD CAD Plan Plan of Care Discont Carmelsyuziel begin Augmenit Oral care Maintain aspiration precautions PT/OT D/w ALEJANDRO Christopher MD Jun 24, 2019 11:33
--- NOTE | 2019-06-24 11:41 | PDOC ---
PROGRESS NOTES Chief Complaint Chief Complaint Left sided loculated effusion, empyema s/p left indwelling chest tube (06/16), s/p tPA REMOVED 06/24 Small Right-sided pleural effusion Freq falls in AL, non injury falls - mechanical falls Dysphagia, indwelling PEG x 7 mos now, STrict NPO, bolus TFs at AL RT wrist OA Indwelling pacer LEUKOCYTOSIS Left lower lobe collapse with pneumonia and lymphadenpathy. High risk for gram negative given his SNF status and structural lung disease with smoking history Leukocytosis, improving Transaminitis Generalized weakness s/p multiple falls Weight loss COPD CAD History of Present Illness History of Present Illness Known to me, I admitted him HE IS WAY WEAKER THAN WHEN I ADMITTED HIM AND HE REFUSES SNU [facility] from [facility] His is also at [facility] Chest tube out today CXR somewhat fluffy per PUlmo- lasix today PLAN: SW - REALLY recommend SNU BUT HE REALLY just wants HH OUT OF SNU DAYS too dw SW LAsix today One more PT.OT today target dc tmr - too weak today CHECK ECHO Vitals Vitals Vital Signs Date Time Temp Pulse Resp B/P (MAP) Pulse Ox O2 Delivery O2 Flow Rate FiO2 06/24/19 11:05 93 Nasal Cannula 2.0 06/24/19 11:00 98.2 96 18 111/54 (73) 98.2 Physical Exam Physical Exam GENERAL: In bed and looks well, alert, appears comfortable HEENT: Pupils equally round. Oropharynx - min adhered secretions NECK: Supple. LUNGS: Diminished aeration in left lung base. Nonlabored. Left CT in place HEART: S1 and S2. Pacemaker. ABDOMEN: Nondistended, soft and nontender with bowel sounds present. PEG tube intact : No Barron. EXTREMITIES: No gross edema or cyanosis. SKIN: Warm to touch. No signs of rash. NEUROLOGIC: Alert and answering questions appropriately. PIV General: Alert, Oriented X3, Cooperative, No acute distress Heart: Regular rate, Normal S1, Normal S2 Lungs: Other (left fine crackles, dimin. bilateral bases ) Abdomen: Normal bowel sounds, Soft, No tenderness, No hepatosplenomegaly, No masses Extremities: No clubbing, No cyanosis, No edema, Normal pulses, No tenderness/swelling Skin: Other (senile skin turgor, some old skin brusing) Review of Systems Review of Systems weak, cough,no, fevers, no diarrhea - rest of 14 pt neg Assessment and Plan Assessmemt and Plan Problems Medical Problems: (1) Fever Status: Acute (2) Frequent falls Status: Acute (3) Leukocytosis Status: Acute (4) Sepsis Status: Acute (5) UTI (urinary tract infection) Status: Acute Comment Review of Relevant I have reviewed the following items lorenzo (where applicable) has been applied. Labs Laboratory Tests Test 06/23/19 04:50 White Blood Count 12.8 x10^3/uL (4.0-11.0) Red Blood Count 2.40 x10^6/uL (4.30-5.70) Hemoglobin 7.1 g/dL (13.0-17.5) Hematocrit 21.6 % (39.0-53.0) Mean Corpuscular Volume 90 fL (79-100) Mean Corpuscular Hemoglobin 29 pg (25-35) Mean Corpuscular Hemoglobin Concent 33 g/dL (31-37) Red Cell Distribution Width 17.0 % (11.5-14.5) Platelet Count 426 x10^3/uL (140-400) Neutrophils (%) (Auto) 80 % (31-73) Lymphocytes (%) (Auto) 9 % (24-48) Monocytes (%) (Auto) 9 % (0-9) Eosinophils (%) (Auto) 1 % (0-3) Basophils (%) (Auto) 0 % (0-3) Neutrophils # (Auto) 10.3 x10^3/uL (1.8-7.7) Lymphocytes # (Auto) 1.2 x10^3/uL (1.0-4.8) Monocytes # (Auto) 1.2 x10^3/uL (0.0-1.1) Eosinophils # (Auto) 0.1 x10^3/uL (0.0-0.7) Basophils # (Auto) 0.0 x10^3/uL (0.0-0.2) Prothrombin Time 16.5 SEC (11.7-14.0) Prothromb Time International Ratio 1.4 (0.8-1.1) Sodium Level 145 mmol/L (136-145) Potassium Level 4.2 mmol/L (3.5-5.1) Chloride Level 109 mmol/L (98-107) Carbon Dioxide Level 31 mmol/L (21-32) Anion Gap 5 (6-14) Blood Urea Nitrogen 31 mg/dL (8-26) Creatinine 0.8 mg/dL (0.7-1.3) Estimated GFR (Cockcroft-Gault) 91.9 Glucose Level 111 mg/dL (70-99) Calcium Level 8.0 mg/dL (8.5-10.1) Total Bilirubin 0.4 mg/dL (0.2-1.0) Direct Bilirubin 0.2 mg/dL (0.0-0.2) Aspartate Amino Transf (AST/SGOT) 42 U/L (15-37) Alanine Aminotransferase (ALT/SGPT) 57 U/L (16-63) Alkaline Phosphatase 89 U/L (46-116) Total Protein 5.2 g/dL (6.4-8.2) Albumin 1.2 g/dL (3.4-5.0) Microbiology 06/16/19 Anaerobic/Aerobic Culture - Final, Complete 06/16/19 Anaerobic Culture Result 1 (TASHA) - Final, Complete 06/16/19 Aerobic Culture - Final, Complete 06/16/19 Aerobic Culture Result 1 (TASHA) - Final, Complete 06/16/19 Gram Stain - Final, Complete 06/16/19 Gram Stain Result 1 (TASHA) - Final, Complete 06/16/19 Gram Stain Result 2 (TASHA) - Final, Complete 06/14/19 Blood Culture - Final, Complete NO GROWTH AFTER 5 DAYS 06/14/19 Urine Culture - Final, Complete 06/14/19 Urine Culture Result 1 (TASHA) - Final, Complete Medications Current Medications Acetaminophen (Tylenol) 500 mg PRN Q6HRS PRN PO MILD PAIN / TEMP; Start 06/14/19 at 19:30; Stop 06/14/19 at 19:34; Status DC Acetaminophen/ Codeine Phosphate (Tylenol #3) 1 tab PRN Q6HRS PRN PO MODERATE PAIN; Start 06/14/19 at 19:30; Stop 06/14/19 at 19:34; Status DC Calcium Carbonate/ Glycine (Tums) 500 mg PRN AFTMEALHC PRN PO INDIGESTION; Start 06/14/19 at 19:30; Stop 06/14/19 at 19:34; Status DC Ondansetron HCl (Zofran) 4 mg PRN Q6HRS PRN IVP NAUSEA/VOMITING; Start 06/14/19 at 19:30 Temazepam (Restoril) 7.5 mg PRN QHS PRN PO INSOMNIA; Start 06/14/19 at 19:30; Stop 06/21/19 at 10:37; Status DC Acetaminophen/ Hydrocodone Bitart (Lortab 5/325) 1 tab PRN Q4HRS PRN PO MODERATE PAIN; Start 06/14/19 at 19:30; Stop 06/14/19 at 19:34; Status DC Fentanyl Citrate (Fentanyl 2ml Vial) 25 mcg PRN Q2HR PRN IV PAIN; Start 06/14/19 at 19:30 Acetaminophen (Tylenol) 500 mg PRN Q6HRS PRN PEG MILD PAIN / TEMP; Start 06/14/19 at 19:45 Acetaminophen/ Codeine Phosphate (Tylenol #3) 1 tab PRN Q6HRS PRN PEG MODERATE PAIN; Start 06/14/19 at 19:34 Calcium Carbonate/ Glycine (Tums) 500 mg PRN AFTMEALHC PRN PEG INDIGESTION; Start 06/14/19 at 19:34 Acetaminophen/ Hydrocodone Bitart (Lortab 5/325) 1 tab PRN Q4HRS PRN PEG SEVERE PAIN; Start 06/14/19 at 19:34 Piperacillin Sod/ Tazobactam Sod 4.5 gm/Sodium Chloride 100 ml @ 200 mls/hr 1X ONCE IV Last administered on 06/15/19at 00:05; Start 06/14/19 at 22:00; Stop 06/14/19 at 22:29; Status DC Sodium Chloride 1,000 ml @ 1,000 mls/hr Q1H IV Last administered on 06/15/19at 00:04; Start 06/14/19 at 21:30; Stop 06/14/19 at 23:13; Status DC Ondansetron HCl (Zofran) 4 mg PRN Q8HRS PRN IV NAUSEA/VOMITING 1ST CHOICE; Start 06/14/19 at 21:15; Stop 06/15/19 at 21:14; Status DC Morphine Sulfate (Morphine Sulfate) 2 mg PRN Q2HR PRN IV SEVERE PAIN 7-10; Start 06/14/19 at 21:15; Stop 06/15/19 at 21:14; Status DC Acetaminophen (Tylenol) 650 mg PRN Q4HRS PRN PO FEVER; Start 06/14/19 at 21:15; Stop 06/15/19 at 21:14; Status DC Acetaminophen (Tylenol) 1,000 mg 1X ONCE PO Last administered on 06/15/19at 00:03; Start 06/14/19 at 21:30; Stop 06/14/19 at 21:31; Status DC Albuterol/ Ipratropium (Duoneb) 3 ml RTQID NEB Last administered on 06/24/19at 11:04; Start 06/15/19 at 12:00 Albuterol/ Ipratropium (Duoneb) 3 ml 1X ONCE NEB Last administered on 06/15/19at 11:21; Start 06/15/19 at 09:00; Stop 06/15/19 at 09:01; Status DC Budesonide (Pulmicort) 0.5 mg RTBID NEB Last administered on 06/24/19at 07:33; Start 06/15/19 at 20:00 Budesonide (Pulmicort) 0.5 mg 1X ONCE NEB Last administered on 06/15/19at 11:21; Start 06/15/19 at 09:00; Stop 06/15/19 at 09:01; Status DC Iohexol (Omnipaque 350 Mg/ml) 90 ml 1X ONCE IV Last administered on 06/15/19at 10:20; Start 06/15/19 at 09:00; Stop 06/15/19 at 09:01; Status DC Info (CONTRAST GIVEN -- Rx MONITORING) 1 each PRN DAILY PRN MC SEE COMMENTS; Start 06/15/19 at 09:15; Stop 06/17/19 at 09:14; Status DC Vancomycin HCl (Vanco Per Pharmacy) 1 each PRN DAILY PRN MC SEE COMMENTS Last administered on 06/18/19at 13:04; Start 06/15/19 at 10:00; Stop 06/18/19 at 15:4 7; Status DC Piperacillin Sod/ Tazobactam Sod (Zosyn Per Pharmacy) 1 each PRN DAILY PRN MC SEE COMMENTS; Start 06/15/19 at 10:00; Stop 06/24/19 at 09:11; Status DC Piperacillin Sod/ Tazobactam Sod 3.375 gm/Sodium Chloride 50 ml @ 100 mls/hr Q6HRS IV Last administered on 06/24/19at 06:01; Start 06/15/19 at 11:00; Stop 06/24/19 at 09:11; Status DC Vancomycin HCl 1.5 gm/Sodium Chloride 500 ml @ 250 mls/hr 1X ONCE IV Last administered on 06/15/19at 13:23; Start 06/15/19 at 11:00; Stop 06/15/19 at 12:59; Status DC Vancomycin HCl 1 gm/Sodium Chloride 250 ml @ 250 mls/hr Q24H IV Last administered on 06/16/19at 12:32; Start 06/16/19 at 13:30; Stop 06/17/19 at 14:06; Status DC Vancomycin HCl (Vancomycin Trough Level) 1 each 1X ONCE MC Last administered on 06/17/19at 13:00; Start 06/17/19 at 13:00; Stop 06/17/19 at 13:01; Status DC Midazolam HCl (Versed) 2 mg STK-MED ONCE .ROUTE ; Start 06/16/19 at 09:32; Stop 06/16/19 at 09:32; Status DC Fentanyl Citrate (Fentanyl 2ml Vial) 100 mcg STK-MED ONCE .ROUTE ; Start 06/16/19 at 09:32; Stop 06/16/19 at 09:33; Status DC Lidocaine/Sodium Bicarbonate (Buffered Lidocaine 1%) 3 ml STK-MED ONCE .ROUTE ; Start 06/16/19 at 09:46; Stop 06/16/19 at 09:47; Status DC Lidocaine/Sodium Bicarbonate (Buffered Lidocaine 1%) 3 ml 1X ONCE IJ Last administered on 06/16/19at 10:21; Start 06/16/19 at 10:15; Stop 06/16/19 at 10:16; Status DC Midazolam HCl (Versed) 2 mg 1X ONCE IV Last administered on 06/16/19at 10:22; Start 06/16/19 at 10:15; Stop 06/16/19 at 10:16; Status DC Fentanyl Citrate (Fentanyl 2ml Vial) 100 mcg 1X ONCE IV Last administered on 06/16/19at 10:22; Start 06/16/19 at 10:15; Stop 06/16/19 at 10:16; Status DC Lactobacillus Rhamnosus (Culturelle) 1 cap BID PO Last administered on 06/24/19 09:22; Start 06/16/19 at 21:00 Acetaminophen (Tylenol) 325 mg PRN Q4HRS PRN PO MURPHY/FEVER Last administered on 06/20/19 22:09; Start 06/17/19 at 12:30 Alprazolam (Xanax) 0.25 mg PRN TID PRN PO restlessness Last administered on 06/20/19 22:08; Start 06/17/19 at 12:30; Stop 06/21/19 at 10:37; Status DC Vitamin D (Vitamin D3) 2,000 unit DAILY PO Last administered on 06/24/19 09:22; Start 06/17/19 at 13:00 Famotidine (Pepcid) 20 mg BID PO Last administered on 06/24/19 09:22; Start 06/17/19 at 21:00 Lisinopril (Prinivil) 10 mg HS PO Last administered on 06/21/19 21:32; Start 06/17/19 at 21:00 Magnesium Hydroxide (Milk Of Magnesia) 400 mg PRN DAILY PRN PO CONSTIPATION; Start 06/17/19 at 12:30 Mirtazapine (Remeron) 15 mg QHS PO Last administered on 06/23/19 22:45; Start 06/17/19 at 21:00 Olanzapine (ZyPREXA) 2.5 mg DAILY PO Last administered on 06/24/19 09:21; Start 06/17/19 at 13:00 Atorvastatin Calcium (Lipitor) 80 mg QHS PO Last administered on 06/23/19 22:46; Start 06/17/19 at 21:00 Alteplase, Recombinant 10 mg/ Sterile Water 50 ml @ 200 mls/hr 1X ONCE IPL Last administered on 06/17/19 15:18; Start 06/17/19 at 14:00; Stop 06/17/19 at 14:14; Status DC Vancomycin HCl 1.25 gm/Sodium Chloride 250 ml @ 167 mls/hr Q18H IV Last administered on 06/17/19 15:18; Start 06/17/19 at 15:00; Stop 06/17/19 at 16:30; Status DC Vancomycin HCl (Vancomycin Trough Level) 1 each 1X ONCE MC ; Start 06/19/19 at 02:30; Stop 06/19/19 at 02:31; Status Cancel Vancomycin HCl 750 mg/Sodium Chloride 250 ml @ 250 mls/hr Q12H IV Last admini stered on 06/18/19at 15:10; Start 06/18/19 at 03:00; Stop 06/18/19 at 15:47; Status DC Influenza Virus Vaccine Quadrival (Afluria Quad 2019-20 (3yr Up) Syringe) 0.5 ml ONCE ONCE VAX IM Last administered on 06/18/19at 10:28; Start 06/18/19 at 10:30; Stop 06/18/19 at 10:31; Status DC Alteplase, Recombinant 10 mg/ Sterile Water 50 ml @ 200 mls/hr 1X ONCE IPL Last administered on 06/18/19at 11:37; Start 06/18/19 at 10:30; Stop 06/18/19 at 10:44; Status DC Alteplase, Recombinant 10 mg/ Sterile Water 50 ml @ 200 mls/hr 1X ONCE IPL Last administered on 06/20/19at 10:45; Start 06/20/19 at 10:45; Stop 06/20/19 at 10:59; Status DC Amoxicillin/ Clavulanate Potassium (Augmentin 500/ 125mg) 1 tab BID PO Last administered on 06/24/19at 09:43; Start 06/24/19 at 10:00 Furosemide (Lasix) 20 mg 1X ONCE IVP ; Start 06/24/19 at 10:45; Stop 06/24/19 at 10:46; Status DC Active Scripts Active Proair Hfa Inhaler (Albuterol Sulfate) 8.5 Gm Hfa.aer.ad 1 Puff INH PRN Q6HRS PRN 30 Days Augmentin 500-125 Tablet (Amoxicillin/Potassium Clav) 1 Each Tablet 1 Tab PO BID Hydrocodone-Apap 5-325 (Hydrocodone Bit/Acetaminophen) 1 Tab Tablet 1 Tab PEG PRN Q4HRS PRN Reported Xanax (Alprazolam) 0.25 Mg Tablet 1 Tab PO PRN TID PRN Vitamin D3 (Cholecalciferol (Vitamin D3)) 1,000 Unit Tablet 2 Tab PO DAILY Tylenol (Acetaminophen) 325 Mg Tablet 1 Tab PO PRN Q4HRS Multivitamins (Multivitamin) 1 Each Capsule 1 Each PO DAILY Silvadene (Silver Sulfadiazine) 20 Gm Cream..g. 1 Claudia TP DAILY Zoloft (Sertraline Hcl) 100 Mg Tablet 100 Mg PO DAILY Zyprexa (Olanzapine) 2.5 Mg Tablet 2.5 Mg PO DAILY Nystatin 100,000 Unit/1 Ml Oral.susp 5 Ml PO BID Mirtazapine 15 Mg Tablet 1 Tab PO QHS Milk Of Magnesia (Magnesium Hydroxide) 400 Mg/5 Ml Oral.susp 400 Mg PO PRN PRN Melatonin 3 Mg Tablet 3 Mg PO QHS Lumigan (Bimatoprost) 2.5 Ml Drops 1 Drop EACHEYE QHS Lisinopril 10 Mg Tablet 1 Tab PO HS Hydrocortisone 59 Ml Lotion 1 Claudia TP BID Guaifenesin Ac Cough Syrup (Guaifenesin/Codeine Phosphate) 473 Ml Liquid 10 Ml PO Q4-6HRS Famotidine 20 Mg Tablet 20 Mg PO BID 30 Days Clopidogrel (Clopidogrel Bisulfate) 75 Mg Tablet 75 Mg PO DAILY Calmoseptine Ointment (Menthol/Zinc Oxide) 71 Gm Oint...g. 71 Gm TP BID Atorvastatin Calcium 80 Mg Tablet 80 Mg PO HS Aspirin 81 Mg Tab.chew 81 Mg PO DAILY Vitals/I & O Vital Sign - Last 24 Hours 06/23/19 06/23/19 06/23/19 06/23/19 14:57 15:07 19:25 19:38 Temp 97.6 99.3 97.6 99.3 Pulse 96 99 Resp 17 20 B/P (MAP) 105/56 (72) 110/56 (74) Pulse Ox 97 94 98 94 O2 Delivery Nasal Cannula Nasal Cannula Nasal Cannula Nasal Cannula O2 Flow Rate 2.0 2.0 2.0 2.0 06/23/19 06/23/19 06/23/19 06/23/19 19:39 19:45 21:00 23:55 Temp 98.8 98.8 Pulse 92 100 Resp 20 B/P (MAP) 102/56 117/65 (82) Pulse Ox 94 98 O2 Delivery Nasal Cannula Nasal Cannula Nasal Cannula O2 Flow Rate 2.0 2.0 2.0 06/24/19 06/24/19 06/24/19 06/24/19 03:37 07:00 07:34 11:00 Temp 99.0 97.9 98.2 99.0 97.9 98.2 Pulse 103 100 96 Resp 18 18 18 B/P (MAP) 112/62 (79) 116/59 (78) 111/54 (73) Pulse Ox 91 96 100 94 O2 Delivery Nasal Cannula Nasal Cannula Nasal Cannula Nasal Cannula O2 Flow Rate 2.0 2.0 2.0 2.0 06/24/19 11:05 Pulse Ox 93 O2 Delivery Nasal Cannula O2 Flow Rate 2.0 Intake and Output 06/23/19 06/23/19 06/24/19 15:00 23:00 07:00 Intake Total 1274 ml 1486 ml 637 ml Output Total 0 ml 40 ml Balance 1274 ml 1486 ml 597 ml Nutrition Consultation Dietary Evaluation: Recommendations by RD: Add supplement feedings Comments: continue sloan bid w/ bolus TF for nutrition Expected Outcomes/Goals: to meet > 75% est nutr needs improved wound status goals ongoing Interpretation of weight loss: >10% in 6 months Malnutrition Findings: Body Fat Depletion (Non Severe: Mod to Severe Weight Status: Underweight AUGUSTIN LANIER MD Jun 24, 2019 11:41
--- NOTE | 2019-06-24 12:38 | NUR ---
SS following up with discharge planning. Pt will discharge to Physician Directed Care floor at the [facility] when stable for discharge. Physician notified. SS will continue to follow for discharge planning.
[2019-06-24 15:00] VITALS: BP 108/62
[2019-06-24 19:00] VITALS: BP 106/66
[2019-06-24] MEDS: MIRTAZAPINE 15 MG TABLET PO SCH (21:55)
[2019-06-24] MEDS: ATORVASTATIN CALCIUM 40 MG TABLET. PO SCH (21:55)
[2019-06-24] MEDS: LISINOPRIL 10 MG TABLET PO SCH (21:58)
[2019-06-24 23:00] VITALS: BP 107/62
[2019-06-25 03:00] VITALS: BP 103/57
[2019-06-25 07:00] VITALS: BP 122/67
[2019-06-25] MEDS: BUDESONIDE 0.5 MG/2 ML NEBU. NEB SCH (07:47)
[2019-06-25] MEDS: IPRATRPIUM/ALBUTEROL 0.5/2.5MG 3 ML NEBU. NEB SCH ×2 (07:52→11:41)
--- NOTE | 2019-06-25 09:10 | PDOC3 ---
Discharge Summary Visit Information Date of Admission: Jun 14, 2019 Date of Discharge: Jun 25, 2019 Admitting Diagnosis Comment: Left sided loculated effusion, empyema s/p left indwelling chest tube (06/16), s/p tPA REMOVED 06/24 Small Right-sided pleural effusion Freq falls in [place], non injury falls - mechanical falls Dysphagia, indwelling PEG x 7 mos now, STrict NPO, bolus TFs at DE RT wrist OA Indwelling pacer LEUKOCYTOSIS Left lower lobe collapse with pneumonia and lymphadenpathy. High risk for gram negative given his SNF status and structural lung disease with smoking history Leukocytosis, improving Transaminitis Generalized weakness s/p multiple falls Weight loss COPD CAD Final Diagnosis Problems Medical Problems: (1) Fever Status: Acute (2) Frequent falls Status: Acute (3) Leukocytosis Status: Acute (4) Sepsis Status: Acute (5) UTI (urinary tract infection) Status: Acute Brief Hospital Course Allergies Allergies Coded Allergies Type Severity Reaction Last Updated Verified No Known Drug Allergies 06/14/19 No Vital Signs Vital Signs Date Time Temp Pulse Resp B/P (MAP) Pulse Ox O2 Delivery O2 Flow Rate FiO2 06/25/19 07:53 92 Nasal Cannula 2.0 06/25/19 07:00 97.4 108 22 122/67 (85) 97.4 Brief Hospital Course Mr. Ugalde is a 83 old very pleasant white male, who came from [facility], was admitted bec of freq falls at [place] but on work up was found to have HUGE left sided pleural effusion, likely from CAP that needed Chest tube, DRained the fluid, transudative, weak but better/stable to dc with HH< PT recs SNU but he doesnt want SNU, wants to go back to [facility] as is also there, CO managed with ID, HE is otherwise healthy for age, PO augmentin on dc Proc; Chest tube. left side -stayed for few days COnsults: ID, pulmo, IR dispO; HH DNR He is tube fed via PEG, bolus, bec of dysphagia hx from remote stroke, otherwise he is NOT bed bound Discharge Information Condition at Discharge: Improved, Stable Disposition/Orders: D/C to Home w/ HH Scheduled Acetaminophen (Tylenol) 325 Mg Tablet, 1 TAB PO PRN Q4HRS for pain/temp, #30 (Reported) Entered as Reported by: JARRED JENKINS RN on 06/15/191448 Last Action: Continued on 06/17/191222 by BHAVIK CRAIN MD Amoxicillin/Potassium Clav (Augmentin 500-125 Tablet) 1 Each Tablet, 1 TAB PO BID for pna withe ffusion, #14 Prescribed by: AUGUSTIN LANIER on 06/24/19 0912 Aspirin (Aspirin) 81 Mg Tab.chew, 81 MG PO DAILY for ppx, (Reported) Entered as Reported by: JARRED JENKINS RN on 06/15/191448 Last Action: New Order on 06/15/191448 by JARRED JENKINS RN Atorvastatin Calcium (Atorvastatin Calcium) 80 Mg Tablet, 80 MG PO HS for FOR CHOLESTEROL, #30 Ref 0 (Reported) Entered as Reported by: JARRED JENKINS RN on 06/15/191448 Last Action: Converted on 06/17/191222 by BHAVIK CRAIN MD Bimatoprost (Lumigan) 2.5 Ml Drops, 1 DROP EACHEYE QHS for glaucoma, #2.5 Ref 3 (Reported) Entered as Reported by: JARRED JENKINS RN on 06/15/191448 Last Action: New Order on 06/15/191448 by JARRED JENKINS RN Cholecalciferol (Vitamin D3) (Vitamin D3) 1,000 Unit Tablet, 2 TAB PO DAILY for supplement, #30 Ref 5 (Reported) Entered as Reported by: JARRED JENKINS RN on 06/15/191448 Last Action: Continued on 06/17/191222 by BHAVIK CRAIN MD Clopidogrel Bisulfate (Clopidogrel) 75 Mg Tablet, 75 MG PO DAILY for TO PREVENT BLOOD CLOTS, #30 Ref 0 (Reported) Entered as Reported by: JARRED JENKINS RN on 06/15/191448 Last Action: New Order on 06/15/191448 by JARRED JENKINS RN Famotidine (Famotidine) 20 Mg Tablet, 20 MG PO BID for GERD for 30 Days, #60 (Reported) Entered as Reported by: JARRED JENKINS RN on 06/15/191448 Last Action: Continued on 06/17/191222 by BHAVIK CRAIN MD Guaifenesin/Codeine Phosphate (Guaifenesin Ac Cough Syrup) 473 Ml Liquid, 10 ML PO Q4-6HRS for cough/congestion, #240 (Reported) Entered as Reported by: JARRED JENKINS RN on 06/15/191448 Last Action: New Order on 06/15/191448 by JARRED JENKINS RN Hydrocortisone (Hydrocortisone) 59 Ml Lotion, 1 DEMETRI TP BID for facial flaking, #60 (Reported) Entered as Reported by: JARRED JENKINS RN on 06/15/191448 Last Action: New Order on 06/15/191448 by JARRED JENKINS RN Lisinopril (Lisinopril) 10 Mg Tablet, 1 TAB PO HS for HTN, #30 Ref 5 (Reported) Entered as Reported by: JARRED JENKINS RN on 06/15/191448 Last Action: Continued on 06/17/191222 by BHAVIK CRAIN MD Melatonin (Melatonin) 3 Mg Tablet, 3 MG PO QHS for insomnia, (Reported) Entered as Reported by: JARRED JENKINS RN on 06/15/191448 Last Action: New Order on 06/15/191448 by JARRED JENKINS RN Menthol/Zinc Oxide (Calmoseptine Ointment) 71 Gm Oint...g., 71 GM TP BID for barrier cream, (Reported) Entered as Reported by: JARRED JENKINS RN on 06/15/191448 Last Action: New Order on 06/15/191448 by JARRED JENKINS RN Mirtazapine (Mirtazapine) 15 Mg Tablet, 1 TAB PO QHS for depression, #30 (Reported) Entered as Reported by: JARRED JENKINS RN on 06/15/191448 Last Action: Continued on 06/17/191222 by BHAVIK CRAIN MD Multivitamin (Multivitamins) 1 Each Capsule, 1 EACH PO DAILY for supplement, (Reported) Entered as Reported by: JARRED JENKINS RN on 06/15/191448 Last Action: New Order on 06/15/191448 by JARRED JENKINS RN Nystatin (Nystatin) 100,000 Unit/1 Ml Oral.susp, 5 ML PO BID for yeast infection, #200 (Reported) Entered as Reported by: JARRED JENKINS RN on 06/15/191448 Last Action: New Order on 06/15/191448 by JARRED JENKINS RN Olanzapine (Zyprexa) 2.5 Mg Tablet, 2.5 MG PO DAILY for psychotic disorder, (Reported) Entered as Reported by: JARRED JENKINS RN on 06/15/191448 Last Action: Continued on 06/17/191222 by BHAVIK CRAIN MD Sertraline Hcl (Zoloft) 100 Mg Tablet, 100 MG PO DAILY for ANTI-DEPRESSANT, Ref 0 (Reported) Entered as Reported by: JARRED JENKINS RN on 06/15/191448 Last Action: New Order on 06/15/191448 by JARRED JENKINS RN Silver Sulfadiazine (Silvadene) 20 Gm Cream..g., 1 DEMETRI TP DAILY for wound, #50 (Reported) Entered as Reported by: JARRED JENKINS RN on 06/15/191448 Last Action: New Order on 06/15/191448 by JARRED JENKINS RN Scheduled PRN Albuterol Sulfate (Proair Hfa Inhaler) 8.5 Gm Hfa.aer.ad, 1 PUFF INH PRN Q6HRS PRN for SHORTNESS OF BREATH for 30 Days, Ref 0 Prescribed by: AUGUSTIN LANIER on 06/24/19 0912 Alprazolam (Xanax) 0.25 Mg Tablet, 1 TAB PO PRN TID PRN for restlessness, #30 (Reported) Entered as Reported by: JARRED JENKINS RN on 06/15/191448 Last Action: Continued on 06/17/191222 by BHAVIK CRAIN MD Hydrocodone Bit/Acetaminophen (Hydrocodone-Apap 5-325 ) 1 Tab Tablet, 1 TAB PEG PRN Q4HRS PRN for SEVERE PAIN, #20 Prescribed by: AUGUSTIN LANIER on 06/24/19 09 Magnesium Hydroxide (Milk Of Magnesia) 400 Mg/5 Ml Oral.susp, 400 MG PO PRN PRN for CONSTIPATION, (Reported) Entered as Reported by: JARRED JENKINS RN on 06/15/191448 Last Action: Continued on 06/17/191222 by MD YOLANDE HENDRICKSON CHERRIE Y MD Jun 25, 2019 09:10
[2019-06-25] MEDS: CHOLECALCIFEROL (VITAMIN D3) 1,000 UNIT TABLET PO SCH (09:14)
[2019-06-25] MEDS: FAMOTIDINE 20 MG TABLET. PO SCH (09:14)
[2019-06-25] MEDS: AMOXICILLIN/K CLAV 500/125MG TABLET. PO SCH (09:14)
[2019-06-25] MEDS: LACTOBACILLUS RHAMNOSUS GG 1 CAPSULE. PO SCH (09:14)
[2019-06-25] MEDS: OLANZapine 2.5 MG TABLET PO SCH (09:14)
--- NOTE | 2019-06-25 09:18 | SNU/HH DC ---
DISCHARGE ORDERS DISCHARGE INFORMATION: DISCHARGE DATE: Jun 25, 2019 FINAL DIAGNOSIS Problems Medical Problems: (1) Fever Status: Acute (2) Frequent falls Status: Acute (3) Leukocytosis Status: Acute (4) Sepsis Status: Acute (5) UTI (urinary tract infection) Status: Acute CONDITION ON DISCHARGE: Stable CODE STATUS: Code Status: DNR/DNI PENITENTIARY: SNF STAY <30 DAYS: Yes HOSPICE: HOSPICE: No HOSPICE EVAL & TREAT: No LTAC: ADMIT TO LTAC: No POST DISCHARGE ORDERS: DIET AFTER DISCHARGE: Regular CHECKS AFTER DISCHARGE: CHECKS AFTER DISCHARGE: Check blood press - daily COMMENTS: lat lung- chest tube placed FOLLOW-UP: PHYSICIAN FOLLOW-UP: pcp if have issues TREATMENT/EQUIPMENT ORDERS: ADAPTIVE EQUIPMENT NEEDED: Front wheeled walker Physical Therapy For: Evalulation/Treatment Occupational Therapy For: Evaluation/Treatment Speech Language Pathology For: Evaluation/Treatment DISCHARGE MEDICATIONS: Home Meds Active Scripts Albuterol Sulfate (PROAIR HFA INHALER) 8.5 Gm Hfa.aer.ad, 1 PUFF INH PRN Q6HRS PRN for SHORTNESS OF BREATH for 30 Days, INHALER 0 Refills Prov:AUGUSTIN LANIER MD 06/24/19 Amoxicillin/Potassium Clav (AUGMENTIN 500-125 TABLET) 1 Each Tablet, 1 TAB PO BID for pna withe ffusion, #14 TAB Prov:AUGUSTIN LANIER MD 06/24/19 Hydrocodone Bit/Acetaminophen (HYDROCODONE-APAP 5-325 ) 1 Tab Tablet, 1 TAB PEG PRN Q4HRS PRN for SEVERE PAIN, #20 TAB Prov:AUGUSTIN LANIER MD 06/24/19 Reported Medications Alprazolam (XANAX) 0.25 Mg Tablet, 1 TAB PO PRN TID PRN for restlessness, #30 TAB 06/15/19 Cholecalciferol (Vitamin D3) (VITAMIN D3) 1,000 Unit Tablet, 2 TAB PO DAILY for supplement, #30 TAB 5 Refills 06/15/19 Acetaminophen (TYLENOL) 325 Mg Tablet, 1 TAB PO PRN Q4HRS for pain/temp, #30 TAB 06/15/19 Multivitamin (MULTIVITAMINS) 1 Each Capsule, 1 EACH PO DAILY for supplement, CAP 06/15/19 Silver Sulfadiazine (SILVADENE) 20 Gm Cream..g., 1 DEMETRI TP DAILY for wound, #50 GM 06/15/19 Sertraline Hcl (ZOLOFT) 100 Mg Tablet, 100 MG PO DAILY for ANTI-DEPRESSANT, TAB 0 Refills 06/15/19 Olanzapine (ZYPREXA) 2.5 Mg Tablet, 2.5 MG PO DAILY for psychotic disorder, TAB 06/15/19 Nystatin (NYSTATIN) 100,000 Unit/1 Ml Oral.susp, 5 ML PO BID for yeast infection, #200 ML 06/15/19 Mirtazapine (MIRTAZAPINE) 15 Mg Tablet, 1 TAB PO QHS for depression, #30 TAB 06/15/19 Magnesium Hydroxide (MILK OF MAGNESIA) 400 Mg/5 Ml Oral.susp, 400 MG PO PRN PRN for CONSTIPATION, MISC 06/15/19 Melatonin (MELATONIN) 3 Mg Tablet, 3 MG PO QHS for insomnia, TAB 06/15/19 Bimatoprost (LUMIGAN) 2.5 Ml Drops, 1 DROP EACHEYE QHS for glaucoma, #2.5 ML 3 Refills 06/15/19 Lisinopril (LISINOPRIL) 10 Mg Tablet, 1 TAB PO HS for HTN, #30 TAB 5 Refills 06/15/19 Hydrocortisone (HYDROCORTISONE) 59 Ml Lotion, 1 DEMETRI TP BID for facial flaking, #60 ML 06/15/19 Guaifenesin/Codeine Phosphate (GUAIFENESIN AC COUGH SYRUP) 473 Ml Liquid, 10 ML PO Q4-6HRS for cough/congestion, #240 ML 06/15/19 Famotidine (FAMOTIDINE) 20 Mg Tablet, 20 MG PO BID for GERD for 30 Days, #60 TAB 06/15/19 Clopidogrel Bisulfate (CLOPIDOGREL) 75 Mg Tablet, 75 MG PO DAILY for TO PREVENT BLOOD CLOTS, #30 TAB 0 Refills 06/15/19 Menthol/Zinc Oxide (CALMOSEPTINE OINTMENT) 71 Gm Oint...g., 71 GM TP BID for barrier cream, MISC 06/15/19 Atorvastatin Calcium (ATORVASTATIN CALCIUM) 80 Mg Tablet, 80 MG PO HS for FOR CHOLESTEROL, #30 TAB 0 Refills 06/15/19 Aspirin (ASPIRIN) 81 Mg Tab.chew, 81 MG PO DAILY for ppx, TAB.CHEW 06/15/19 AUGUSTIN LANIER MD Jun 25, 2019 09:18
--- NOTE | 2019-06-25 09:33 | PDOC ---
PULMONARY PROGRESS NOTES Subjective denies SOB, remains on 2 liters N/C , reports no increase in cough 50 cc in chest tube over 24 hours Vitals Vital Signs Date Time Temp Pulse Resp B/P (MAP) Pulse Ox O2 Delivery O2 Flow Rate FiO2 06/25/19 07:53 92 Nasal Cannula 2.0 06/25/19 07:00 97.4 108 22 122/67 (85) 97.4 ROS: No Nausea, No Chest Pain, No Increase Cough General: Alert, No acute distress HEENT: Other (nc at perrl ) Lungs: Other (left fine crackles, dimin. bilateral bases ) Cardiovascular: S1, S2 Abdomen: Soft, Non-tender Neuro Exam: Alert Extremities: No Edema Skin: Warm, Dry Medications Active Scripts Medications Dose Route/Sig Max Daily Dose Days Date Category Xanax (Alprazolam) 0.25 Mg Tablet 1 Tab PO PRN TID PRN 06/15/19 Reported Vitamin D3 (Cholecalciferol (Vitamin D3)) 1,000 Unit Tablet 2 Tab PO DAILY 06/15/19 Reported Tylenol (Acetaminophen) 325 Mg Tablet 1 Tab PO PRN Q4HRS 06/15/19 Reported Multivitamins (Multivitamin) 1 Each Capsule 1 Each PO DAILY 06/15/19 Reported Silvadene (Silver Sulfadiazine) 20 Gm Cream..g. 1 Claudia TP DAILY 06/15/19 Reported Zoloft (Sertraline Hcl) 100 Mg Tablet 100 Mg PO DAILY 06/15/19 Reported Zyprexa (Olanzapine) 2.5 Mg Tablet 2.5 Mg PO DAILY 06/15/19 Reported Nystatin 100,000 Unit/1 Ml Oral.susp 5 Ml PO BID 06/15/19 Reported Mirtazapine 15 Mg Tablet 1 Tab PO QHS 06/15/19 Reported Milk Of Magnesia (Magnesium Hydroxide) 400 Mg/5 Ml Oral.susp 400 Mg PO PRN PRN 06/15/19 Reported Melatonin 3 Mg Tablet 3 Mg PO QHS 06/15/19 Reported Lumigan (Bimatoprost) 2.5 Ml Drops 1 Drop EACHEYE QHS 06/15/19 Reported Lisinopril 10 Mg Tablet 1 Tab PO HS 06/15/19 Reported Hydrocortisone 59 Ml Lotion 1 Claudia TP BID 06/15/19 Reported Guaifenesin Ac Cough Syrup (Guaifenesin/Codeine Phosphate) 473 Ml Liquid 10 Ml PO Q4-6HRS 06/15/19 Reported Famotidine 20 Mg Tablet 20 Mg PO BID 30 06/15/19 Reported Clopidogrel (Clopidogrel Bisulfate) 75 Mg Tablet 75 Mg PO DAILY 06/15/19 Reported Calmoseptine Ointment (Menthol/Zinc Oxide) 71 Gm Oint...g. 71 Gm TP BID 06/15/19 Reported Atorvastatin Calcium 80 Mg Tablet 80 Mg PO HS 06/15/19 Reported Aspirin 81 Mg Tab.chew 81 Mg PO DAILY 06/15/[address] reviewed, 1. No convincing pulmonary embolism. 2. Large partially loculated left pleural effusion. 3. Left lower lobe collapse with a superimposed 3.3 cm rounded area of hypodensity within the collapsed lung possibly due to abscess or neoplasm. 4. Pulmonary emphysema with bronchiectasis and bronchial wall thickening due to superimposed bronchitis. 5. Small scattered nodular opacities within the bilateral upper lobes, primarily involving the lingula. The largest of these measures 8 mm. This may be infectious or inflammatory. Short-term follow-up is recommended. 6. Small right pleural effusion and right lower lobe atelectasis. 7. Suspected reactive mediastinal, hilar and right retrocrural lymphadenopathy. Attention the time of follow-up is recommended. 8. Enlarged central pulmonary arteries, a finding which can be seen with chronic pulmonary artery hypertension.\ repeat ct 06/19 1. There is now pigtail catheter in the previously demonstrated empyema now with minimal internal gas, overall smaller size of the fluid collection, again component which tracks more anteriorly along the mediastinal border. Adjacent compressive atelectasis of the left lower lobe has decreased. Small right pleural effusion is larger with increased adjacent compressive atelectasis. 2. There is again emphysema and coronary calcification. 3. There is again mediastinal lymphadenopathy for which follow-up advised such as in 3 months. Electronically signed by: Kimo Jimenez MD (06/19/2019 5:21 PM) [facility] cxr 06/21 sig improvement in left effusion, small left PTX vs skin fold CXR: 06/24 No significant interval change compared to prior./ CHF Impression . 1. Acute respiratory failure secondary to pneumonia, multi-loculated left effusion c/w early empyema, underlying COPD with acute exacerbation--improving , cultures Neg 2. Abnormal ct chest with multi-loculated left effusion , suspected early empyema, no malignancy by f/u ct chest 06/19. s/p intra-pleural TPA x 3 doses, resolved loculated effusion on left 3. Chronic obstructive pulmonary disease with acute exacerbation. 4. Leukocytosis.-- improving 5. Coronary artery disease. 6. Dysphagia, status post PEG placement.---ongoing 7. protein Malnutrition 8. CHF on cxr Plan . 1. Titrate the FiO2 to keep O2 saturation at 92%. 2. cont bronchodilator. 3. cont inhaled corticosteroid, 4. CT chest f/u 06/19 reviewed,, sig response from TPA via chest tube.x 3 days. no definite mass. loculated fluid resolved. . No further TPA, will remove chest tube today 5. Elevate head of bed, aspiration precaution. 6. Continue antibiotic per ID, 7. Mild diuresis today likely skill in 24 hrs discussed w rn, BELKIS PINZON MD Jun 25, 2019 09:33
--- NOTE | 2019-06-25 09:54 | PDOC ---
Infectious Disease Note Subjective Subjective Doing well this am. Rested well Tube feeds Denies F/C/SOA/N/V ROS ROS o/w neg Vital Sign Vital Signs Vital Signs Date Time Temp Pulse Resp B/P (MAP) Pulse Ox O2 Delivery O2 Flow Rate FiO2 06/25/19 07:53 92 Nasal Cannula 2.0 06/25/19 07:00 97.4 108 22 122/67 (85) 97.4 Physical Exam PHYSICAL EXAM GENERAL: In bed and looks well, alert, appears comfortable HEENT: Pupils equally round. Oropharynx - min adhered secretions NECK: Supple. LUNGS: CTA Nonlabored. HEART: S1 and S2. Pacemaker. ABDOMEN: Nondistended, soft and nontender with bowel sounds present. PEG tube intact : No Barron. EXTREMITIES: No gross edema or cyanosis. SKIN: Warm to touch. No signs of rash. NEUROLOGIC: Alert and answering questions appropriately. PIV Labs Micro CXR Impression: 1. Decreased loculated left pleural fluid compatible with empyema given history. Left pigtail pleural drain, unchanged. 2. Decreased left lung patchy opacities. Microbiology 06/14/19 Blood Culture - Preliminary, Resulted NO GROWTH AFTER 3 DAY URINE CULTURE RES 1 Final No growth Objective Assessment Large partially loculated left pleural effusion s/p CT placement, 06/16. poor specimen, cell count couldn't be done. cultures pending - neg so far. Chest tubes out -s/p TPA, 06/17 Left lower lobe collapse with abscess vs neoplasm Leukocytosis - better Transaminitis Generalized weakness s/p multiple falls Dysphagia s/p PEG placement in Feb Weight loss COPD CAD Plan Plan of Care Augmentin for 7 days Oral care Maintain aspiration precautions PT/OT D/w ALEJANDRO Douglas MD Jun 25, 2019 09:54
[2019-06-25 11:00] VITALS: BP 106/59
--- NOTE | 2019-06-25 11:21 | NUR ---
SS following up with discharge planning. Discharge orders received for the [facility], ; fax [phone]. SS phoned and faxed discharge orders to the [facility]. Pt will discharge today and return to the [facility] at 1300. The [facility] arranging bed transport for pt. Pt, pt's RN, and pt's daughters notified.
--- NOTE | 2019-06-25 12:14 | NUR ---
Discharge Note: [place] Discharge instructions and discharge home medications reviewed with Other facility and a copy given. All questions have been answered and understanding verbalized. The following instructions and handouts were given: d/c instructions Discontinued lines and drains: Peripheral IV intact. Patient discharged to Assisted Living with Ambulance Personnel via [facility]ret[facility] Outside DNR sent with patient Attempted to call report and Jud RN was unable to take it at the time so number left for Jud to call back for report.
--- NOTE | 2019-06-25 13:33 | CARD ---
MR#: [id number] Date of Study: 06/25/2019 Ordering Physician: AUGUSTIN LANIER, Referring Physician: AUGUSTIN LANIER Tech: Lucretia Armstrong [facility] APPROVED REPORT EXAM: Two-dimensional and M-mode echocardiogram with Doppler and color Doppler. Other Information Quality : Technically LimitedHR: 105bpm Rhythm : TachycardiaTechnically limited study due to body habitus. INDICATION weakness 2D DIMENSIONS RVDd3.0 (2.9-3.5cm)Left Atrium(2D)4.0 (1.6-4.0cm) IVSd1.3 (0.7-1.1cm)Aortic Root(2D)3.3 (2.0-3.7cm) LVDd3.7 (3.9-5.9cm)LVOT Diameter1.9 (1.8-2.4cm) PWd1.4 (0.7-1.1cm)LVDs3.2 (2.5-4.0cm) FS (%) 14.1 %SV18.3 ml Aortic Valve AoV Peak Ag.141.6cm/sAoV VTI21.5cm AO Peak GR.8.0mmHgLVOT VTI 11.93cm AO Mean GR.4mmHgAVA (VTI)1.70cm2 Mitral Valve MV E Mlsvvlma212.0cm/sMV E Peak Gr.76mmHg MV DECEL [id number] A Mcfuvntg83.1cm/s E/A Ratio6.5 Tricuspid Valve TR P. [id number]/sRAP [id number] TR Peak Gr.[id number] LEFT VENTRICLE The left ventricle is normal size. There is mild concentric left ventricular hypertrophy. LV systolic function is mild to moderately decreased with an estimated ejection fraction of 40%. There is hypoki nesis in the mid-inferoseptal wall to apex. Transmitral Doppler flow pattern is abnormal. RIGHT VENTRICLE The right ventricle is normal size. There is normal right ventricular wall thickness. The right ventr icular systolic function is normal. ATRIA The left atrium is mildly dilated. The right atrium size is normal. The interatrial septum is intact with no evidence for an atrial septal defect or patent foramen ovale as noted on 2-D or Doppler imagi ng. AORTIC VALVE The aortic valve is mildly calcified. The aortic valve is trileaflet. Doppler and Color Flow revealed no significant aortic regurgitation. There is no significant aortic valvular stenosis. MITRAL VALVE Mitral annular calcification is mild. There is no evidence of mitral valve prolapse. There is no mitr al valve stenosis. Doppler and Color-flow revealed mild to moderate mitral regurgitation. TRICUSPID VALVE The tricuspid valve is normal in structure and function. Doppler and Color Flow revealed mild tricusp id regurgitation. The PA pressure was estimated at 44 mmHg. There is no tricuspid valve prolapse or v egetation. There is no tricuspid valve stenosis. PULMONIC VALVE The pulmonic valve is not well visualized. GREAT VESSELS The aortic root is normal in size. The ascending aorta is normal in size. The IVC is dilated and dashawn apses >50% with inspiration. PERICARDIAL EFFUSION There is no evidence of significant pericardial effusion. Critical Notification Critical Value: No <Conclusion> The left ventricle is normal size. LV systolic function is mild to moderately decreased with an estimated ejection fraction of 40%. There is hypokinesis in the mid-inferoseptal wall to apex. There is mild concentric left ventricular hypertrophy. There is no significant aortic valvular stenosis. Doppler and Color Flow revealed no significant aortic regurgitation. Doppler and Color-flow revealed mild to moderate mitral regurgitation. Doppler and Color Flow revealed mild tricuspid regurgitation. The PA pressure was estimated at 44 mmHg. Signed by : Miguel Angel Black MD Electronically Approved : 06/25/2019 13:32:22
== END 2019-06-25 13:40 | disposition home or self-care (01) | DRG 871 ==
LOC: ER 17:54 → 4 NORTH 19:51
PROVIDERS: ADMIT Internal Medicine; ATTEND Internal Medicine
PROC: 3E03317 Introduction of Other Thrombolytic into Peripheral Vein, Percutaneous Approach (ICD-10-PCS; principal; 2019-06-17)
PROC: 0W9B30Z Drainage of Left Pleural Cavity with Drainage Device, Percutaneous Approach (ICD-10-PCS; 2019-06-20)
DX: A41.9 Sepsis, unspecified organism (principal); J96.00 Acute respiratory failure, unspecified whether with hypoxia or hypercapnia; J18.9 Pneumonia, unspecified organism; J86.9 Pyothorax without fistula; N39.0 Urinary tract infection, site not specified; J44.1 Chronic obstructive pulmonary disease with (acute) exacerbation; J44.0 Chronic obstructive pulmonary disease with (acute) lower respiratory infection; E46 Unspecified protein-calorie malnutrition; J98.11 Atelectasis; E78.00 Pure hypercholesterolemia, unspecified; E78.5 Hyperlipidemia, unspecified; H40.9 Unspecified glaucoma; I11.0 Hypertensive heart disease with heart failure; I25.10 Atherosclerotic heart disease of native coronary artery without angina pectoris; I48.91 Unspecified atrial fibrillation; I50.9 Heart failure, unspecified; K21.9 Gastro-esophageal reflux disease without esophagitis; M19.031 Primary osteoarthritis, right wrist; R13.10 Dysphagia, unspecified; R29.6 Repeated falls; F41.9 Anxiety disorder, unspecified; Z82.49 Family history of ischemic heart disease and other diseases of the circulatory system; Z86.73 Personal history of transient ischemic attack (TIA), and cerebral infarction without residual deficits; Z87.891 Personal history of nicotine dependence; Z90.49 Acquired absence of other specified parts of digestive tract; Z91.81 History of falling; Z93.1 Gastrostomy status; Z95.0 Presence of cardiac pacemaker; Z87.01 Personal history of pneumonia (recurrent); F32.9 Major depressive disorder, single episode, unspecified; W18.39XA Other fall on same level, initial encounter; Y93.89 Activity, other specified; Y92.89 Other specified places as the place of occurrence of the external cause; Y99.8 Other external cause status; Z68.21 Body mass index [BMI] 21.0-21.9, adult
CPT/HCPCS: 32557; 36415; 70450; 71045; 71250; 71275; 73110; 76705; 80048; 80053; 80076; 80202; 81001; 82945; 83605; 83615; 84157; 84484; 85007; 85025; 85610; 85651; 87040; 87070; 87071; 87075; 87086; 88112; 88305; 89050; 90471; 90686; 93005; 93306; 94640; 94760; 97161; 99152; C1729; C1769; J1940; J2250; J2543; J2997; J3010; J3370; J7030; J7040; J7050; J7620; J7626; Q9967; 92523; 92526; 92610; 97110; 97116; 97530; 97535; 99285-25; G0378